=== PATIENT | female | born 1985 | race Caucasian/White ===

== ENCOUNTER 2022-10-29 09:11 | Emergency (ER) | payer BC, SELFPAY ==
[2022-10-29] VITALS (10 sets, daily range): BP systolic 91–107; BP diastolic 52–70; PULSE 70–81; RESP 20; TEMP 36; O2SAT 97–100; BMI 25.3
--- NOTE | 2022-10-29 09:39 | CRLHL7_ITS ---
For Patients: As a result of the Century Cures Act, medical imaging exams and procedure reports are released immediately into your electronic medical record. You may view this report before your referring provider. If you have questions, please contact your health care provider. INDICATION: Chest pain. TECHNIQUE: Chest 2 views. COMPARISON: None. FINDINGS: Cardiovascular and mediastinum: Heart size and vasculature are normal in caliber and appearance. Lungs and pleural spaces: Lungs are clear. No sign of infiltrate or mass. No sign of pleural effusion. No pneumothorax. Bones and soft tissues: No significant findings. IMPRESSION: No acute or significant findings. Dictated by Tom Youssef MD @ 10/29/2022 10:28:34 AM (Electronically Signed)
[2022-10-29] MEDS: 0.9 % SODIUM CHLORIDE 1000 ml 1,000 ML IV (09:57)
[2022-10-29 10:07] LABS: Basophils Absolute Auto 0.03 K/uL (0.00-0.30); Basophils Percent Auto 0.4 % (0.0-3.0); Eosinophils Absolute Auto 0.13 K/uL (0.00-0.50); Eosinophils Percent Auto 1.7 % (0.0-7.0); Hematocrit 39.9 % (33.0-51.0); Hemoglobin* 13.4 gm/dL (12.0-16.0); Immature Granulocytes Abs Auto 0.01 K/uL (0.00-0.30); Immature Granulocytes Pct Auto 0.1 %; Lymphocytes Percent Auto 15.1 % (20-44); Mean Corpuscular HGB Conc 34 gm/dL (32-36); Mean Corpuscular Hemoglobin 30 pg (26-34); Mean Corpuscular Volume 90 fL (80-100); Monocytes Percent Auto 5.6 % (0.0-11.0); Neutrophils Percent Auto 77.1 % (42.0-72.0); Platelet Count* 223 K/uL (140-440); RDW Coefficient of Variation % 12.3 % (11.5-15.5); Red Blood Count 4.45 m/uL (4.00-5.20); White Blood Count* 7.46 K/uL (4.50-11.00)
[2022-10-29 10:12] LABS: Slide Review Reflex No
--- NOTE | 2022-10-29 10:18 | ED.ARRPALP ---
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 She has had this for about a week on off, seems to occur randomly but worse in the last 48 hours. No chest pain, no shortness of breath, no history of recent URI type symptoms sore throat coughing wheezing fevers chills in the last 4-6 weeks. Denies any rashes associated with this the pain is not worse when she sits upper lays back. She has never had this before, would becoming rather unbearable while she works. She has no past history of any cardiac disease personally there is no family history of cardiac disease she is not on control pills she is a nonsmoker, no use of drugs, or alcohol. She is undergoing a divorce and this is somewhat stressful she says. She is wondering if this is anxiety. complaint: skipped beats, palpitations and irregular heart beat Onset (ago): week(s) Duration: intermittent Severity: moderate Context: occurred during rest and occurred during exertion Associated symptoms: denies other symptoms Related Data Previous Rx's Medication Instructions Recorded propranolol 10 mg tablet 10 mg PO BID PRN #60 tabs 10/29/22 Allergies Allergy/AdvReac Type Severity Reaction Status Date / Time Penicillins Allergy Verified 10/29/22 09:19 Sulfa (Sulfonamide Allergy Verified 10/29/22 09:19 Antibiotics) Review of Systems Status of ROS: Reports: 10 or more systems reviewed and unremarkable except as noted in History and below PFSH PFS Social History Smoking Status: Never smoker Do you use any of these nicotine containing products: None Second hand tobacco smoke exposure: No How often do you have a drink containing alcohol: never How often do you have six or more drinks on one occasion: Never AUDIT-C Alcohol total score: 0 Non-prescribed substance use: denies use service: No Exam Narrative: Exam Narrative: Patient is speaking normally, no problem with slurring words, oriented x3. Head eyes ears nose and throat exam show equal pupils, no scleral icterus, extraocular muscles are normal, no facial droop, speech is normal, trachea normal and midline. Thyroid normal midline palpable not enlarged. Chest shows symmetrical rise bilaterally, normal auscultation with no wheezes, no increased work of breathing, no overt bruising or lesions seen, no tenderness is noted on auscultation. Heart sounds normal with no S3-S4 no murmurs clicks or gallops. Abdomen shows no obvious masses or hepatosplenomegaly, no organomegaly, bowel sounds are normal in all quadrants. No tenderness is noted also in all quadrants. Upper and lower extremities show normal power, normal range of motion, pulses are normal, sensations normal, fine motor movements are normal, pelvis is stable to rocking. Cervical spine shows normal range of motion, and palpably not tender. Thoracic spine shows normal range of motion, and palpably not tender, lumbar spine shows no tenderness to palpation percussion and is otherwise normal range of motion. Skin shows no rashes, petechiae or eccymosis. When I was watching her in the room, her monitor shows that she is having PACs. Const: Vital Signs, click to edit/add: Vital Signs - 24 hr 10/29/22 09:19 10/29/22 11:52 10/29/22 10:11 Temperature 96.8 F L Pulse Rate 73 Pulse Rate [Pulse Oximeter] 71 Respiratory Rate 20 Blood Pressure Blood Pressure [Ri ght Upper Arm] 107/70 Pulse Oximetry 100 97 100 Oxygen Delivery [facility] Room Air 10/29/22 10:38 10/29/22 11:00 10/29/22 11:02 Temperature Pulse Rate 70 70 78 Pulse Rate [Pulse Oximeter] Respiratory Rate Blood Pressure 104/65 Blood Pressure [Ri ght Upper Arm] Pulse Oximetry 100 100 100 Oxygen Delivery [facility] 10/29/22 11:30 10/29/22 11:32 10/29/22 11:33 Temperature Pulse Rate 80 81 79 Pulse Rate [Pulse Oximeter] Respiratory Rate Blood Pressure 98/63 Blood Pressure [Ri ght Upper Arm] Pulse Oximetry 100 100 100 Oxygen Delivery [facility] 10/29/22 12:07 Temperature Pulse Rate Pulse Rate [Pulse Oximeter] Respiratory Rate Blood Pressure 91/52 L Blood Pressure [Ri ght Upper Arm] Pulse Oximetry Oxygen Delivery Me thod Documenting provider has reviewed patient's vital signs: yes Course Course Hospital Course: I discussed with the patient, there is no acute finding seen on her blood test, she has remained stable here, I do believe she is having PACs, we could try little bit a low-dose beta-ajime, to see if would help her, she does have a lowish blood pressure, and warned her about the possible effects of syncope with this, although it is more heart rate related. I would recommend follow-up with primary care, there was no abnormalities seen on her point of care ultrasound also. Vital Signs Vital signs: Initial Vital Signs Temperature 96.8 F L 10/29/22 09:19 Temperature Source Temporal Artery Scan 10/29/22 09:19 Pulse Rate 71 10/29/22 09:19 Pulse Rhythm 10/29/22 09:19 Respiratory Rate 20 10/29/22 09:19 Blood Pressure 107/70 10/29/22 09:19 Blood Pressure Mean 82 10/29/22 09:19 Blood Pressure Position Supine 10/29/22 09:19 Pulse Oximetry 100 10/29/22 09:19 Oxygen Delivery Method 10/29/22 09:19 Vital Signs Temperature 96.8 F L 10/29/22 09:19 Pulse Rate 71 10/29/22 09:19 Respiratory Rate 20 10/29/22 09:19 Blood Pressure 107/70 10/29/22 09:19 Pulse Oximetry 100 10/29/22 09:19 Oxygen Delivery Method 10/29/22 09:19 Temperature 96.8 F L 10/29/22 09:19 Pulse Rate 79 10/29/22 11:33 Respiratory Rate 20 10/29/22 09:19 Blood Pressure 91/52 L 10/29/22 12:07 Pulse Oximetry 97 10/29/22 11:52 Oxygen Delivery Method 10/29/22 09:19 MDM - Arrhythmia/Palpitations MDM Narrative Medical decision making narrative: Differential diagnosis includes but is not limited to psychosocial stress, thyroid abnormalities, CHF, SVT, atrial fibrillation, ventricular tachycardia and ventricular fibrillation. This includes the life-threatening complications of heart failure, V-tach, and VFib Medical Records Attestation: I reviewed the patient's medical records. Lab Data Attestation: I reviewed the patient's lab results. Labs: Lab Results 10/29/22 10/29/22 10/29/22 Range/Units 09:50 09:50 09:50 WBC 7.46 (4.50-11.00) K/uL RBC 4.45 (4.00-5.20) m/uL Hgb 13.4 (12.0-16.0) gm/dL Hct 39.9 (33.0-51.0) % MCV 90 (80-100) fL MCH 30 (26-34) pg MCHC 34 (32-36) gm/dL RDW Coeff of Xochitl 12.3 (11.5-15.5) % Plt Count 223 (140-440) K/uL Neut % (Auto) 77.1 H (42.0-72.0) % Lymph % (Auto) 15.1 L (20-44) % [place] % (Auto) 5.6 (0.0-11.0) % Eos % (Auto) 1.7 (0.0-7.0) % Baso % (Auto) 0.4 (0.0-3.0) % Neut # (Auto) 5.80 (1.7-7.0) K/uL Lymph # (Auto) 1.10 (0.90-2.90) K/uL [place] # (Auto) 0.40 (0.00-0.90) K/UL Eos # (Auto) 0.13 (0.00-0.50) K/uL Baso # (Auto) 0.03 (0.00-0.30) K/uL D-Dimer Quant (PE/DVT) < 0.27 (0.00-0.50) ug/ml Sodium 138 (135-149) mmol/L Potassium 3.9 (3.6-5.1) mmol/L Chloride 107 (96-114) mmol/L Carbon Dioxide 25 (20-32) mmol/L BUN 8 (5-24) mg/dL Creatinine 0.7 (0.5-1.5) mg/dL Estimated Creat Clear 99.01 Estimated GFR 114 ml/min Glucose 84 (60-115) mg/dL Calcium 9.1 (8.4-10.6) mg/dL C-Reactive Protein 0.6 (0.5-1.0) mg/dL NT-Pro-B Natriuret Pep pg/mL TSH (0.270-4.20) uIU/mL HCG, Qual (Negative) Urine Opiates Screen (Negative) Ur Oxycodone Screen (Negative) Urine Methadone Screen (Negative) Ur Propoxyphene Screen (Negative) Ur Barbiturates Screen (Negative) U Tricyclic Antidepress (Negative) Ur Phencyclidine Scrn (Negative) Ur Amphetamines Screen (Negative) U Methamphetamines Scrn (Negative) U Benzodiazepines Scrn (Negative) Urine Cocaine Screen (Negative) U Marijuana (THC) Screen (Negative) Ur Drug Screen Comment SARS-CoV-2 (PCR) (Negative) Influenza Type A (PCR) (Negative) Influenza Type B (PCR) (Negative) RSV (PCR) (Negative) POC Troponin I (0.01-0.04) ng/ml 10/29/22 10/29/22 10/29/22 Range/Units 09:50 09:50 09:50 WBC (4.50-11.00) K/uL RBC (4.00-5.20) m/uL Hgb (12.0-16.0) gm/dL Hct (33.0-51.0) % MCV (80-100) fL MCH (26-34) pg MCHC (32-36) gm/dL RDW Coeff of Xochitl (11.5-15.5) % Plt Count (140-440) K/uL Neut % (Auto) (42.0-72.0) % Lymph % (Auto) (20-44) % [place] % (Auto) (0.0-11.0) % Eos % (Auto) (0.0-7.0) % Baso % (Auto) (0.0-3.0) % Neut # (Auto) (1.7-7.0) K/uL Lymph # (Auto) (0.90-2.90) K/uL [place] # (Auto) (0.00-0.90) K/UL Eos # (Auto) (0.00-0.50) K/uL Baso # (Auto) (0.00-0.30) K/uL D-Dimer Quant (PE/DVT) (0.00-0.50) ug/ml Sodium (135-149) mmol/L Potassium (3.6-5.1) mmol/L Chloride (96-114) mmol/L Carbon Dioxide (20-32) mmol/L BUN (5-24) mg/dL Creatinine (0.5-1.5) mg/dL Estimated Creat Clear Estimated GFR ml/min Glucose (60-115) mg/dL Calcium (8.4-10.6) mg/dL C-Reactive Protein (0.5-1.0) mg/dL NT-Pro-B Natriuret Pep 21 pg/mL TSH (0.270-4.20) uIU/mL HCG, Qual Negative (Negative) Urine Opiates Screen (Negative) Ur Oxycodone Screen (Negative) Urine Methadone Screen (Negative) Ur Propoxyphene Screen (Negative) Ur Barbiturates Screen (Negative) U Tricyclic Antidepress (Negative) Ur Phencyclidine Scrn (Negative) Ur Amphetamines Screen (Negative) U Methamphetamines Scrn (Negative) U Benzodiazepines Scrn (Negative) Urine Cocaine Screen (Negative) U Marijuana (THC) Screen (Negative) Ur Drug Screen Comment SARS-CoV-2 (PCR) Negative SARS-CoV-2 (Negative) Influenza Type A (PCR) Negative PCR FLU A (Negative) Influenza Type B (PCR) Negative PCR FLU B (Negative) RSV (PCR) Negative PCR RSV (Negative) POC Troponin I (0.01-0.04) ng/ml 10/29/22 10/29/22 10/29/22 Range/Units 09:50 09:50 10:41 WBC (4.50-11.00) K/uL RBC (4.00-5.20) m/uL Hgb (12.0-16.0) gm/dL Hct (33.0-51.0) % MCV (80-100) fL MCH (26-34) pg MCHC (32-36) gm/dL RDW Coeff of Xochitl (11.5-15.5) % Plt Count (140-440) K/uL Neut % (Auto) (42.0-72.0) % Lymph % (Auto) (20-44) % [place] % (Auto) (0.0-11.0) % Eos % (Auto) (0.0-7.0) % Baso % (Auto) (0.0-3.0) % Neut # (Auto) (1.7-7.0) K/uL Lymph # (Auto) (0.90-2.90) K/uL [place] # (Auto) (0.00-0.90) K/UL Eos # (Auto) (0.00-0.50) K/uL Baso # (Auto) (0.00-0.30) K/uL D-Dimer Quant (PE/DVT) (0.00-0.50) ug/ml Sodium (135-149) mmol/L Potassium (3.6-5.1) mmol/L Chloride (96-114) mmol/L Carbon Dioxide (20-32) mmol/L BUN (5-24) mg/dL Creatinine (0.5-1.5) mg/dL Estimated Creat Clear Estimated GFR ml/min Glucose (60-115) mg/dL Calcium (8.4-10.6) mg/dL C-Reactive Protein (0.5-1.0) mg/dL NT-Pro-B Natriuret Pep pg/mL TSH 0.814 (0.270-4.20) uIU/mL HCG, Qual (Negative) Urine Opiates Screen Negative (Negative) Ur Oxycodone Screen Negative (Negative) Urine Methadone Screen Negative (Negative) Ur Propoxyphene Screen Negative (Negative) Ur Barbiturates Screen Negative (Negative) U Tricyclic Antidepress Negative (Negative) Ur Phencyclidine Scrn Negative (Negative) Ur Amphetamines Screen Negative (Negative) U Methamphetamines Scrn Negative (Negative) U Benzodiazepines Scrn Negative (Negative) Urine Cocaine Screen Negative (Negative) U Marijuana (THC) Screen Negative (Negative) Ur Drug Screen Comment See Note SARS-CoV-2 (PCR) (Negative) Influenza Type A (PCR) (Negative) Influenza Type B (PCR) (Negative) RSV (PCR) (Negative) POC Troponin I 0.00 L (0.01-0.04) ng/ml Imaging Data Chest x-ray: Attestation: I have reviewed the pertinent imaging results. My impression: Chest x-ray shows no acute findings Radiologist's impression: atient: HORACIO DUNBAR Facility:?[facility] Patient ID:?[id number] Site Patient ID:?[id number]. Site :?1985 Study:?XRay Chest 2V-10/29/2022 10:20:26 AM Ordering Physician:Yoel Jara Final Report: INDICATION: Chest pain. TECHNIQUE: Chest 2 views. COMPARISON: None. FINDINGS: Cardiovascular and mediastinum: Heart size and vasculature are normal in caliber and appearance. Lungs and pleural spaces: Lungs are clear. No sign of infiltrate or mass. No sign of pleural effusion. No pneumothorax. Bones and soft tissues: No significant findings. IMPRESSION: No acute or significant findings. Dictated by Tom Youssef MD @ 10/29/2022 10:28:34 AM (Electronic Signature) ECG Data Attestation: I personally reviewed and interpreted this ECG as follows: ECG interpretation date: 10/29/22 Interpretation: Normal sinus rhythm, normal EKG note, no acute ST wave changes, there is occasional PACs noted. This is only on the rhythm strip. Discharge Plan Discharge Clinical Impression: Palpitations, Atrial premature beats Patient Disposition: Home, Self-Care Condition: Stable Instructions: Heart Palpitations (ED), Premature Atrial Contractions (ED) Additional Instructions: Home rest lots of fluids, we will try the propranolol you can take this twice daily, as needed, it will slow down her heart rate slightly, and also know that if you feeling like you are going to pass out I would stop the medication as this can be also side effect. The other side effect is bronchospasm or causing wheezing, II recommend follow-up with primary care, to discuss this. Prescriptions: New propranolol 10 mg tablet 10 mg PO BID PRNQty: 60 2RF Follow Up/Referrals: Provider,Not a Local [Primary Care Provider] - Stand Alone Forms: [employer] Info Instructions Procedures Ultrasound Cardiac exam #1: Anatomical areas examined: subxiphoid, parasternal long, parasternal short and apical 4 chamber Indications: chest pain Exam type: limited transthoracic echocardiogram Impression: negative exam
[2022-10-29 10:39] LABS: Chloride* 107 mmol/L (96-114); Potassium* 3.9 mmol/L (3.6-5.1); Sodium* 138 mmol/L (135-149)
[2022-10-29 10:41] LABS: Creatinine* 0.7 mg/dL (0.5-1.5); Est. Creatinine Clearance* 99.01; Estimated Glomerular Filt Rate 114 ml/min
[2022-10-29 10:42] LABS: Blood Urea Nitrogen* 8 mg/dL (5-24); Carbon Dioxide* 25 mmol/L (20-32)
[2022-10-29 10:43] LABS: Calcium* 9.1 mg/dL (8.4-10.6); Glucose* 84 mg/dL (60-115)
[2022-10-29 10:45] LABS: C Reactive Protein* 0.6 mg/dL (0.5-1.0)
[2022-10-29 10:46] LABS: PCR FLU A Negative PCR FLU A (Negative); PCR FLU B Negative PCR FLU B (Negative); PCR RSV Negative PCR RSV (Negative)
[2022-10-29 10:57] LABS: Amphetamine Screen Urine Negative (Negative); Barbiturate Screen Urine Negative (Negative); Benzodiazepines Screen Urine Negative (Negative); Cannabinoid Screen Urine Negative (Negative); Cocaine Screen Urine Negative (Negative); Methadone Screen Urine Negative (Negative); Methamphetamines Screen Urine Negative (Negative); Opiate Screen Urine Negative (Negative); Oxycodone Screen Urine Negative (Negative); Phencyclidine Screen Urine Negative (Negative); Tricyclic Antidepressant Urine Negative (Negative)
[2022-10-29 10:58] LABS: HCG Qualitative* Negative (Negative)
[2022-10-29 11:09] LABS: SARS PCR* Negative SARS-CoV-2 (Negative)
[2022-10-29 11:30] LABS: D Dimer Quantitative* < 0.27 ug/ml (0.00-0.50)
[2022-10-29 11:33] LABS: NT Pro B Type NatriureticPept* 21 pg/mL
[2022-10-29 11:40] LABS: Thyroid Stimulating Hormone* 0.814 uIU/mL (0.270-4.20)
[2022-10-30 07:54] LABS: Appearance Urine Clear (Clear); Bilirubin Urine Negative (Negative); Blood Urine Trace-intact (Negative); Color Urine Yellow (Yellow); Glucose Urine Negative (Negative); Ketones Urine Negative (Negative); Leukocyte Esterase Urine Negative (Negative); Nitrite Urine Negative (Negative); Protein Urine Negative (Negative); Specific Gravity Urine 1.025 (1.000-1.030); Urobilinogen Urine 0.2 (0.2-1.0)
[2022-10-30 09:16] LABS: Bacteria Urine Few; RBC Urine 0-2 (0-2); Squamous Epithelial Cell Urine Few (None-Few); WBC Urine 0-2 (0-5)
[2022-10-30 09:17] LABS: Amorphous Sediment Urine Few
== END 2022-10-29 12:15 | disposition home or self-care (01) ==
PROVIDERS: Emergency Provider Family Medicine
DX: I49.1 Atrial premature depolarization (principal)
CPT/HCPCS: 36415; 71046; 80048; 80306; 81001; 83880; 84443; 84484; 84703; 85025; 85379; 86140; 87086; 87502; 87634; 87635; 93005; 93308; 94761; 99284; 99285; J7030

== ENCOUNTER 2024-07-14 01:06 | Outpatient (CLI) | payer BC, SELFPAY ==
--- OUTSIDE RECORDS SUMMARY | 2024-07-17 07:54 | XMS_ITS | Referral Summary ---
Author Organization [place] Address [address] [place] [address] Care Team Providers Care Prescription Clerk Name Role Phone Jess Garcias PA-C Primary Care Provider [phone] Lori Osorio NP Unavailable [phone] Jess Garcias PA-C Unavailable [phone] [facility] Unavailable [phone] 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 Gender Identity Female 01/03/2022 12:13 PM CDT [...] HEPATITIS C ANTIBODY Routine 10/25/2022 8:02 PM SCHOOL CURRICULUM DEVELOPER Screen for STD (sexually transmitted disease) COMPREHENSIVE METABOLIC PANEL Routine 10/29/2020 3:11 PM SCHOOL CURRICULUM DEVELOPER Arthralgia, unspecified joint Positive DELFINA (antinuclear antibody) [...] 05/07/2024 11:53 AM CDT Angel Rushing APRN DAY CARE HOME PROVIDER LAB - BLOOD ORDERABLES Taylor l Result [facility] 500 [facility] [address] Building, [address] [address], [place] * PAP Smear - HIM Patient [...] 01/14/2023 4:10 PM CDT Angel Rushing APRN DAY CARE HOME PROVIDER LAB - BLOOD ORDERABLES Taylor l Result [facility] SPECIALTY CORE/PROT/ENDO UM Specialty Core/Prot/Endo 500 [facility] [address] Building, Room [address] [address] [phone] * Hepatitis C antibody (10/25/2022 8:02 PM SCHOOL CURRICULUM DEVELOPER) Hepatitis C Antibody Nonreactive Nonreactive 10/26/2022 6:27 PM SCHOOL CURRICULUM DEVELOPER UM SPECIALTY CORE/PROT/EN DO Blood BLOOD SPECIMEN / Unknown Venipuncture / Unknown 10/25/2022 8:02 PM SCHOOL CURRICULUM DEVELOPER 10/25/2022 8:02 PM SCHOOL CURRICULUM DEVELOPER Narrative SPECIALTY CORE/PROT/ENDO - 10/26/2022 6:27 PM SCHOOL CURRICULUM DEVELOPER Assay performance characteristics have not been established for newborns, infants, and children. us Lilly Pak MD LAB - BLOOD ORDERABLES Final Re sult UM SPECIALTY CORE/PROT/ENDO Specialty Core/Prot/Endo 500 [facility] J Building, Room [address] [address], [facility] [phone] * (ABNORMAL) Comprehensive metabolic panel (BMP + Alb, Alk Phos, ALT, AST, Total. Bili, TP) (10/29/2020 3:11 PM SCHOOL CURRICULUM DEVELOPER) Sodium 141 133 - 144 mmol/L 10/30/2020 12:39 PM [facility] Potassium 3.4 3.4 - 5.3 mmol/L 10/30/2020 12:39 PM [facility] Chloride 110(H) 94 - 109 mmol/L 10/30/2020 12:39 PM [facility] Carbon Dioxide 26 20 - 32 mmol/L 10/30/2020 1:01 PM [facility] Anion Gap 5 3 - 14 mmol/L 10/30/2020 1:01 PM [facility] Glucose 81 70 - 99 mg/dL 10/30/2020 1:01 PM [facility] Comment:Non Fasting Urea Nitrogen 8 7 - 30 mg/dL 10/30/2020 1:01 PM [facility] Creatinine 0.70 0.52 - 1.04 mg/dL 10/30/2020 1:01 PM [facility] GFR Estimate >90 >60 mL/min/{1 .73_m2} 10/30/2020 1:01 PM [facility] Comment: Non GFR Calc Starting 08/29/2018, serum creatinine based estimated GFR (eGFR) will be calculated using the Chronic Kidney Disease Epidemiology Collaboration (CKD-EPI) equation. GFR Estimate If Black >90 >60 mL/min/{1 .73_m2} 10/30/2020 1:01 PM SCHOOL CURRICULUM DEVELOPER [facility] Comment: GFR Calc Starting 08/29/2018, serum creatinine based estimated GFR (eGFR) will be calculated using the Chronic Kidney Disease Epidemiology Collaboration (CKD-EPI) equation. Calcium 9.0 8.5 - 10.1 mg/dL 10/30/2020 1:01 PM SCHOOL CURRICULUM DEVELOPER [facility] Bilirubin Total 0.4 0.2 - 1.3 mg/dL 10/30/2020 1:05 PM SCHOOL CURRICULUM DEVELOPER [facility] Albumin 3.9 3.4 - 5.0 g/dL 10/30/2020 1:05 PM [facility] Protein Total 7.3 6.8 - 8.8 g/dL 10/30/2020 1:05 PM SCHOOL CURRICULUM DEVELOPER [facility] Alkaline Phosphatase 67 40 - 150 U/L 10/30/2020 1:05 PM SCHOOL CURRICULUM DEVELOPER [facility] ALT 14 0 - 50 U/L 10/30/2020 1:05 PM SCHOOL CURRICULUM DEVELOPER [facility] AST 7 0 - 45 U/L 10/30/2020 1:05 PM SCHOOL CURRICULUM DEVELOPER [facility] Blood specimen (specimen) 10/29/2020 3:11 PM SCHOOL CURRICULUM DEVELOPER 10/29/2020 3:12 PM SCHOOL CURRICULUM DEVELOPER us Ana Cristina Duldey MD LAB - BLOOD ORDERABLES Taylor l Result [facility] [address] [place] [address] * HPV High Risk Types DNA Cervical (12/28/2017 2:23 PM CDT) HPV Source SurePath 12/28/2017 2:25 PM CDT [facility] HPV 16 DNA Negative NEG^Nega tive 01/04/2018 7:44 AM CDT [facility] HPV 18 DNA Negative NEG^Nega tive 01/04/2018 7:44 AM CDT [facility] Other HR HPV Negative NEG^Nega tive 01/04/2018 7:44 AM CDT [facility] Final Diagnosis This patient's sample is negative for HPV DNA. 01/04/2018 7:44 AM CDT [facility] Comment: This test was developed and its performance characteristics determined by the [facility], Molecular Diagnostics Laboratory. It has not been [...] Description Cervical Cells 01/02/2018 9:34 AM CDT [facility] Comment:[id number] Cervical Cells 12/28/2017 2: 23 PM CDT 12/28/2017 2:27 PM CDT us Jess Garcias PA-C LAB - BLOOD ORDERABLES Fin al Result [facility] [address] [place] [address] [facility] [id number] [place] [address] from Last 3 Months or Most Recently Relevant to Health Maintenance Insurance [place] * Guarantor: Rosa Adamson Account Type Relation to Patient Date of Phone Billing Address Medication Therapy Self 1985 [address] [place] [address] Care Teams Prescription Clerk Relationship Specialty Start Date End Date Jess Garcias PA-C [address] [place] [address] PCP - General Physician Quality Consultant 12/19/13 Lori Osorio NP [facility] [address] [place] [address] Nurse Practitioner Nurse Practitioner Psych/Mental Health 04/11/17 Jess Garcias PA-C [address] [place] [address] Assigned PCP 01/18/21 [facility] [address] [place] [address] Pharmacist Pharmacist 08/13/22 [facility] [address] [place] [address] Assigned MTM Pharmacist 09/17/23 Britany Sanders, VEL [address] [place] [address]/ [address] [place] [address] Assigned Behavioral Health Provider 01/03/24 Milton Dawkins APRN DAY CARE HOME PROVIDER [address] [place] [address] Nurse Practitioner Otolaryngology 05/08/24
--- OUTSIDE RECORDS SUMMARY | 2024-07-17 07:54 | XMS_ITS | Encounter Summary ---
Author Organization [place] Address [address] [place] [address] Care Team Providers Care Home And School Visitor Name Role Phone Jess Garcias PA-C Primary Care Provider + [phone] JoLori chavez NP Unavailable [phone] Jess Garcias PA-C Unavailable [phone] Ronel Escoto [facility] Unavailable [phone] Ronel Escoto [facility] Unavailable [phone] [facility] Unavailable [phone] Reason for Referral * Consultation (Urgent: 3-5 Days) - Pending Review Specialty Diagnoses / Procedures Referred By Kylee leung Referred To Contact Otolaryngology Diagnoses Dysphagia, unspecified type Angel Rushing APRN INTEGRATED CIRCUIT IC LAYOUT DESIGNER [address] [place] [address] Phone: tel: fax: Referral ID Status Reason Start Date Expiration Date V isits Requested Visits Authorized [id number] Pending Review 05/07/2024 05/07/2025 1 1 Question Answer Reason for Referral: Voice/Throat Scheduling Instructions: [facility] will call you to coordinate your care as prescribed by the provider. If you don? t hear from a construction sales representative within 2 business days, please call [phone]. Additional Information: dysphagia sensation Comments Please be aware that coverage of these services is subject to the terms and limitations of your health insurance plan. Call member services at your health plan with any benefit or coverage questions. [facility] will call you to coordinate your care as prescribed by the provider. If you don? t hear from a construction sales representative within 2 business days, please call [phone]. [facility] will call you to coordinate your care as prescribed by the provider. If you don? t hear from a construction sales representative within 2 business days, please call [phone]. 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 Plan: Adult ENT Personal Lines Underwriter Referral (Z80.8) Family history of thyroid cancer [...] following services have beencompleted -Cervical Cancer Screening: web communications specialist 2024-01-11, this information has been sent [...] Associated Diagnoses Orde r Schedule Adult ENT Personal Lines Underwriter Referral Referral Urgent: 3-5 Days Dysphagia, unspecified [...] BLOOD ORDERABLES Taylor moya Result [facility] 500 [facility], Room [address] [phone] documented in this encounter Visit Diagnoses Diagnosis Dysphagia, unspecified type- Primary Family history of thyroid cancer Family history of other specified malignant neoplasm documented in this encounter Additional Health Concerns Assessment Noted Time PHQ-9 Depression Total Score: 7 05/07/20 11:14 AM CDT documented as of this encounter Care Teams Home And School Visitor Relationship Specialty Start Date End Date Jess Garcias PA-C [address] [place], [place] [id number] PCP - General Physician Surgical Forceps Fabricator 12/19/13 Lori Osorio NP [address] [address] Nurse Practitioner Nurse Practitioner Psych/Mental Health 04/11/17 Jess Garcias PA-C [address] [place] [address] Assigned PCP 01/18/21 Ronel Escoto [facility] [address] [place], [place] [address] Pharmacist Pharmacist 08/13/22 Ronel Escoto [facility] [place], [place] [address] Assigned MTM Pharmacist 09/17/23 Britany Sanders, BROADCAST NEWS PRODUCER [facility] [address]/ [address] [place] [address] Assigned Behavioral Health Provider 01/03/24 documented as of this encounter
--- OUTSIDE RECORDS SUMMARY | 2024-07-17 07:54 | XMS_ITS | Encounter Summary ---
Author Organization [place] Address [address] [place] [address] Care Team Providers Care Extract Operator Name Role Phone Jess Garcias PA-C Primary Care Provider + [phone] JoLori chavez NP Unavailable [phone] Jess Garcias PA-C Unavailable [phone] Ronel Escoto [facility] Unavailable [phone] Ronel Escoto [facility] Unavailable [phone] 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 Gender Identity Female 01/03/2022 12:13 PM CDT Sexual Orientation Straight 12/03/2022 2: 48 PM CDT documented as of this encounter Plan of Treatment Not on file documented as of this encounter Visit Diagnoses Not on filedocumented in this encounter Additional Health Concerns Assessment Noted Time PHQ-9 Depression Total Score: 7 05/07/20 11:14 AM CDT documented as of this encounter Care Teams Extract Operator Relationship Specialty Start Date End Date Jses Garcias PA-C [address] [place] [address] PCP - General Physician Seafood Specialist 12/19/13 Lori Osorio NP [address] [address] Nurse Practitioner Nurse Practitioner Psych/Mental Health 04/11/17 Jess Garcias PA-C [address] [place] [address] Assigned PCP 01/18/21 Ronel Escoto [facility] [address] [place] [address] Pharmacist Pharmacist 08/13/22 Ronel Escoto [facility] [address] [place] [address] Assigned MTM Pharmacist 09/17/23 Britany Sanders LICSW [address] [place] [address]/ [address] [place] [address] Assigned Behavioral Health Provider 01/03/24 documented as of this encounter
--- OUTSIDE RECORDS SUMMARY | 2024-07-17 07:54 | XMS_ITS | Encounter Summary ---
Author Organization [place] Address [address] [place] [address] Care Team Providers Care Claim Taker Name Role Phone Jess Garcias PA-C Primary Care Provider + [phone] JoLori chavez NP Unavailable [phone] Jess Garcias PA-C Unavailable [phone] Ronel Escoto [facility] Unavailable [phone] Ronel Escoto [facility] Unavailable [phone] Britany Sanders [facility] Unavailable [phone] Encounter Details Date Type Department Care Team (Late st Contact Info) Description 04/12/2024 Telephone [facility] Services - Behavioral Service Line [address] [place] [address] Sandra Elder Social History Tobacco Use [...] PM CDT 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 [facility] for patient regarding follow up, left [facility] [...] documented as of this encounter Care Teams Claim Taker Relationship Specialty Start Date End Date Jess Garcias PA-C [address] [place] [address] PCP - General Physician Fiction Writer 12/19/13 Lori Osorio NP [address] [address] Nurse Practitioner Nurse Practitioner Psych/Mental Health 04/11/17 Jess Garcias PA-C [address] [place] [address] Assigned PCP 01/18/21 Ronel Escoto [facility] [address] [place] [address] Pharmacist Pharmacist 08/13/22 Ronel Escoto [facility] [address] [place] [address] Assigned MTM Pharmacist 09/17/23 Britany Sanders, VEL [address] [place] [address]/ [address] [place] [address] Assigned Behavioral Health Provider 01/03/24 documented as of this encounter
--- OUTSIDE RECORDS SUMMARY | 2024-07-17 07:54 | XMS_ITS | Clinical Summary ---
Author Organization [place] Address [address] [place] [address] Care Team Providers Care Re Dye Hand Name Role Phone Jess Garcias PA-C Primary Care Provider [phone] JoLori chavez NP Unavailable [phone] Jess Garcias PA-C Unavailable [phone] Ronel Escoto [facility] Unavailable Ronel Escoto [facility] Unavailable [phone] TommyBritany poole ADA ACCOMMODATION CONSULTANT Unavailable [phone] Milton Dawkins APRN CLOUD PHYSICIST Unavailable Allergies Active Allergy Reactions Criticality Noted [...] Description 05/07/2024 11:30 AM CDT Office Visit [address] [address] Angel Rushing APRN CLOUD PHYSICIST Dysphagia, unspecified type (Primary Dx); Family history [...] PM CDT Legal Sex Female 10:10 AM PRICING ACTUARY Gender Identity Female 01/03/2022 12:13 PM CDT [...] HEPATITIS C ANTIBODY Routine 10/25/2022 8:02 PM PRICING ACTUARY Screen for STD (sexually transmitted disease) COMPREHENSIVE METABOLIC PANEL Routine 10/29/2020 3:11 PM PRICING ACTUARY Arthralgia, unspecified joint Positive DELFINA (antinuclear antibody) [...] 05/07/2024 11:53 AM CDT Angel Rushing APRN CLOUD PHYSICIST LAB - BLOOD ORDERABLES Taylor l Result [facility] [place] [facility] 500 [facility] J [facility], Room [address] [place] [address] * PAP Smear - HIM Patient [...] 01/14/2023 4:10 PM CDT Angel Rushing APRN CLOUD PHYSICIST LAB - BLOOD ORDERABLES Taylor l Result UM SPECIALTY CORE/PROT/ENDO UM Specialty Core/Prot/Endo 500 [facility] [address] Building, Room 3-[address] [phone] * Hepatitis C antibody (10/25/2022 8:02 PM PRICING ACTUARY) Hepatitis C Antibody Nonreactive Nonreactive 10/26/2022 6:27 PM PRICING ACTUARY SPECIALTY CORE/PROT/EN DO Blood BLOOD SPECIMEN / Unknown Venipuncture / Unknown 10/25/2022 8:02 PM PRICING ACTUARY 10/25/2022 8:02 PM PRICING ACTUARY Narrative SPECIALTY CORE/PROT/ENDO - 10/26/2022 6:27 PM PRICING ACTUARY Assay performance characteristics have not been established for newborns, infants, and children. us Lilly Pak MD LAB - BLOOD ORDERABLES Final Re sult SPECIALTY CORE/PROT/ENDO Specialty Core/Prot/Endo 500 [facility], Room [address] [phone] * (ABNORMAL) Comprehensive metabolic panel (BMP + Alb, Alk Phos, ALT, AST, Total. Bili, TP) (10/29/2020 3:11 PM PRICING ACTUARY) Pathologist [facility] Sodium 141 133 - 144 mmol/L 10/30/2020 12:39 PM [facility] Potassium 3.4 3.4 - 5.3 mmol/L 10/30/2020 12:39 PM [facility] Chloride 110(H) 94 - 109 mmol/L 10/30/2020 12:39 PM [facility] Carbon Dioxide 26 20 - 32 mmol/L 10/30/2020 1:01 PM [facility] Anion Gap 5 3 - 14 mmol/L 10/30/2020 1:01 PM [facility] Glucose 81 70 - 99 mg/dL 10/30/2020 1:01 PM [facility] Comment:Non Fasting Urea Nitrogen 8 7 - 30 mg/dL 10/30/2020 1:01 PM [facility] Creatinine 0.70 0.52 - 1.04 mg/dL 10/30/2020 1:01 PM [facility] GFR Estimate >90 >60 mL/min/{1 .73_m2} 10/30/2020 1:01 PM [facility] Comment: Non GFR Calc Starting 08/29/2018, serum creatinine based estimated GFR (eGFR) will be calculated using the Chronic Kidney Disease Epidemiology Collaboration (CKD-EPI) equation. GFR Estimate If Black >90 >60 mL/min/{1 .73_m2} 10/30/2020 1:[address] [facility] Comment: GFR Calc Starting 08/29/2018, serum creatinine based estimated GFR (eGFR) will be calculated using the Chronic Kidney Disease Epidemiology Collaboration (CKD-EPI) equation. Calcium 9.0 8.5 - 10.1 mg/dL 10/30/2020 1:01 PM [facility] Bilirubin Total 0.4 0.2 - 1.3 mg/dL 10/30/2020 1:05 PM [facility] Albumin 3.9 3.4 - 5.0 g/dL 10/30/2020 1:05 PM [facility] Protein Total 7.3 6.8 - 8.8 g/dL 10/30/2020 1:05 PM [facility] Alkaline Phosphatase 67 40 - 150 U/L 10/30/2020 1:05 PM [facility] ALT 14 0 - 50 U/L 10/30/2020 1:05 PM [facility] AST 7 0 - 45 U/L 10/30/2020 1:05 PM [facility] Blood specimen (specimen) 10/29/2020 3:11 PM PRICING ACTUARY 10/29/2020 3:12 PM PRICING ACTUARY us Ana Cristina Dudley MD LAB - BLOOD ORDERABLES Taylor moya Result [facility] [address] [place] [address] * HPV High Risk Types DNA Cervical (12/28/2017 2:23 PM CDT) HPV Source SurePath 12/28/2017 2:25 PM CDT [facility] HPV 16 DNA Negative NEG^Nega tive 01/04/2018 7:44 AM CDT [facility] HPV 18 DNA Negative NEG^Nega tive 01/04/2018 7:44 AM CDT [facility] Other HR HPV Negative NEG^Nega tive 01/04/2018 7:44 AM CDT [facility] Final Diagnosis This patient's sample is negative for HPV DNA. 01/04/2018 7:44 AM CDT [facility] Comment: This test was developed and its performance characteristics determined by the [facility], Molecular Diagnostics Laboratory. It has not [...] Description Cervical Cells 01/02/2018 9:34 AM CDT [facility] Comment:[id number] Cervical Cells 12/28/2017 2: 23 PM CDT 12/28/2017 2:27 PM CDT us Jess Garcias PA-C LAB - BLOOD ORDERABLES Fin al Result [facility] [address] [place] [address] [facility] [address] [place] [address] from Last 3 Months or Most Recently Relevant to Health Maintenance Insurance [place] * Guarantor: Rosa Adamson Account Type Relation to Patient Date of Phone Billing Address Medication Therapy Self 1985 [address] [place] [address] Care Teams Re Dye Hand Relationship Specialty Start Date End Date Jess Garcias PA-C [address] [place] [address] PCP - General Physician Manager Activities 12/19/13 Lori Osorio SPECIAL DUTY NURSE [facility] [address] [place] [address] Nurse Practitioner Nurse Practitioner Psych/Mental Health 04/11/17 Jess Garcias PA-C [address] [place] [address] Assigned PCP 01/18/21 Ronel Escoto [facility] [address] [place] [address] Pharmacist Pharmacist 08/13/22 Ronel Escoto [facility] [address] [place] [address] Assigned MTM Pharmacist 09/17/23 Britany Sanders, ADA ACCOMMODATION CONSULTANT [address] [place] [address]/ [address] [place] [address] Assigned Behavioral Health Provider 01/03/24 Milton Dawkins APRN CLOUD PHYSICIST [address] [place] [address] Nurse Practitioner Otolaryngology 05/08/24
--- OUTSIDE RECORDS SUMMARY | 2024-07-17 07:54 | XMS_ITS | Encounter Summary ---
Author Organization [facility] Address [address] [place] [address]. [place] [address] Care Team Providers Care Clothes Drier Repairer Name Role Phone Jess Garcias PA-C Primary Care Provider + [phone] JoLori chavez NP Unavailable Jess Garcias PA-C Unavailable [phone] Ronel Escoto [facility] Unavailable [phone] Ronel Escoto [facility] Unavailable [phone] Britany Sanders [facility] Unavailable [phone] Reason for Referral * Mental Health Outpatient (Routine: Next available opening) - Pending Review Specialty Diagnoses / Procedures Referred By Kylee leung Referred To Contact Diagnoses MDD (major depressive disorder), recurrent severe, without psychosis (H) Gregg Yost MD [address] [facility] [address] [place] [address] Phone: tel: fax: Referral ID Status Reason Start Date Expiration Date V isits Requested Visits Authorized [id number] Pending Review 04/11/2024 04/11/2025 1 1 Question Answer Services: Interventional Psychiatry Evaluate and Treat Difficult to Treat Depression Seeking ECT? Per Specialty Provider Scheduling Instructions: [facility] will call you to coordinate your care as prescribed by your provider. If you don't hear from a client relations representative within 2 business days, please call [phone]. Only select yes if the patient has [...] plan with any benefit or coverage questions. [facility] will call you to coordinate your care as prescribed by your provider. If you don't hear from a client relations representative within 2 business days, please call [phone]. * Mental Health Outpatient (Routine: Next available opening) - Pending Review Specialty Diagnoses / Procedures Referred By Kylee leung Referred To Contact Diagnoses MDD (major depressive disorder), recurrent severe, without psychosis (H) Gregg Yost MD [address] [address] Phone: tel: fax: Referral ID Status Reason Start Date Expiration Date V isits Requested Visits Authorized [id number] Pending Review 04/11/2024 04/11/2025 1 1 Question Answer Services: Psychological Testing Reason for Referral - REVIEW REFERENCE LINK BELOW: Psychological Testing My clinical question is: rule out bipolar 2 disorder and personality disorders Scheduling Instructions: [facility] will call you to coordinate your care as prescribed by your provider. If you don't hear from a client relations representative within 2 business days, please call [...] plan with any benefit or coverage questions. [facility] will call you to coordinate your care as prescribed by your provider. If you don't hear from a client relations representative within 2 business days, please call . Reason for Visit * Reason Comments Psychiatric Evaluation Suicidal * Auth/Cert (Routine) Specialty Diagnoses / Procedures Referred By Kylee leung Referred To Contact EMERGENCY MEDICINE Diagnoses Depression with suicidal ideation [facility] Emergency Dept [address] [place] [address] Phone: tel: fax: Referral ID Status Reason Start Date Expiration Date Visits Re quested Visits Authorized [id number] 1 1 Encounter Details Date Type Department Care Team (Late st Contact Info) Description 04/10/2024 6:41 PM CDT - 04/11/2024 12:15 PM CDT Emergency [facility] Emergency Dept [address] [place] [address] Pam Stauffer MD [facility] [address] [facility] [address] [place] [address] Gregg Yost MD [address] [place], [place] [address] Trish Campos, ANDRIA PUBLIC SPEAKING COACH [address] [place] [address] MDD (major depressive disorder), recurrent [...] PM CDT Legal Sex Female 10:10 AM EMERGENCY MEDICAL SERVICE COORDINATOR Gender Identity Female 01/03/2022 12:13 PM [...] pm - 4:00 pm Provider: Christopher HILLS IMPLEMENTATION MANAGER Location: [facility], [address] [address] Patient Instructions: For Telehealth we will need your paperwork before you are seen. Option to fill it out online but we'll need your email address. Email/fax/mail accepted. Type: Telepsychiatry Date/Time: 04/16/2024 @ 10:00 am - 11:00 am Provider: Dinah MARCH PUBLIC SPEAKING COACH,PMHNP Location: [address] , [facility] [address], [place] [address] Patient Instructions: Before your appointment, you must speak with our Intake Department. Our intake team will attempt to contact you. If you do not hear from them within 24 hours, please call them at and tell them you are a [facility] referral. If you do not speak with our Intake Department and complete the necessary paperwork they send you, we cannot see you at your scheduled appointment time. Aftercare Plan Follow up with established providers and supports as scheduled. Continue taking medications as prescribed. Abstain from drugs and alcohol. Utilize your [facility] crisis team as needed. They are available 04/04. Contact information is listed below. If I am feeling unsafe or I am in a crisis, I will: Contact my established care providers Call the [facility] Crisis Team: Call the National Suicide Prevention [...] use community resources including mental health hotlines, [facility] crisis teams, or apps. Things I [...] members of my community or place of mormon, mental health crisis lines, or 911 Your [facility] has a mental health crisis team you can call 04/04: [facility] Crisis Team, PH: Other things that are important when I???m in crisis: to remember that the feelings I am having right now are temporary, and it won't feel like this forever, and that it is okay and important to ask for help Crisis Lines Crisis Text Line Text 446098 You will be connected with a trained live crisis counselor to provide support. Por espanol, texto CELSA a 989381 o texto a 442-AYUDAME en WhatsApp National Hope Line 1.800.SUICIDE [2875786] Community Resources Fast Tracker Linking people to mental health and substance use disorder resources fasttrackermn.org [place] [facility] Warm Line Peer to peer support Tuesday thru Tuesday, 12 pm to 10 pm 168.380.3319 [place] [address] National [place] on Mental Illness (DENG) 328.042.9268 or 1.888.DENG.HELPS Mental Health Apps My3 https://myDrakerpp.org/ VirtualHopeBox https://Smart Education.org/apps/kwyhwrd-dtcb-qus/ Additional Information Today you were seen by a licensed mental health professional through Triage and Transition services, [facility] Providers (P) for a crisis assessment in the Emergency Department at [facility]. It is recommended that you follow up with your established providers (psychiatrist, mental health therapist, and/or primary care doctor - as relevant) as soon as possible. Coordinators from [facility] will be calling you in the next 24-48 hours to ensure that you have the resources you need. You can also contact [facility] coordinators directly at [phone]. You may have been scheduled for or offered an appointment with a mental health provider. [facility] maintains an extensive network of licensed [facility] providers to connect patients with the [...] for safety and completed safety plan with [facility]. All belongings which were brought into [...] to discharge home today. * Irma Curtis [facility] - 04/11/2024 10:42 AM CDT Triage and Transition Services Extended Care Reassessment Patient: Rosa goes by Rosa, uses she/her pronouns Date of Service: April 11, 2024 Site of Service: [facility] EMERGENCY DEPT EMP02 Patient was [...] no romantic partner. Pt shares with this global technical writer that she has been experiencing a [...] of pt's concern for their safety. This global technical writer provided education to pt about PTSD [...] no romantic partner. Pt shares with this global technical writer that she has been experiencing a [...] of pt's concern for their safety. This global technical writer provided education to pt about PTSD [...] PH: (DENEEN signed) Summary of Interaction: This global technical writer provided an update to Didi about [...] Substantiation: It is the recommendation of this global technical writer that pt discharge to follow-up with [...] 0750 Session Stop Time: 0830 CPT codes: 32419 - Psychotherapy (with patient) - 30 (16-37*) min Time Spent: 40 minutes CPT code(s) utilized: 43705 - Psychotherapy (with patient) - 30 (16-37*) [...] F33.2 Posttraumatic stress disorder F43.10 Irma Curtis [facility] Licensed Mental Health Professional (LMHP), [facility] [phone] documented in this encounter Consult Notes * [...] she/her/hers Race: White Ethnicity: Not or Language: Jordanian Patient was assessed: Virtual: iPad Crisis Assessment Start Date: 04/10/24 Crisis Assessment Start Time: 2099 Crisis Assessment Stop Time: 2129 Patient location: [facility] EMERGENCY DEPT EMP02 Referral Data [...] System: Limited to (aunt and uncle in [place], friend Didi) Employment Status: employed full-time Source [...] recent treatment: Meds currently managed by PCP. [place] better and went off meds several months [...] safety/aftercare planning: Additional collateral information: Risk Assessment [place] Suicide Severity Rating Scale Full Clinical Version: [...] No Preparatory Acts or Behavior (Lifetime): No [place] Suicide Severity Rating Scale Recent: Suicidal Ideation [...] (aunt and uncle (primary supports) moved to [place]) Protective Factors: Protective Factors: responsibilities and duties [...] Garcias PA-C as PCP - General (Physician Customer Success Advocate) Lori Osorio NP as Nurse Practitioner (Nurse [...] the patient: 30 min CPT code(s) utilized: 11727 - Psychotherapy for Crisis - 60 (30-74*) min VEL Adam, Psychotherapist DEC - Triage & Transition Services Callback: [phone] documented in this encounter ED Notes * Gregg Yost MD - 04/11/2024 10:18 AM CDT [facility] Observation Note and Discharge Summary [facility] Emergency Department Observation Initiation Date: Apr 10, [...] tried TMS, ketamine, ECT. She has completed Betyah testing and notes that the results have [...] have reviewed the assessment completed by the [facility]. During the observation period, the patient [...] stable housing, employment -- Gregg Yost MD [facility] EMERGENCY DEPT EmPATH Unit Gregg Yost MD 04/11/24 1030 * Johny Marcelo RN - 04/11/2024 7:30 AM CDT Pt slept through the night uneventfully. No signs of distress noted. * Shamika Machado RN - 04/10/2024 8:50 PM CDT This global technical writer spent some time talking with patient [...] Atarax Surgical History Cholecystectomy, laparoscopic x2 Colonoscopy Salyer teeth extraction Physical Exam Patient Vitals for [...] Documentation None Medical Decision Making / Diagnosis [facility] Diagnoses: None MIPS None MDM Rosa [...] empath. [facility] ICD-10-CM 1. Depression with suicidal ideation [...] Diagnoses Orde r Schedule Adult Mental Health Prop Maker Referral Referral Routine: Next available opening MDD (major depressive disorder), recurrent severe, without psychosis (H) Expected: 04/11/2024 (Approximate), Expires: 07/12/2024 Adult Mental Health Prop Maker Referral Referral Routine: Next available opening MDD [...] documented as of this encounter Care Teams Clothes Drier Repairer Relationship Specialty Start Date End Date Jess Garcias PA-C [address] [place] [address] PCP - General Physician Customer Success Advocate 12/19/13 Lori Osorio NP [place] [address] [place], [place] [address] Nurse Practitioner Nurse Practitioner Psych/Mental Health 04/11/17 Jess Garcias PA-C [address] [place] [address] Assigned PCP 01/18/21 Ronel Escoto [facility] [address] [place] [address] Pharmacist Pharmacist 08/13/22 Ronel Escoto [facility] [address] [place] [address] Assigned MTM Pharmacist 09/17/23 Britany Sanders, VLE [address]/ [address] [place] [id number] Assigned Behavioral Health Provider 01/03/24 documented as of this encounter
--- OUTSIDE RECORDS SUMMARY | 2024-07-17 07:55 | XMS_ITS | Encounter Summary ---
Author Organization [facility] Address [address] [place] [address] Care Team Providers Care Supervisor Tan Room Name Role Phone Jess Garcias PA-C Primary Care Provider JoLori chavez NP Unavailable [phone] Jess Garcias PA-C Unavailable [phone] Ronel Escoto RPH Unavailable [phone] Sue Novoa PharmD Unavailable Sue Novoa PharmD Unavailable Ronel Escoto RPH Unavailable [phone] Thiago Wilks PsyD Unavailable Unavaila rk Cadena, Joana DO Unavailable Thiago Wilks PsyD Unavailable Unavaila Sue Roldan PharmD Unavailable Sue Novoa PharmD Unavailable [phone] Christiane King RPH Unavailable Tammi, Joana DO Unavailable Elvi Sandoval PA-C Unavailable [phone] Ronel Escoto RPH Unavailable [phone] Britany Sanders ELEMENTARY ASSISTANT TEACHER Unavailable [phone] Milton Dawkins APRN PULPER OPERATOR Unavailable [phone] Encounter Details Date Type Department Care Team (Late st Contact Info) Description 11/05/2022 MyC Medical Advice [facility] [address] [place] [address] Sue Novoa, PharmD [address] [place] [address] Social History Tobacco Use Types Packs/Day Years [...] PM CDT Legal Sex Female 10:10 AM GRAVEL ROOFER Gender Identity Female 01/03/2022 12:13 PM CDT Sexual Orientation Straight 12/03/2022 2: 48 PM CDT COVID-19 Exposure Response Date Recorded In the last 10 days, have yo u been in contact with someone who was confirmed or suspected to have Coronavirus/COVID-19? No / Unsure 10/25/2022 7:15 PM GRAVEL ROOFER documented as of this encounter Plan of Treatment Not on file documented as of this encounter Visit Diagnoses Not on filedocumented in this encounter Additional Health Concerns Assessment Noted Time PHQ-9 Depression Total Score: 2 07/15/20 22 9:24 AM CDT documented as of this encounter Care Teams Supervisor Tan Room Relationship Specialty Start Date End Date Jess Garcias PA-C [address] [place] [address] PCP - General Physician Computer Repairer 12/19/13 Lori Osorio NP [place] [address] [place] [address] Nurse Practitioner Nurse Practitioner Psych/Mental Health 04/11/17 Jess Garcias PA-C [address] [place] [address] Assigned PCP 01/18/21 Ronel Escoto, [facility] [address] [place] [address] Pharmacist Pharmacist 08/13/22 Sue Novoa, JanD [address] [place] [address] [place] Pharmacist Pharmacist 10/22/22 03/11/23 Sue Novoa, PharmD [address] [place] [address] Assigned [place] Pharmacist 10/30/22 01/07/23 Ronel Escoto [facility] [address] [place] [address] Assigned MTM Pharmacist 01/08/23 01/14/23 Thiago Wilks PsyD Assigned Behavioral Health Provider 12/11/22 01/07/23 Joana Cadena DO [facility] [place] [address] Assigned Behavioral Health Provider 01/08/23 01/14/23 Thiago Wilks PsyD Assigned Behavioral Health Provider 01/15/23 06/17/23 Sue Novoa, PharmD [address] [place] [address] Assigned MTM Pharmacist 01/15/23 02/04/23 Sue Novoa, JanD [address] [place] [address] Assigned MTM Pharmacist 02/05/23 09/16/23 Christiane King [facility] MTM [address] [place] [address] Pharmacist Pharmacist 03/11/23 03/27/23 Joana Cadena DO [address] [place] [address] [place] [address] Assigned Behavioral Health Provider 06/18/23 01/02/24 Elvi Sandoval PA-C [address] [place] [address] Assigned Neuroscience Provider 08/06/23 10/05/23 Ronel Escoto [facility] [address] [place] [address] Assigned MTM Pharmacist 09/17/23 Britany Sanders [facility] [address] [place] [address]/ [address] [place] [address] Assigned Behavioral Health Provider 01/03/24 Milton Dawkins APRN PULPER OPERATOR [address] [place] [address] Nurse Practitioner Otolaryngology 05/08/24 documented as of this encounter
--- OUTSIDE RECORDS SUMMARY | 2024-07-17 07:55 | XMS_ITS | Encounter Summary ---
Author Organization [facility] Address [address] [place] [address] Care Team Providers Care Senior Lead Project Manager Name Role Phone Jess Garcias PA-C Primary Care Provider JoLori chavez NP Unavailable [phone] Edgar Zurita MD Unavailable Jess Garcias PA-C Unavailable [phone] Ronel Escoto RPH Unavailable Ronel Escoto RPH Unavailable [phone] Sue Novoa PharmD Unavailable Sue Novoa PharmD Unavailable Ronel Escoto RPH Unavailable [phone] Thiago Wilks PsyD Unavailable Unavaila Joana Landis DO Unavailable Thiago Wilks PsyD Unavailable Unavaila Sue Roldan PharmD Unavailable Sue Novoa PharmD Unavailable Christiane King RPH Unavailable Joana Cadena DO Unavailable Elvi Sandoval PA-C Unavailable [phone] Ronel Escoto RPH Unavailable Britany SandersSW Unavailable [phone] Milton Dawkins APRN BRICK PICKER Unavailable Encounter Details Date Type Department Care Team (Late st Contact Info) Description 04/27/2021 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 Gender Identity Female 01/03/2022 12:13 PM CDT [...] Assessment Noted Time PHQ-9 Depression Total Score: 13 024 9:07 AM SUPERVISOR TRUST ACCOUNTS documented as of this encounter Care Teams Senior Lead Project Manager Relationship Specialty Start Date End Date Jess Garcias PA-C [address] [place] [address] PCP - General Physician Community Director 12/19/13 Lori Osorio HALL MANAGER [place] [address] [place] [address] Nurse Practitioner Nurse Practitioner Psych/Mental Health 04/11/17 [place] [address] [place] [address] Assigned Musculoskeletal Provider 07/04/20 10/10/21 Jess Garcias PAJane [address] [place] [address] Assigned PCP 01/18/21 Ronel Escoto [facility] [address] [place] [address] Pharmacist Pharmacist 08/13/22 Ronel Escoto [facility] [address] [place] [address] Assigned MTM Pharmacist 08/21/22 Sue Novoa, PharmD [address] [place] [address] MTM Pharmacist Pharmacist 10/22/22 03/11/23 Sue Novoa, PharmD [address] [place] [address] Assigned MTM Pharmacist 10/30/22 Ronel Escoto [facility] [address] [place] [address] Assigned MTM Pharmacist 01/08/23 3 Thiago Wilks PsyD Assigned Behavioral Health Provider 12/11/22 01/07/23 [place] [address] [place] [address] Assigned Behavioral Health Provider 01/08/23 01/14/23 Thiago Wilks PsyD Assigned Behavioral Health Provider 01/15/23 06/17/23 Sue Novoa, PharmD [address] [place] [address] Assigned MTM Pharmacist 01/15/23 Sue Novoa, PharmD [address] [place] [address] Assigned MTM Pharmacist 02/05/23 Christiane Candelaria [facility] MTM [address] [place] [address] Pharmacist Pharmacist 03/11/23 03/27/23 [place] [address] [place] [address] Assigned Behavioral Health Provider 06/18/23 01/02/24 Elvi Sandoval PA-C [address] [place] [address] Assigned Neuroscience Provider 08/06/23 10/05/23 Ronel Escoto [facility] [address] [place] [address] Assigned MTM Pharmacist 09/17/23 Britany Sanders LIC[facility] [address]/ [address] [place] [address] Assigned Behavioral Health Provider 01/03/24 Milton Dawkins APRN [facility] [address] [facility] [place] [address] Nurse Practitioner Otolaryngology 05/08/24 documented as of this encounter
--- OUTSIDE RECORDS SUMMARY | 2024-07-17 07:55 | XMS_ITS | Encounter Summary ---
Author Organization [facility] Address [address] [place] [address] Care Team Providers Care Cardiovascular Tech Name Role Phone Jess Garcias PA-C Primary Care Provider JoLori chavez NP Unavailable [phone] Jess Garcias PA-C Unavailable [phone] Ronel Escoto RPH Unavailable [phone] Sue Novoa PharmD Unavailable [phone] Sue Novoa PharmD Unavailable Ronel Escoto RPH Unavailable [phone] Thiago Wilks PsyD Unavailable Unavaila rk Cadena, Joana DO Unavailable Thiago Wilks PsyD Unavailable Unavaila Sue Roldan PharmD Unavailable [phone] Sue Novoa PharmD Unavailable [phone] Christiane King RPH Unavailable [phone] Tammi, Joana DO Unavailable Elvi Sandoval PA-C Unavailable [phone] Ronel Escoto RPH Unavailable [phone] Britany Sanders STEEL DIE PRINTER Unavailable [phone] Milton Dawkins APRN NET C DEVELOPER Unavailable [phone] Encounter Details Date Type Department Care Team (Late st Contact Info) Description 12/27/2022 MyC Medical Advice [facility] [address] [address] Thiago Wilks PsyD Social History Tobacco Use [...] PM CDT 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 Gender Identity Female 01/03/2022 12:13 PM CDT Sexual Orientation Straight 12/03/2022 2: 48 PM CDT documented as of this encounter Plan of Treatment Not on file documented as of this encounter Visit Diagnoses Not on filedocumented in this encounter Additional Health Concerns Assessment Noted Time PHQ-9 Depression Total Score: 12 023 12:21 PM CDT documented as of this encounter Care Teams Cardiovascular Tech Relationship Specialty Start Date End Date Jess Garcias PA-C [address] [place] [address] PCP - General Physician Platform Attendant 12/19/13 Lori Osorio NP [facility] [address] [place], [place] [address] Nurse Practitioner Nurse Practitioner Psych/Mental Health 04/11/17 Jess Garcias PA-C [address] [place] [address] Assigned PCP 01/18/21 Ronel Escoto [facility] [address] [place] [address] Pharmacist Pharmacist 08/13/22 Sue Novoa PharmD [address] [place] [address] [place] Pharmacist Pharmacist 10/22/22 03/11/23 Sue Novoa, PharmD [address] [place] [address] Assigned MTM Pharmacist 10/30/22 01/07/23 Ronel Escoto, [facility] [address] [place] [address] Assigned MTM Pharmacist 01/08/23 01/14/23 Thiago Wilks PsyD Assigned Behavioral Health Provider 12/11/22 01/07/23 Joana Cadena DO [address] [place] [address] Assigned Behavioral Health Provider 01/08/23 01/14/23 Thiago Wilks PsyD Assigned Behavioral Health Provider 01/15/23 06/17/23 Sue Novoa, PharmD [address] [place] [address] Assigned MTM Pharmacist 01/15/23 02/04/23 Sue Novoa, PharmD [address] [place] [address] Assigned MTM Pharmacist 02/05/23 09/16/23 Christiane King [facility] [address] [place] [address] Pharmacist Pharmacist 03/11/23 03/27/23 [place] [address] [place] [address] Assigned Behavioral Health Provider 06/18/23 01/02/24 Elvi Sandoval PA-C [address] [address] Assigned Neuroscience Provider 08/06/23 10/05/23 [facility] [address] [place] [address] Assigned MTM Pharmacist 09/17/23 Britany Sanders LICSW [address] [place] [address]/ [address] [place] [address] Assigned Behavioral Health Provider 01/03/24 Milton Dawkins APRN NET C DEVELOPER [facility] [place] [address] Nurse Practitioner Otolaryngology 05/08/24 documented as of this encounter
--- OUTSIDE RECORDS SUMMARY | 2024-07-17 07:55 | XMS_ITS | Encounter Summary ---
Author Organization [facility] Address [address] [place] [address] Care Team Providers Care Catering Cook Name Role Phone Jess Garcias PA-C Primary Care Provider [phone] Lori Osorio GARBAGE TRUCK DISPATCHER Unavailable [phone] Jess Garcias PA-C Unavailable [phone] Ronel Escoto [facility] Unavailable [phone] Ronel Escoto [facility] Unavailable [phone] Britany Sanders APPOINTMENT CLERK Unavailable [phone] Milton Dawkins APRN DIRECTOR PART Unavailable [phone] Encounter Details Date Type Department Care Team (Late st Contact Info) Description 01/26/2024 MyC Medical Advice [address] [address] Kaycee Mahmood Social History Tobacco [...] PM CDT 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 Gender Identity Female 01/03/2022 12:13 PM CDT Sexual Orientation Straight 12/03/2022 2: 48 PM CDT documented as of this encounter Plan of Treatment Not on file documented as of this encounter Visit Diagnoses Not on filedocumented in this encounter Additional Health Concerns Assessment Noted Time PHQ-9 Depression Total Score: 12 023 12:28 PM CDT documented as of this encounter Care Teams Catering Cook Relationship Specialty Start Date End Date Jess Garcias PA-C [address] [place] [address] PCP - General Physician Critical Care Paramedic 12/19/13 Lori Osorio NP [facility] [address] [place], [place] 752987 Nurse Practitioner Nurse Practitioner Psych/Mental Health 04/11/17 Jess Garcias PA-C [address] [place] [address] Assigned PCP 01/18/21 Ronel Escoto [facility] [address] [place] [address] [phone] Pharmacist Pharmacist 08/13/22 Ronel Escoto [facility] [address] [place] [address] Assigned MTM Pharmacist 09/17/23 Britany Sanders, VEL [facility] [address]/ [address] [place] [address] 939485 Assigned Behavioral Health Provider 01/03/24 Milton Dawkins APRN CNP [address] [place] [address] [phone] Nurse Practitioner Otolaryngology 05/08/24 documented as of this encounter
--- OUTSIDE RECORDS SUMMARY | 2024-07-17 07:55 | XMS_ITS | Encounter Summary ---
Author Organization [facility] Address [address] [place] [address] Care Team Providers Care Foot Piece Assembler Name Role Phone Jess Garcias PA-C Primary Care Provider [phone] JoLori chavez NP Unavailable [phone] Quynh Dalton MD Unavailable [phone] Jess Garcias PA-C Unavailable [phone] Edgar Zurita MD Unavailable Ana Cristina Dudley MD Unavailable Unavailabl e Jess Garcias PA-C Unavailable [phone] Ronel Escoto RPH Unavailable [phone] Ronel Escoto RPH Unavailable [phone] Sue Novoa PharmD Unavailable [phone] Sue Novoa PharmD Unavailable [phone] Ronel Escoto RPH Unavailable [phone] Thiago Wilks PsyD Unavailable Unavaila Joana Landis DO Unavailable Thiago Wilks PsyD Unavailable Unavaila Sue Roldan PharmD Unavailable [phone] Sue Novoa PharmD Unavailable [phone] Christiane King RPH Unavailable [phone] Joana Cadena DO Unavailable Elvi Sandoval PA-C Unavailable [phone] Ronel Escoto [facility] Unavailable Britany Sanders [facility] Unavailable [phone] Milton Dawkins APRN [facility] Unavailable [phone] Reason for Visit * Reason Comments Medication Refill Gabapentin Encounter Details Date Type Department Care Team (Late st Contact Info) Description 11/19/2019 Refill [facility] [address] [facility], [address] [place] [address] Jess Garcias PA-C [address] [place] [address] Medication Refill (Gabapentin) Social History [...] PM CDT 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 Gabapentin Last OV 06/22/19 Last RF 08/28/19 #[id number] Not PSO med. Sent to provider. Please advise. Earlene Fairchild RN 06/22/2019 [facility] ?? Assessment & Plan ?? (L50.9) Hives (primary encounter diagnosis) Comment: Unclear trigger for hives, labs today. Start prednisone and Zyrtec. Take Zyrtec twice daily for a week, then take once daily. Recommended following up with digital computer operator if hives return, call with update Plan: [...] information in this document, created by the medical laboratory scientist for me, accurately reflects the services I personally performed and the decisions made by me. I have reviewed and approved this document for accuracy prior to leaving the patient care area. June 22, 2019 9:11 AM ?? Quynh Dalton MD [facility] ? Instructions Return in about 1 month [...] documented as of this encounter Care Teams Foot Piece Assembler Relationship Specialty Start Date End Date Jess Garcias PA-C [address] [place] [address] PCP - General Physician Armature Winder 12/19/13 Lori Osorio NP [address] [address] Nurse Practitioner Nurse Practitioner Psych/Mental Health 04/11/17 [place] [address] [place] [address] Assigned PCP 08/05/19 01/12/20 Jess Garcias PA-C [address] [place] [address] Assigned PCP 01/13/20 11/30/20 [place] [address] [place] [address] [address] Assigned Musculoskeletal Provider 07/04/20 10/10/21 Ana Cristina Dudley MD [facility] [place] SINCE 09/11/2021 Assigned PCP 12/01/20 01/17/21 Jess Garcias PA-C [address] [place] [address] Assigned PCP 01/18/21 Ronel Escoto, [facility] [address] [place] [address] Pharmacist Pharmacist 08/13/22 Ronel Escoto [facility] [place] [address] Assigned MTM Pharmacist 08/21/22 Sue Novoa, JanD [address] [place] [address] [facility] Pharmacist Pharmacist 10/22/22 03/11/23 Sue Novoa, JanD [address] [place] [address] Assigned [facility] Pharmacist 10/30/22 Ronel Escoto [facility] [address] [place] [address] Assigned [facility] Pharmacist 01/08/23 3 Thiago Wilks PsyD Assigned Behavioral Health Provider 12/11/22 01/07/23 [place] [address] [place] [address] Assigned Behavioral Health Provider 01/08/23 01/14/23 Thiago Wilks PsyD Assigned Behavioral Health Provider 01/15/23 06/17/23 Sue Novoa, PharmD [address] [place] [address] Assigned [facility] Pharmacist 01/15/23 Sue Novoa, PharmHarry [address] [place] [address] Assigned [facility] Pharmacist 02/05/23 Christiane Candelaria [facility] [address] [place] [address] Pharmacist Pharmacist 03/11/23 03/27/23 [place] [address] [place] [address] Assigned Behavioral Health Provider 06/18/23 01/02/24 Elvi Sandoval PA-C [address] [place] [address] Assigned Neuroscience Provider 08/06/23 10/05/23 Ronel Escoto, [facility] [address] [place] [address] Assigned MTM Pharmacist 09/17/23 Britany Sanders LICSW [address] [place] [address]/ [address] [place] [address] Assigned Behavioral Health Provider 01/03/24 Milton Dawkins APRN RN PAIN MANAGEMENT [address] [place] [address] Nurse Practitioner Otolaryngology 05/08/24 documented as of this encounter
--- OUTSIDE RECORDS SUMMARY | 2024-07-17 07:55 | XMS_ITS | Encounter Summary ---
Author Organization [facility] Address [address] [place] [address] Care Team Providers Care Allocation Analyst Name Role Phone Jess Garcias PA-C Primary Care Provider [phone] JoLori chavez NP Unavailable [phone] Jess Garcias PA-C Unavailable [phone] Ronel Escoto [facility] Unavailable Joana Cadena DO Unavailable Elvi Sandoval PA-C Unavailable [phone] Ronel Escoto [facility] Unavailable Britany Sanders CHILD CARE ASSOCIATE Unavailable [phone] Milton Dawkins APRN QUALITY ASSURANCE CLERK Unavailable [phone] Encounter Details Date Type Department Care Team (Late st Contact Info) Description 09/29/2023 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 Gender Identity Female 01/03/2022 12:13 PM CDT Sexual Orientation Straight 12/03/2022 2: 48 PM CDT documented as of this encounter Plan of Treatment Not on file documented as of this encounter Visit Diagnoses Not on filedocumented in this encounter Additional Health Concerns Assessment Noted Time PHQ-9 Depression Total Score: 12 023 12:28 PM CDT documented as of this encounter Care Teams Allocation Analyst Relationship Specialty Start Date End Date Jess Garcias PA-C [address] [place] [address] PCP - General Physician Box Person 12/19/13 Lori Osorio NP [place] [address] [place] [address] Nurse Practitioner Nurse Practitioner Psych/Mental Health 04/11/17 Jess Garcias PA-C [address] [place] [address] Assigned PCP 01/18/21 Ronel Escoto [facility] [address] [place] [address] Pharmacist Pharmacist 08/13/22 [place] [address] [address] [place], [place] 204[address] Assigned Behavioral Health Provider 06/18/23 01/02/24 Elvi Sandoval PA-C [address] 985380 Assigned Neuroscience Provider 08/06/23 10/05/23 Ronel Escoto, [facility] [address] [place] [address] Assigned MTM Pharmacist 09/17/23 Britany Sanders LICSW [address] [place] [address]/ [address] [place] [address] Assigned Behavioral Health Provider 01/03/24 Milton Dawkins APRN QUALITY ASSURANCE CLERK [address] [place] [address] Nurse Practitioner Otolaryngology 05/08/24 documented as of this encounter
--- OUTSIDE RECORDS SUMMARY | 2024-07-17 07:55 | XMS_ITS | Encounter Summary ---
Author Organization [facility] Address [address] [place] [address] Care Team Providers Care Thermoscrew Operator Name Role Phone Jess Garcias PA-C Primary Care Provider [phone] JoLori chavez NP Unavailable [phone] Jess Garcias PA-C Unavailable [phone] Ronel Escoto RPH Unavailable [phone] Ronel Escoto RPH Unavailable [phone] Sue Novoa PharmD Unavailable Sue Novoa PharmD Unavailable [phone] Ronel Escoto RPH Unavailable [phone] Thiago Wilks PsyD Unavailable Unavaila Tyrone Landisa DO Unavailable Thiago Wilks PsyD Unavailable Unavaila Sue Roldan PharmD Unavailable [phone] Sue Novoa PharmD Unavailable [phone] Christiane King RPH Unavailable [phone] Tammi Joana DO Unavailable Elvi Sandoval PA-C Unavailable [phone] Ronel Escoto RPH Unavailable [phone] Britany Sanders SUBSTATION OPERATOR AUTOMATIC Unavailable [phone] Milton Dawkins APRN FIBERGLASS BOAT FINISHER Unavailable [phone] Reason for Visit * Reason Onset Date Comments Medication Problem 04/06/2022 Encounter Details Date Type Department Care Team (Late st Contact Info) Description 04/06/2022 MyC Medical Advice [facility] [address] [place] [phone] Jess Garcias PA-C [address] [place], [place] [id number] Medication Problem Social History Tobacco Use Types [...] PM CDT 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 Please advise. . Earlene Fairchild RN documented in this encounter Plan of Treatment Not on file documented as of this encounter Visit Diagnoses Diagnosis ROSA (generalized anxiety disorder) Generalized anxiety disorder documented in this encounter Additional Health Concerns Assessment Noted Time PHQ-9 Depression Total Score: 2 03/12/20 22 2:18 PM CDT documented as of this encounter Care Teams Thermoscrew Operator Relationship Specialty Start Date End Date Jess Garcias PA-C [address] [place] [address] PCP - General Physician Oil Well Services Dispatcher 12/19/13 Lori Osorio NP [place] [address] [place] [address] Nurse Practitioner Nurse Practitioner Psych/Mental Health 04/11/17 Jess Garcias PA-C [address] [place] [address] Assigned PCP 01/18/21 Ronel Escoto [facility] [address] [place] [address] Pharmacist Pharmacist 08/13/22 Ronel Escoto [facility] [address] [place] [address] Assigned MTM Pharmacist 08/21/22 10/29/22 Sue Novoa, Miguelito [address] [place] [address] MTM Pharmacist Pharmacist 10/22/22 03/11/23 Sue Novoa, Miguelito [address] [place] [address] Assigned MTM Pharmacist 10/30/22 01/07/23 Ronel Escoto [facility] [address] [place] [address] Assigned MTM Pharmacist 01/08/23 01/14/23 Thiago Wilks PsyD Assigned Behavioral Health Provider 12/11/22 01/07/23 [place] [address] [place] [address] Assigned Behavioral Health Provider 01/08/23 01/14/23 Thiago Wilks PsyD Assigned Behavioral Health Provider 01/15/23 06/17/23 Sue Novoa, JanD [address] [place] [address] Assigned MTM Pharmacist 01/15/23 02/04/23 Sue Novoa PharmD [address] [place] [address] Assigned MTM Pharmacist 02/05/23 09/16/23 Christiane King [facility] MTM [facility] [place] [address] Pharmacist Pharmacist 03/11/23 03/27/23 [place] [address] [place] [address] Assigned Behavioral Health Provider 06/18/23 01/02/24 Elvi Sandoval PA-C [address] [place] [address] Assigned Neuroscience Provider 08/06/23 10/05/23 Ronel Escoto [facility] [address] [place] [address] Assigned MTM Pharmacist 09/17/23 Britany Sanders, VEL [address] [place] [address]/ [address] [place] [address] Assigned Behavioral Health Provider 01/03/24 Milton Dawkins APRN FIBERGLASS BOAT FINISHER [address] [facility] [place]AN [place]ST[place] [address] Nurse Practitioner Otolaryngology 05/08/24 documented as of this encounter
--- OUTSIDE RECORDS SUMMARY | 2024-07-17 07:55 | XMS_ITS | Encounter Summary ---
Author Organization [facility] Address [address] [place] [address] Care Team Providers Care Administrative Secretary Name Role Phone Jess Garcias PA-C Primary Care Provider [phone] Lori Osorio NANOTECHNICIAN Unavailable [phone] Jess Garcias PA-C Unavailable [phone] Ronel Escoto [facility] Unavailable [phone] Ronel Escoto [facility] Unavailable [phone] Britany Sanders BUFF WHEEL FABRICATOR Unavailable [phone] Milton Dawkins APRN TECHNICAL ACCOUNT EXECUTIVE Unavailable [phone] Encounter Details Date Type Department Care Team (Late st Contact Info) Description 03/09/2024 [facility] Medical Advice [address] [address] Earlene Fairchild, RN Social History [...] PM CDT 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 Gender Identity Female 01/03/2022 12:13 PM CDT Sexual Orientation Straight 12/03/2022 2: 48 PM CDT documented as of this encounter Plan of Treatment Not on file documented as of this encounter Visit Diagnoses Not on filedocumented in this encounter Additional Health Concerns Assessment Noted Time PHQ-9 Depression Total Score: 12 023 12:28 PM CDT documented as of this encounter Care Teams Administrative Secretary Relationship Specialty Start Date End Date Jess Garcias PA-C [address] [place] [address] PCP - General Physician Home Service Advisor 12/19/13 Lori Osorio NP [facility] [address] [place], [place] 048[address] Nurse Practitioner Nurse Practitioner Psych/Mental Health 04/11/17 Jess Garcias PA-C [address] [place] [address] Assigned PCP 01/18/21 Ronel Escoto [facility] [address] [place] [address] 034986 Pharmacist Pharmacist 08/13/22 Ronel Escoto [facility] [address] [place] [address] Assigned MTM Pharmacist 09/17/23 Britany Sanders, VEL [facility] [address]/ [address] [place] [address] 131775 Assigned Behavioral Health Provider 01/03/24 Milton Dawkins APRN CNP [address] [place] [address] 685822 Nurse Practitioner Otolaryngology 05/08/24 documented as of this encounter
--- OUTSIDE RECORDS SUMMARY | 2024-07-17 07:55 | XMS_ITS | Encounter Summary ---
Author Organization [facility] Address [address] [place] [address] Care Team Providers Care Stock Checker Name Role Phone Jess Garcias PA-C Primary Care Provider JoLori chavez NP Unavailable [phone] Jess Garcias PA-C Unavailable Edgar Zurita MD Unavailable Ana Cristina Dudley MD Unavailable Unavailabl e Jess Garcias PA-C Unavailable Ronel Escoto RP Unavailable [phone] Ronel Escoto RPH Unavailable [phone] Sue Novoa PharmD Unavailable [phone] Sue Novoa PharmD Unavailable [phone] Ronel Escoto RPH Unavailable [phone] Thiago Wilks PsyD Unavailable Unavaila Tyrone Landisa DO Unavailable Thiago Wilks PsyD Unavailable Unavaila Sue Roldan PharmD Unavailable [phone] Sue Novoa PharmD Unavailable Christiane King RPH Unavailable [phone] Tammi Joana DO Unavailable Elvi Sandoval PA-C Unavailable [phone] Ronel Escoto [facility] Unavailable Britany Sanders [facility] Unavailable [phone] Milton Dawkins APRN [facility] Unavailable [phone] Reason for Visit * Reason Onset Date Comments MyChart Communication 10/31/2020 Encounter Details Date Type Department Care Team (Latest Contact Info) Description 10/31/2020 [facility] [place] [address] [facility] [address] [place] [address] Ana Cristina Dudley MD INACTIVE IN [place] SINCE 09/11/2021 MyChart Communication Social History Tobacco [...] PM CDT Legal Sex Female 10:10 AM WIRE COATING OPERATOR METAL Gender Identity Female 01/03/2022 12:13 PM CDT Sexual Orientation Straight 12/03/2022 2: 48 PM CDT COVID-19 Exposure Response Date Recorded In the last month, have you been in contact with someone who was confirmed or suspected to have Coronavirus / COVID-19? No / Unsure 10/29/2020 1:59 PM WIRE COATING OPERATOR METAL documented as of this encounter Miscellaneous Notes * Telephone Encounter - Ivone Acuña RN - 10/31/2020 4:08 PM WIRE COATING OPERATOR METAL Sent message back. COATING OPERATOR METAL * Telephone Encounter - Ana Cristina Dudley [...] and not concerning. Ana Cristina Dudley MD COATING OPERATOR METAL * Telephone Encounter - Ivone Acuña, RN - 10/31/2020 11:58 AM WIRE COATING OPERATOR METAL See her RightsFlowt message. Please advise. COATING OPERATOR METAL documented in this encounter Plan of Treatment Not on file documented as of this encounter Visit Diagnoses Not on filedocumented in this encounter Additional Health Concerns Assessment Noted Time PHQ-9 Depression Total Score: 1 06/25/20 8:31 AM CDT documented as of this encounter Care Teams Stock Checker Relationship Specialty Start Date End Date Jess Garcias PA-C [address] [place] [address] PCP - General Physician Qa Test Analyst 12/19/13 Lori Osorio NP [address] 577017 Nurse Practitioner Nurse Practitioner Psych/Mental Health 04/11/17 Jess Garcias PA-C [address] [place] [address] Assigned PCP 01/13/20 11/30/20 [place] [address] [place] [address] [address] Assigned Musculoskeletal Provider 07/04/20 10/10/21 Ana Cristina Dudley MD INACTIVE IN [place] 09/11/2021 Assigned PCP 12/01/20 01/17/21 Jess Garcias PA-C [address] [place] [address] Assigned PCP 01/18/21 Ronel Escoto [facility] [address] [place] [address] Pharmacist Pharmacist 08/13/22 Ronel Escoto [facility] [address] [place] [address] Assigned MTM Pharmacist 08/21/22 Sue Novoa, PharmD [address] [place] [address] MTM Pharmacist Pharmacist 10/22/22 03/11/23 Sue Novoa, PharmD [address] [place] [address] Assigned MTM Pharmacist 10/30/22 Ronel Escoto [facility] [address] [place] [address] Assigned MTM Pharmacist 01/08/23 3 Thiago Wilks PsyD Assigned Behavioral Health Provider 12/11/22 01/07/23 Joana Cadena DO [address] [place] [address] [place] [address] Assigned Behavioral Health Provider 01/08/23 01/14/23 Thiago Wilks PsyD Assigned Behavioral Health Provider 01/15/23 06/17/23 Sue Novoa, PharmD [address] [place] [address] Assigned MTM Pharmacist 01/15/23 Sue Novoa, JanD [address] [place] [address] Assigned MTM Pharmacist 02/05/23 Christiane Candelaria, [facility] MTM [address] [place] [address] Pharmacist Pharmacist 03/11/23 03/27/23 Joana Cadena DO [address] [place] [address] Assigned Behavioral Health Provider 06/18/23 01/02/24 Elvi Sandoval PA-C [address] [address] Assigned Neuroscience Provider 08/06/23 10/05/23 Ronel Escoto, [facility] [address] [place] [address] Assigned MTM Pharmacist 09/17/23 Britany Sanders, VEL [facility] [address]/ [address] [place] [address] Assigned Behavioral Health Provider 01/03/24 Milton Dawkins APRN HOSPICE CLINICAL MARKETER [address] [place] [address] Nurse Practitioner Otolaryngology 05/08/24 documented as of this encounter
--- OUTSIDE RECORDS SUMMARY | 2024-07-17 07:55 | XMS_ITS | Encounter Summary ---
Author Organization [facility] Address [address] [place] [address] Care Team Providers Care Blocker Metal Base Name Role Phone Jess Garcias PA-C Primary Care Provider JoLori chavez NP Unavailable [phone] Jess Garcias PA-C Unavailable Edgar Zurita MD Unavailable Ana Cristina Dudley MD Unavailable Unavailabl e Jess Garcias PA-C Unavailable Ronel Escoot RP Unavailable [phone] Ronel Escoto RPH Unavailable [phone] Sue Novoa PharmD Unavailable [phone] Sue Novoa PharmD Unavailable Ronel Escoto RPH Unavailable [phone] Thiago Wilks PsyD Unavailable Unavaila Tyrone Landisa DO Unavailable Thiago Wilks PsyD Unavailable Unavaila Sue Roldan PharmD Unavailable [phone] Sue Novoa PharmD Unavailable [phone] Christiane King RPH Unavailable [phone] Tammi Joana DO Unavailable Elvi Sandoval PA-C Unavailable [phone] Ronel Escoto [facility] Unavailable [phone] Britany Sanders [facility] Unavailable [phone] Milton Dawkins APRN [facility] Unavailable [phone] Encounter Details Date Type Department Care Team (Late st Contact Info) Description 10/29/2020 MyC Medical Advice [address] [place] [address] Ana Cristina Dudley MD [facility]NA[facility] [place] SIN[place] 09/11/2021 Social History Tobacco Use Types [...] PM CDT Legal Sex Female 10:10 AM MANAGER AUDIT Gender Identity Female 01/03/2022 12:13 PM CDT Sexual Orientation Straight 12/03/2022 2: 48 PM CDT COVID-19 Exposure Response Date Recorded In the last month, have you been in contact with someone who was confirmed or suspected to have Coronavirus / COVID-19? No / Unsure 10/29/2020 1:59 PM MANAGER AUDIT documented as of this encounter Plan of Treatment Not on file documented as of this encounter Visit Diagnoses Not on filedocumented in this encounter Additional Health Concerns Assessment Noted Time PHQ-9 Depression Total Score: 1 06/25/20 19 8:31 AM CDT documented as of this encounter Care Teams Blocker Metal Base Relationship Specialty Start Date End Date Jess Garcias PA-C [address] [place] [address] PCP - General Physician Clinical Research Tech 12/19/13 Lori Osorio NP [facility] [address] [place] [address] Nurse Practitioner Nurse Practitioner Psych/Mental Health 04/11/17 Jess Garcias PA-C [address] [place], [place] [address] Assigned PCP 01/13/20 11/30/20 [place] [address] [address] Assigned Musculoskeletal Provider 07/04/20 10/10/21 Ana Cristina Dudley MD INACTIVE IN [place] SIN[place] 09/11/2021 Assigned PCP 12/01/20 01/17/21 Jess Garcias PA-C [address] [place] [address] Assigned PCP 01/18/21 Ronel Escoto [facility] [address] [place] [address] Pharmacist Pharmacist 08/13/22 Ronel Escoto [facility] [address] [place] [address] Assigned MTM Pharmacist 08/21/22 Sue Novoa, PharmD [address] [place] [address] MTM Pharmacist Pharmacist 10/22/22 03/11/23 Sue Novoa, PharmD [address] [place] [address] Assigned MTM Pharmacist 10/30/22 Ronel Escoto [facility] [address] [place] [address] Assigned MTM Pharmacist 01/08/23 3 Thiago Wilks PsyD Assigned Behavioral Health Provider 12/11/22 01/07/23 [place] [address] [place] [address] Assigned Behavioral Health Provider 01/08/23 01/14/23 Thiago Wilks PsyD Assigned Behavioral Health Provider 01/15/23 06/17/23 Sue Novoa, PharmD [address] [place] [address] Assigned MTM Pharmacist 01/15/23 Sue Novoa, PharmD [address] [place] [address] Assigned MTM Pharmacist 02/05/23 4 Christiane King [facility] MTM [address] [place] [address] Pharmacist Pharmacist 03/11/23 03/27/23 [place] [address] [place] [address] Assigned Behavioral Health Provider 06/18/23 01/02/24 Elvi Sandoval PA-C [address] [place] [address] Assigned Neuroscience Provider 08/06/23 10/05/23 Ronel Escoto, [facility] [address] [place] [address] Assigned MTM Pharmacist 09/17/23 Britany Sanders [facility] [address]/ [address] [place] [address] Assigned Behavioral Health Provider 01/03/24 Milton Dawkins APRN TREATING ENGINEER HELPER 6401 [place] [address] Nurse Practitioner Otolaryngology 05/08/24 documented as of this encounter
--- OUTSIDE RECORDS SUMMARY | 2024-07-17 07:55 | XMS_ITS | Encounter Summary ---
Author Organization [facility] Address [address] [place] [address] Care Team Providers Care Jewelry Facer Name Role Phone Jess Garcias PA-C Primary Care Provider [phone] JoLori chavez MANAGEMENT SCIENTIST Unavailable [phone] Jess Garcias PA-C Unavailable [phone] Ronel Escoto [facility] Unavailable [phone] Sue Novoa PharmD Unavailable [phone] Joana Cadena DO Unavailable Elvi Sandoval PA-C Unavailable [phone] Ronel Escoto [facility] Unavailable Britany Sanders DIRECTOR GLOBAL DEVELOPMENT Unavailable [phone] Milton Dawkins APRN REDEVELOPMENT SPECIALIST Unavailable [phone] Encounter Details Date Type Department Care Team (Late st Contact Info) Description 08/30/2023 [facility] [address] [address] Ronel Escoto, [facility] [address] [place] [address] Social History Tobacco Use Types [...] PM CDT Legal Sex Female 10:10 AM HYDROGEOLOGIST Gender Identity Female 01/03/2022 12:13 PM CDT Sexual Orientation Straight 12/03/2022 2: 48 PM CDT documented as of this encounter Plan of Treatment Not on file documented as of this encounter Visit Diagnoses Not on filedocumented in this encounter Additional Health Concerns Assessment Noted Time PHQ-9 Depression Total Score: 12 023 12:28 PM CDT documented as of this encounter Care Teams Jewelry Facer Relationship Specialty Start Date End Date Jess Garcias PA-C [address] [place] [address] PCP - General Physician Stock Worker 12/19/13 Lori Osorio NP [place] [facility] [address] [place] [address] Nurse Practitioner Nurse Practitioner Psych/Mental Health 04/11/17 Jess Garcias PA-C [address] [place] [address] Assigned PCP 01/18/21 Ronel Escoto [facility] [address] [place] [address] Pharmacist Pharmacist 08/13/22 Sue Novoa PharmD [address]70 [place] [address] Assigned MTM Pharmacist 02/05/23 09/16/23 Joana Cadena DO [facility] [place] [address] Assigned Behavioral Health Provider 06/18/23 01/02/24 Elvi Sandoval PA-C [address] [address] Assigned Neuroscience Provider 08/06/23 10/05/23 Ronel Escoto [facility] [address] [place] [address] Assigned [place] Pharmacist 09/17/23 Britany Sanders LICSW [address] [place] [address]/ [address] [place] [address] Assigned Behavioral Health Provider 01/03/24 Milton Dawkins APRN REDEVELOPMENT SPECIALIST 6401 [place] [address] Nurse Practitioner Otolaryngology 05/08/24 documented as of this encounter
--- OUTSIDE RECORDS SUMMARY | 2024-07-17 07:55 | XMS_ITS | Encounter Summary ---
Author Organization [facility] Address [address] [place] [address] Care Team Providers Care Senior Security Analyst Name Role Phone Jess Garcias PA-C Primary Care Provider [phone] JoLori chavez NP Unavailable [phone] Jess Garcias PA-C Unavailable [phone] Ronel Escoto RPH Unavailable [phone] Ronel Escoto RPH Unavailable [phone] Sue Novoa PharmD Unavailable Sue Novoa PharmD Unavailable [phone] Ronel Escoto RPH Unavailable [phone] Thiago Wilks PsyD Unavailable Unavaila Tyrone Landisa DO Unavailable Thiago Wilks PsyD Unavailable Unavaila Sue Roldan PharmD Unavailable [phone] Sue Novoa PharmD Unavailable [phone] Christiane King RPH Unavailable [phone] Tammi Joana DO Unavailable Elvi Sandoval PA-C Unavailable [phone] Ronel Escoto RPH Unavailable [phone] Britany Sanders DIRECTOR OF ENTERPRISE ARCHITECTURE Unavailable [phone] Milton Dawkins APRN SUPERVISOR MIRROR FABRICATION Unavailable [phone] Encounter Details Date Type Department Care Team (Late st Contact Info) Description 03/12/2022 [facility] Medical Advice [facility] [address] [place] [phone] Jess Garcias PA-C [address] [place], [place] [address] Social History Tobacco Use Types Packs/Day Years [...] PM CDT Legal Sex Female 10:10 AM CONDUCTOR/ENGINEER Gender Identity Female 01/03/2022 12:13 PM CDT [...] as of this encounter Care Teams Senior Security Analyst Relationship Specialty Start Date End Date Jess Garcias PA-C [address] [place] [address] PCP - General Physician Pearl Peller 12/19/13 Lori Osorio NP [place] [facility] [address] [place] [address] Nurse Practitioner Nurse Practitioner Psych/Mental Health 04/11/17 Jess Garcias PA-C [address] [place] [address] Assigned PCP 01/18/21 Ronel Escoto [facility] [address] [place] [address] Pharmacist Pharmacist 08/13/22 Ronel Escoto [facility] [address] [place] [address] Assigned MTM Pharmacist 08/21/22 10/29/22 Sue Novoa, JanD [address] [place] [address] MTM Pharmacist Pharmacist 10/22/22 03/11/23 Sue Novoa, JanD [address] [place] [address] Assigned MTM Pharmacist 10/30/22 01/07/23 Ronel Escoto [facility] [address] [place] [address] Assigned MTM Pharmacist 01/08/23 01/14/23 Thiago Wilks PsyD Assigned Behavioral Health Provider 12/11/22 01/07/23 Joana Cadena DO [address] [place] [address] Assigned Behavioral Health Provider 01/08/23 01/14/23 Thiago Wilks PsyD Assigned Behavioral Health Provider 01/15/23 06/17/23 Sue Novoa, Miguelito [address] [place] [address] Assigned MTM Pharmacist 01/15/23 02/04/23 Sue Novoa PharmD [address] [place] [address] Assigned MTM Pharmacist 02/05/23 09/16/23 Christiane King [facility] MTM [address] [place] [address] Pharmacist Pharmacist 03/11/23 03/27/23 Joana Cadena DO [address] [place] [address] Assigned Behavioral Health Provider 06/18/23 01/02/24 Elvi Sandoval PA-C [address] [place] [address] Assigned Neuroscience Provider 08/06/23 10/05/23 Ronel Escoto, [facility] [address] [place] [address] Assigned MTM Pharmacist 09/17/23 Britany Sanders, VEL [address] [place] [address]/ [address] [place] [address] Assigned Behavioral Health Provider 01/03/24 Milton Dawkins APRN SUPERVISOR MIRROR FABRICATION [address] [place] [address] Nurse Practitioner Otolaryngology 05/08/24 documented as of this encounter
--- OUTSIDE RECORDS SUMMARY | 2024-07-17 07:55 | XMS_ITS | Encounter Summary ---
Author Organization [facility] Address [address] [place] [address] Care Team Providers Care Regulatory Consultant Name Role Phone Jess Garcias PA-C Primary Care Provider [phone] JoLori chavez NP Unavailable [phone] Jess Garcias PA-C Unavailable [phone] Ronel Escoto RPH Unavailable [phone] Ronel Escoto RPH Unavailable +[phone] Sue Novoa PharmD Unavailable Sue Novoa PharmD Unavailable [phone] Ronel Escoto RPH Unavailable [phone] Thiago Wilks PsyD Unavailable Unavaila Tyrone Landisa DO Unavailable Thiago Wilks PsyD Unavailable Unavaila Sue Roldan PharmD Unavailable [phone] Sue Novoa PharmD Unavailable [phone] Christiane King RPH Unavailable [phone] Tammi Joana DO Unavailable Elvi Sandoval PA-C Unavailable [phone] Ronel Escoto RPH Unavailable [phone] Britany Sanders OPTICAL MECHANIC Unavailable [phone] Milton Dawkins APRN TIPPLE OPERATOR Unavailable [phone] Encounter Details Date Type Department Care Team (Late st Contact Info) Description 07/15/2022 [facility] Medical Advice [facility] [address] [place] [phone] Jess Garcias PA-C [address] [place], [place] [id number] Social History Tobacco Use Types Packs/Day Years [...] PM CDT Legal Sex Female 10:10 AM DIVISION OPERATIONS MANAGER Gender Identity Female 01/03/2022 12:13 PM [...] documented as of this encounter Care Teams Regulatory Consultant Relationship Specialty Start Date End Date Jess Garcias PA-C [address] [place] [address] PCP - General Physician [place] Supervisor 12/19/13 Lori Osorio NP [place] [facility] [address] [place] [address] Nurse Practitioner Nurse Practitioner Psych/Mental Health 04/11/17 Jess Garcias PA-C [address] [place] [address] Assigned PCP 01/18/21 Ronel Escoto [facility] [address] [place] [address] Pharmacist Pharmacist 08/13/22 Ronel Escoto [facility] [address] [place] [address] Assigned MTM Pharmacist 08/21/22 10/29/22 Sue Novoa, JanD [address] [place] [address] MTM Pharmacist Pharmacist 10/22/22 03/11/23 Sue Novoa, JanD [address] [place] [address] Assigned MTM Pharmacist 10/30/22 01/07/23 Ronel Escoto [facility] [address] [place] [address] Assigned MTM Pharmacist 01/08/23 01/14/23 Thiago Wilks PsyD Assigned Behavioral Health Provider 12/11/22 01/07/23 Joana Cadena DO [address] [place] [address] Assigned Behavioral Health Provider 01/08/23 01/14/23 Thiago Wilks PsyD Assigned Behavioral Health Provider 01/15/23 06/17/23 Sue oNvoa, Miguelito [address] [place] [address] Assigned MTM Pharmacist 01/15/23 02/04/23 Sue Novoa PharmD [address] [place] [address] Assigned MTM Pharmacist 02/05/23 09/16/23 Christiane King [facility] [address] [place] [address] Pharmacist Pharmacist 03/11/23 03/27/23 Joana Cadena DO [address] [place] [address] Assigned Behavioral Health Provider 06/18/23 01/02/24 Elvi Sandoval PA-C [address] [place] [address] Assigned Neuroscience Provider 08/06/23 10/05/23 Ronel Escoto, [facility] [address] [place] [address] Assigned MTM Pharmacist 09/17/23 Britany Sanders, VEL [address] [place] [address]/ [address] [place] [address] Assigned Behavioral Health Provider 01/03/24 Milton Dawkins APRN TIPPLE OPERATOR [address] [place] [address] Nurse Practitioner Otolaryngology 05/08/24 documented as of this encounter
--- OUTSIDE RECORDS SUMMARY | 2024-07-17 07:55 | XMS_ITS | Encounter Summary ---
Author Organization [facility] Address [address] [place] [address] Care Team Providers Care Rod Mill Operator Name Role Phone Jess Garcias PA-C Primary Care Provider [phone] JoLori chavez NP Unavailable [phone] Jess Garcias PA-C Unavailable [phone] Ronel Escoto RPH Unavailable Sue Novoa PharmD Unavailable Thiago Wilks PsyD Unavailable Unavaila ble Sue Novoa PharmD Unavailable [phone] Sue Novoa PharmD Unavailable [phone] Christiane King RPH Unavailable Joana Cadena DO Unavailable Elvi Sandoval PA-C Unavailable [phone] Ronel Escoto RPH Unavailable [phone] Britany Sanders AUTO DRIVER Unavailable [phone] Milton Dawkins APRN AUTOMATIC ENGRAVER Unavailable [phone] Encounter Details Date Type Department Care Team (Late st Contact Info) Description 01/17/2023 [facility] [address] [place] [address] TommyBritany poole, AUTO DRIVER [address]/ [address] [place] [address] Social History Tobacco Use Types Packs/Day Years [...] PM CDT Legal Sex Female 10:10 AM TIPPLE BOSS Gender Identity Female 01/03/2022 12:13 PM CDT [...] documented as of this encounter Care Teams Rod Mill Operator Relationship Specialty Start Date End Date Jess Garcias PA-C [address] [place] [address] PCP - General Physician Metallic Yarn Slitting Machine Operator 12/19/13 Lori Osorio NP [place] [facility] [address] [place] [address] Nurse Practitioner Nurse Practitioner Psych/Mental Health 04/11/17 Jess Garcias PA-C [address] [place], [place] [address] Assigned PCP 01/18/21 Ronel Escoto [facility] [address] [place] [address] Pharmacist Pharmacist 08/13/22 Sue Novoa, PharmD [address] [place] [address] [place] Pharmacist Pharmacist 10/22/22 03/11/23 Thiago Wilks PsyD Assigned Behavioral Health Provider 01/15/23 06/17/23 Sue Novoa, PharmD [address] [place] [address] Assigned [place] Pharmacist 01/15/23 02/04/23 Sue Novoa, JanD [address] [place] [address] Assigned [place] Pharmacist 02/05/23 09/16/23 Christiane King, [facility] [address] [place] [address] Pharmacist Pharmacist 03/11/23 03/27/23 Joana Cadena DO [facility] [place] [address] Assigned Behavioral Health Provider 06/18/23 01/02/24 Elvi Sandoval PA-C [address] [place] [address] Assigned Neuroscience Provider 08/06/23 10/05/23 Ronel Escoto [facility] [address] [place] [address] Assigned [place] Pharmacist 09/17/23 Britany Sanders LICSW [address]/ [address] [place] [address] Assigned Behavioral Health Provider 01/03/24 Milton Dawkins APRN AUTOMATIC ENGRAVER 6401 [facility] [place] [address] Nurse Practitioner Otolaryngology 05/08/24 documented as of this encounter
--- OUTSIDE RECORDS SUMMARY | 2024-07-17 07:55 | XMS_ITS | Encounter Summary ---
Author Organization [facility] Address [address] [place] [address] Care Team Providers Care Patient Care Secretary Name Role Phone Jess Garcias PA-C Primary Care Provider JoLori chavez NP Unavailable [phone] Jess Garcias PA-C Unavailable [phone] Ronel Escoto RPH Unavailable Sue Novoa PharmD Unavailable [phone] Sue Novoa PharmD Unavailable Ronel Escoto RPH Unavailable [phone] Thiago Wilks PsyD Unavailable Unavaila rk Cadena, Joana DO Unavailable Thiago Wilks PsyD Unavailable Unavaila Sue Roldan PharmD Unavailable Sue Novoa PharmD Unavailable Christiane King RPH Unavailable Tammi, Joana DO Unavailable Elvi Sandoval PA-C Unavailable [phone] Ronel Escoto RPH Unavailable [phone] Britany Sanders RN DIABETES EDUCATOR Unavailable [phone] Milton Dawkins APRN PUBLIC SPEAKER Unavailable [phone] Encounter Details Date Type Department Care Team (Late st Contact Info) Description 11/30/2022 MyC Medical Advice [facility] [address] [address] Thiago Wilks PsyD Social History Tobacco Use [...] PM CDT Legal Sex Female 10:10 AM 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 Gender Identity Female 01/03/2022 12:13 PM CDT Sexual Orientation Straight 12/03/2022 2: 48 PM CDT documented as of this encounter Plan of Treatment Not on file documented as of this encounter Visit Diagnoses Not on filedocumented in this encounter Additional Health Concerns Assessment Noted Time PHQ-9 Depression Total Score: 2 07/15/20 22 9:24 AM CDT documented as of this encounter Care Teams Patient Care Secretary Relationship Specialty Start Date End Date Jess Garcias PA-C [address] [place] [address] PCP - General Physician Machine Featheredger And Reducer 12/19/13 Lori Osorio NP [facility] [address] [place], [place] [address] Nurse Practitioner Nurse Practitioner Psych/Mental Health 04/11/17 Jess Garcias PA-C [address] [place] [address] Assigned PCP 01/18/21 Ronel Escoto [facility] [address] [place] [address] Pharmacist Pharmacist 08/13/22 Sue Novoa PharmD [address] [place] [address] [place] Pharmacist Pharmacist 10/22/22 03/11/23 Sue Novoa, PharmD [address] [place] [address] Assigned MTM Pharmacist 10/30/22 01/07/23 Ronel Escoto, [facility] [address] [place] [address] Assigned MTM Pharmacist 01/08/23 01/14/23 Thiago Wilks PsyD Assigned Behavioral Health Provider 12/11/22 01/07/23 Joana Cadena DO [address] [place] [address] Assigned Behavioral Health Provider 01/08/23 01/14/23 Thiago Wilks PsyD Assigned Behavioral Health Provider 01/15/23 06/17/23 Sue Novoa, PharmD [address] [place] [address] Assigned MTM Pharmacist 01/15/23 02/04/23 Sue Novoa, PharmD [address] [place] [address] Assigned MTM Pharmacist 02/05/23 09/16/23 Christiane King [facility] [address] [place] [address] Pharmacist Pharmacist 03/11/23 03/27/23 [place] [address] [place] [address] Assigned Behavioral Health Provider 06/18/23 01/02/24 Elvi Sandoval PA-C [address] [address] Assigned Neuroscience Provider 08/06/23 10/05/23 [facility] [address] [place] [address] Assigned MTM Pharmacist 09/17/23 Britany Sanders LICSW [address] [place] [address]/ [address] [place] [address] Assigned Behavioral Health Provider 01/03/24 Milton Dawkins APRN PUBLIC SPEAKER [facility] [place] [address] Nurse Practitioner Otolaryngology 05/08/24 documented as of this encounter
--- OUTSIDE RECORDS SUMMARY | 2024-07-17 07:55 | XMS_ITS | Encounter Summary ---
Author Organization [place] Address [address] [place] [address]. [place] [address] Care Team Providers Care Head Of Precision Targeting Name Role Phone Jess Garcias PA-C Primary Care Provider [phone] Lori Osorio PAINTER SPRING Unavailable [phone] Jess Garcias PA-C Unavailable Ronel Escoto [facility] Unavailable Sue Novoa PharmD Unavailable [phone] Joana Cadena DO Unavailable Elvi Sandoval PA-C Unavailable [phone] Ronel Escoto [facility] Unavailable Britany Sanders CAD OPERATOR Unavailable [phone] Milton Dawkins APRN PERFORMANCE SOLUTIONS SPECIALIST Unavailable [phone] Encounter Details Date Type Department Care Team (Late st Contact Info) Description 08/03/2023 [facility] Medical Advice [facility] [id number] [place] [address] [phone] Jess Garcias PA-C [id number] [place] [address] Candidiasis of vagina (Primary Dx) Social [...] PM CDT 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 Jessie Ackerman RN GN SUPERVISOR documented in this encounter Plan of Treatment Not on file documented as of this encounter Visit Diagnoses Diagnosis Candidiasis of vagina- Primary Candidiasis of vulva and vagina documented in this encounter Additional Health Concerns Assessment Noted Time PHQ-9 Depression Total Score: 12 023 12:28 PM CDT documented as of this encounter Care Teams Head Of Precision Targeting Relationship Specialty Start Date End Date Jess Garcias PA-C [address] [place], [place] [phone] PCP - General Physician Clinical Nurse 12/19/13 Lori Osorio NP [facility] [address] [place], [place] [address] Nurse Practitioner Nurse Practitioner Psych/Mental Health 04/11/17 Jess Garcias PA-C [address] [place] [address] Assigned PCP 01/18/21 Ronel Escoto [facility] [address] [place] [address] Pharmacist Pharmacist 12/2/22 Sue Novoa, JanD [address]70 [place] [address] Assigned MTM Pharmacist 02/05/23 09/16/23 Joana Cadena DO [address] [place] [address] [place] [address] Assigned Behavioral Health Provider 06/18/23 01/02/24 Elvi Sandoval PA-C [address] 484[address] Assigned Neuroscience Provider 08/06/23 10/05/23 Ronel Escoto, [facility] [address] [place] [address] Assigned MTM Pharmacist 09/17/23 Britany Sanders, CAD OPERATOR [address]/ [address] 717[address] Assigned Behavioral Health Provider 01/03/24 Milton Dawkins APRN PERFORMANCE SOLUTIONS SPECIALIST [address] [place] [address] [place], [place] [address] Nurse Practitioner Otolaryngology 05/08/24 documented as of this encounter
--- OUTSIDE RECORDS SUMMARY | 2024-07-17 07:55 | XMS_ITS | Encounter Summary ---
Author Organization [place] Address [address] [place] [address] Care Team Providers Care Therapy Technician Name Role Phone Jess Garcias PA-C Primary Care Provider [phone] JoLori chavez NP Unavailable [phone] Jess Garcias PA-C Unavailable [phone] Ronel Escoto RPH Unavailable [phone] Ronel Escoto RPH Unavailable [phone] Sue Novoa PharmD Unavailable Sue Novoa PharmD Unavailable [phone] Ronel Escoto RPH Unavailable [phone] Thiago Wilks PsyD Unavailable Unavaila Tyrone Landisa DO Unavailable Thiago Wilks PsyD Unavailable Unavaila Sue Roldan PharmD Unavailable [phone] Sue Novoa PharmD Unavailable [phone] Christiane King RPH Unavailable +[phone] Tammi Joana DO Unavailable Elvi Sandoval PA-C Unavailable [phone] Ronel Escoto RPH Unavailable +[phone] Britany Sanders BARK GRINDER Unavailable [phone] Milton Dawkins APRN FABRICATION DEPARTMENT SUPERVISOR Unavailable [phone] Encounter Details Date Type Department Care Team (Late st Contact Info) Description 10/13/2022 [facility] [place] [place] Medical Advice [facility] [address] [place] [phone] Ronel Escoto, [place] [id number] [place] [address] Social History Tobacco Use Types Packs/Day Years [...] PM CDT 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 Gender Identity Female 01/03/2022 12:13 PM CDT Sexual Orientation Straight 12/03/2022 2: 48 PM CDT documented as of this encounter Plan of Treatment Not on file documented as of this encounter Visit Diagnoses Not on filedocumented in this encounter Additional Health Concerns Assessment Noted Time PHQ-9 Depression Total Score: 2 07/15/20 22 9:24 AM CDT documented as of this encounter Care Teams Therapy Technician Relationship Specialty Start Date End Date Jess Garcias PA-C [address] [place] [address] PCP - General Physician Dude Wrangler 12/19/13 Lori Osorio NP [facility] [address] [place] [address] Nurse Practitioner Nurse Practitioner Psych/Mental Health 04/11/17 Jess Garcias PA-C [address] [place] [address] Assigned PCP 01/18/21 Ronel Escoto [facility] [place] [address] Pharmacist Pharmacist 08/13/22 Ronel Escoto [facility] [address] [place] [address] Assigned MTM Pharmacist 08/21/22 10/29/22 Sue Novoa, PharmD [address] [place] [address] MTM Pharmacist Pharmacist 10/22/22 03/11/23 Sue Novoa, PharmD [address] [place] [address] Assigned MTM Pharmacist 10/30/22 01/07/23 [facility] [address] [place] [address] Assigned MTM Pharmacist 01/08/23 01/14/23 Thiago Wilks PsyD Assigned Behavioral Health Provider 12/11/22 01/07/23 Joana Cadena DO [address] [place], [place] [address] [address] Assigned Behavioral Health Provider 01/08/23 01/14/23 Thiago Wilks PsyD Assigned Behavioral Health Provider 01/15/23 06/17/23 Sue Novoa, PharmD [address] [place] [address] Assigned MTM Pharmacist 01/15/23 02/04/23 Sue Novoa, PharmD [address] [place] [address] Assigned MTM Pharmacist 02/05/23 09/16/23 Christiane King [facility] MTM [address] [place] [address] Pharmacist Pharmacist 03/11/23 03/27/23 Joana Cadena DO [address] [place] [address] Assigned Behavioral Health Provider 06/18/23 01/02/24 Elvi Sandoval PA-C [address] [address] Assigned Neuroscience Provider 08/06/23 10/05/23 Ronel Escoto [facility] [address] [place] [address] Assigned MTM Pharmacist 09/17/23 Britany Sanders LICSW [facility] [address]/ [address] [place] [address] Assigned Behavioral Health Provider 01/03/24 Milton Dawkins APRN FABRICATION DEPARTMENT SUPERVISOR [address] [place] [address] Nurse Practitioner Otolaryngology 05/08/24 documented as of this encounter
--- OUTSIDE RECORDS SUMMARY | 2024-07-17 07:55 | XMS_ITS | Encounter Summary ---
Author Organization [place] Address [address] [place] [address] Care Team Providers Care Toy Assembly Supervisor Name Role Phone Jess Garcias PA-C Primary Care Provider JoLori chavez NP Unavailable [phone] Jess Garcias PA-C Unavailable [phone] Ronel Escoto RPH Unavailable Sue Novoa PharmD Unavailable Sue Novoa PharmD Unavailable Ronel Escoto RPH Unavailable [phone] Thiago Wilks PsyD Unavailable Unavaila rk Cadena, Joana DO Unavailable Thiago Wilks PsyD Unavailable Unavaila Sue Roldan PharmD Unavailable Sue Novoa PharmD Unavailable [phone] Christiane King RPH Unavailable [phone] Tammi, Joana DO Unavailable Elvi Sandoval PA-C Unavailable [phone] Ronel Escoto RPH Unavailable [phone] Britany Sanders MARKETING INSTRUCTOR Unavailable [phone] Milton Dawkins APRN CLINICAL NURSE MANAGER Unavailable [phone] Encounter Details Date Type Department Care Team (Late st Contact Info) Description 12/06/2022 [facility] Medical Advice [facility] [address] [place] [phone] Ronel Escoto [address] [address] Social History Tobacco Use Types Packs/Day Years [...] PM CDT 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 Gender Identity Female 01/03/2022 12:13 PM CDT Sexual Orientation Straight 12/03/2022 2: 48 PM CDT documented as of this encounter Plan of Treatment Not on file documented as of this encounter Visit Diagnoses Not on filedocumented in this encounter Additional Health Concerns Assessment Noted Time PHQ-9 Depression Total Score: 12 023 12:21 PM CDT documented as of this encounter Care Teams Toy Assembly Supervisor Relationship Specialty Start Date End Date Jess Garcias PA-C [address] [place] [address] PCP - General Physician Balloon Seller 12/19/13 Lori Osorio NP [place] [address] [place] [address] Nurse Practitioner Nurse Practitioner Psych/Mental Health 04/11/17 Jess Garcias PA-C [address] [place], [place] [id number] Assigned PCP 01/18/21 Ronel Escoto [facility] [address] [place] [address] Pharmacist Pharmacist 08/13/22 Sue Novoa, JanD [address] [place] [address] [place] Pharmacist Pharmacist 10/22/22 03/11/23 Sue Novoa, JanD [address] [place] [address] Assigned [facility] Pharmacist 10/30/22 01/07/23 Ronel Escoto [facility] [address] [place] [address] Assigned [place] Pharmacist 01/08/23 01/14/23 Thiago Wilks PsyD Assigned Behavioral Health Provider 12/11/22 01/07/23 Joana Cadena DO [address] [place] [address] Assigned Behavioral Health Provider 01/08/23 01/14/23 Thiago Wilks PsyD Assigned Behavioral Health Provider 01/15/23 06/17/23 Sue Novoa, JanD [address] [place] [address] Assigned MTM Pharmacist 01/15/23 02/04/23 Sue Novoa, JanD [address] [place] [address] Assigned MTM Pharmacist 02/05/23 09/16/23 Christiane King [facility] [address] [address] Pharmacist Pharmacist 03/11/23 03/27/23 Joana Cadena DO [facility] [place] [address] Assigned Behavioral Health Provider 06/18/23 01/02/24 Elvi Sandoval PA-C [address] [place] [address] Assigned Neuroscience Provider 08/06/23 10/05/23 Ronel Escoto [facility] [address] [place] [address] Assigned MTM Pharmacist 09/17/23 Britany Sanders LICSW [address] [place] [address]/ [address] [place] [address] Assigned Behavioral Health Provider 01/03/24 Milton Dawkins APRN CLINICAL NURSE MANAGER [address] [place] [address] [place] [address] Nurse Practitioner Otolaryngology 05/08/24 documented as of this encounter
--- OUTSIDE RECORDS SUMMARY | 2024-07-17 07:55 | XMS_ITS | Encounter Summary ---
Author Organization [place] Address [address] [place] [address] Care Team Providers Care Professor Of Marketing Name Role Phone Jess Garcias PA-C Primary Care Provider [phone] JoLori chavez NP Unavailable [phone] Jess Garcias PA-C Unavailable [phone] Ronel Escoto RPH Unavailable [phone] Ronel Escoto RPH Unavailable [phone] Sue Novoa PharmD Unavailable Sue Novoa PharmD Unavailable [phone] Ronel Escoto RPH Unavailable [phone] Thiago Wilks PsyD Unavailable Unavaila Tyrone Landisa DO Unavailable Thiago Wilks PsyD Unavailable Unavaila Sue Roldan PharmD Unavailable [phone] Sue Novoa PharmD Unavailable [phone] Christiane King RPH Unavailable [phone] Tammi Joana DO Unavailable Elvi Sandoval PA-C Unavailable [phone] Ronel Escoto RPH Unavailable [phone] Britany Sanders AIRCRAFT DESIGNER Unavailable [phone] Milton Dawkins APRN BILING[employer] SPANISH INB[employer] SALES Unavailable [phone] Encounter Details Date Type Department Care Team (Late st Contact Info) Description 10/21/2022 [facility] [place] [facility] [address] [place] [phone] Ronel Escoto, [place] [address] [place] [address] Social History Tobacco Use Types Packs/Day Years [...] PM CDT 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 Gender Identity Female 01/03/2022 12:13 PM [...] of this encounter Care Teams Professor Of Marketing Relationship Specialty Start Date End Date Jess Garcias PA-C [address] [place] [address] PCP - General Physician Deputy Commissioner 12/19/13 Lori Osorio NP [facility] [address] [place] [address] Nurse Practitioner Nurse Practitioner Psych/Mental Health 04/11/17 Jess Garcias PA-C [address] [place] [address] Assigned PCP 01/18/21 Ronel Escoto [facility] [place] [address] Pharmacist Pharmacist 08/13/22 Ronel Escoto [facility] [address] [place] [address] Assigned MTM Pharmacist 08/21/22 10/29/22 Sue Novoa, PharmD [address] [place] [address] MTM Pharmacist Pharmacist 10/22/22 03/11/23 Sue Novoa, PharmD [address] [place] [address] Assigned MTM Pharmacist 10/30/22 01/07/23 [facility] [address] [place] [address] Assigned MTM Pharmacist 01/08/23 01/14/23 Thiago Wilks PsyD Assigned Behavioral Health Provider 12/11/22 01/07/23 Joana Cadena DO [address] [place], [place] [address] [address] Assigned Behavioral Health Provider 01/08/23 01/14/23 Thiago Wilks PsyD Assigned Behavioral Health Provider 01/15/23 06/17/23 Sue Novoa, PharmD [address] [place] [address] Assigned MTM Pharmacist 01/15/23 02/04/23 Sue Novoa, PharmD [address] [place] [address] Assigned MTM Pharmacist 02/05/23 09/16/23 Christiane King [facility] MTM [address] [place] [address] Pharmacist Pharmacist 03/11/23 03/27/23 Joana Cadena DO [address] [place] [address] Assigned Behavioral Health Provider 06/18/23 01/02/24 Elvi Sandoval PA-C [address] [address] Assigned Neuroscience Provider 08/06/23 10/05/23 Ronel Escoto [facility] [address] [place] [address] Assigned MTM Pharmacist 09/17/23 Britany Sanders LICSW [facility] [address]/ [address] [place] [address] Assigned Behavioral Health Provider 01/03/24 Milton Dawkins APRN [employer] SPANISH [employer] SALES [address] [place] [address] Nurse Practitioner Otolaryngology 05/08/24 documented as of this encounter
--- OUTSIDE RECORDS SUMMARY | 2024-07-17 07:55 | XMS_ITS | Encounter Summary ---
Author Organization [facility] Address [address] [place] [address] Care Team Providers Care Data Solutions Architect Name Role Phone Jess Garcias PA-C Primary Care Provider [phone] JoLori chavez NP Unavailable [phone] Quynh Dalton MD Unavailable [phone] Jess Garcias PA-C Unavailable [phone] Edgar Zurita MD Unavailable Ana Cristina Dudley MD Unavailable Unavailabl e Jess Garcias PA-C Unavailable [phone] Ronel Escoto RPH Unavailable +[phone] Ronel Escoto RPH Unavailable [phone] Sue Novoa PharmD Unavailable [phone] Sue Novoa PharmD Unavailable [phone] Ronel Escoto RPH Unavailable [phone] Thiago Wilks PsyD Unavailable Unavaila Joana Landis DO Unavailable Thiago Wilks PsyD Unavailable Unavaila Sue Roldan PharmD Unavailable [phone] Sue Novoa PharmD Unavailable [phone] Christiane King RPH Unavailable [phone] Joana Cadena DO Unavailable Elvi Sandoval PA-C Unavailable [phone] Ronel Escoto [facility] Unavailable [phone] [facility] Unavailable [phone] Milton Dawkins APRN [facility] Unavailable [phone] Reason for Referral * Diagnostic Procedure Outpatient (Routine) - Closed Specialty Diagnoses / Procedures Referred By Kylee leung Referred To Contact Diagnoses Special screening for malignant neoplasms, colon Family history of colon cancer Jess Garcias PA-C [address] [place] [address] Phone: tel: fax: [facility] [address] [place] [address] Phone: tel: fax: Referral ID Status Reason Start Date Expiration Date Visits Re quested Visits Authorized [id number] Closed 11/13/2019 11/12/2020 1 1 Question Answer Procedure: Colonoscopy Purpose of Procedure: Screening Purpose of Procedure: Screening Does the patient have the following? None Is the patient on the following medications? None Preferred Location [facility] Provider? [facility] Comments Last Lab Result: Creatinine [...] Any procedures must be performed at a [facility] OR coordinated by your clinic's [...] documents/labs given to you for this referral N RESOURCES RECEPTIONIST Reason for Visit * Reason Onset Date Comments Patient Request 11/13/2019 Encounter Details Date Type Department Care Team (Late st Contact Info) Description 11/13/2019 MyC Medical Advice [facility] [address] [place] [phone] Jess Garcias PA-C [address] [place], [place] [phone] Patient Request Social History Tobacco Use Types [...] PM CDT Legal Sex Female 10:10 AM HUMAN RESOURCES RECEPTIONIST Gender Identity Female 01/03/2022 12:13 PM CDT Sexual Orientation Straight 12/03/2022 2: 48 PM CDT documented as of this encounter Miscellaneous Notes * Telephone Encounter - Earlene Fairchild RN - 11/13/2019 2:23 PM CST Jess- see [email or web address] message below. Please advise. Earlene Fairchild RN N RESOURCES RECEPTIONIST documented in this encounter Plan of Treatment [...] documented as of this encounter Care Teams Data Solutions Architect Relationship Specialty Start Date End Date Jess Garcias PA-C [address] [place] [address] PCP - General Physician Lining Printer 12/19/13 Lori Osorio NP [facility] [address] [place] [address] Nurse Practitioner Nurse Practitioner Psych/Mental Health 04/11/17 [place] [address] [place] [address] Assigned PCP 08/05/19 01/12/20 Jess Garcias PA-C [address] [place], [place] [address] Assigned PCP 01/13/20 11/30/20 [place] [address] [address] Assigned Musculoskeletal Provider 07/04/20 10/10/21 Ana Cristina Dudley MD INACTIVE IN [place] SINCE 09/11/2021 Assigned PCP 12/01/20 01/17/21 Jess Garcias PA-C [address] [place] [address] Assigned PCP 01/18/21 Ronel Escoto [facility] [address] [place] [id number] Pharmacist Pharmacist 08/13/22 Ronel Escoto [facility] [address] [place] [id number] Assigned MTM Pharmacist 08/21/22 Sue Novoa, JanD [address] [place] [address] MTM Pharmacist Pharmacist 10/22/22 03/11/23 Sue Novoa, JanD [address] [place] [address] Assigned MTM Pharmacist 10/30/22 Ronel Escoto [facility] [place] [address] Assigned MTM Pharmacist 01/08/23 3 Thiago Wilks PsyD Assigned Behavioral Health Provider 12/11/22 01/07/23 Joana Cadena DO [address] [place] [address] Assigned Behavioral Health Provider 01/08/23 01/14/23 Thiago Wilks PsyD Assigned Behavioral Health Provider 01/15/23 06/17/23 Sue Novoa, PharmD [address] [place] [address] Assigned MTM Pharmacist 01/15/23 Sue Novoa, Miguelito [address] [place] [address] Assigned MTM Pharmacist 02/05/23 4 Christiane King [facility] [place] [address] [place] [address] Pharmacist Pharmacist 03/11/23 03/27/23 Joana Cadena DO [facility] [place] [address] Assigned Behavioral Health Provider 06/18/23 01/02/24 Elvi Sandoval PA-C [address] [place] [address] Assigned Neuroscience Provider 08/06/23 10/05/23 Ronel Escoto, [facility] [address] [place] [address] Assigned MTM Pharmacist 09/17/23 Britany Sanders, VEL [address] [place] [address]/ [address] [place] [address] Assigned Behavioral Health Provider 01/03/24 Milton Dawkins APRN OUTSOLE CUTTER MACHINE [address] [place] [address] [place] [address] Nurse Practitioner Otolaryngology 05/08/24 documented as of this encounter
--- OUTSIDE RECORDS SUMMARY | 2024-07-17 07:55 | XMS_ITS | Encounter Summary ---
Author Organization [facility] Address [address] [place] [address] Care Team Providers Care Apartment Leasing Specialist Name Role Phone Jess Garcias PA-C Primary Care Provider [phone] JoLori cahvez NP Unavailable [phone] Quynh Dalton MD Unavailable [phone] Jess Garcias PA-C Unavailable [phone] Edgar Zurita MD Unavailable Ana Cristina Dudley MD Unavailable Unavailabl e Jess Garcias PA-C Unavailable [phone] Ronel Escoto RPH Unavailable [phone] Ronel Escoto RPH Unavailable +[phone] Sue Novoa PharmD Unavailable +[phone] Sue Novoa PharmD Unavailable [phone] Ronel Escoto RPH Unavailable [phone] Thiago Wilks PsyD Unavailable Unavaila Joana Landis DO Unavailable Thiago Wilks PsyD Unavailable Unavaila Sue Roldan PharmD Unavailable [phone] Sue Novoa PharmD Unavailable [phone] Christiane King RPH Unavailable +[phone] Joana Cadena DO Unavailable Elvi Sandoval PA-C Unavailable [phone] Ronel Escoto [facility] Unavailable +[phone] Britany Sanders [facility] Unavailable [phone] Milton Dawkins APRN [facility] Unavailable [phone] Reason for Visit * Reason Comments Medication Refill Encounter Details Date Type Department Care Team (Late st Contact Info) Description 12/31/[address], [address] [place] [address] [place] [address] [place] [address] Medication Refill Social History Tobacco [...] PM CDT 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 documented in this encounter Plan of Treatment Not on file documented as of this encounter Visit Diagnoses Diagnosis ROSA (generalized anxiety disorder) Generalized anxiety disorder documented in this encounter Additional Health Concerns Assessment Noted Time PHQ-9 Depression Total Score: 1 06/25/20 19 8:31 AM CDT documented as of this encounter Care Teams Apartment Leasing Specialist Relationship Specialty Start Date End Date Jess Garcias PA-C [address] [place] [address] PCP - General Physician School Nurse 12/19/13 Lori Osorio NP [place] [address] [place] [address] Nurse Practitioner Nurse Practitioner Psych/Mental Health 04/11/17 [place] [address] [place] [address] Assigned PCP 08/05/19 01/12/20 Jess Garcias PA-C [address] [place], [place] [address] Assigned PCP 01/13/20 11/30/20 [place] [address] [address] Assigned Musculoskeletal Provider 07/04/20 10/10/21 Ana Cristina Dudley MD INACTIVE IN [place] SINCE 09/11/2021 Assigned PCP 12/01/20 01/17/21 Jess Garcias PA-C [address] [place] [address] Assigned PCP 01/18/21 Ronel Escoto [facility] [address] [place] [address] Pharmacist Pharmacist 08/13/22 Ronel Escoto [facility] [address] [place] [address] Assigned MTM Pharmacist 08/21/22 Sue Novoa, PharmD [address] [place] [address] [place] Pharmacist Pharmacist 10/22/22 03/11/23 Sue Novoa, PharmD [address] [place] [address] Assigned MTM Pharmacist 10/30/22 Ronel Escoto, [facility] [address] [place] [address] Assigned MTM Pharmacist 01/08/23 3 Thiago Wilks PsyD Assigned Behavioral Health Provider 12/11/22 01/07/23 Joana Cadena DO [address] [place], [place] [address] [address] Assigned Behavioral Health Provider 01/08/23 01/14/23 Thiago Wilks PsyD Assigned Behavioral Health Provider 01/15/23 06/17/23 Sue Novoa, PharmD [address] [place] [address] Assigned MTM Pharmacist 01/15/23 Sue Novoa, PharmD [address] [place] [address] Assigned MTM Pharmacist 02/05/23 Christiane Candelaria, [facility] [address] [place] [address] Pharmacist Pharmacist 03/11/23 03/27/23 Joana Cadena DO [facility] [place] [address] Assigned Behavioral Health Provider 06/18/23 01/02/24 Elvi Sandoval PA-C [address] [place] [address] Assigned Neuroscience Provider 08/06/23 10/05/23 Ronel Escoto, [facility] [address] [place] [address] Assigned MTM Pharmacist 09/17/23 Britany Sanders LICSW [address] [place] [address]/ [address] [place] [address] Assigned Behavioral Health Provider 01/03/24 Milton Dawkins APRN MANAGER TECHNOLOGY [address] [place] [address] JOAN Henry [address] Nurse Practitioner Otolaryngology 05/08/24 documented as of this encounter
--- OUTSIDE RECORDS SUMMARY | 2024-07-17 07:55 | XMS_ITS | Encounter Summary ---
Author Organization [facility] Address [address] [place] [address] Care Team Providers Care Abstractor Name Role Phone Jess Garcias PA-C Primary Care Provider [phone] JoLori chavez NP Unavailable [phone] Jess Garcias PA-C Unavailable [phone] Ronel Escoto RPH Unavailable [phone] Ronel Escoto RPH Unavailable +[phone] Sue Novoa PharmD Unavailable Sue Novoa PharmD Unavailable [phone] Ronel Escoto RPH Unavailable [phone] Thiago Wilks PsyD Unavailable Unavaila Tyrone Landisa DO Unavailable Thiago Wilks PsyD Unavailable Unavaila Sue Roldan PharmD Unavailable [phone] uSe Novoa PharmD Unavailable [phone] Christiane King RPH Unavailable +[phone] Tammi Joana DO Unavailable Elvi Sandoval PA-C Unavailable [phone] Ronel Escoto RPH Unavailable +[phone] Britany Sanders DRY CAN TENDER Unavailable [phone] Milton Dawkins APRN PASSENGER SERVICE SUPERVISOR Unavailable [phone] Encounter Details Date Type Department Care Team (Late st Contact Info) Description 10/25/2022 MyC Medical Advice [facility] [address] [place] [address] Sue Novoa, PharmD [address] [place] [address] Social History Tobacco Use Types Packs/Day Years [...] PM CDT Legal Sex Female 10:10 AM OPTOMETRIC AIDE Gender Identity Female 01/03/2022 12:13 PM CDT Sexual Orientation Straight 12/03/2022 2: 48 PM CDT COVID-19 Exposure Response Date Recorded In the last 10 days, have yo u been in contact with someone who was confirmed or suspected to have Coronavirus/COVID-19? No / Unsure 10/25/2022 7:15 PM OPTOMETRIC AIDE documented as of this encounter Plan of Treatment Not on file documented as of this encounter Visit Diagnoses Not on filedocumented in this encounter Additional Health Concerns Assessment Noted Time PHQ-9 Depression Total Score: 2 07/15/20 22 9:24 AM CDT documented as of this encounter Care Teams Abstractor Relationship Specialty Start Date End Date Jess Garcias PA-C [address] [place] [address] PCP - General Physician Manager Video Games 12/19/13 Lori Osorio NP [place] [address] [place] [address] Nurse Practitioner Nurse Practitioner Psych/Mental Health 04/11/17 Jess Garcias PA-C [address] [place] [address] Assigned PCP 01/18/21 Ronel Escoto [facility] [address] [place] [address] Pharmacist Pharmacist 08/13/22 Ronel Escoto [facility] [address] [place] [address] Assigned MTM Pharmacist 08/21/22 10/29/22 Sue Novoa, JanD [address] [place] [address] MTM Pharmacist Pharmacist 10/22/22 03/11/23 Sue Novoa, JanD [address] [place] [address] Assigned MTM Pharmacist 10/30/22 01/07/23 Ronel Escoto [facility] [address] [place] [address] Assigned MTM Pharmacist 01/08/23 01/14/23 Thiago Wilks PsyD Assigned Behavioral Health Provider 12/11/22 01/07/23 Joana Cadena DO [address] [place] [address] Assigned Behavioral Health Provider 01/08/23 01/14/23 Thiago Wilks PsyD Assigned Behavioral Health Provider 01/15/23 06/17/23 Sue Novoa, Miguelito [address] [place] [address] Assigned MTM Pharmacist 01/15/23 02/04/23 Sue Novoa, JanD [address] [place] [address] Assigned MTM Pharmacist 02/05/23 09/16/23 Christiane King [facility] MTM [address] [place] [address] Pharmacist Pharmacist 03/11/23 03/27/23 Joana Cadena DO [address] [place] [address] Assigned Behavioral Health Provider 06/18/23 01/02/24 Elvi Sandoval PA-C [address] [place] [address] Assigned Neuroscience Provider 08/06/23 10/05/23 Ronel Escoto, [facility] [address] [place] [address] Assigned MTM Pharmacist 09/17/23 Britany Sanders, VEL [address] [place] [address]/ [address] [place] [address] Assigned Behavioral Health Provider 01/03/24 Milton Dawkins APRN PASSENGER SERVICE SUPERVISOR [address] [place] [address] Nurse Practitioner Otolaryngology 05/08/24 documented as of this encounter
--- OUTSIDE RECORDS SUMMARY | 2024-07-17 07:55 | XMS_ITS | Encounter Summary ---
Author Organization [place] Address [address] [place] [address] Care Team Providers Care Ordnance Equipment Worker Name Role Phone Jess Garcias PA-C Primary Care Provider JoLori chavez NP Unavailable [phone] Edgar Zurita MD Unavailable Jess Garcias PA-C Unavailable [phone] Ronel Escoto RPH Unavailable Ronel Escoto RPH Unavailable Sue Novoa PharmD Unavailable Sue Novoa PharmD Unavailable [phone] Ronel Escoto RPH Unavailable [phone] Thiago Wilks PsyD Unavailable Unavaila Joana Landis DO Unavailable Thiago Wilks PsyD Unavailable Unavaila Sue Roldan PharmD Unavailable Sue Novoa PharmD Unavailable Christiane King RPH Unavailable Joana Cadena DO Unavailable Elvi Sandoval PA-C Unavailable [phone] Ronel Escoto RPH Unavailable [phone] Britany SandersSW Unavailable [phone] Milton Dawkins APRN FIELD CLINICAL ENGINEER Unavailable Encounter Details Date Type Department Care Team (Late st Contact Info) Description 04/27/2021 Refill [facility] [address] [place] [address] Jess Garcias PA-C [address] [place] [address] Social History Tobacco Use Types Packs/Day Years [...] PM CDT Legal Sex Female 10:10 AM 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 Gender Identity Female 01/03/2022 12:13 PM CDT Sexual Orientation Straight 12/03/2022 2: 48 PM CDT documented as of this encounter Miscellaneous Notes * Telephone Encounter - Ame Canchola RN - 04/29/2021 11:34 AM CDT Adderall filled 04/27 and trintellix filled 04/28/ No refill needed at this time Ame Canchola Registered Nurse [facility] documented in this encounter Plan of Treatment Not on file documented as of this encounter Visit Diagnoses Diagnosis Poor concentration Attention or concentration deficit ROSA (generalized anxiety disorder) Generalized anxiety disorder documented in this encounter Additional Health Concerns Assessment Noted Time PHQ-9 Depression Total Score: 13 024 9:07 AM 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 documented as of this encounter Care Teams Ordnance Equipment Worker Relationship Specialty Start Date End Date Jess Garcias PA-C [address] [place] [address] PCP - General Physician Technology Professional 12/19/13 Lori Osorio, CASSANDRA ARCHITECT [facility] [address] [place] [address] Nurse Practitioner Nurse Practitioner Psych/Mental Health 04/11/17 [place] [address] [place] [address] Assigned Musculoskeletal Provider 07/04/20 10/10/21 Jess Garcias PA-C [address] [place], [place] [address] Assigned PCP 01/18/21 Ronel Escoto, [facility] [address] [place] [address] Pharmacist Pharmacist 08/13/22 Ronel Escoto, [facility] [address] [place] [address] Assigned MTM Pharmacist 08/21/22 Sue Novoa, JanD [address] [place] [address] MTM Pharmacist Pharmacist 10/22/22 03/11/23 Sue Novoa, PharmD [address] [place] [address] Assigned MTM Pharmacist 10/30/22 Ronel Escoto, [facility] [address] [place] [address] Assigned MTM Pharmacist 01/08/23 3 Thiago Wilks PsyD Assigned Behavioral Health Provider 12/11/22 01/07/23 [place] [address] [place] [address] Assigned Behavioral Health Provider 01/08/23 01/14/23 Thiago Wilks PsyD Assigned Behavioral Health Provider 01/15/23 06/17/23 Sue Novoa, PharmD [address] [place] [address] Assigned MTM Pharmacist 01/15/23 Sue Novoa, PharmD [address] [place] [address] Assigned MTM Pharmacist 02/05/23 4 Chritsiane King [facility] MTM [address] [place] [address] Pharmacist Pharmacist 03/11/23 03/27/23 [place] [address] [place] [address] Assigned Behavioral Health Provider 06/18/23 01/02/24 Elvi Sandoval PA-C [address] [place] [address] Assigned Neuroscience Provider 08/06/23 10/05/23 Ronel Escoto [facility] [address] [place] [address] Assigned MTM Pharmacist 09/17/23 Britany Sanders LICSW [facility] [address]/ [address] JOAN Brown [address] Assigned Behavioral Health Provider 01/03/24 Milton Dawkins APRN FIELD CLINICAL ENGINEER [address] [facility] JOAN CASTILLO [address] Nurse Practitioner Otolaryngology 05/08/24 documented as of this encounter
--- OUTSIDE RECORDS SUMMARY | 2024-07-17 07:56 | XMS_ITS | Encounter Summary ---
Author Organization [facility] Address [address] [place] [address] Care Team Providers Care Upholstery Covers Inspector Name Role Phone Jess Garcias PA-C Primary Care Provider Lori Osorio NP Unavailable [phone] Jess Garcias PA-C Unavailable Quynh Dalton MD Unavailable [phone] Jess Garcias PA-C Unavailable Edgar Zurita MD Unavailable Ana Cristina Dudley MD Unavailable Unavailabl e Jess Garcias PA-C Unavailable Ronel Escoto RPH Unavailable Ronel Escoto RPH Unavailable Sue Novoa PharmD Unavailable [phone] Sue Novoa PharmD Unavailable [phone] Ronel Escoto RPH Unavailable [phone] Thiago Wilks PsyD Unavailable Unavaila Joana Landis DO Unavailable Thiago Wilks PsyD Unavailable Unavaila Sue Roldan PharmD Unavailable Sue Novoa PharmD Unavailable [phone] Christiane King RPH Unavailable [phone] Joana Cadena DO Unavailable Elvi Sandoval PA-C Unavailable [phone] Justice Escotoelle Ronny [facility] Unavailable [phone] Britany Sanders [facility] Unavailable [phone] Milton Dawkins APRN TOWNSHIP SUPERVISOR Unavailable [phone] Reason for Visit * Reason Onset Date Comments Referral 07/16/2019 Encounter Details Date Type Department Care Team (Late st Contact Info) Description 07/16/2019 MyC Medical Advice [address], [address] [place] [address] [place] [address] [place] [address] Referral Social History Tobacco Use [...] PM CDT Legal Sex Female 10:10 AM CONTINUOUS PICKLING LINE PICKLER HELPER Gender Identity Female 01/03/2022 12:13 PM CDT Sexual Orientation Straight 12/03/2022 2: 48 PM CDT documented as of this encounter Miscellaneous Notes * Telephone Encounter - Nereyda Guerra RN - 07/16/2019 9:33 AM CST [facility] INUOUS PICKLING LINE PICKLER HELPER documented in this encounter Plan of Treatment Not on file documented as of this encounter Visit Diagnoses Not on filedocumented in this encounter Additional Health Concerns Assessment Noted Time PHQ-9 Depression Total Score: 1 06/25/20 19 8:31 AM CDT documented as of this encounter Care Teams Upholstery Covers Inspector Relationship Specialty Start Date End Date Jess Garcias PA-C [address] [place], [place] [id number] PCP - General Physician Sales Support Coordinator 12/19/13 Lori Osorio [employer] [facility] [place] [address] [place] [address] Nurse Practitioner Nurse Practitioner Psych/Mental Health 04/11/17 Jess Garcias PA-C [address] [place], [place] [address] Assigned PCP 06/03/19 08/04/19 [place] [address] [place] [address] Assigned PCP 08/05/19 01/12/20 Jess Garcias PA-C [address] [place], [place] [address] Assigned PCP 01/13/20 11/30/20 [place] [address] [place] [address] Assigned Musculoskeletal Provider 07/04/20 10/10/21 Ana Cristina Dudley MD INACTIVE IN [place] SINCE 09/11/2021 Assigned PCP 12/01/20 01/17/21 Jess Garcias PA-C [address] [place] [address] Assigned PCP 01/18/21 Roenl Escoto, [facility] [address] [place] [address] Pharmacist Pharmacist 08/13/22 Ronel Escoto, [facility] [place] [address] Assigned MTM Pharmacist 08/21/22 Sue Novoa, PharmD 0 [place] [address] MTM Pharmacist Pharmacist 10/22/22 03/11/23 uSe Novoa, PharmD [address] [place] [address] Assigned MTM Pharmacist 10/30/22 [facility] [address] [place] [address] Assigned MTM Pharmacist 01/08/23 3 Thiago Wilks PsyD Assigned Behavioral Health Provider 12/11/22 01/07/23 Joana Cadena DO [address] [place], [place] [address] [address] Assigned Behavioral Health Provider 01/08/23 01/14/23 Thiago Wilks PsyD Assigned Behavioral Health Provider 01/15/23 06/17/23 Sue Novoa, PharmD [address] [place] [address] Assigned MTM Pharmacist 01/15/23 Sue Novoa, PharmD [address] [place] [address] Assigned MTM Pharmacist 02/05/23 4 Christiane King, [facility] MTM [address] [place] [address] Pharmacist Pharmacist 03/11/23 03/27/23 Joana Cadena DO [address] [place] [address] Assigned Behavioral Health Provider 06/18/23 01/02/24 Elvi Sandoval PA-C [address] [place] [address] Assigned Neuroscience Provider 08/06/23 10/05/23 Ronel Escoto, [facility] [address] [place] [address] Assigned MTM Pharmacist 09/17/23 Britany Sanders, CROWN IRONER [address] [place] [address]/ [address] [place] [address] Assigned Behavioral Health Provider 01/03/24 Milton Dawkins APRN TOWNSHIP SUPERVISOR [address] [place] [address] [place] [address] Nurse Practitioner Otolaryngology 05/08/24 documented as of this encounter
--- OUTSIDE RECORDS SUMMARY | 2024-07-17 07:56 | XMS_ITS | Encounter Summary ---
Author Organization [place] Address [address] [place] [address] Care Team Providers Care Seafood Team Member Name Role Phone Jess Garcias PA-C Primary Care Provider [phone] JoLori chavez NP Unavailable [phone] Quynh Dalton MD Unavailable [phone] Jess Garcias PA-C Unavailable [phone] Edgar Zurita MD Unavailable Ana Cristina Dudley MD Unavailable Unavailabl e Jess Garcias PA-C Unavailable [phone] Ronel Escoto RPH Unavailable [phone] Ronel Escoto RPH Unavailable [phone] Sue Novoa PharmD Unavailable [phone] Sue Novoa PharmD Unavailable [phone] Ronel Escoto RPH Unavailable [phone] Thiago Wilks PsyD Unavailable Unavaila Joana Landis DO Unavailable Thiago Wilks PsyD Unavailable Unavaila Sue Roldan PharmD Unavailable [phone] Sue Novoa PharmD Unavailable [phone] Christiane King RPH Unavailable [phone] Joana Cadena DO Unavailable Elvi Sandoval PA-C Unavailable [phone] Ronel Escoto [facility] Unavailable [phone] Britany Sanders [facility] Unavailable [phone] Milton Dawkins APRN [employer] Unavailable [phone] Reason for Visit * Reason Comments Medication Refill Encounter Details Date Type Department Care Team (Late st Contact Info) Description 08/06/2019 Refill [facility] [address] [place] [address] Jess Garcias PA-C [address] [place] [address] Medication Refill Social History Tobacco Use Types [...] PM CDT 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 Gender Identity Female 01/03/2022 12:13 PM CDT [...] documented as of this encounter Care Teams Seafood Team Member Relationship Specialty Start Date End Date Jess Garcias PA-C [address] [place] [address] PCP - General Physician Paramedic 12/19/13 Lori Osorio NP [place] [address] [place] [address] Nurse Practitioner Nurse Practitioner Psych/Mental Health 04/11/17 [place] [address] [facility] [place] [address] Assigned PCP 08/05/19 01/12/20 Jess Garcias PA-C [address] [place] [address] Assigned PCP 01/13/20 11/30/20 [place] [address] [place], [place] [address] Assigned Musculoskeletal Provider 07/04/20 10/10/21 Ana Cristina Dudley MD INACTIVE IN [place] SINCE 09/11/2021 Assigned PCP 12/01/20 01/17/21 Jess Garcias, PENNIE [address] [place] [address] Assigned PCP 01/18/21 Ronel Escoto, [facility] [place] [address] Pharmacist Pharmacist 08/13/22 Ronel Escoto, [facility] [place] [address] Assigned MTM Pharmacist 08/21/22 Sue Novoa, PharmD [address] [place] [address] MTM Pharmacist Pharmacist 10/22/22 03/11/23 Sue Novoa, PharmD [address] [place] [address] Assigned MTM Pharmacist 10/30/22 Ronel Escoto [facility] 3033 [place] [address] Assigned MTM Pharmacist 01/08/23 3 Thiago Wilks PsyD Assigned Behavioral Health Provider 12/11/22 01/07/23 [place] [address] [place] [address] Assigned Behavioral Health Provider 01/08/23 01/14/23 Thiago Wilks PsyD Assigned Behavioral Health Provider 01/15/23 06/17/23 Sue Novoa, PharmD [address] [place] [address] Assigned MTM Pharmacist 01/15/23 Sue Novoa, PharmD [address] [place] [address] Assigned MTM Pharmacist 02/05/23 Christiane Candelaria [facility] MTM 30[address] [place] [address] Pharmacist Pharmacist 03/11/23 03/27/23 [place] [address] [address] [place] [address] Assigned Behavioral Health Provider 06/18/23 01/02/24 Elvi Sandoval PA-C [address] [address] Assigned Neuroscience Provider 08/06/23 10/05/23 Ronel Escoto, [facility] 30[address] [place] [address] Assigned MTM Pharmacist 09/17/23 Britany Sanders LICSW [facility] [address]/ [address] [place] [address] Assigned Behavioral Health Provider 01/03/24 Milton Dawkins APRN MEASUREMENT TECHNICIAN 64[address] [facility] [place] [address] Nurse Practitioner Otolaryngology 05/08/24 documented as of this encounter
--- OUTSIDE RECORDS SUMMARY | 2024-07-17 07:56 | XMS_ITS | Encounter Summary ---
Author Organization [facility] Address [address] [place] [address] Care Team Providers Care Ammunition Assembly Ii Laborer Name Role Phone Jess Garcias PA-C Primary Care Provider [phone] JoLori chavez NP Unavailable [phone] Jess Garcias-C Unavailable [phone] Jess Garcias-C Unavailable [phone] Kenisha Yun APRN SHIELD RUNNER Unavailable + Jess Garcias-C Unavailable [phone] Quynh Dalton MD Unavailable Jess Garcias PA-C Unavailable [phone] Edgar Zurita MD Unavailable Ana Cristina Dudley MD Unavailable Unavailabl e Jess Garcias PA-C Unavailable Ronel Escoto [facility] Unavailable +[phone] Ronel Escoto RPH Unavailable +[phone] Sue Novoa PharmD Unavailable +[phone] Sue Novoa PharmD Unavailable [phone] Ronel Escoto RPH Unavailable [phone] Thiago Wilks PsyD Unavailable Unavaila Joana Landis DO Unavailable Thiago Wilks PsyD Unavailable Unavaila ble Sue Novoa PharmD Unavailable +[phone] Sue Novoa PharmD Unavailable [phone] Christiane King [facility] Unavailable +[phone] TammiJoaan Unavailable Elvi Sandoval PAChristianoC Unavailable [phone] JevonJusticeRonel Ronny [facility] Unavailable [phone] Britany Sanders LAND LEASE INFORMATION CLERK Unavailable [phone] Milton Dawkins COAT EXAMINER SHIELD RUNNER Unavailable +[phone] Reason for Visit * Reason Onset Date Comments MyChart Communication 01/18/2017 [employer] Encounter Details Date Type Department Care Team (Late st Contact Info) Description 01/18/2017 [facility] [address] [place] [phone] Jess Garcias PA-C [id number] [place] [address] [phone] MyChart Communication ([employer]) Social History Tobacco Use Types Packs/Day Years Used Date Smoking Tobacco: Never Smokeless Tobacco: Never Alcohol Use Standard Drinks/Week Comments No 0 (1 standard drink = 0.6 oz pur e alcohol) occas Comments No Sex and Gender Information Value Date Recorded Sex Assigned at Female 12/03/2022 2:48 PM CDT Legal Sex Female 10:10 AM 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 Gender Identity Female 01/03/2022 12:13 PM CDT Sexual Orientation Straight 12/03/2022 2: 48 PM CDT documented as of this encounter Plan of Treatment Not on file documented as of this encounter Visit Diagnoses Not on filedocumented in this encounter Additional Health Concerns Assessment Noted Time PHQ-9 Depression Total Score: 5 01/02/20 17 7:05 AM CDT documented as of this encounter Care Teams Ammunition Assembly Ii Laborer Relationship Specialty Start Date End Date Jess Garcias PA-C [address] [place], [place] [phone] PCP - General Physician Tight Cooper 12/19/13 Jess Garcias PA-C [address] [place], [place] [phone] PCP - Assigned PCP 11/28/16 11/14/18 Lori Osorio LAND SURVEYING PARTY CHIEF [address] [address] Nurse Practitioner Nurse Practitioner Psych/Mental Health 04/11/17 Jess Garcias PA-C [address] [place] [address] Assigned PCP 11/28/16 12/30/18 Kenisha Yun APRN [facility] [address] [place] [address] Assigned PCP 12/31/18 06/02/19 Jess Garcias PA-C [address] [place] [address] Assigned PCP 06/03/19 08/04/19 [place] [address] [place] [address] Assigned PCP 08/05/19 01/12/20 Jess Garcias PA-C [address] [place] [address] Assigned PCP 01/13/20 11/30/20 [place] [address] [place] [address] Assigned Musculoskeletal Provider 07/04/20 10/10/21 Ana Cristina Dudley MD INACTIVE IN [place] SINCE 09/11/2021 Assigned PCP 12/01/20 01/17/21 Jess Garcias, PAChristianoC [address] [place] [address] Assigned PCP 01/18/21 Ronel Escoto, [facility] [address] [place] [address] Pharmacist Pharmacist 08/13/22 Ronel Escoto, [facility] [address] [place] [address] Assigned MTM Pharmacist 08/21/22 Sue Novoa, PharmD [address] [place] [address] [place] Pharmacist Pharmacist 10/22/22 03/11/23 Sue Novoa, PharmD 0 [place] [address] Assigned MTM Pharmacist 10/30/22 Ronel Escoto, [facility] [place] [address] Assigned MTM Pharmacist 01/08/23 3 Thiago Wilks PsyD Assigned Behavioral Health Provider 12/11/22 01/07/23 [place] [address] [place] [address] Assigned Behavioral Health Provider 01/08/23 01/14/23 Thiago Wilks PsyD Assigned Behavioral Health Provider 01/15/23 06/17/23 Sue Novoa, PharmD [address]70 [place] [address] Assigned MTM Pharmacist 01/15/23 Sue Novoa, PharmD [address] [place] [address] Assigned MTM Pharmacist 02/05/23 Christiane King [facility] [address] [place], [place] 836436 Pharmacist Pharmacist 03/11/23 03/27/23 [place] [address] [place] [address] Assigned Behavioral Health Provider 06/18/23 01/02/24 Elvi Sandoval PA-C [address] [place] [address] 830950 Assigned Neuroscience Provider 08/06/23 10/05/23 Ronel Escoto [facility] [address] [place], [place] 0537[address] Assigned MTM Pharmacist 09/17/23 Britany Sanders, VEL [address] [place] [address]/ [address] [place] [address] Assigned Behavioral Health Provider 01/03/24 Milton Dawkins APRN [facility] JOAN CASTILLO [address] Nurse Practitioner Otolaryngology 05/08/24 documented as of this encounter
--- OUTSIDE RECORDS SUMMARY | 2024-07-17 07:56 | XMS_ITS | Encounter Summary ---
Author Organization [facility] Address [address] [place] [address] Care Team Providers Care Packing Checker Name Role Phone Jess Garcias PA-C Primary Care Provider [phone] JoLori chavez NP Unavailable [phone] Jess Garcias-C Unavailable [phone] Jess Garcias-C Unavailable [phone] Kenisha Yun APRN OPEN END SPINNING OPERATOR Unavailable + Jess Garcias-C Unavailable [phone] Quynh Dalton MD Unavailable Jess Garcias PA-C Unavailable [phone] Edgar Zurita MD Unavailable Ana Cristina Dudley MD Unavailable Unavailabl e Jess Garcias PA-C Unavailable Ronel Escoto [facility] Unavailable [phone] Ronel Escoto RPH Unavailable [phone] Sue Novoa PharmD Unavailable [phone] Sue Novoa PharmD Unavailable [phone] Ronel Escoto RPH Unavailable Thiago Wilks PsyD Unavailable Unavaila Joana Landis DO Unavailable Thiago Wilks PsyD Unavailable Unavaila ble Sue Novoa PharmD Unavailable [phone] Sue Novoa PharmD Unavailable [phone] Christiane King [facility] Unavailable [phone] TammiJoana Unavailable Elvi Sandoval PA-C Unavailable [phone] JevonRonel [facility] Unavailable [phone] Britany Sanders MIDDLE SCHOOL COUNSELOR Unavailable [phone] Milton Dawkins COAL AND ASH SUPERVISOR OPEN END SPINNING OPERATOR Unavailable [phone] Encounter Details Date Type Department Care Team [...] PM CDT 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 Gender Identity Female 01/03/2022 12:13 PM CDT Sexual Orientation Straight 12/03/2022 2: 48 PM CDT documented as of this encounter Plan of Treatment Not on file documented as of this encounter Visit Diagnoses Not on filedocumented in this encounter Additional Health Concerns Assessment Noted Time PHQ-9 Depression Total Score: 4 08/02/20 17 7:19 AM WHOLESALE AND RETAIL MERCHANT documented as of this encounter Care Teams Packing Checker Relationship Specialty Start Date End Date Jess Garcias PA-C [address] [place] [address] PCP - General Physician Auto Porter 12/19/13 Jess Garcias PA-C [address] [place] [address] PCP - Assigned PCP 11/28/16 11/14/18 Lori Osorio NP [facility] [address] [place] [address] Nurse Practitioner Nurse Practitioner Psych/Mental Health 04/11/17 Jess Garcias PA-C [address] [place] [address] Assigned PCP 11/28/16 12/30/18 Kenisha Yun APRN [facility] [address] [place] [address] Assigned PCP 12/31/18 06/02/19 Jess Garcias PA-C [address] [place] [address] Assigned PCP 06/03/19 08/04/19 [place] [address] [place] [address] Assigned PCP 08/05/19 01/12/20 Jess Garcias PA-C [address] [place] [address] Assigned PCP 01/13/20 11/30/20 [place] [address] [place] [address] Assigned Musculoskeletal Provider 07/04/20 10/10/21 Ana Cristina Dudley MD INACTIVE IN [place] SINCE 09/11/2021 Assigned PCP 12/01/20 01/17/21 Jess Garcias PA-C [address] [place] [address] Assigned PCP 01/18/21 Ronel Escoto [facility] [address] [place] [address] Pharmacist Pharmacist 08/13/22 Ronel Escoto [facility] [address] [place] [address] Assigned MTM Pharmacist 08/21/22 Sue Novoa, Miguelito [address] [place] [address] MTM Pharmacist Pharmacist 10/22/22 03/11/23 Seu Novoa, PharmD [address] [place] [address] Assigned MTM Pharmacist 10/30/22 Ronel Escoto [facility] [address] [place] [address] Assigned MTM Pharmacist 01/08/23 3 Thiago Wilks PsyD Assigned Behavioral Health Provider 12/11/22 01/07/23 Joana Cadena DO [facility] [place] [address] Assigned Behavioral Health Provider 01/08/23 01/14/23 Thiago Wilks PsyD Assigned Behavioral Health Provider 01/15/23 06/17/23 Sue Novoa, Miguelito [address] [place] [address] Assigned MTM Pharmacist 01/15/23 Sue Novoa PharmD [address] [place] [address] Assigned MTM Pharmacist 02/05/23 Christiane Candelaria, [facility] MTM [address] [place] [address] Pharmacist Pharmacist 03/11/23 03/27/23 Joana Cadena DO [address] [place] [address] Assigned Behavioral Health Provider 06/18/23 01/02/24 Elvi Sandoval PA-C [address] [place] [address] Assigned Neuroscience Provider 08/06/23 10/05/23 Ronel Escoto, [facility] [address] [place] [address] Assigned MTM Pharmacist 09/17/23 Britany Sanders, VEL [address] [place] [address]/ [address] [place] [address] Assigned Behavioral Health Provider 01/03/24 Milton Dawkins APRN OPEN END SPINNING OPERATOR [address] [place] [address] Nurse Practitioner Otolaryngology 05/08/24 documented as of this encounter
--- OUTSIDE RECORDS SUMMARY | 2024-07-17 07:56 | XMS_ITS | Encounter Summary ---
Author Organization [facility] Address [address] [place] [address] Care Team Providers Care Program Arranger Name Role Phone Jess Garcias PA-C Primary Care Provider [phone] JoLori chavez NP Unavailable Jess Garcias-C Unavailable [phone] Jess Garcias-C Unavailable [phone] Kenisha Yun APRN FUR DRESSER Unavailable + Jess Garcias-C Unavailable [phone] Quynh Dalton MD Unavailable Jess Garcias PA-C Unavailable [phone] Edgar Zurita MD Unavailable Ana Cristina Dudley MD Unavailable Unavailabl e Jess Garcias PA-C Unavailable Ronel Escoto [facility] Unavailable [phone] Ronel Escoto RPH Unavailable [phone] Sue Novoa PharmD Unavailable [phone] Sue Novoa PharmD Unavailable [phone] Ronel Escoto RPH Unavailable Thiago Wilks PsyD Unavailable Unavaila Joana Landis DO Unavailable Thiago Wilks PsyD Unavailable Unavaila ble Bright Sue PharmD Unavailable [phone] Sue Novoa PharmD Unavailable [phone] Kign Christiane [facility] Unavailable [phone] Joana Cadena DO Unavailable Jaime Elvi PA-C Unavailable [phone] Ronel Escoto [facility] Unavailable [phone] Britany Sanders [facility] Unavailable [phone] Milton Dawkins LINE CONTROLLER FUR DRESSER Unavailable [phone] Reason for Visit * Reason Onset Date Comments MyChart Communication 06/05/2018 Encounter Details Date Type Department Care Team (Late st Contact Info) Description 06/05/2018 [facility] [address], [address] [place] [address] Kenisha Yun, [place] FUR DRESSER [address] [place], [place] [id number] MyChart Communication Social History Tobacco Use Types Packs/Day Years Used Date Smoking Tobacco: Never Smokeless Tobacco: Never Alcohol Use Standard Drinks/Week Comments Yes 0 (1 standard drink = 0.6 oz pur e alcohol) occas Comments No Sex and Gender Information Value Date Recorded Sex Assigned at Female 12/03/2022 2:48 PM CDT 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 Will route to Kenisha the Pt's response. Lexie Alva RN -- [facility] * Telephone Encounter - Suzanne Morrissey RN [...] (06/06/2018 4:53 PM CDT) Specimen Description Vagina [facility] Wet Prep No Trichomonas seen 06/06/2018 5:06 PM CDT [facility] Wet Prep No clue cells seen 06/06/2018 5:06 PM CDT [facility] Wet Prep No yeast seen 06/06/2018 5:06 PM CDT [facility] Specimen from vagina (specimen) 06/06/2018 4:53 PM CDT 06/06/2018 4:54 PM CDT eKnisha Yun APRN, CNP LAB - MICRO GENERA L ORDERABLES Final Result [facility] [address] [place] [address] documented in this encounter Visit Diagnoses Diagnosis Vaginal symptom- Primary documented in this encounter Additional Health Concerns Assessment Noted Time PHQ-9 Depression Total Score: 4 08/02/20 17 7:19 AM LOCKSTITCH WAISTBAND SETTER documented as of this encounter Care Teams Program Arranger Relationship Specialty Start Date End Date Jess Garcias PA-C [address] [place] [address] PCP - General Physician Bonderite Operator 12/19/13 Jess Garcias PA-C [address] [place] [address] PCP - Assigned PCP 11/28/16 11/14/18 Lori Osorio NP [address] [address] Nurse Practitioner Nurse Practitioner Psych/Mental Health 04/11/17 Jess Garcias PA-C [address] [place] [address] Assigned PCP 11/28/16 12/30/18 Kenisha Yun APRN CNP [address] [place] [address] Assigned PCP 12/31/18 06/02/19 Jess Garcias PA-C [address] [place] [address] Assigned PCP 06/03/19 08/04/19 [place] [address] [place] [address] Assigned PCP 08/05/19 01/12/20 Jess Garcias PA-C [address] [place] [address] Assigned PCP 01/13/20 11/30/20 [place] [address] [place] [address] Assigned Musculoskeletal Provider 07/04/20 10/10/21 Ana Cristina Dudley MD INACTIVE IN [place] SINCE 09/11/2021 Assigned PCP 12/01/20 01/17/21 Jess Garcias PA-C [address] [place], [place] 827[address]24 Assigned PCP 01/18/21 Ronel Escoto, [facility] [place] [address] Pharmacist Pharmacist 08/13/22 Ronel Escoto, [facility] [place] [address] Assigned MTM Pharmacist 08/21/22 Sue Novoa, PharmD [address] [place] [address] MTM Pharmacist Pharmacist 10/22/22 03/11/23 Sue Novoa, PharmD [address] [place] [address] Assigned MTM Pharmacist 10/30/22 Ronel Escoto, [facility] [place] [address] Assigned MTM Pharmacist 01/08/23 3 Thiago Wilks PsyD Assigned Behavioral Health Provider 12/11/22 01/07/23 [place] [address] [place] [address] Assigned Behavioral Health Provider 01/08/23 01/14/23 Thiago Wilks PsyD Assigned Behavioral Health Provider 01/15/23 06/17/23 Sue Novoa, PharmD [address] [place] [address] Assigned MTM Pharmacist 01/15/23 Sue Novoa, PharmD [address] [place] [address] Assigned MTM Pharmacist 02/05/23 4 Christiane King [facility] [address] [address] Pharmacist Pharmacist 03/11/23 03/27/23 [place] [address] [place] [address] Assigned Behavioral Health Provider 06/18/23 01/02/24 Elvi Sandoval PA-C [address] [place] [address]85[address] Assigned Neuroscience Provider 08/06/23 10/05/23 Ronel Escoto [facility] [address] [place] [address] 250466 Assigned MTM Pharmacist 09/17/23 Britany Sanders LICSW [address] [place] [address]/ [address] [place] [address] Assigned Behavioral Health Provider 01/03/24 Milton Dawkins APRN [facility] [address] [place] [address] JOAN CASTILLO [address] Nurse Practitioner Otolaryngology 05/08/24 documented as of this encounter
--- OUTSIDE RECORDS SUMMARY | 2024-07-17 07:56 | XMS_ITS | Encounter Summary ---
Author Organization [facility] Address [address] [place] [address] Care Team Providers Care Compliance Assistant Name Role Phone Jess Garcias PA-C Primary Care Provider Lori Osorio NP Unavailable [phone] Jess Garcias PA-C Unavailable Quynh Dalton MD Unavailable Jess Garcias PA-C Unavailable Edgar Zurita MD Unavailable Ana Cristina Dudley MD Unavailable Unavailabl e Jess Garcias PA-C Unavailable Ronel Escoto RPH Unavailable Ronel Escoto RPH Unavailable [phone] Sue Novoa PharmD Unavailable Sue Novoa PharmD Unavailable Ronel Escoto RPH Unavailable [phone] Thiago Wilks PsyD Unavailable Unavaila Joana Landis DO Unavailable Thiago Wilks PsyD Unavailable Unavaila Sue Roldan PharmD Unavailable [phone] Sue Novoa PharmD Unavailable [phone] Christiane King RPH Unavailable [phone] Joana Cadena DO Unavailable Jaime Elvira CASPER Unavailable Ronel Escoto [facility] Unavailable [phone] Britany Sanders [facility] Unavailable [phone] Milton Dawkins APRN CORE MAN Unavailable [phone] Reason for Visit * Reason Onset Date Comments MyChart Communication 06/25/2019 Encounter Details Date Type Department Care Team (Late st Contact Info) Description 06/25/2019 [facility] Medical Advice [address], [address] [place] [address] [place] [address] [place] [address] MyChart Communication Social History Tobacco [...] PM CDT 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 Gender Identity Female 01/03/2022 12:13 PM CDT Sexual Orientation Straight 12/03/2022 2: 48 PM CDT documented as of this encounter Miscellaneous Notes * Telephone Encounter - Kirstin Marley RN - 06/25/2019 9:55 AM CDT See [employer] message Do you want punch biopsy of [...] documented as of this encounter Care Teams Compliance Assistant Relationship Specialty Start Date End Date Jess Garcias PA-C [address] [place] [address] PCP - General Physician Cement Or Concrete Finishing Supervisor 12/19/13 Lori Osorio NP [address] [address] Nurse Practitioner Nurse Practitioner Psych/Mental Health 04/11/17 Jess Garcias PA-C [address] [place] [address] Assigned PCP 06/03/19 08/04/19 [place] [address] [place] [address] Assigned PCP 08/05/19 01/12/20 Jess Garcais PA-C [address] [place] [address] Assigned PCP 01/13/20 11/30/20 [place] [address] [facility] [place] [address] Assigned Musculoskeletal Provider 07/04/20 10/10/21 Ana Cristina Dudley MD INACTIVE IN [place] SINCE 09/11/2021 Assigned PCP 12/01/20 01/17/21 Jess Garcias PA-C [address] [place] [address] Assigned PCP 01/18/21 Ronel Escoto, [facility] [address] [place] [address] Pharmacist Pharmacist 08/13/22 Ronel Escoto [facility] [address] [place] [address] Assigned MTM Pharmacist 08/21/22 Sue Novoa, PharmD [address] [place] [address] MTM Pharmacist Pharmacist 10/22/22 03/11/23 Sue Novoa, PharmD [address] [place] [address] Assigned MTM Pharmacist 10/30/22 Ronel Escoto [facility] [address] [place] [address] Assigned MTM Pharmacist 01/08/23 3 Thiago Wilks PsyD Assigned Behavioral Health Provider 12/11/22 01/07/23 Joana Cadena DO [facility] [place] [address] Assigned Behavioral Health Provider 01/08/23 01/14/23 Thiago Wilks PsyD Assigned Behavioral Health Provider 01/15/23 06/17/23 Sue Novoa, PharmD [address] [place] [address] Assigned MTM Pharmacist 01/15/23 Sue Novoa, Miguelito [address] [place] [address] Assigned MTM Pharmacist 02/05/23 Christiane Candelaria [facility] MTM [address] [place] [address] Pharmacist Pharmacist 03/11/23 03/27/23 Joana Cadena DO [address] [place] [address] Assigned Behavioral Health Provider 06/18/23 01/02/24 Elvi Sandoval PA-C [address] [place] [address] Assigned Neuroscience Provider 08/06/23 10/05/23 Ronel Escoto, [facility] [address] [place] [address] Assigned MTM Pharmacist 09/17/23 Britany Sanders, SNAKE CHARMER [address] [place] [address]/ [address] [place] [address] Assigned Behavioral Health Provider 01/03/24 Milton Dawkins APRN CORE MAN [address] [place] [address] Nurse Practitioner Otolaryngology 05/08/24 documented as of this encounter
--- OUTSIDE RECORDS SUMMARY | 2024-07-17 07:56 | XMS_ITS | Encounter Summary ---
Author Organization [place] Address [address] [place] [address] Care Team Providers Care Scale Expert Name Role Phone Jess Garcias PA-C Primary Care Provider [phone] JoLori chavez NP Unavailable [phone] Jess Garcias-C Unavailable [phone] Jess Garcias-C Unavailable [phone] Kenisha Yun APRN BAG MACHINE SET UP OPERATOR Unavailable + Jess Garcias-C Unavailable [phone] Quynh Dalton MD Unavailable Jess Garcias PA-C Unavailable [phone] Edgar Zurita MD Unavailable Ana Cristina Dudley MD Unavailable Unavailabl e Jess Garcias PA-C Unavailable Ronel Escoto [facility] Unavailable [phone] Ronel Escoto RPH Unavailable [phone] Sue Novoa PharmD Unavailable +[phone] Sue Novoa PharmD Unavailable [phone] Ronel Escoto RPH Unavailable [phone] Thiago Wilks PsyD Unavailable Unavaila Joana Landis DO Unavailable Thiago Wilks PsyD Unavailable Unavaila ble Sue Novoa PharmD Unavailable [phone] Sue Novoa PharmD Unavailable +[phone] FernandoMontezChristiane [facility] Unavailable [phone] TammiJoana Unavailable Elvi Sandoval PA-C Unavailable JevonRonel [facility] Unavailable +[phone] Britany Sanders TEST DESK OPERATOR Unavailable [phone] Milton Dawkins ROVING HAND BAG MACHINE SET UP OPERATOR Unavailable [phone] Reason for Visit * Reason Onset Date Comments Medication Question 03/03/2017 Encounter Details Date Type Department Care Team (Late st Contact Info) Description 03/03/2017 MyC Medical Advice [facility] [id number] [place] [address] [phone] Jess Garcias PA-C [address] [place] [address] [phone] Medication Question Social History Tobacco Use Types Packs/Day Years Used Date Smoking Tobacco: Never Smokeless Tobacco: Never Alcohol Use Standard Drinks/Week Comments No 0 (1 standard drink = 0.6 oz pur e alcohol) occas Comments No Sex and Gender Information Value Date Recorded Sex Assigned at Female 12/03/2022 2:48 PM CDT 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 Gender Identity Female 01/03/2022 12:13 PM CDT [...] documented as of this encounter Care Teams Scale Expert Relationship Specialty Start Date End Date Jess Garcias PA-C [address] [place] [address] PCP - General Physician Fishing Accessories Maker 12/19/13 Jess Garcias PA-C [address] [place] [address] PCP - Assigned PCP 11/28/16 11/14/18 Lori Osorio NP [address] [address] Nurse Practitioner Nurse Practitioner Psych/Mental Health 04/11/17 Jess Garcias PA-C [address] [place] [address] Assigned PCP 11/28/16 12/30/18 Kenisha Yun APRN CNP [address] [place] [address] Assigned PCP 12/31/18 06/02/19 Jess Garcias PA-C [address] [place] [address] Assigned PCP 06/03/19 08/04/19 [place] [address] [facility] [place] [address] Assigned PCP 08/05/19 01/12/20 Jess Garcias PA-C [address] [place] [address] Assigned PCP 01/13/20 11/30/20 [place] [address] [place], [place] [address] Assigned Musculoskeletal Provider 07/04/20 10/10/21 Ana Cristina Dudley MD INACTIVE IN [place] SINCE 09/11/2021 Assigned PCP 12/01/20 01/17/21 Jess Garcias PA-C [address] [place] [address] Assigned PCP 01/18/21 Ronel Escoto [facility] [address] [place] [address] Pharmacist Pharmacist 08/13/22 Ronel Escoto [facility] [address] [place] [address] Assigned MTM Pharmacist 08/21/22 Sue Novoa, JanD [address] [place] [address] MTM Pharmacist Pharmacist 10/22/22 03/11/23 Sue Novoa, PharmD [address] [place] [address] Assigned MTM Pharmacist 10/30/22 Ronel Escoto [facility] [address] [place] [address] Assigned MTM Pharmacist 01/08/23 3 Thiago Wilks PsyD Assigned Behavioral Health Provider 12/11/22 01/07/23 [place] [address] [address] [address] Assigned Behavioral Health Provider 01/08/23 01/14/23 Thiago Wilks PsyD Assigned Behavioral Health Provider 01/15/23 06/17/23 Sue Novoa, JanD [address] [place] [address] Assigned MTM Pharmacist 01/15/23 Sue Novoa, JanD [address] [place] [address] Assigned MTM Pharmacist 02/05/23 4 Christiane King [facility] MTM [address] [place] [address] Pharmacist Pharmacist 03/11/23 03/27/23 [place] [address] [place] [address] Assigned Behavioral Health Provider 06/18/23 01/02/24 Elvi Sandoval PA-C [address] [address] Assigned Neuroscience Provider 08/06/23 10/05/23 Ronel Escoto, [facility] [address] [place] [address] Assigned MTM Pharmacist 09/17/23 Britany Sanders LICSW [address] [place] [address]/ [address] [place] [address] Assigned Behavioral Health Provider 01/03/24 Milton Dawkins APRN BAG MACHINE SET UP OPERATOR [address] [place] [address] Nurse Practitioner Otolaryngology 05/08/24 documented as of this encounter
--- OUTSIDE RECORDS SUMMARY | 2024-07-17 07:56 | XMS_ITS | Encounter Summary ---
Author Organization [place] Address [address] [place] [address] Care Team Providers Care Senior Javascript Engineer Name Role Phone Jess Garcias PA-C Primary Care Provider [phone] JoLori chavez NP Unavailable [phone] Jess Gracias-C Unavailable [phone] Jess Garcias-C Unavailable [phone] Kenisha Yun APRN LATEX RIBBON MACHINE OPERATOR Unavailable + Jess Garcias-C Unavailable [phone] Quynh Dalton MD Unavailable Jess Garcias PA-C Unavailable [phone] Edgar Zurita MD Unavailable Ana Cristina Dudley MD Unavailable Unavailabl e Jess Garcias PA-C Unavailable Ronel Escoto [facility] Unavailable [phone] Ronel Escoto RPH Unavailable [phone] Sue Novoa PharmD Unavailable [phone] Sue Novoa PharmD Unavailable [phone] Ronel Escoto RPH Unavailable Thiago Wilks PsyD Unavailable Unavaila Joana Landis DO Unavailable Thiago Wilks PsyD Unavailable Unavaila ble Sue Novoa PharmD Unavailable [phone] Sue Novoa PharmD Unavailable [phone] Christiane King [facility] Unavailable [phone] TammiJoana Unavailable Elvi Sandoval PA-C Unavailable [phone] JevonRonel [facility] Unavailable [phone] Britany Sanders RISK ASSESSMENT ANALYST Unavailable [phone] Milton Dawkins ELECTRICAL MANUFACTURING TECHNICIAN LATEX RIBBON MACHINE OPERATOR Unavailable [phone] Reason for Visit * Reason Onset Date Comments MyChart Communication 03/22/2017 Encounter Details Date Type Department Care Team (Late st Contact Info) Description 03/22/2017 MyC Medical [facility] [address] [place] [address] [phone] Jess Garcias PA-C [id number] [place] [address] [phone] MyChart Communication Social History Tobacco Use Types Packs/Day Years Used Date Smoking Tobacco: Never Smokeless Tobacco: Never Alcohol Use Standard Drinks/Week Comments Yes 0 (1 standard drink = 0.6 oz pur e alcohol) occas Comments No Sex and Gender Information Value Date Recorded Sex Assigned at Female 12/03/2022 2:48 PM CDT 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 Gender Identity Female 01/03/2022 12:13 PM CDT Sexual Orientation Straight 12/03/2022 2: 48 PM CDT documented as of this encounter Miscellaneous Notes * Telephone Encounter - Kirstin Marley RN - 03/22/2017 3:11 PM CDT Please review [employer] message below Kirstin Marley RN BS documented in this encounter Plan of Treatment Not on file documented as of this encounter Visit Diagnoses Diagnosis Anxiety Anxiety state, unspecified documented in this encounter Additional Health Concerns Assessment Noted Time PHQ-9 Depression Total Score: 2 03/11/20 17 7:16 AM CDT documented as of this encounter Care Teams Senior Javascript Engineer Relationship Specialty Start Date End Date Jess Garcias PA-C [address] [place] [address] PCP - General Physician Chemical Educator 12/19/13 Jess Garcias PA-C [address] [place] [address] PCP - Assigned PCP 11/28/16 11/14/18 Lori Osorio NP [address] [address] Nurse Practitioner Nurse Practitioner Psych/Mental Health 04/11/17 Jess Garcias PA-C [address] [place] [address] Assigned PCP 11/28/16 12/30/18 Kenisha Yun APRN CNP [address] [place] [address] Assigned PCP 12/31/18 06/02/19 Jess Garcias PA-C [address] [place] [address] Assigned PCP 06/03/19 08/04/19 [place] [address] [place] [address] Assigned PCP 08/05/19 01/12/20 Jess Garcias PA-C [address] [place] [address] Assigned PCP 01/13/20 11/30/20 [place] [address] [place] [address] Assigned Musculoskeletal Provider 07/04/20 10/10/21 Ana Cristina Dudley MD INACTIVE IN [place] SINCE 09/11/2021 Assigned PCP 12/01/20 01/17/21 Jess Garcias, PAChristianoC [address] [place] [address] Assigned PCP 01/18/21 Ronel Escoto, [facility] [place] [address] Pharmacist Pharmacist 08/13/22 Ronel Escoto, [facility] [place] [address] Assigned MTM Pharmacist 08/21/22 Sue Novoa, PharmD [address] [place] [address] MTM Pharmacist Pharmacist 10/22/22 03/11/23 Sue Novoa, PharmD [address] [place] [address] Assigned MTM Pharmacist 10/30/22 Ronel Escoto, [facility] [place] [address] Assigned MTM Pharmacist 01/08/23 3 Thiago Wilks PsyD Assigned Behavioral Health Provider 12/11/22 01/07/23 [place] [address] [place] [address] Assigned Behavioral Health Provider 01/08/23 01/14/23 Thiago Wilks PsyD Assigned Behavioral Health Provider 01/15/23 06/17/23 Sue Novoa, PharmD [address] [place] [address] Assigned MTM Pharmacist 01/15/23 Sue Novoa, PharmD [address] [place] [address] Assigned MTM Pharmacist 02/05/23 4 Christiane King [facility] [address] [address] Pharmacist Pharmacist 03/11/23 03/27/23 [place] [address] [place] [address] Assigned Behavioral Health Provider 06/18/23 01/02/24 Elvi Sandoval PA-C [address] [place] [address] Assigned Neuroscience Provider 08/06/23 10/05/23 Ronel Escoto [facility] [address] [place] [address] Assigned MTM Pharmacist 09/17/23 Britany Sanders LICSW [address] [place] [address]/ [address] [place] [address] Assigned Behavioral Health Provider 01/03/24 Milton Dawkins APRN LATEX RIBBON MACHINE OPERATOR [facility] [place] [address] Nurse Practitioner Otolaryngology 05/08/24 documented as of this encounter
--- OUTSIDE RECORDS SUMMARY | 2024-07-17 07:56 | XMS_ITS | Encounter Summary ---
Author Organization [place] Address [address] [place] [address] Care Team Providers Care Web Applications Programmer Name Role Phone Jess Garcias PA-C Primary Care Provider [phone] JoLori chavez NP Unavailable [phone] Jess Garcias-C Unavailable [phone] Jess Garcias-C Unavailable [phone] Kenisha Yun APRN ENTRY DRIVER OPERATOR Unavailable + Jess Garcias-C Unavailable [phone] Quynh Dalton MD Unavailable Jess Garcias PA-C Unavailable [phone] Edgar Zurita MD Unavailable Ana Cristina Dudley MD Unavailable Unavailabl e Jess Garcias PA-C Unavailable Ronel Escoto [facility] Unavailable [phone] Ronel Escoto RPH Unavailable [phone] Sue Novoa PharmD Unavailable [phone] Sue Novoa PharmD Unavailable [phone] Ronel Escoto RPH Unavailable [phone] Thiago Wilks PsyD Unavailable Unavaila Joana Landis DO Unavailable Thiago Wilks PsyD Unavailable Unavaila ble Sue Novoa PharmD Unavailable [phone] Sue Novoa PharmD Unavailable [phone] Christiane King [facility] Unavailable [phone] TammiJoana Unavailable Elvi Sandoval PA-C Unavailable [phone] JevonJusticeRonel T [facility] Unavailable [phone] Britany Sanders VISCOSITY TESTER Unavailable [phone] Milton Dawkins APRN ENTRY DRIVER OPERATOR Unavailable [phone] Reason for Visit * Reason Onset Date Comments Refill Request 10/05/2018 Encounter Details Date Type Department Care Team (Late st Contact Info) Description 10/05/2018 MyC Refill [facility] [address] [place] [address] Geronimo Guerrero, ENTRY DRIVER OPERATOR [address] [place], [place] [id number] Refill Request Social History Tobacco Use Types [...] PM CDT Legal Sex Female 10:10 AM ANTISQUEAK CHALKER Gender Identity Female 01/03/2022 12:13 PM CDT Sexual Orientation Straight 12/03/2022 2: 48 PM CDT documented as of this encounter Plan of Treatment Not on file documented as of this encounter Visit Diagnoses Diagnosis ROSA (generalized anxiety disorder) Generalized anxiety disorder documented in this encounter Additional Health Concerns Assessment Noted Time PHQ-9 Depression Total Score: 11 08/24/2 018 1:11 PM ANTISQUEAK CHALKER documented as of this encounter Care Teams Web Applications Programmer Relationship Specialty Start Date End Date Jess Garcias, PENNIE [address] [place] [address] PCP - General Physician Invasive Cardiovascular Technologist 12/19/13 Jess Garcias PA-C [address] [place] [address] PCP - Assigned PCP 11/28/16 11/14/18 Lori Osorio, SPLITTER MACHINE [address] [address] Nurse Practitioner Nurse Practitioner Psych/Mental Health 04/11/17 Jess Garcias PA-C [address] [place] [address] Assigned PCP 11/28/16 12/30/18 Kenisha Yun APRN [facility] [address] [place] [address] Assigned PCP 12/31/18 06/02/19 Jess Garcias PA-C [address] [place], [place] 85[address] Assigned PCP 06/03/19 08/04/19 [place] [address] [place] [address] Assigned PCP 08/05/19 01/12/20 Jess Garcias PA-C [address] [place] [address] Assigned PCP 01/13/20 11/30/20 [place] [address] [place] [address] Assigned Musculoskeletal Provider 07/04/20 10/10/21 Ana Cristina Dudley MD INACTIVE IN [place] SINCE 09/11/2021 Assigned PCP 12/01/20 01/17/21 Jess Garcias, PENNIE [address] [place] [address] Assigned PCP 01/18/21 Ronel Escoto [facility] [address] [place] [address] Pharmacist Pharmacist 08/13/22 Ronel Escoto [facility] [address] [place] [address] Assigned MTM Pharmacist 08/21/22 Sue Novoa, PharmD [address] [place] [address] MTM Pharmacist Pharmacist 10/22/22 03/11/23 Sue Novoa, PharmD [address] [place] [address] Assigned MTM Pharmacist 10/30/22 Ronel Escoto [facility] [address] [place] [address] Assigned MTM Pharmacist 01/08/23 3 Thiago Wilks PsyD Assigned Behavioral Health Provider 12/11/22 01/07/23 [place] [address] [place] [address] Assigned Behavioral Health Provider 01/08/23 01/14/23 Thiago Wilks PsyD Assigned Behavioral Health Provider 01/15/23 06/17/23 Sue Novoa, Miguelito [address] [place] [address] Assigned MTM Pharmacist 01/15/23 Sue Novoa PharmD [address] [place] [address] Assigned MTM Pharmacist 02/05/23 Christiane Cand[place]aria [facility] 30[address] [place] [address] Pharmacist Pharmacist 03/11/23 03/27/23 [place] [address] [place] [address] Assigned Behavioral Health Provider 06/18/23 01/02/24 Elvi Sandoval PA-C [address] [place] [address] Assigned Neuroscience Provider 08/06/23 10/05/23 Ronel Escoto [facility] [address] [place] [address] Assigned MTM Pharmacist 09/17/23 Britany Sanders, VEL [address] [place] [address]/ [address] [place] [address] Assigned Behavioral Health Provider 01/03/24 Milton Dawkins APRN ENTRY DRIVER OPERATOR [address] [facility] JOAN CASTILLO [address] Nurse Practitioner Otolaryngology 05/08/24 documented as of this encounter
--- OUTSIDE RECORDS SUMMARY | 2024-07-17 07:56 | XMS_ITS | Encounter Summary ---
Author Organization [place] Address [address] [place] [address] Care Team Providers Care Regional Merchandising Manager Name Role Phone Jess Garcias PA-C Primary Care Provider [phone] JoLori chavez NP Unavailable [phone] Jess Garcias-C Unavailable [phone] Jess Garcias-C Unavailable [phone] Kenisha Yun APRN ANESTHESIA TECH Unavailable + Jess Garcias-C Unavailable [phone] Quynh Dalton MD Unavailable Jess Garcias PA-C Unavailable [phone] Edgar Zurita MD Unavailable Ana Cristina Dudley MD Unavailable Unavailabl e Jess Garcias PA-C Unavailable Ronel Escoto [facility] Unavailable [phone] Ronel Escoto RPH Unavailable [phone] Sue Novoa PharmD Unavailable [phone] Sue Novoa PharmD Unavailable [phone] Ronel Escoto RPH Unavailable Thiago Wilks PsyD Unavailable Unavaila Joana Landis DO Unavailable Thiago Wilks PsyD Unavailable Unavaila ble Sue Novoa PharmD Unavailable [phone] Sue Novoa PharmD Unavailable [phone] Fernando Christiane [facility] Unavailable +[phone] TammiJoana DO Unavailable Elvi Sandoval PAChristianoC Unavailable [phone] JevonRonel [facility] Unavailable [phone] Britany Sanders REFRIGERATOR CABINETMAKER Unavailable [phone] Milton Dawkins CONCRETE PAVER ANESTHESIA TECH Unavailable [phone] Encounter Details Date Type Department Care Team (Late st Contact Info) Description 11/05/2014 MyC Medical Advice [address], [address] [place] [address] Solomon Christensen PA-C [address] [place], [place] [id number] Social History Tobacco Use Types Packs/Day Years Used Date Smoking Tobacco: Never Smokeless Tobacco: Never Alcohol Use Standard Drinks/Week Comments Yes 0 (1 standard drink = 0.6 oz pur e alcohol) occas Comments No Sex and Gender Information Value Date Recorded Sex Assigned at Female 12/03/2022 2:48 PM CDT Legal Sex Female 10:10 AM LAST CHALKER Gender Identity Female 01/03/2022 12:13 PM CDT Sexual Orientation Straight 12/03/2022 2: 48 PM CDT documented as of this encounter Plan of Treatment Not on file documented as of this encounter Visit Diagnoses Not on filedocumented in this encounter Care Teams Regional Merchandising Manager Relationship Specialty Start Date End Date Jess Garcias PA-C [address] [place] [address] PCP - General Physician Benefits Administrator 12/19/13 Jess Garcias PA-C [address] [place] [address] PCP - Assigned PCP 11/28/16 11/14/18 Lori Osorio NP [place] [address] [place] [address] Nurse Practitioner Nurse Practitioner Psych/Mental Health 04/11/17 Jess Garcias PA-C [address] [place] [address] Assigned PCP 11/28/16 12/30/18 Kenisha Yun APRN CNP [address] [place] [address] Assigned PCP 12/31/18 06/02/19 Jess Garcias PA-C [address] [place] [address] Assigned PCP 06/03/19 08/04/19 [place] [address] [place] [address] Assigned PCP 08/05/19 01/12/20 Jess Garcias PA-C [address] [place] [address] Assigned PCP 01/13/20 11/30/20 [place] [address] [place] [address] Assigned Musculoskeletal Provider 07/04/20 10/10/21 Ana Cristina Dudley MD INACTIVE IN [place] SINCE 09/11/2021 Assigned PCP 12/01/20 01/17/21 Jess Garcias PA-C [address] [place] [address] Assigned PCP 01/18/21 Ronel Escoto, [facility] [address] [place] [address] Pharmacist Pharmacist 08/13/22 Ronel Escoto, [facility] [address] [place] [address] Assigned MTM Pharmacist 08/21/22 Sue Novoa, PharmD [address] [place] [address] MTM Pharmacist Pharmacist 10/22/22 03/11/23 Sue Novoa, PharmD [address] [place] [address] Assigned MTM Pharmacist 10/30/22 Ronel Escoto, [facility] [address] [place] [address] Assigned MTM Pharmacist 01/08/23 3 Thiago Wilks PsyD Assigned Behavioral Health Provider 12/11/22 01/07/23 Joana Cadena DO [facility] [place] [address] Assigned Behavioral Health Provider 01/08/23 01/14/23 Thiago Wilks PsyD Assigned Behavioral Health Provider 01/15/23 06/17/23 Sue Novoa, JanD [address] [place] [address] Assigned MTM Pharmacist 01/15/23 uSe Novoa PharmD [address] [place] [address] Assigned MTM Pharmacist 02/05/23 Christiane King [facility] NCM [address] [place] [address] Pharmacist Pharmacist 03/11/23 03/27/23 Joana Cadena DO [address] [place] [address] Assigned Behavioral Health Provider 06/18/23 01/02/24 Elvi Sandoval PA-C [address] [place] [address] Assigned Neuroscience Provider 08/06/23 10/05/23 Ronel Escoto [facility] [address] [place] [address] Assigned MTM Pharmacist 09/17/23 Britany Sanders LICSW [address] [place] [address]/ [address] [address] Assigned Behavioral Health Provider 01/03/24 Milton Dawkins APRN ANESTHESIA TECH [address] [place] [address] Nurse Practitioner Otolaryngology 05/08/24 documented as of this encounter
--- OUTSIDE RECORDS SUMMARY | 2024-07-17 07:56 | XMS_ITS | Encounter Summary ---
Author Organization [facility] Address [address] [place] [address] Care Team Providers Care Oil Paint Shader Name Role Phone Jess Garcias PA-C Primary Care Provider Lori sOorio NP Unavailable [phone] Jess Garcias PA-C Unavailable Quynh Dalton MD Unavailable Jess Garcias PA-C Unavailable Edgar Zurita MD Unavailable Ana Cristina Dudley MD Unavailable Unavailabl e Jess Garcias PA-C Unavailable Ronel Escoto RPH Unavailable Ronel Escoto RPH Unavailable Sue Novoa PharmD Unavailable Sue Novoa PharmD Unavailable [phone] Ronel Escoto RPH Unavailable Thiago Wilks PsyD Unavailable Unavaila Joana Landis DO Unavailable Thiago Wilks PsyD Unavailable Unavaila Sue Roldan PharmD Unavailable [phone] Sue Novoa PharmD Unavailable [phone] Christiane King RPH Unavailable Joana Cadena DO Unavailable Elvi Sandoval PA-C Unavailable [phone] Ronel Escoto [facility] Unavailable Britany Sanders [facility] Unavailable Milton Dawkins APRN NURSE TECH Unavailable [phone] Reason for Visit * Reason Onset Date Comments Hives 06/27/2019 See previous [facility] sages Encounter Details Date Type Department Care Team (Late st Contact Info) Description 06/27/2019 MyC Medical Advice [address], [address] [place] [address] [place] [address] [place] [address] Hives (See previous messages) Social [...] PM CDT Legal Sex Female 10:10 AM J2EE SOFTWARE ENGINEER Gender Identity Female 01/03/2022 12:13 PM [...] documented as of this encounter Care Teams Oil Paint Shader Relationship Specialty Start Date End Date Jess Garcias PA-C [address] [place] [address] PCP - General Physician Body Rolling Machine Tender 12/19/13 Lori Osorio NP [address] [address] Nurse Practitioner Nurse Practitioner Psych/Mental Health 04/11/17 Jess Garcias PA-C [address] [place] [address] Assigned PCP 06/03/19 08/04/19 [place] [address] [place] [address] Assigned PCP 08/05/19 01/12/20 Jess Garcias PA-C [address] [place] [address] Assigned PCP 01/13/20 11/30/20 [place] [address] [place] [address] Assigned Musculoskeletal Provider 07/04/20 10/10/21 Ana Cristina Dudley MD INACTIVE IN [place] SINCE 09/11/2021 Assigned PCP 12/01/20 01/17/21 Jess Garcias PA-C [address] [place] [address] Assigned PCP 01/18/21 Ronel Escoto [facility] [address] [place] [address] Pharmacist Pharmacist 08/13/22 Ronel Escoto [facility] [address] [place] [address] Assigned MTM Pharmacist 08/21/22 Sue Novoa, PharmD [address] [place] [address] MTM Pharmacist Pharmacist 10/22/22 03/11/23 Sue Novoa, JanD 0 [place] [address] Assigned MTM Pharmacist 10/30/22 Ronel Escoto [facility] [address] [place] [address] Assigned MTM Pharmacist 01/08/23 3 Thiago Wilks PsyD Assigned Behavioral Health Provider 12/11/22 01/07/23 [place] [address] [place] [address] Assigned Behavioral Health Provider 01/08/23 01/14/23 Thiago Wilks PsyD Assigned Behavioral Health Provider 01/15/23 06/17/23 Sue Novoa, JanD [address] [place] [address] Assigned MTM Pharmacist 01/15/23 Sue Novoa PharmD [address] [place] [address] Assigned MTM Pharmacist 02/05/23 Christiane Candelaria [facility] [place] [address] [place] [address] Pharmacist Pharmacist 03/11/23 03/27/23 [place] [address] [place] [address] Assigned Behavioral Health Provider 06/18/23 01/02/24 Elvi Sandoval PA-C [address] [place] [address] Assigned Neuroscience Provider 08/06/23 10/05/23 Ronel Escoto [facility] [address] [place] [address] Assigned MTM Pharmacist 09/17/23 Britany Sanders, VEL [address] [place] [address]/ [address] [place] [address] Assigned Behavioral Health Provider 01/03/24 Milton Dawkins APRN NURSE TECH 64[address] [facility] JOAN CASTILLO [address] Nurse Practitioner Otolaryngology 05/08/24 documented as of this encounter
--- OUTSIDE RECORDS SUMMARY | 2024-07-17 07:56 | XMS_ITS | Encounter Summary ---
Author Organization [facility] Address [address] [place] [address] Care Team Providers Care Air Support Operations Operator Name Role Phone Jess Garcias PA-C Primary Care Provider [phone] JoFreedom chavez NP Unavailable Jess Garcias-C Unavailable [phone] Jess Garcias-C Unavailable [phone] Kenisha Yun APRN HEAD START DIRECTOR Unavailable + Jess Garcias-C Unavailable [phone] Quynh Dalton MD Unavailable Jess Garcias PA-C Unavailable [phone] Edgar Zurita MD Unavailable Ana Cristina Dudley MD Unavailable Unavailabl e Jess Garcias PA-C Unavailable Ronel Escoto [facility] Unavailable [phone] Ronel Escoto RPH Unavailable [phone] Sue Novoa PharmD Unavailable [phone] Sue Novoa PharmD Unavailable [phone] Ronel Escoto RPH Unavailable [phone] Thiago Wilks PsyD Unavailable Unavaila Joana Landis DO Unavailable Thiago Wilks PsyD Unavailable Unavaila ble Sue Novoa PharmD Unavailable [phone] Sue Novoa PharmD Unavailable [phone] Christiane King [facility] Unavailable [phone] Joana Cadena DO Unavailable JaimeElvi PA-C Unavailable [phone] Ronel Escoto [facility] Unavailable [phone] Britany Sanders MATERIAL WORKER Unavailable [phone] Milton Dawkins APRN HEAD START DIRECTOR Unavailable [phone] Reason for Visit * Reason Comments Medication Refill Encounter Details Date Type Department Care Team (Late st Contact Info) Description 08/08/2017 [facility] [address] [place] [address] Freedom Rodrí[place] [address] [place] [address] Medication Refill Social History Tobacco Use Types Packs/Day Years Used Date Smoking Tobacco: Never Smokeless Tobacco: Never Alcohol Use Standard Drinks/Week Comments Yes 0 (1 standard drink = 0.6 oz pur e alcohol) occas Comments No Sex and Gender Information Value Date Recorded Sex Assigned at Female 12/03/2022 2:48 PM CDT Legal Sex 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 This is incorrect. Deny. TRUCK DRIVER * Telephone Encounter - Luly Sheets RN - 08/09/2017 8:33 AM CST RX not on RN refill protocol [facility] [place] Date: 08/09/17 Query Report Page#: 1 Patient [...] 08/01/2017 GABAPENTIN 300 MG CAPSULE 90.00 30 [id number] 08/01/2017 [id number] N [id number] 00.0 07/10/2017 GABAPENTIN 300 MG CAPSULE 60.00 30 [id number] 05/30/2017 [id number] R [id number] 00.0 05/30/2017 GABAPENTIN 300 MG CAPSULE 60.00 30 [id number] 05/30/2017 [id number] N [id number] 00.0 04/29/2017 GABAPENTIN 300 MG CAPSULE 60.00 30 [id number] 04/11/2017 [id number] N [id number] 00.0 09/29/2016 GABAPENTIN 300 MG CAPSULE 90.00 90 [id number] 09/21/2016 [id number] N [id number] 00.0 *N/R N=New R=Refill +MED Daily Prescribers for prescriptions listed [id number] KAILA PAVON; [address],, [place] [address] [id number] FREEDOM RODRÍGUEZ (SUPPORT WORKER); [address] [facility], [address], [facility] [address] Pharmacies that dispensed prescriptions listed [id number] Curtume Er[employer]; ORNAMENTAL IRON ERECTOR: RYLEY # [id number], [address],, [place] [address], [id number] [facility] # [id number], [address],, [facility] [address], Patients that match search criteria [id number] KERRI BADILLO 84; [address] [place] [address] MED Summary This section displays cumulative MED values by unique recipient. The MED Max value is the maximum occurrence of cumulative MED sustained for any 3 consecutive days. This value is calculated based on prescriptions dispensed during the date range requested. 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 encounter Plan of Treatment Not on file documented as of this encounter Visit Diagnoses Diagnosis Fibromyalgia Mylagia and myositis, unspecified ROSA (generalized anxiety disorder) Generalized anxiety disorder documented in this encounter Additional Health Concerns Assessment Noted Time PHQ-9 Depression Total Score: 4 08/02/20 17 7:19 AM FIRE TRUCK DRIVER documented as of this encounter Care Teams Air Support Operations Operator Relationship Specialty Start Date End Date Jess Garcias PA-C [address] [place] [address] PCP - General Physician Chemical Reclamation Equipment Operator 12/19/13 Jess Garcias PA-C [address] [place] [address] PCP - Assigned PCP 11/28/16 11/14/18 Freedom Rodríguez NP [address] [address] Nurse Practitioner Nurse Practitioner Psych/Mental Health 04/11/17 Jess Garcias PA-C [address] [place] [address] Assigned PCP 11/28/16 12/30/18 Kenisha Yun APRN HEAD START DIRECTOR [address] [facility] [address] Assigned PCP 12/31/18 06/02/19 Jess Garcias PA-C [address] [place] [address] Assigned PCP 06/03/19 08/04/[address] [place] [address] [facility] [place] [address] Assigned PCP 08/05/19 01/12/20 Jess Garcias PA-C [address] [facility], [place] 10194124 Assigned PCP 01/13/20 11/30/20 [place] [address] [place] [address] Assigned Musculoskeletal Provider 07/04/20 10/10/21 Ana Cristina Dudley MD INACTIVE IN [place] SINCE 09/11/2021 Assigned PCP 12/01/20 01/17/21 Jess Garcias PA-C [address] [place] [address] Assigned PCP 01/18/21 Ronel Escoto, [facility] [address] [place] [address] Pharmacist Pharmacist 08/13/22 Ronel Escoto, [facility] [address] [place] [address] Assigned MTM Pharmacist 08/21/22 Sue Novoa, PharmD [address] [place] [address] MTM Pharmacist Pharmacist 10/22/22 03/11/23 Sue Novoa, PharmD [address] [place] [address] Assigned MTM Pharmacist 10/30/22 Ronel Escoto, [facility] [address] [place] [address] Assigned MTM Pharmacist 01/08/23 3 Thiago Wilks PsyD Assigned Behavioral Health Provider 12/11/22 01/07/23 Joana Cadena DO [address] [place], [place] [address] [address] Assigned Behavioral Health Provider 01/08/23 01/14/23 Thiago Wilks PsyD Assigned Behavioral Health Provider 01/15/23 06/17/23 Sue Novoa, PharmD [address] [place] [address] Assigned MTM Pharmacist 01/15/23 Sue Novoa, PharmD [address] [place] [address] Assigned MTM Pharmacist 02/05/23 4 Christiane King [facility] MTM [address] [place] [address] Pharmacist Pharmacist 03/11/23 03/27/23 Joana Cadena DO [address] [place], [place] [address] [address] Assigned Behavioral Health Provider 06/18/23 01/02/24 Elvi Sandoval PA-C [address] [address] Assigned Neuroscience Provider 08/06/23 10/05/23 Ronel Escoto, [facility] [address] [place] [address] Assigned MTM Pharmacist 09/17/23 Britany Sanders LICSW [facility] [address]/ [address] [place] [address] Assigned Behavioral Health Provider 01/03/24 Milton Dawkins APRN HEAD START DIRECTOR [address] [place] [address] Nurse Practitioner Otolaryngology 05/08/24 documented as of this encounter
--- OUTSIDE RECORDS SUMMARY | 2024-07-17 07:56 | XMS_ITS | Encounter Summary ---
Author Organization [facility] Address [address] [place] [address] Care Team Providers Care Loom Cleaner Name Role Phone Jess Garcias PA-C Primary Care Provider [phone] JoLori chavez NP Unavailable [phone] Jess Garcias-C Unavailable [phone] Jess Garcias-C Unavailable [phone] Kenisha Yun APRN TEST OPERATOR Unavailable + Jess Garcias-C Unavailable [phone] Quynh Dalton MD Unavailable Jess Garcias PA-C Unavailable [phone] Edgar Zurita MD Unavailable Ana Cristina Dudley MD Unavailable Unavailabl e Jess Garcias PA-C Unavailable Ronel Escoto [facility] Unavailable [phone] Ronel Escoto RPH Unavailable [phone] Sue Novoa PharmD Unavailable [phone] Sue Novoa PharmD Unavailable [phone] Ronel Escoto RPH Unavailable Thiago Wilks PsyD Unavailable Unavaila Joana Landis DO Unavailable Thiago Wilks PsyD Unavailable Unavaila ble Sue Novoa PharmD Unavailable [phone] Sue Novoa PharmD Unavailable [phone] Christiane King [facility] Unavailable [phone] TammiJoana Unavailable Elvi Sandoval PAJane Unavailable [phone] JevonRonel [facility] Unavailable [phone] Britany Sanders [employer] Unavailable [phone] Milton Dawkins REMOTELY PILOTED VEHICLE CONTROLLER TEST OPERATOR Unavailable [phone] Reason for Visit * Reason Onset Date Comments MyChart Communication 04/17/2018 follow up 04/12/18 OnCare visit Encounter Details Date Type Department Care Team (Late st Contact Info) Description 04/17/2018 [facility] [address] [place] [address] [phone] Jess Garcias PA-C [id number] [place] [id number] MyChart Communication (follow up 04/12/18 On... Social History Tobacco Use Types Packs/Day Years Used Date Smoking Tobacco: Never Smokeless Tobacco: Never Alcohol Use Standard Drinks/Week Comments Yes 0 (1 standard drink = 0.6 oz pur e alcohol) occas Comments No Sex and Gender Information Value Date Recorded Sex Assigned at Female 12/03/2022 2:48 PM CDT Legal Sex Female 10:10 AM FITTINGS FINISHER Gender Identity Female 01/03/2022 12:13 PM CDT Sexual Orientation Straight 12/03/2022 2: 48 PM CDT documented as of this encounter Plan of Treatment Not on file documented as of this encounter Visit Diagnoses Not on filedocumented in this encounter Additional Health Concerns Assessment Noted Time PHQ-9 Depression Total Score: 4 08/02/20 17 7:19 AM FITTINGS FINISHER documented as of this encounter Care Teams Loom Cleaner Relationship Specialty Start Date End Date Jess Garcias PA-C [address] [place] [address] PCP - General Physician Senior Teradata Developer 12/19/13 Jess Garcias PA-C [address] [place] [address] PCP - Assigned PCP 11/28/16 11/14/18 Lori Osorio, REPLACER [address] [address] Nurse Practitioner Nurse Practitioner Psych/Mental Health 04/11/17 Jess Garcias PA-C [address] [place] [address] Assigned PCP 11/28/16 12/30/18 Kenisha Yun APRN [facility] [address] [place] [address] Assigned PCP 12/31/18 06/02/19 Jess Garcias PA-C [address] [place] [address] Assigned PCP 06/03/19 08/04/19 [place] [address] [place] [address] Assigned PCP 08/05/19 01/12/20 Jess Garcias PA-C [address] [place] [address] Assigned PCP 01/13/20 11/30/20 [place] [address] [place] [address] Assigned Musculoskeletal Provider 07/04/20 10/10/21 Ana Cristina Dudley MD INACTIVE IN [place] SINCE 09/11/2021 Assigned PCP 12/01/20 01/17/21 Jess Garcias, PAChristianoC [address] [place] [address] Assigned PCP 01/18/21 Ronel Escoto, [facility] [address] [place] [address] Pharmacist Pharmacist 08/13/22 Ronel Escoto, [facility] [address] [place] [address] Assigned MTM Pharmacist 08/21/22 Sue Novoa, PharmD 0 [place] [address] MTM Pharmacist Pharmacist 10/22/22 03/11/23 Sue Novoa, PharmD 0 [place] [address] Assigned MTM Pharmacist 10/30/22 Ronel Escoto, [facility] [address] [place] [address] Assigned MTM Pharmacist 01/08/23 5 3 Thiago Wilks PsyD Assigned Behavioral Health Provider 12/11/22 01/07/23 [place] [address] [place] [address] Assigned Behavioral Health Provider 01/08/23 01/14/23 Thiago Wilks PsyD Assigned Behavioral Health Provider 01/15/23 06/17/23 Sue Novoa, JanD [address] [place] [address] Assigned MTM Pharmacist 01/15/23 Sue Novoa PharmD [address] [place] [address] Assigned MTM Pharmacist 02/05/23 Christiane King [facility] [place] [address] [place] [address] Pharmacist Pharmacist 03/11/23 03/27/23 [place] [address] [place] [address] Assigned Behavioral Health Provider 06/18/23 01/02/24 Elvi Sandoval PA-C [address] [place] [address] Assigned Neuroscience Provider 08/06/23 10/05/23 Ronel Escoto [facility] [place] [address] Assigned MTM Pharmacist 09/17/23 Britany Sanders, VEL [address] [place] [address]/ [address] [address] Assigned Behavioral Health Provider 01/03/24 Milton Dawkins APRN TEST OPERATOR [address] [facility] JOAN CASTILLO [address] Nurse Practitioner Otolaryngology 05/08/24 documented as of this encounter
--- OUTSIDE RECORDS SUMMARY | 2024-07-17 07:56 | XMS_ITS | Clinical Summary ---
Author Organization [facility] Address [place], [place] [address] Care Team Providers Care Clean Up Worker Name Role Phone Pcp, No Primary Care [...] 5:13 PM CDT) ANTI HCV Non-reacti ve [facility] Blood specimen (specimen) BLOOD SPECIMEN / Unknown 04/12/2013 5:13 PM CDT 04/12/2013 5:04 PM CDT Priti Kam MD SEND OUTS [facility] INTERNAL ZIP [address] [place] [address] * ANTI HIV 1/2 (04/12/2013 5:13 PM CDT) ANTI HIV 1/2 Non-reacti [facility] Blood specimen (specimen) BLOOD SPECIMEN / Unknown 04/12/2013 5:13 PM CDT 04/12/2013 5:04 PM CDT Priti Kam MD [facility]END OUTS [facility] INTERNAL ZIP [address] [place] [address] from Last 3 Months or Most Recently Relevant to Health Maintenance Care Teams Clean Up Worker Relationship Specialty Start Date End Date Pcp, No . PCP - General 04/12/13
--- OUTSIDE RECORDS SUMMARY | 2024-07-17 07:56 | XMS_ITS | Encounter Summary ---
Author Organization [facility] Address [address] [place] [address] Care Team Providers Care Store Coordinator Name Role Phone Jess Garcias PA-C Primary Care Provider Lori Osorio NP Unavailable [phone] Jess Garcias PA-C Unavailable Quynh Dalton MD Unavailable Jess Garcias PA-C Unavailable Edgar Zurita MD Unavailable Ana Cristina Dudley MD Unavailable Unavailabl e Jess Garcias PA-C Unavailable Ronel Escoto RPH Unavailable Ronel Escoto RPH Unavailable Sue Novoa PharmD Unavailable Sue Novoa PharmD Unavailable [phone] Ronel Escoto RPH Unavailable Thiago Wilks PsyD Unavailable Unavaila Joana Landis DO Unavailable Thiago Wilks PsyD Unavailable Unavaila Sue Roldan PharmD Unavailable [phone] Sue Novoa PharmD Unavailable Christiane King RPH Unavailable Joana Cadena DO Unavailable Elvi Sandoval PA-C Unavailable [phone] Ronel Escoto [facility] Unavailable [phone] Britany Sanders [facility] Unavailable [phone] Milton Dawkins APRN [facility] Unavailable [phone] Reason for Referral * Consultation (Routine) - Closed Specialty Diagnoses / Procedures Referred By Kylee leung Referred To Contact Diagnoses Hives Jess Garcias PA-C [address] [place] [address] Phone: tel: fax: MULTIPLE LOCATIONS Referral ID Status Reason Start Date Expiration Date Visits Re quested Visits Authorized [id number] Closed 06/28/2019 06/27/2020 1 1 Comments Your provider has referred you to: [facility]: [facility] [email or web address] [facility] [email or web address] Please be aware that coverage of these services is subject to the terms and limitations of your health insurance plan. Call member services at your health plan with any benefit or coverage questions. Please bring the following with you to your appointment: (1) Any X-Rays, CTs or MRIs which have been performed. Contact the facility where they were done to arrange for sheepskin pickler prior to your scheduled appointment. (2) List of current medications (3) This referral request (4) Any documents/labs given to you for this referral * Consultation (Routine) - Closed Specialty Diagnoses / Procedures Referred By Kylee leung Referred To Contact Diagnoses Fibromyalgia Jess Garcias PA-C [address] [place] [address] Phone: tel: fax: [facility] [id number] [place] [address] Phone: tel: Referral ID Status Reason Start Date Expiration Date Visits Re quested Visits Authorized [id number] Closed 06/28/2019 06/27/2020 1 1 Comments Your [...] where they were done to arrange for sheepskin pickler prior to your scheduled appointment. (2) List of current medications (3) This referral request (4) Any documents/labs given to you for this referral Reason for Visit * Reason Onset Date Comments Patient/info Update 06/27/2019 lab results Encounter Details Date Type Department Care Team (Late st Contact Info) Description 06/27/2019 [facility] [address] [address] Jess Garcias PA-C [address] [place] [address] Patient/info Update (lab results) Social History [...] CDT Legal Sex Female 10:10 AM REGULATORY AFFAIRS ASSISTANT Gender Identity Female 01/03/2022 12:13 PM [...] needed for hive work up in general. Blood Splatter Analyst can suggest further options * Telephone Encounter [...] place future orders. Please see patients first [employer] message that was sent: Rosa Adamson to [...] CDT [facility] [place] [email or web address] for patient to call clinic [...] rest of this week Kacey Pappas Nurse [facility] documented in this encounter Plan of Treatment Scheduled Referrals Name Type Priority Associated Diagnoses Orde r Schedule RHEUMATOLOGY REFERRAL Referral Routine Fibromyalgia Ordered: 06/28/2019 ALLERGY/ASTHMA ADULT REFERRAL Referral Routine Hives Ordered: 06/28/2019 documented as of this encounter Results * TSH with free T4 reflex FUTURE anytime (07/04/2019 1:05 PM CDT) TSH 1.61 0.40 - 4.00 mU/L 07/05/2019 7:51 AM CDT [facility] Blood specimen (specimen) 07/04/2019 1:05 PM CDT 07/04/2019 1:06 PM CDT Quynh Dalton MD LAB - BLOOD ORDERABLES Final Result [facility] [address] [place] [address] documented in this encounter Visit Diagnoses Diagnosis Fibromyalgia- Primary Mylagia and myositis, unspecified Hives Urticaria, unspecified documented in this encounter Additional Health Concerns Assessment Noted Time PHQ-9 Depression Total Score: 1 06/25/20 19 8:31 AM CDT documented as of this encounter Care Teams Store Coordinator Relationship Specialty Start Date End Date Jess Garcias PA-C [address] [place] [address] PCP - General Physician Nutrition Services Aide 12/19/13 Lori Osorio NP [facility] [place] [address] [place] [address] Nurse Practitioner Nurse Practitioner Psych/Mental Health 04/11/17 Jess Garcias PA-C [address] [place] [address] Assigned PCP 06/03/19 08/04/19 [place] [address] [place] [address] Assigned PCP 08/05/19 01/12/20 Jess Garcias PA-C [address] [place] [address] Assigned PCP 01/13/20 11/30/20 [place] [address] [address] Assigned Musculoskeletal Provider 07/04/20 10/10/21 Ana Cristina Dudley MD INACTIVE IN [place] SINCE 09/11/2021 Assigned PCP 12/01/20 01/17/21 Jess Garcias PA-C [address] [place] [address] Assigned PCP 01/18/21 Ronel Escoto [facility] [address] [place] [address] Pharmacist Pharmacist 08/13/22 Ronel Escoto [facility] [address] [place] [address] Assigned MTM Pharmacist 08/21/22 Sue Novoa, PharmD [address] [place] [address] MTM Pharmacist Pharmacist 10/22/22 03/11/23 Sue Novoa, PharmD 0 [place] [address] Assigned MTM Pharmacist 10/30/22 Ronel Escoto [facility] [address] [place] [address] Assigned MTM Pharmacist 01/08/23 Thiago Ahn PsyD Assigned Behavioral Health Provider 12/11/22 01/07/23 Joana Cadena DO [facility] [place] [address] Assigned Behavioral Health Provider 01/08/23 01/14/23 Thiago Wilks PsyD Assigned Behavioral Health Provider 01/15/23 06/17/23 Sue Novoa, PharmD [address] [place] [address] Assigned MTM Pharmacist 01/15/23 Sue Novoa, PharmD [address] [place] [address] Assigned MTM Pharmacist 02/05/23 Christiane Candelaria, [facility] MTM [address] [place] [address] Pharmacist Pharmacist 03/11/23 03/27/23 Joana Cadena DO [facility] [place] [address] Assigned Behavioral Health Provider 06/18/23 01/02/24 Elvi Sandoval PA-C [address] [address] Assigned Neuroscience Provider 08/06/23 10/05/23 Ronel Escoto, [facility] [address] [place] [address] Assigned MTM Pharmacist 09/17/23 Britany Sanders LICSW [address]/ [address] [address] Assigned Behavioral Health Provider 01/03/24 Milton Dawkins APRN LOGISTIC SPECIALIST 6401 [facility] [place] [address] Nurse Practitioner Otolaryngology 05/08/24 documented as of this encounter
--- OUTSIDE RECORDS SUMMARY | 2024-07-17 07:56 | XMS_ITS | Encounter Summary ---
Author Organization [facility] Address [address] [place] [address] Care Team Providers Care Set Up Operator Name Role Phone Jess Garcias PA-C Primary Care Provider [phone] JoLori chavez NP Unavailable [phone] Jess Garcias-C Unavailable [phone] Jess Garcias-C Unavailable [phone] Kenisha Yun APRN SENIOR NURSE MANAGER Unavailable + Jess Garcias-C Unavailable [phone] Quynh Dalton MD Unavailable Jess Garcias PA-C Unavailable [phone] Edgar Zurita MD Unavailable Ana Cristina Dudley MD Unavailable Unavailabl e Jess Garcias PA-C Unavailable Ronel Escoto [facility] Unavailable [phone] Ronel Escoto RPH Unavailable [phone] Sue Novoa PharmD Unavailable [phone] Sue Novoa PharmD Unavailable [phone] Ronel Escoto RPH Unavailable Thiago Wilks PsyD Unavailable Unavaila Joana Landis DO Unavailable Thiago Wilks PsyD Unavailable Unavaila ble Sue Novoa PharmD Unavailable [phone] Sue Novoa PharmD Unavailable [phone] Christiane King [facility] Unavailable [phone] TammiJoana Unavailable Elvi Sandoval PAChristianoC Unavailable [phone] JevonJusticeRonel T [facility] Unavailable [phone] ASSISTANT Unavailable [phone] Milton Dawkins LOGGING SUPERVISOR SENIOR NURSE MANAGER Unavailable [phone] Reason for Visit * Reason Onset Date Comments MyChart Communication 01/02/2017 [facility]ristiq Encounter Details Date Type Department Care Team (Late st Contact Info) Description 01/02/2017 [facility] [id number] [place] [phone] Jess Garcias PA-C [id number] [place] [address] [id number] MyChart Communication (Pristiq) Social History Tobacco Use Types Packs/Day Years Used Date Smoking Tobacco: Never Smokeless Tobacco: Never Alcohol Use Standard Drinks/Week Comments No 0 (1 standard drink = 0.6 oz pur e alcohol) occas Comments No Sex and Gender Information Value Date Recorded Sex Assigned at Female 12/03/2022 2:48 PM CDT Legal Sex Female 10:10 AM TOOL ENGINE LATHE SET UP OPERATOR Gender Identity Female 01/03/2022 12:13 PM CDT Sexual Orientation Straight 12/03/2022 2: 48 PM CDT documented as of this encounter Plan of Treatment Not on file documented as of this encounter Visit Diagnoses Not on filedocumented in this encounter Additional Health Concerns Assessment Noted Time PHQ-9 Depression Total Score: 5 01/02/20 17 7:05 AM CDT documented as of this encounter Care Teams Set Up Operator Relationship Specialty Start Date End Date Jess Garcias PA-C [address] [place], [place] [id number] PCP - General Physician Upkeep Mechanic 12/19/13 Jess Garcias PA-C [address] [place], [place] [id number] PCP - Assigned PCP 11/28/16 11/14/18 Lori Osorio, CHEESEMAKER HELPER [address] [address] Nurse Practitioner Nurse Practitioner Psych/Mental Health 04/11/17 Jess Garcias PA-C [address] [place] [address] Assigned PCP 11/28/16 12/30/18 Kenisha Yun APRN SENIOR NURSE MANAGER [address] [place] [address] Assigned PCP 12/31/18 06/02/19 Jess Garcias PA-C [address] [place] [address] Assigned PCP 06/03/19 08/04/19 [place] [address] [place] [address] Assigned PCP 08/05/19 01/12/20 Jess Garcias PA-C [address] [place] [address] Assigned PCP 01/13/20 11/30/20 [place] [address] [place] [address] Assigned Musculoskeletal Provider 07/04/20 10/10/21 Ana Cristina Dudley MD INACTIVE IN [place] SINCE 09/11/2021 Assigned PCP 12/01/20 01/17/21 Jess Garcias, PENNIE [address] [place], [place] 133[address] Assigned PCP 01/18/21 Ronel Escoto, [facility] [address] [place] [address] Pharmacist Pharmacist 08/13/22 Ronel Escoto, [facility] [address] [place] [address] Assigned MTM Pharmacist 08/21/22 Sue Novoa, PharmD 0 [place] [address] MTM Pharmacist Pharmacist 10/22/22 03/11/23 Sue Novoa, PharmD 0 [place] [address] Assigned MTM Pharmacist 10/30/22 Ronel Escoto, [facility] [address] [place] [address] Assigned MTM Pharmacist 01/08/23 3 Thiago Wilks PsyD Assigned Behavioral Health Provider 12/11/22 01/07/23 [place] [address] [place] [address] Assigned Behavioral Health Provider 01/08/23 01/14/23 Thiago Wilks PsyD Assigned Behavioral Health Provider 01/15/23 06/17/23 Sue Novoa, PharmD [address] [place] [address] Assigned MTM Pharmacist 01/15/23 Sue Novoa PharmD [address] [place] [address] Assigned MTM Pharmacist 02/05/23 Christiane Candelaria [facility] [address] [place] [address] Pharmacist Pharmacist 03/11/23 03/27/23 [place] [address] [place] [address] Assigned Behavioral Health Provider 06/18/23 01/02/24 Elvi Sandoval PA-C [address] [place] [address] Assigned Neuroscience Provider 08/06/23 10/05/23 Ronel Escoto [facility] [address] [place] [address] 333456 Assigned MTM Pharmacist 09/17/23 Britany Sanders, VEL [address] [place] [address]/ [address] [place] [address] Assigned Behavioral Health Provider 01/03/24 Milton Dawkins APRN [facility] [place] [address] Nurse Practitioner Otolaryngology 05/08/24 documented as of this encounter
--- OUTSIDE RECORDS SUMMARY | 2024-07-17 07:56 | XMS_ITS | Encounter Summary ---
Author Organization [facility] Address [address] [place] [address] Care Team Providers Care Jitney Driver Name Role Phone Jess Garcias PA-C Primary Care Provider [phone] JoLori chavez NP Unavailable [phone] Jess Garcias-C Unavailable [phone] Jess Garcias-C Unavailable [phone] Kenisha Yun APRN HYDROGEN POWER PLANT MANAGER Unavailable + Jess Garcias-C Unavailable [phone] Quynh Dalton MD Unavailable Jess Garcias PA-C Unavailable [phone] Edgar Zurita MD Unavailable Ana Cristina Dudley MD Unavailable Unavailabl e Jess Garcias PA-C Unavailable Ronel Escoto [facility] Unavailable [phone] Ronel Escoto RPH Unavailable [phone] Sue Novoa PharmD Unavailable [phone] Sue Novoa PharmD Unavailable [phone] Ronel Escoto RPH Unavailable Thiago Wilks PsyD Unavailable Unavaila Joana Landis DO Unavailable Thiago Wilks PsyD Unavailable Unavaila ble Sue Novoa PharmD Unavailable [phone] Sue Novoa PharmD Unavailable [phone] Montez KingKenzie [facility] Unavailable [phone] Joana Cadena DO Unavailable Jaime Elvi PA-C Unavailable [phone] Ronel Escoto [facility] Unavailable [phone] Britany Sanders CRISIS INTERVENTION SPECIALIST Unavailable [phone] Milton Dawkins INDIGO MIXER HYDROGEN POWER PLANT MANAGER Unavailable [phone] Reason for Visit * Reason Onset Date Comments Referral 10/17/2017 [facility] Encounter Details Date Type Department Care Team (Late st Contact Info) Description 10/17/2017 [facility] Medical Advice [address] [address] Bong Solano MD Referral ([facility]) Social History Tobacco Use Types Packs/Day Years Used Date Smoking Tobacco: Never Smokeless Tobacco: Never Alcohol Use Standard Drinks/Week Comments Yes 0 (1 standard drink = 0.6 oz pur e alcohol) occas Comments No Sex and Gender Information Value Date Recorded Sex Assigned at Female 12/03/2022 2:48 PM CDT Legal Sex Female 10:10 AM SALES DEVELOPMENT MANAGER Gender Identity Female 01/03/2022 12:13 PM CDT Sexual Orientation Straight 12/03/2022 2: 48 PM CDT documented as of this encounter Miscellaneous Notes * Telephone Encounter - Kanika Horvath RN - 10/18/2017 9:03 AM SALES DEVELOPMENT MANAGER Routing ordering MD. Looks like patient requested [facility] for RA specialist. It is unknown if patient can be seen sooner. Please see referrals note below. Ok for [facility]erral? Kanika Paige RN, BSN, PHN [facility] RN S DEVELOPMENT MANAGER * Telephone Encounter - Lia Ojeda - 10/18/2017 8:56 AM CST Jess would need to do a provider to provider call to see if pt would be able to be seen before November. [phone] Marian-Referrals It is ok for [facility] referral. Rheumatology, Diagnosis arthritis with positive DELFINA and morning stiffness S DEVELOPMENT MANAGER S DEVELOPMENT MANAGER * Telephone Encounter - Kanika Horvath RN - 10/17/2017 4:23 PM SALES DEVELOPMENT MANAGER Routing to Referrals. Are you able to see if patient could get into [facility] sooner than November? Kanika Paige RN, BSN, PHN [facility] RN S DEVELOPMENT MANAGER documented in this encounter Plan of Treatment Not on file documented as of this encounter Visit Diagnoses Not on filedocumented in this encounter Additional Health Concerns Assessment Noted Time PHQ-9 Depression Total Score: 4 08/02/20 17 7:19 AM SALES DEVELOPMENT MANAGER documented as of this encounter Care Teams Jitney Driver Relationship Specialty Start Date End Date Jess Garcias PA-C [address] [place] [address] PCP - General Physician Food Scientist 12/19/13 Jess Garcias PA-C [address] [place] [address] PCP - Assigned PCP 11/28/16 11/14/18 Lori Osorio NP [address] 92[address] Nurse Practitioner Nurse Practitioner Psych/Mental Health 04/11/17 Jess Garcias PA-C [address] [place] [address] Assigned PCP 11/28/16 12/30/18 Kenisha Yun APRN CNP [address] [place] [address] Assigned PCP 12/31/18 06/02/19 Jess Garcias PA-C [address] [place], [place] 365[address] Assigned PCP 06/03/19 08/04/19 [place] [address] [place] [address] Assigned PCP 08/05/19 01/12/20 Jess Garcias PA-C [address] [place] [address] Assigned PCP 01/13/20 11/30/20 [place] [address] [place] [address] Assigned Musculoskeletal Provider 07/04/20 10/10/21 Ana Cristina Dudley MD INACTIVE IN [place] SINCE 09/11/2021 Assigned PCP 12/01/20 01/17/21 Jess Garcias PA-C [address] [place], [place] [address] Assigned PCP 01/18/21 Ronel Escoto, [facility] [address] [place] [address] Pharmacist Pharmacist 08/13/22 Ronel Escoto, [facility] [address] [place] [address] Assigned MTM Pharmacist 08/21/22 Sue Novoa, PharmD [address] [place] [address] MTM Pharmacist Pharmacist 10/22/22 03/11/23 Sue Novoa, PharmD [address] [place] [address] Assigned MTM Pharmacist 10/30/22 Ronel Escoto [facility] [address] [place] [address] Assigned MTM Pharmacist 01/08/23 3 Thiago Wilks PsyD Assigned Behavioral Health Provider 12/11/22 01/07/23 Joana Cadena DO [address] [place], [place] [address] [address] Assigned Behavioral Health Provider 01/08/23 01/14/23 Thiago Wilks PsyD Assigned Behavioral Health Provider 01/15/23 06/17/23 Sue Novoa, PharmD [address] [place] [address] Assigned MTM Pharmacist 01/15/23 Sue Novoa, PharmD 0 [place] [address] Assigned MTM Pharmacist 02/05/23 4 Christiane King [facility] MTM [address] [place] [address] Pharmacist Pharmacist 03/11/23 03/27/23 Joana Cadena DO [address] [place], [place] [address] [address] Assigned Behavioral Health Provider 06/18/23 01/02/24 Elvi Sandoval PA-C [address] [place] [address] 823890 Assigned Neuroscience Provider 08/06/23 10/05/23 Ronel Escoto [facility] [address] [place] [address] Assigned MTM Pharmacist 09/17/23 Britany Sanders LICSW [address] [place] [address]/ [address] [address] Assigned Behavioral Health Provider 01/03/24 Milton Dawkins APRN HYDROGEN POWER PLANT MANAGER [address] [place], [place] [address] [address] Nurse Practitioner Otolaryngology 05/08/24 documented as of this encounter
== END 2024-07-14 01:07 | disposition home or self-care (01) ==
LOC: AMB 07-17 07:52
PROVIDERS: PCP Physician Assistant; Visit Provider Emergency Medicine
DX: S09.90XA Unspecified injury of head, initial encounter (principal); W03.XXXA Other fall on same level due to collision with another person, initial encounter; Y92.511 Restaurant or cafe as the place of occurrence of the external cause
CPT/HCPCS: A0425; A0429

== ENCOUNTER 2024-07-14 01:39 | Emergency (ER) | payer BC, SELFPAY ==
[2024-07-14 01:40] VITALS: BP 98/61; PULSE 77; RESP 20; TEMP 36.7; O2SAT 96; O2SAT 98; BMI 23.4
--- OUTSIDE RECORDS SUMMARY | 2024-07-14 01:43 | XMS_ITS | Encounter Summary ---
Author Organization [place] Address [address] [place] [address] Care Team Providers Care Labor/Excavator Name Role Phone Jess Garcias PA-C Primary Care Provider + [phone] JoLori chavez NP Unavailable Jess Garcias PA-C Unavailable [phone] Ronel Escoto [facility] Unavailable [phone] Ronel Escoto [facility] Unavailable [phone] Britany Sanders [facility] Unavailable [phone] Encounter Details Date Type Department Care Team (Latest Contact Info) Description 05/07/2024 Travel Social History Tobacco Use Types Packs/Day Years Used Date Smoking Tobacco: Never Smokeless Tobacco: Never Alcohol Use Standard Drinks/Week Comments Yes 0 (1 standard drink = 0.6 oz pur e alcohol) once a month PHQ-2 Answer Date Recorded PHQ-2 Score 2 05/07/2024 Adolescent Education Answer Date Record ed Getting School Help Needed Not on file 06/03 Interpersonal Safety Answer Date Record ed Do you feel physically and e motionally safe where you currently live? Yes 05/07/2024 Within the past 12 months, h ave you been hit, slapped, kicked or otherwise physically hurt by someone? No 05/07/2024 Within the past 12 months, h ave you been humiliated or emotionally abused in other ways by your partner or ex-partner? 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 Gender Identity Female 01/03/2022 12:13 PM CDT Sexual Orientation Straight 12/03/2022 2: 48 PM CDT documented as of this encounter Plan of Treatment Not on file documented as of this encounter Visit Diagnoses Not on filedocumented in this encounter Additional Health Concerns Assessment Noted Time PHQ-9 Depression Total Score: 7 05/07/20 11:14 AM CDT documented as of this encounter Care Teams Labor/Excavator Relationship Specialty Start Date End Date Jess Garcias PA-C [address] [place] [address] PCP - General Physician Senior Front End Engineer 12/19/13 Lori Osorio NP [address] [address] Nurse Practitioner Nurse Practitioner Psych/Mental Health 04/11/17 Jess Garcias PA-C [address] [place] [address] Assigned PCP 01/18/21 Ronel Escoto [facility] [address] [place] [address] Pharmacist Pharmacist 08/13/22 Ronel Escoto [facility] [address] [place] [address] Assigned MTM Pharmacist 09/17/23 Britany Sanders LICSW [address] [place] [address]/ [address] [place] [address] Assigned Behavioral Health Provider 01/03/24 documented as of this encounter
--- OUTSIDE RECORDS SUMMARY | 2024-07-14 01:43 | XMS_ITS | Encounter Summary ---
Author Organization [facility] Address [address] [place] [address]. [place] [address] Care Team Providers Care Machine Hoop Maker Helper Name Role Phone Jess Garcias PA-C Primary Care Provider [phone] Lori Osorio GOLDSMITH APPRENTICE Unavailable [phone] Jess Garcias PA-C Unavailable [phone] Ronel Escoto [facility] Unavailable Sue Novoa PharmD Unavailable Joana Cadena DO Unavailable Elvi Sandoval PA-C Unavailable [phone] Ronel Escoto [facility] Unavailable Britany Sanders SAW FEEDER Unavailable [phone] Milton Dawkins APRN MANAGER LATIN Unavailable [phone] Encounter Details Date Type Department Care Team (Late st Contact Info) Description 08/03/2023 [facility] Medical Advice [facility] [address] [place] [address] [phone] Jess Garcias PA-C [id number] [place] [id number] Candidiasis of vagina (Primary Dx) Social History Tobacco Use Types Packs/Day Years Used Date Smoking Tobacco: Never Smokeless Tobacco: Never Alcohol Use Standard Drinks/Week Comments Yes 0 (1 standard drink = 0.6 oz pur e alcohol) once a month PHQ-2 Answer Date Recorded PHQ-2 Score 4 01/10/2023 Adolescent Education Answer Date Record ed Getting School Help Needed Not on file 06/03 Comments No Sex and Gender Information Value Date Recorded Sex Assigned at Female 12/03/2022 2:48 PM CDT 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 Jessie Ackerman RN RIMENTAL PHYSICIST documented in this encounter Plan of Treatment Not on file documented as of this encounter Visit Diagnoses Diagnosis Candidiasis of vagina- Primary Candidiasis of vulva and vagina documented in this encounter Additional Health Concerns Assessment Noted Time PHQ-9 Depression Total Score: 12 023 12:28 PM CDT documented as of this encounter Care Teams Machine Hoop Maker Helper Relationship Specialty Start Date End Date Jess Garcias PA-C [address] [place], [place] [id number] PCP - General Physician Switch Foreman 12/19/13 Lori Osorio NP [facility] [address] [place], [place] [address] Nurse Practitioner Nurse Practitioner Psych/Mental Health 04/11/17 Jess Garcias PA-C [address] [place] [address] Assigned PCP 01/18/21 Ronel Escoto [facility] [address] [place] [address] Pharmacist Pharmacist 12/2/22 Sue Novoa, JanD [address] [place] [address] Assigned MTM Pharmacist 02/05/23 09/16/23 Joana Cadena DO [address] [place] [address] [place] [address] Assigned Behavioral Health Provider 06/18/23 01/02/24 Elvi Sandoval PA-C [address] [id number] Assigned Neuroscience Provider 08/06/23 10/05/23 Ronel Escoto, [facility] [address] [place] [address] Assigned MTM Pharmacist 09/17/23 Britany Sanders, SAW FEEDER [address]/ [address] [address] Assigned Behavioral Health Provider 01/03/24 Milton Dawkins APRN MANAGER LATIN [address] [place] [address] [place], [place] [address] Nurse Practitioner Otolaryngology 05/08/24 documented as of this encounter
--- OUTSIDE RECORDS SUMMARY | 2024-07-14 01:43 | XMS_ITS | Encounter Summary ---
Author Organization [facility] Address [address] [place] [address] Care Team Providers Care Photographic Lithographer Name Role Phone Jess Garcias PA-C Primary Care Provider + [phone] JoLori chavez NP Unavailable [phone] Jess Garcias PA-C Unavailable [phone] Ronel Escoto [facility] Unavailable [phone] Ronel Escoto [facility] Unavailable [phone] Britany Sanders [facility] Unavailable [phone] Encounter Details Date Type Department Care Team (Late st Contact Info) Description 04/12/2024 Telephone [facility] - [facility] Service Line [address] [place] [phone] Sandra Elder Social History Tobacco Use Types Packs/Day Years [...] PM CDT 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 [facility] for patient regarding follow up, left [facility] number if they would like additional assistance. No further follow-up is needed. documented in this encounter Plan of Treatment Not on file documented as of this encounter Visit Diagnoses Not on filedocumented in this encounter Additional Health Concerns Assessment Noted Time PHQ-9 Depression Total Score: 12 023 12:28 PM CDT documented as of this encounter Care Teams Photographic Lithographer Relationship Specialty Start Date End Date Jess Garcias PA-C [address] [place] [address] PCP - General Physician Supervisor Screen Making 12/19/13 Lori Osorio NP [address] [address] Nurse Practitioner Nurse Practitioner Psych/Mental Health 04/11/17 Jess Garcias PA-C [address] [place] [address] Assigned PCP 01/18/21 Ronel Escoto [facility] [address] [place] [phone] Pharmacist Pharmacist 08/13/22 Ronel Escoto [facility] [address] [place] [address] Assigned MTM Pharmacist 09/17/23 Britany Sanders, VEL [address] [place] [address]/ [address] [place] [address] Assigned Behavioral Health Provider 01/03/24 documented as of this encounter
--- OUTSIDE RECORDS SUMMARY | 2024-07-14 01:43 | XMS_ITS | Referral Summary ---
Author Organization [facility] Address [address] [place] [address] Care Team Providers Care Tableau Analyst Name Role Phone Jess Garcias PA-C Primary Care Provider [phone] Lori Osorio NP Unavailable [phone] Jess Garcias PA-C Unavailable [phone] [facility] Unavailable [phone] [facility] Unavailable [phone] Britany Sanders SPLITTER TENDER Unavailable [phone] Milton Dawkins APRN WEB MARKETING MANAGER Unavailable [phone] Encounters Date Type Department Care Team Description 05/07/2024 Travel 05/07/2024 11:30 AM CDT Office Visit [address] [address] Angel Rushing APRN CNP Dysphagia, unspecified type (Primary Dx); Family history of thyroid cancer from Last 3 Months Allergies Active Allergy Reactions Criticality Noted Date Comments Clindamycin Base Hives 05/07/2013 Penicillin G Hives 05/07/2013 Sulfa Antibiotics Hives 05/07/2013 Hydrocodone-Acetaminophen Nausea,Nausea and Vomiting 05/07/2013 Medications multivitamin, therapeutic (THERA-VIT) TABS tablet Take 1 tablet by mouth daily Active hydrOXYzine HCl (ATARAX) 25 MG tabletIndication s:Insomnia, unspecified type Take 2 tablets (50 mg) by mouth nightly as needed for other (insomnia or anxiety) 180 tablet 1 03/30/2024 Active Active Problems Problem Noted Date Diagnosed Date Severe recurrent major depre ssion without psychotic features 04/11/2024 Posttraumatic stress disorder 04/11/2024 Depression with suicidal ideation 04/10/2024 (normal spontaneous vaginal delivery) 02/12 CARDIOVASCULAR SCREENING; LDL GOAL LESS THAN 160 12/19/2013 Irritable bowel syndrome 10/01/2013 Condyloma acuminatum 04/12/2012 Generalized anxiety disorder 04/12/2012 Acne 07/25/2008 Resolved Problems Problem Noted Date Diagnosed Date Resolved Date Anxiety 04/17/2014 04/11/2017 Contraceptive surveillance 06/22/2013 0 11/22/2016 care following vaginal delivery 05/10/2013 11/22/2016 Indication for care in labor or delivery 05/07/2013 11/22/2016 Normal labor 05/07/2013 11/22/2016 Immunizations Name Administration Dates Next Due HepB 04/12/2013 Influenza (IIV3) PF 08/08/2013,09/19/2009 TDAP (Adacel,Boostrix) 02/11/2008 TDAP Vaccine (Adacel) 05/09/2013 Social History Tobacco Use Types Packs/Day Years Used Date Smoking Tobacco: Never Smokeless Tobacco: Never Tobacco Cessation:Counseling Given: Not Answered Alcohol Use Standard Drinks/Week Comments Yes 0 [...] PM CDT Legal Sex Female 10:10 AM ENVIRONMENTAL ENGINEER Gender Identity Female 01/03/2022 12:13 PM CDT Sexual Orientation Straight 12/03/2022 2: 48 PM CDT Last Filed Vital Signs Vital Sign Reading Time Taken Comments Blood Pressure 124/81 05/07/2024 11:19 AM CDT Pulse 76 05/07/2024 11:19 AM CDT Temperature 37 ??C (98.6 ??F) 05/07/2024 11:19 AM CDT Respiratory Rate 16 05/07/2024 11:19 AM CDT Oxygen Saturation 100% 05/07/2024 11:19 AM CDT Inhaled Oxygen Concentration - - Weight 65.4 kg (144 lb 3.2 oz) 05/07/2024 11:19 AM CDT Height 165.1 cm (5' 5) 05/07/2024 11:19 AM CDT Body Mass Index 24 05/07/2024 11:19 AM CDT Plan of Treatment Not on file Procedures Procedure Name Priority Date/Time Associated Diagnosis Comments TSH WITH FREE T4 REFLEX Routine 05/07/2024 11:51 AM CDT Family history of thyroid cancer PAP SMEAR - HIM PATIENT REPORTED Routine 01/11/2024 12:00 PM CDT HIV ANTIGEN ANTIBODY COMBO Routine 01/14/2023 4:10 PM CDT Routine screening for STI (sexually transmitted infection) HEPATITIS C ANTIBODY Routine 10/25/2022 8:02 PM ENVIRONMENTAL ENGINEER Screen for STD (sexually transmitted disease) COMPREHENSIVE METABOLIC PANEL Routine 10/29/2020 3:11 PM ENVIRONMENTAL ENGINEER Arthralgia, unspecified joint Positive DELFINA (antinuclear antibody) HPV HIGH RISK TYPES DNA CERVICAL Routine 12/28/2017 2:23 PM CDT Screening for malignant neoplasm of cervix from Last 3 Months or Most Recently Relevant to Health Maintenance Results * TSH with free T4 reflex (05/07/2024 11:51 AM CDT) TSH 1.48 0.30 - 4.20 uIU/mL 05/07/2024 6:12 PM CDT [facility] Blood BLOOD SPECIMEN / Unknown Venipuncture / Unknown 05/07/2024 11:51 AM CDT 05/07/2024 11:53 AM CDT Angel Rushing APRN WEB MARKETING MANAGER LAB - BLOOD ORDERABLES Taylor l Result [facility] [place] Core Lab [address] [facility] [address], [address] [address], [place] * PAP Smear - HIM Patient Reported (01/11/2024 12:00 PM CDT) PAP Smear - HIM Patient Reported Unknown EXTERNAL LAB 01/11/2024 12:0 0 PM CDT Narrative EXTERNAL LAB - 01/11/2024 12:00 PM CDT See encounter dated 05/07/24 Patient Reported LABORATORY Final Result EXTERNAL LAB External Lab * HIV Antigen Antibody Combo (01/14/2023 4:10 PM CDT) HIV Antigen Antibody Combo Nonreactive Nonreactive 01/16/2023 5:37 PM CDT [facility] C[facility]/PROT/EN DO Comment:HIV-1 p24 Ag & HIV-1 /HIV-2 Ab Not Detected Blood BLOOD SPECIMEN / Unknown Venipuncture / Unknown 01/14/2023 4:10 PM CDT 01/14/2023 4:10 PM CDT Angel Rushing APRN WEB MARKETING MANAGER LAB - BLOOD ORDERABLES Taylor l Result [facility] CORE/PROT/ENDO [facility]/Prot/Endo [address] [facility] [address] Building, Room [address] [address] [phone] * Hepatitis C antibody (10/25/2022 8:02 PM ENVIRONMENTAL ENGINEER) Hepatitis C Antibody Nonreactive Nonreactive 10/26/2022 6:27 PM ENVIRONMENTAL ENGINEER [facility]PROT/EN DO Blood BLOOD SPECIMEN / Unknown Venipuncture / Unknown 10/25/2022 8:02 PM ENVIRONMENTAL ENGINEER 10/25/2022 8:02 PM ENVIRONMENTAL ENGINEER Narrative SPECIALTY CORE/PROT/ENDO - 10/26/2022 6:27 PM ENVIRONMENTAL ENGINEER Assay performance characteristics have not been established for newborns, infants, and children. us Lilly Pak MD LAB - BLOOD ORDERABLES Final Re sult [facility]/PROT/ENDO Specialty Core/Prot/Endo [address] [facility] [address] Building, [address] [place] [address], [facility] [phone] * (ABNORMAL) Comprehensive metabolic panel (BMP + Alb, Alk Phos, ALT, AST, Total. Bili, TP) (10/29/2020 3:11 PM ENVIRONMENTAL ENGINEER) Sodium 141 133 - 144 mmol/L 10/30/2020 12:39 PM [facility] Potassium 3.4 3.4 - 5.3 mmol/L 10/30/2020 12:39 PM [facility] Chloride 110(H) 94 - 109 mmol/L 10/30/2020 12:39 PM [facility] Carbon Dioxide 26 20 - 32 mmol/L 10/30/2020 1:01 PM [facility] Anion Gap 5 3 - 14 mmol/L 10/30/2020 1:01 PM [facility] Glucose 81 70 - 99 mg/dL 10/30/2020 1:01 PM [facility] Comment:Non Fasting Urea Nitrogen 8 7 - 30 mg/dL 10/30/2020 1:01 PM [facility] Creatinine 0.70 0.52 - 1.04 mg/dL 10/30/2020 1:01 PM [facility] GFR Estimate >90 >60 mL/min/{1 .73_m2} 10/30/2020 1:01 PM [facility] Comment: Non GFR Calc Starting 08/29/2018, serum creatinine based estimated GFR (eGFR) will be calculated using the Chronic Kidney Disease Epidemiology Collaboration (CKD-EPI) equation. GFR Estimate If Black >90 >60 mL/min/{1 .73_m2} 10/30/2020 1:01 PM ENVIRONMENTAL ENGINEER [facility] Comment: GFR Calc Starting 08/29/2018, serum creatinine based estimated GFR (eGFR) will be calculated using the Chronic Kidney Disease Epidemiology Collaboration (CKD-EPI) equation. Calcium 9.0 8.5 - 10.1 mg/dL 10/30/2020 1:01 PM ENVIRONMENTAL ENGINEER [facility] Bilirubin Total 0.4 0.2 - 1.3 mg/dL 10/30/2020 1:05 PM ENVIRONMENTAL ENGINEER [facility] Albumin 3.9 3.4 - 5.0 g/dL 10/30/2020 1:05 PM [facility] Protein Total 7.3 6.8 - 8.8 g/dL 10/30/2020 1:05 PM ENVIRONMENTAL ENGINEER [facility] Alkaline Phosphatase 67 40 - 150 U/L 10/30/2020 1:05 PM ENVIRONMENTAL ENGINEER [facility] ALT 14 0 - 50 U/L 10/30/2020 1:05 PM ENVIRONMENTAL ENGINEER [facility] AST 7 0 - 45 U/L 10/30/2020 1:05 PM ENVIRONMENTAL ENGINEER [facility] Blood specimen (specimen) 10/29/2020 3:11 PM ENVIRONMENTAL ENGINEER 10/29/2020 3:12 PM ENVIRONMENTAL ENGINEER us Ana Cristina Dudley MD LAB - BLOOD ORDERABLES Taylor l Result [facility] [address] [place] [address] * HPV High Risk Types DNA Cervical (12/28/2017 2:23 PM CDT) HPV Source [facility] 12/28/2017 2:25 PM CDT [facility] HPV 16 DNA Negative NEG^Nega tive 01/04/2018 7:44 AM CDT [facility] HPV 18 DNA Negative NEG^Nega tive 01/04/2018 7:44 AM CDT [facility] Other HR HPV Negative NEG^Nega tive 01/04/2018 7:44 AM CDT [facility] Final Diagnosis This patient's sample is negative for HPV DNA. 01/04/2018 7:44 AM CDT [facility] Comment: This test was developed and its performance characteristics determined by the [facility]. It has not been cleared or approved by the FDA. The laboratory is regulated under CLIA as qualified to perform high-complexity testing. This test is used for clinical purposes. It should not be regarded as investigational or for research. (Note) METHODOLOGY: ??The Charmaine dada 4800 system uses automated extraction, simultaneous amplification of HPV (L1 region) and beta-globin, ?? followed by ??real time detection of fluorescent labeled HPV and beta globin using specific oligonucleotide probes . The test specifically identifies types HPV 16 DNA and HPV 18 DNA while concurrently detecting the rest of the high risk types (31, 33, 35, 39, 45, 51, 52, 56, 58, 59, 66 or 68). COMMENTS: ??This test is not intended for use as a screening device for women under age 30 with normal cervical cytology. ??Results should be correlated with cytologic and histologic findings. Close clinical followup is recommended. Specimen Description Cervical Cells 01/02/2018 9:34 AM CDT [facility] Comment:[id number] Cervical Cells 12/28/2017 2: 23 PM CDT 12/28/2017 2:27 PM CDT us Jess Garcias PA-C LAB - BLOOD ORDERABLES Fin al Result [facility] [address] [place] [address] [facility] [id number] [place] [address] from Last 3 Months or Most Recently Relevant to Health Maintenance [place] * Guarantor: Rosa Adamson Account Type Relation to Patient Date of Phone Billing Address Medication Therapy Self 1985 [address] [place] [address] Care Teams Tableau Analyst Relationship Specialty Start Date End Date Jess Garcias PA-C [address] [place] [address] PCP - General Physician Lang Path Therapist 12/19/13 Lori Osorio NP [facility] [address] [place] [address] Nurse Practitioner Nurse Practitioner Psych/Mental Health 04/11/17 Jess Garcias PA-C [address] [place] [address] Assigned PCP 01/18/[address] [facility] [address] [place] [address] Pharmacist Pharmacist 08/13/[address] [facility] [address] [place] [address] Assigned MTM Pharmacist 09/17/23 Britany Sanders, VEL [address] [place] [address]/ [address] [place] [address] Assigned Behavioral Health Provider 01/03/24 Milton Dawkins APRN WEB MARKETING MANAGER [address] [place] [address] Nurse Practitioner Otolaryngology 05/08/24
--- OUTSIDE RECORDS SUMMARY | 2024-07-14 01:43 | XMS_ITS | Encounter Summary ---
Author Organization [facility] Address [address] [place] [address] Care Team Providers Care Supervisor Concrete Pipe Plant Name Role Phone Jess Garcias PA-C Primary Care Provider JoLori chavez NP Unavailable [phone] Jess Garcias PA-C Unavailable [phone] Ronel Escoto RPH Unavailable Sue Novoa PharmD Unavailable [phone] Sue Novoa PharmD Unavailable [phone] Ronel Escoto RPH Unavailable [phone] Thiago Wilks PsyD Unavailable Unavaila rk Cadena, Joana DO Unavailable Thiago Wilks PsyD Unavailable Unavaila Sue Roldan PharmD Unavailable [phone] Sue Novoa PharmD Unavailable [phone] Christiane King RPH Unavailable Tammi, Joana DO Unavailable Elvi Sandoval PA-C Unavailable [phone] Ronel Escoto RPH Unavailable [phone] Britany Sanders JUVENILE OFFICER Unavailable [phone] Milton Dawkins APRN AUTOMATION TECHNOLOGIST Unavailable [phone] Encounter Details Date Type Department Care Team (Late st Contact Info) Description 12/27/2022 MyC Medical Advice [facility] Mental Health & Addiction [address] [address] Thiago Wilks PsyD Social History Tobacco Use Types Packs/Day Years Used Date Smoking Tobacco: Never Smokeless Tobacco: Never Alcohol Use Standard Drinks/Week Comments Yes 0 (1 standard drink = 0.6 oz pur e alcohol) once a month PHQ-2 Answer Date Recorded PHQ-2 Score 3 12/03/2022 Comments No Sex and Gender Information Value Date Recorded Sex Assigned at Female 12/03/2022 2:48 PM CDT Legal Sex Female 10:10 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 SHEAR OPERATOR Gender Identity Female 01/03/2022 12:13 PM CDT Sexual Orientation Straight 12/03/2022 2: 48 PM CDT documented as of this encounter Plan of Treatment Not on file documented as of this encounter Visit Diagnoses Not on filedocumented in this encounter Additional Health Concerns Assessment Noted Time PHQ-9 Depression Total Score: 12 023 12:21 PM CDT documented as of this encounter Care Teams Supervisor Concrete Pipe Plant Relationship Specialty Start Date End Date Jess Garcias PA-C [address] [place] [address] PCP - General Physician Technical Operations Manager 12/19/13 Lori Osorio NP [facility] [address] [place], [place] [address] Nurse Practitioner Nurse Practitioner Psych/Mental Health 04/11/17 Jess Garcias PA-C [address] [place] [address] Assigned PCP 01/18/21 Ronel Escoto [facility] [address] [place] [address] Pharmacist Pharmacist 08/13/22 Sue Novoa PharmD [address] [place] [address] [place] Pharmacist Pharmacist 10/22/22 03/11/23 Sue Novoa, PharmD [address] [place] [address] Assigned MTM Pharmacist 10/30/22 01/07/23 Ronel Escoto, [facility] [address] [place] [address] Assigned MTM Pharmacist 01/08/23 01/14/23 Thiago Wilks PsyD Assigned Behavioral Health Provider 12/11/22 01/07/23 Joana Cadena DO [address] [place] [address] Assigned Behavioral Health Provider 01/08/23 01/14/23 Thiago Wilks PsyD Assigned Behavioral Health Provider 01/15/23 06/17/23 Sue Novoa, PharmD [address] [place] [address] Assigned MTM Pharmacist 01/15/23 02/04/23 Sue Novoa, PharmD [address] [place] [address] Assigned MTM Pharmacist 02/05/23 09/16/23 Christiane King [facility] [address] [place] [address] Pharmacist Pharmacist 03/11/23 03/27/23 [place] [address] [place] [address] Assigned Behavioral Health Provider 06/18/23 01/02/24 Elvi Sandoval PA-C [address] [address] Assigned Neuroscience Provider 08/06/23 10/05/23 [facility] [address] [place] [address] Assigned MTM Pharmacist 09/17/23 Britany Sanders LICSW [address] [place] [address]/ [address] [place] [address] Assigned Behavioral Health Provider 01/03/24 Milton Dawkins APRN AUTOMATION TECHNOLOGIST [facility] [place] [address] Nurse Practitioner Otolaryngology 05/08/24 documented as of this encounter
--- OUTSIDE RECORDS SUMMARY | 2024-07-14 01:43 | XMS_ITS | Encounter Summary ---
Author Organization [facility] Address [address] [place] [address] Care Team Providers Care Sports Cartoonist Name Role Phone Jess Garcias PA-C Primary Care Provider [phone] JoLori chavez NP Unavailable [phone] Jess Garcias PA-C Unavailable [phone] Ronel Escoto [facility] Unavailable Joana Cadena DO Unavailable Elvi Sandoval PA-C Unavailable [phone] Ronel Escoto [facility] Unavailable Britany Sanders GROCERY STORE COURTESY CLERK Unavailable [phone] Milton Dawkins APRN BOAT OAR MAKER Unavailable [phone] Encounter Details Date Type Department Care Team (Late st Contact Info) Description 09/29/2023 [facility] [address] [address] Ronel Escoto, [facility] [address] [place] [address] Social History Tobacco Use Types Packs/Day Years [...] PM CDT Legal Sex Female 10:10 AM 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 MECHANIC Gender Identity Female 01/03/2022 12:13 PM CDT Sexual Orientation Straight 12/03/2022 2: 48 PM CDT documented as of this encounter Plan of Treatment Not on file documented as of this encounter Visit Diagnoses Not on filedocumented in this encounter Additional Health Concerns Assessment Noted Time PHQ-9 Depression Total Score: 12 023 12:28 PM CDT documented as of this encounter Care Teams Sports Cartoonist Relationship Specialty Start Date End Date Jess Garcias PA-C [address] [place] [address] PCP - General Physician Band Teacher 12/19/13 Lori Osorio NP [facility] [address] [place] [address] Nurse Practitioner Nurse Practitioner Psych/Mental Health 04/11/17 Jess Garcias PA-C [address] [place] [address] Assigned PCP 01/18/21 Ronel Escoto [facility] [address] [place] [address] Pharmacist Pharmacist 08/13/22 [place] [address] [address] [place], [place] [address] Assigned Behavioral Health Provider 06/18/23 01/02/24 Elvi Sandoval PA-C [address] [address] Assigned Neuroscience Provider 08/06/23 10/05/23 Ronel Escoto, [facility] [address] [place] [address] Assigned MTM Pharmacist 09/17/23 Britany Sanders LICSW [address] [place] [address]/ [address] [place] [address] Assigned Behavioral Health Provider 01/03/24 Milton Dawkins APRN BOAT OAR MAKER [address] [place] [address] Nurse Practitioner Otolaryngology 05/08/24 documented as of this encounter
--- OUTSIDE RECORDS SUMMARY | 2024-07-14 01:43 | XMS_ITS | Encounter Summary ---
Author Organization [place] Address [address] [place] [address] Care Team Providers Care Channel Turner Name Role Phone Jess Garcias PA-C Primary Care Provider [phone] JoLori chavez NP Unavailable [phone] Jess Garcias PA-C Unavailable [phone] Ronel Escoto RPH Unavailable Sue Novoa PharmD Unavailable Thiago Wilks PsyD Unavailable Unavaila ble Sue Novoa PharmD Unavailable Sue Novoa PharmD Unavailable [phone] Christiane King RPH Unavailable Joana Cadena DO Unavailable Elvi Sandoval PA-C Unavailable [phone] Ronel Escoto RPH Unavailable [phone] Britany Sanders NEGATIVE SPOTTER Unavailable [phone] Milton aDwkins APRN TRACK VEHICLE REPAIRER Unavailable [phone] Encounter Details Date Type Department Care Team (Late st Contact Info) Description 01/17/2023 [facility] Mental Health & Addiction [facility] [address] [place] [address] TommyBritany poole, NEGATIVE SPOTTER [address]/ [address] [place] [address] Social History Tobacco Use Types Packs/Day Years Used Date Smoking Tobacco: Never Smokeless Tobacco: Never Alcohol Use Standard Drinks/Week Comments Yes 0 (1 standard drink = 0.6 oz pur e alcohol) once a month PHQ-2 Answer Date Recorded PHQ-2 Score 4 01/10/2023 Comments No Sex and Gender Information Value Date Recorded Sex Assigned at Female 12/03/2022 2:48 PM CDT Legal Sex Female 10:10 AM CODE OFFICIAL Gender Identity Female 01/03/2022 12:13 PM CDT Sexual Orientation Straight 12/03/2022 2: 48 PM CDT COVID-19 Exposure Response Date Recorded In the last 10 days, have yo u been in contact with someone who was confirmed or suspected to have Coronavirus/COVID-19? No / Unsure 01/14/2023 2:53 PM CDT documented as of this encounter Plan of Treatment Not on file documented as of this encounter Visit Diagnoses Not on filedocumented in this encounter Additional Health Concerns Assessment Noted Time PHQ-9 Depression Total Score: 12 023 12:28 PM CDT documented as of this encounter Care Teams Channel Turner Relationship Specialty Start Date End Date Jess Garcias PA-C [address] [place] [address] PCP - General Physician Vascular Radiologist 12/19/13 Lori Osorio NP [place] [facility] [address] [place] [address] Nurse Practitioner Nurse Practitioner Psych/Mental Health 04/11/17 Jess Garcias PA-C [address] [place], [place] [address] Assigned PCP 01/18/21 Ronel Escoto [facility] [address] [place] [address] Pharmacist Pharmacist 08/13/22 Sue Novoa, PharmD [address] [place] [address] [place] Pharmacist Pharmacist 10/22/22 03/11/23 Thiago Wilks PsyD Assigned Behavioral Health Provider 01/15/23 06/17/23 Sue Novoa, PharmD [address] [place] [address] Assigned [place] Pharmacist 01/15/23 02/04/23 Sue Novoa, JanD [address] [place] [address] Assigned [place] Pharmacist 02/05/23 09/16/23 Christiane King, [facility] [address] [place] [address] Pharmacist Pharmacist 03/11/23 03/27/23 Joana Cadena DO [facility] [place] [address] Assigned Behavioral Health Provider 06/18/23 01/02/24 Elvi Sandoval PA-C [address] [place] [address] Assigned Neuroscience Provider 08/06/23 10/05/23 Ronel Escoto [facility] [address] [place] [address] Assigned [place] Pharmacist 09/17/23 Britany Sanders LICSW [address]/ [address] [place] [address] Assigned Behavioral Health Provider 01/03/24 Milton Dawkins APRN TRACK VEHICLE REPAIRER [address] [facility] [place] [address] Nurse Practitioner Otolaryngology 05/08/24 documented as of this encounter
--- OUTSIDE RECORDS SUMMARY | 2024-07-14 01:43 | XMS_ITS | Encounter Summary ---
Author Organization [facility] Address [address] [place] [address] Care Team Providers Care Software Design Manager Name Role Phone Jess Garcias PA-C Primary Care Provider [phone] Lori Osorio SPECIAL EDUCATION PROFESSIONAL Unavailable [phone] Jess Garcias PA-C Unavailable [phone] Ronel Escoto [facility] Unavailable [phone] Ronel Escoto [facility] Unavailable [phone] Britany Sanders SHRIMP TRAWLER Unavailable [phone] Milton Dawkins APRN LIME PULLER Unavailable [phone] Encounter Details Date Type Department Care Team (Late st Contact Info) Description 01/26/2024 MyC Medical Advice [address] [address] Kaycee Mahmood Social History Tobacco Use Types Packs/Day Years [...] PM CDT Legal Sex Female 10:10 AM RECTIFIER OPERATOR Gender Identity Female 01/03/2022 12:13 PM CDT Sexual Orientation Straight 12/03/2022 2: 48 PM CDT documented as of this encounter Plan of Treatment Not on file documented as of this encounter Visit Diagnoses Not on filedocumented in this encounter Additional Health Concerns Assessment Noted Time PHQ-9 Depression Total Score: 12 023 12:28 PM CDT documented as of this encounter Care Teams Software Design Manager Relationship Specialty Start Date End Date Jess Garcias PA-C [address] [place] [address] PCP - General Physician Pocket And Pulley Machine Operator 12/19/13 Lori Osorio NP [facility] [address] [place], [place] [address] Nurse Practitioner Nurse Practitioner Psych/Mental Health 04/11/17 Jess Garcias PA-C [address] [place] [address] Assigned PCP 01/18/21 Ronel Escoto [facility] [address] [place] [address] Pharmacist Pharmacist 08/13/22 Ronel Escoto [facility] [address] [place] [address] Assigned MTM Pharmacist 09/17/23 Britany Sanders, VEL [facility] [address]/ [address] [place] [address] Assigned Behavioral Health Provider 01/03/24 Milton Dawkins APRN CNP [address] [place] [address] 748[address] Nurse Practitioner Otolaryngology 05/08/24 documented as of this encounter
--- OUTSIDE RECORDS SUMMARY | 2024-07-14 01:43 | XMS_ITS | Encounter Summary ---
Author Organization [place] Address [address] [place] [address] Care Team Providers Care Corporate Fitness Program Coordinator Name Role Phone Jess Garcias PA-C Primary Care Provider [phone] Lori Osorio PROFESSOR OF EXERCISE SCIENCE Unavailable [phone] Jess Garcias PA-C Unavailable [phone] Ronel Escoto [facility] Unavailable [phone] Ronel Escoto [facility] Unavailable [phone] Britany Sanders SUPERVISOR FOOD CHECKERS AND CASHIERS Unavailable [phone] Milton Dawkins APRN RETIREMENT ACTUARY Unavailable [phone] Encounter Details Date Type Department Care Team (Late st Contact Info) Description 03/09/2024 [facility] [place] [facility] Medical Advice [address] [address] Earlene Fairchild, RN Social History Tobacco Use Types Packs/Day Years [...] PM CDT 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 Sex Female 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 Gender Identity Female 01/03/2022 12:13 PM CDT Sexual Orientation Straight 12/03/2022 2: 48 PM CDT documented as of this encounter Plan of Treatment Not on file documented as of this encounter Visit Diagnoses Not on filedocumented in this encounter Additional Health Concerns Assessment Noted Time PHQ-9 Depression Total Score: 12 023 12:28 PM CDT documented as of this encounter Care Teams Corporate Fitness Program Coordinator Relationship Specialty Start Date End Date Jess Garcias PA-C [address] [place] [address] PCP - General Physician Engine Cowling Installer 12/19/13 Lori Osorio NP [facility] [address] [place], [place] [address] Nurse Practitioner Nurse Practitioner Psych/Mental Health 04/11/17 Jess Garcias PA-C [address] [place] [address] Assigned PCP 01/18/21 Ronel Escoto [facility] [address] [place] [phone] Pharmacist Pharmacist 08/13/22 Ronel Escoto [facility] [address] [place] [address] Assigned MTM Pharmacist 09/17/23 Britany Sanders, VEL [facility] [address]/ [address] [place] [address] Assigned Behavioral Health Provider 01/03/24 Milton Dawkins APRN CNP [address] [place] [address] Nurse Practitioner Otolaryngology 05/08/24 documented as of this encounter
--- OUTSIDE RECORDS SUMMARY | 2024-07-14 01:43 | XMS_ITS | Encounter Summary ---
Author Organization [place] Address [address] [place] [address] Care Team Providers Care Bobcat Driver/Labor Name Role Phone Jess Garcias PA-C Primary Care Provider JoLori chavez NP Unavailable [phone] Jess Garcias PA-C Unavailable [phone] Ronel Escoto RPH Unavailable Sue Novoa PharmD Unavailable [phone] Sue Novoa PharmD Unavailable Ronel Escoto RPH Unavailable [phone] Thiago Wilks PsyD Unavailable Unavaila rk Cadena, Joana DO Unavailable Thiago Wilks PsyD Unavailable Unavaila Sue Roldan PharmD Unavailable Sue Novoa PharmD Unavailable Christiane King RPH Unavailable Tammi, Joana DO Unavailable Elvi Sandoval PA-C Unavailable [phone] Ronel Escoto RPH Unavailable [phone] Britany Sanders MAKEUP SALES ADVISOR Unavailable [phone] Milton Dawkins APRN ANALYTICAL DATA SCIENTIST Unavailable [phone] Encounter Details Date Type Department Care Team (Late st Contact Info) Description 12/06/2022 [facility] Medical Advice [facility] [address] [place] [address] Ronel Escoto [address] [address] Social History Tobacco Use Types Packs/Day Years [...] PM CDT Legal Sex Female 10:10 AM REGULATORY COMPLIANCE SPECIALIST Gender Identity Female 01/03/2022 12:13 PM CDT Sexual Orientation Straight 12/03/2022 2: 48 PM CDT documented as of this encounter Plan of Treatment Not on file documented as of this encounter Visit Diagnoses Not on filedocumented in this encounter Additional Health Concerns Assessment Noted Time PHQ-9 Depression Total Score: 12 023 12:21 PM CDT documented as of this encounter Care Teams Bobcat Driver/Labor Relationship Specialty Start Date End Date Jess Garcias PA-C [address] [place] [address] PCP - General Physician Network Director 12/19/13 Lori Osorio NP [facility] [address] [place] [address] Nurse Practitioner Nurse Practitioner Psych/Mental Health 04/11/17 Jess Garcias PA-C [address] [place], [place] [id number] Assigned PCP 01/18/21 Ronel Escoto [facility] [address] [place] [address] Pharmacist Pharmacist 08/13/22 Sue Novoa, JanD [address] [place] [address] [place] Pharmacist Pharmacist 10/22/22 03/11/23 Sue Novoa, JanD [address] [place] [address] Assigned [facility] Pharmacist 10/30/22 01/07/23 Ronel Escoto [facility] [address] [place] [address] Assigned [place] Pharmacist 01/08/23 01/14/23 Thiago Wilks PsyD Assigned Behavioral Health Provider 12/11/22 01/07/23 Joana Cadena DO [address] [place] [address] Assigned Behavioral Health Provider 01/08/23 01/14/23 Thiago Wilks PsyD Assigned Behavioral Health Provider 01/15/23 06/17/23 Sue Novoa, JanD [address] [place] [address] Assigned MTM Pharmacist 01/15/23 02/04/23 Sue Novoa, JanD [address] [place] [address] Assigned MTM Pharmacist 02/05/23 09/16/23 Christiane King [facility] [address] [address] Pharmacist Pharmacist 03/11/23 03/27/23 Joana Cadena DO [facility] [place] [address] Assigned Behavioral Health Provider 06/18/23 01/02/24 Elvi Sandoval PA-C [address] [place] [address] Assigned Neuroscience Provider 08/06/23 10/05/23 Ronel Escoto [facility] [address] [place] [address] Assigned MTM Pharmacist 09/17/23 Britany Sanders LICSW [address] [place] [address]/ [address] [place] [address] Assigned Behavioral Health Provider 01/03/24 Milton Dawkins APRN ANALYTICAL DATA SCIENTIST [address] [place] [address] [place] [address] Nurse Practitioner Otolaryngology 05/08/24 documented as of this encounter
--- OUTSIDE RECORDS SUMMARY | 2024-07-14 01:43 | XMS_ITS | Encounter Summary ---
Author Organization [place] Address [address] [place] [address] Care Team Providers Care Professor Of Chemical Engineering Name Role Phone Jess Garcias PA-C Primary Care Provider [phone] JoLori chavez SKIP LOCATOR Unavailable [phone] Jess Garcias PA-C Unavailable [phone] Ronel Escoto [facility] Unavailable [phone] Sue Novoa PharmD Unavailable [phone] Joana Cadena DO Unavailable Elvi Sandoval PA-C Unavailable [phone] Ronel Escoto [facility] Unavailable [phone] Britany Sanders AIR POLLUTION ENGINEER Unavailable [phone] Milton Dawkins APRN DIRECTOR HEDIS Unavailable [phone] Encounter Details Date Type Department Care Team (Late st Contact Info) Description 08/30/2023 [facility] [address] [address] Ronel Escoto, [facility] [address] [place] [address] Social History Tobacco Use Types [...] PM CDT 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 Sex Female 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 Gender Identity Female 01/03/2022 12:13 PM CDT Sexual Orientation Straight 12/03/2022 2: 48 PM CDT documented as of this encounter Plan of Treatment Not on file documented as of this encounter Visit Diagnoses Not on filedocumented in this encounter Additional Health Concerns Assessment Noted Time PHQ-9 Depression Total Score: 12 023 12:28 PM CDT documented as of this encounter Care Teams Professor Of Chemical Engineering Relationship Specialty Start Date End Date Jess Garcias PA-C [address] [place] [address] PCP - General Physician Plant Controller 12/19/13 Lori Osorio NP [facility] [address] [place] [address] Nurse Practitioner Nurse Practitioner Psych/Mental Health 04/11/17 Jess Garcias PA-C [address] [place] [address] Assigned PCP 01/18/21 Ronel Escoto [facility] [address] [place] [address] Pharmacist Pharmacist 08/13/22 Sue Novoa PharmD [address] [place] [address] Assigned MTM Pharmacist 02/05/23 09/16/23 Joana Cadena DO [facility] [address] Assigned Behavioral Health Provider 06/18/23 01/02/24 Elvi Sandoval PA-C [address] [address] Assigned Neuroscience Provider 08/06/23 10/05/23 Ronel Escoto [facility] [address] [place] [address] Assigned [place] Pharmacist 09/17/23 Britany Sanders LICSW [address] [place] [address]/ [address] [place] [address] Assigned Behavioral Health Provider 01/03/24 Milton Dawkins APRN DIRECTOR HEDIS [address] [place] [address] Nurse Practitioner Otolaryngology 05/08/24 documented as of this encounter
--- OUTSIDE RECORDS SUMMARY | 2024-07-14 01:43 | XMS_ITS | Clinical Summary ---
Author Organization [facility] Address [address] [place] [address] Care Team Providers Care Bottle Line Worker Name Role Phone Jess Garcias PA-C Primary Care Provider [phone] JoLori chavez NP Unavailable [phone] Jess Garcias PA-C Unavailable [phone] Ronel Escoto [facility] Unavailable Ronel Escoto [facility] Unavailable [phone] TommyBritany poole POLYSOMNOGRAPH TECH Unavailable [phone] Milton Dawkins APRN DIE REPAIRER STAMPING Unavailable Allergies Active Allergy Reactions Criticality Noted Date [...] delivery 05/07/2013 11/22/2016 Normal labor 05/07/2013 11/22/2016 Encounters Date Type Department Care Team Description 05/07/2024 11:30 AM CDT Office Visit [address] [address] Angel Rushing APRN DIE REPAIRER STAMPING Dysphagia, unspecified type (Primary Dx); Family history of thyroid cancer 05/07/2024 Travel from Last 3 Months Immunizations Name Administration Dates Next Due HepB 04/12/2013 Influenza (IIV3) PF 08/08/2013,09/19/2009 TDAP (Adacel,Boostrix) 02/11/2008 TDAP Vaccine (Adacel) 05/09/2013 Family History Medical History Relation Comments Gallbladder Disease Mother Cancer - colorectal Paternal Grandmother Gallbladder Disease Paternal Grandmother Gallbladder Disease Sister Breast Cancer No family hx of Ovarian Cancer No family hx of Relation Status Comments Daughter Alive Father Alive Mother Alive Paternal Grandmother Sister Social History Tobacco Use Types Packs/Day Years [...] PM CDT Legal Sex Female 10:10 AM STAVE GRADER Gender Identity Female 01/03/2022 12:13 PM CDT [...] 05/07/2024 11:19 AM CDT Plan of Treatment Health Maintenance Due Date Last Done Comments HEPATITIS B IMMUNIZATION (2 of 3 - 19+ 3-dose series) 05/10/2013 04/12/2013 YEARLY PREVENTIVE VISIT 01/15/2022 01/16/20, 12/28/2017, 04/04/2015 ANNUAL REVIEW OF HM ORDERS 02/02/2023 02/02/2022, DTAP/TDAP/TD IMMUNIZATION (3 - Td or Tdap) 05/09/2023 05/09/2013, 02/11/2008 GLUCOSE 10/29/2023 10/29/2020, 06/12, 11/22/2016, Additional history exists COVID-19 Vaccine ( season) 2024 05/11/2021, 04/20/2021 INFLUENZA VACCINE (#1) 2024 9 (Declined), 08/08/2013, 09/19/2009 PHQ-9 11/07/2024 05/07/2024, 05/0 09/2022, 12/03/2022, Additional history exists ROSA ASSESSMENT 05/07/2025 05/07/2024, 05/0 09/2022, 07/15/2022, Additional history exists ADVANCE CARE PLANNING 01/15/2026 01/15/2021 HPV TEST 01/10/2029 12/28/2017 PAP 01/10/2029 01/11/2024, 12/11, 04/04/2015, Additional history exists RSV VACCINE (1 - 1-dose 75+ series) 11/29/2059 DEPRESSION ACTION PLAN Completed 06/22/2019, 2018 HEPATITIS C SCREENING Completed 10/25/2022 , 01/15/2021 (Declined) HIV SCREENING Completed 01/14/2023, 10/13, 05/07/2013, Additional history exists HPV IMMUNIZATION Aged Out No longer e ligible based on patient's age to complete this topic MENINGITIS IMMUNIZATION Aged Out No l onger eligible based on patient's age to complete this topic Pneumococcal Vaccine: Pediatrics (0 to 5 Years) and At-Risk Patients (6 to 64 Years) Aged Out No longer eligible based on patient's age to complete this topic RSV MONOCLONAL ANTIBODY Aged Out No l onger eligible based on patient's age to complete this topic Procedures Procedure Name Priority Date/Time Associated Diagnosis Comments TSH WITH FREE T4 REFLEX Routine 05/07/2024 11:51 AM CDT Family history of thyroid cancer PAP SMEAR - HIM PATIENT REPORTED Routine 01/11/2024 12:00 PM CDT HIV ANTIGEN ANTIBODY COMBO Routine 01/14/2023 4:10 PM CDT Routine screening for STI (sexually transmitted infection) HEPATITIS C ANTIBODY Routine 10/25/2022 8:02 PM STAVE GRADER Screen for STD (sexually transmitted disease) COMPREHENSIVE METABOLIC PANEL Routine 10/29/2020 3:11 PM STAVE GRADER Arthralgia, unspecified joint Positive DELFINA (antinuclear antibody) [...] 05/07/2024 11:53 AM CDT Angel Rushing APRN DIE REPAIRER STAMPING LAB - BLOOD ORDERABLES Taylor l Result [facility] Mallie Core Lab [address] [facility] J [facility], [address] [place] [address] * PAP Smear - HIM Patient Reported [...] 01/14/2023 4:10 PM CDT Angel Rushing APRN DIE REPAIRER STAMPING LAB - BLOOD ORDERABLES Taylor l Result [facility] SPECIALTY CORE/PROT/ENDO [facility] Specialty Core/Prot/Endo [address] [facility] [address] Building, Room [address] [phone] * Hepatitis C antibody (10/25/2022 8:02 PM STAVE GRADER) Hepatitis C Antibody Nonreactive Nonreactive 10/26/2022 6:27 PM STAVE GRADER SPECIALTY CORE/PROT/EN DO Blood BLOOD SPECIMEN / Unknown Venipuncture / Unknown 10/25/2022 8:02 PM STAVE GRADER 10/25/2022 8:02 PM STAVE GRADER Narrative SPECIALTY CORE/PROT/ENDO - 10/26/2022 6:27 PM STAVE GRADER Assay performance characteristics have not been established for newborns, infants, and children. us Lilly Pak MD LAB - BLOOD ORDERABLES Final Re sult SPECIALTY CORE/PROT/ENDO Specialty Core/Prot/Endo 500 [facility], Room [address] [phone] * (ABNORMAL) Comprehensive metabolic panel (BMP + Alb, Alk Phos, ALT, AST, Total. Bili, TP) (10/29/2020 3:11 PM STAVE GRADER) Pathologist [facility] Sodium 141 133 - 144 mmol/L 10/30/2020 12:39 PM [facility] Potassium 3.4 3.4 - 5.3 mmol/L 10/30/2020 12:39 PM [facility] Chloride 110(H) 94 - 109 mmol/L 10/30/2020 12:39 PM [facility] Carbon Dioxide 26 20 - 32 mmol/L 10/30/2020 1:01 PM [facility] Anion Gap 5 3 - 14 mmol/L 10/30/2020 1:01 PM [facility] Glucose 81 70 - 99 mg/dL 10/30/2020 1:01 PM [facility] Comment:Non Fasting Urea Nitrogen 8 7 - 30 mg/dL 10/30/2020 1:01 PM [facility] Creatinine 0.70 0.52 - 1.04 mg/dL 10/30/2020 1:01 PM [facility] GFR Estimate >90 >60 mL/min/{1 .73_m2} 10/30/2020 1:01 PM [facility] Comment: Non GFR Calc Starting 08/29/2018, serum creatinine based estimated GFR (eGFR) will be calculated using the Chronic Kidney Disease Epidemiology Collaboration (CKD-EPI) equation. GFR Estimate If Black >90 >60 mL/min/{1 .73_m2} 10/30/2020 1:01 PM STAVE GRADER [facility] Comment: GFR Calc Starting 08/29/2018, serum creatinine based estimated GFR (eGFR) will be calculated using the Chronic Kidney Disease Epidemiology Collaboration (CKD-EPI) equation. Calcium 9.0 8.5 - 10.1 mg/dL 10/30/2020 1:01 PM [facility] Bilirubin Total 0.4 0.2 - 1.3 mg/dL 10/30/2020 1:05 PM [facility] Albumin 3.9 3.4 - 5.0 g/dL 10/30/2020 1:05 PM [facility] Protein Total 7.3 6.8 - 8.8 g/dL 10/30/2020 1:05 PM [facility] Alkaline Phosphatase 67 40 - 150 U/L 10/30/2020 1:05 PM [facility] ALT 14 0 - 50 U/L 10/30/2020 1:05 PM [facility] AST 7 0 - 45 U/L 10/30/2020 1:05 PM [facility] Blood specimen (specimen) 10/29/2020 3:11 PM STAVE GRADER 10/29/2020 3:12 PM STAVE GRADER us Ana Cristina Dudley MD LAB - BLOOD ORDERABLES Taylor moya Result [facility] [address] [place] [address] * HPV High Risk Types DNA Cervical (12/28/2017 2:23 PM CDT) HPV Source [facility] 12/28/2017 2:25 PM CDT [facility] HPV 16 DNA Negative NEG^Nega tive 01/04/2018 7:44 AM CDT [facility] HPV 18 DNA Negative NEG^Nega tive 01/04/2018 7:44 AM CDT [facility] Other HR HPV Negative NEG^Nega tive 01/04/2018 7:44 AM CDT [facility] Final Diagnosis This patient's sample is negative for HPV DNA. 01/04/2018 7:44 AM CDT [facility] Comment: This test was developed and its performance characteristics determined by the [facility] Diagnostics [facility]. It has not [...] Description Cervical Cells 01/02/2018 9:34 AM CDT [facility] Comment:[id number] Cervical Cells 12/28/2017 2: 23 PM CDT 12/28/2017 2:27 PM CDT us Jess Garcias PA-C LAB - BLOOD ORDERABLES Fin al Result [facility] [address] [place] [address] [facility] [address] [place] [address] from Last 3 Months or Most Recently Relevant to Health Maintenance [place] * Guarantor: Rosa Adamson Account Type Relation to Patient Date of Phone Billing Address Medication Therapy Self 1985 [address] [place] [address] Care Teams Bottle Line Worker Relationship Specialty Start Date End Date Jess Garcias PA-C [address] [place] [address] PCP - General Physician Grinder Operator Surface Tool 12/19/13 Lori Osorio MAINTENANCE MECHANIC 2ND SHIFT [facility] [address] [place] [address] Nurse Practitioner Nurse Practitioner Psych/Mental Health 04/11/17 Jess Garcias PA-C [address] [place] [address] Assigned PCP 01/18/21 Ronel Escoto [facility] [address] [place] [address] Pharmacist Pharmacist 08/13/22 Ronel Escoto [facility] [address] [place] [address] Assigned MTM Pharmacist 09/17/23 Britany Sanders, POLYSOMNOGRAPH TECH [address] [place] [address]/ [address] [place] [address] Assigned Behavioral Health Provider 01/03/24 Milton Dawkins APRN DIE REPAIRER STAMPING [address] [place] [phone] Nurse Practitioner Otolaryngology 05/08/24
--- OUTSIDE RECORDS SUMMARY | 2024-07-14 01:43 | XMS_ITS | Encounter Summary ---
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 full-time Source of Income: salary/wages Financial Environmental Concerns: none Current Hobbies: Barriers in Personal Life: Significant Clinical History Current Anxiety Symptoms: anxious, racing thoughts (rumination) Current Depression/Trauma: difficulty concentrating, crying or feels like crying, helplessness, hopelessness, sadness, thoughts of /suicide Current Somatic Symptoms: Current Psychosis/Thought Disturbance: Current Eating Symptoms: Chemical Use History: Alcohol: Social Benzodiazepines: None Opiates: None Cocaine: None Marijuana: None Other Use: None Past diagnosis: Depression Family history: No known history of mental health or chemical health concerns Past treatment: Individual therapy, Psychiatric Medication Management Details of most recent treatment: Meds currently managed by PCP. [place] better and went off meds several months ago. Re-started meds about 2 months ago but don't seem to be helping. Other relevant history: Collateral Information Is there collateral information: No Collateral information name, relationship, phone number: What happened today: What is different about patient's functioning: Concern about alcohol/drug use: What do you think the patient needs: Has patient made comments about wanting to kill themselves/others: If d/c is recommended, can they take part in safety/aftercare planning: Additional collateral information: Risk Assessment [place] Suicide Severity Rating Scale Full Clinical Version: Suicidal Ideation Q1 Wish to be (Lifetime): Yes Q2 Non-Specific Active Suicidal Thoughts (Lifetime): Yes Q4 Active Suicidal Ideation with Some Intent to Act, Without Specific Plan (Lifetime): Yes Q5 Active Suicidal Ideation with Specific Plan and Intent (Lifetime): No Q6 Suicide Behavior (Lifetime): yes Suicidal Behavior (Lifetime) Actual Attempt (Lifetime): Yes Has subject engaged in non-suicidal self-injurious behavior? (Lifetime): No Interrupted Attempts (Lifetime): No Aborted or Self-Interrupted Attempt (Lifetime): No Preparatory Acts or Behavior (Lifetime): No [place] Suicide Severity Rating Scale Recent: Suicidal Ideation (Recent) Q1 Wished to be (Past Month): yes Q2 Suicidal Thoughts (Past Month): yes Q3 Suicidal Thought Method: yes Q4 Suicidal Intent without Specific Plan: yes Q5 Suicide Intent with Specific Plan: yes If yes to Q6, within past 3 months?: no Level of Risk per Screen: high risk Environmental or Psychosocial Events: geographic isolation from supports (aunt and uncle (primary supports) moved to [place]) Protective Factors: Protective Factors: responsibilities and duties to others, including pets and children, lives in a responsibly safe and stable environment, help seeking Does the patient have thoughts of harming others? Feels Like Hurting Others: no Previous Attempt to Hurt Others: no Is the patient engaging in sexually inappropriate behavior? Mental Status Exam Affect: Flat Appearance: Appropriate Attention Span/Concentration: Attentive Eye Contact: Engaged Fund of Knowledge: Appropriate Language /Speech Content: Fluent Language /Speech Volume: Normal Language /Speech Rate/Productions: Normal Recent Memory: Intact Remote Memory: Intact Mood: Depressed Orientation to Person: Yes Orientation to Place: Yes Orientation to Time of Day: Yes Orientation to Date: Yes Situation (Do they understand why they are here?): Yes Psychomotor Behavior: Normal Thought Content: Clear Thought Form: Intact Mini-Cog Assessment Number of Words Recalled: Clock-Drawing Test: Three Item Recall: Mini-Cog Total Score: Medication Psychotropic medications: Medication Orders - Psychiatric (From admission, onward) Start Dose/Rate Route Frequency Ordered Stop 04/10/242036 OLANZapine zydis (zyPREXA) ODT tab 5 mg 5 mg Oral 2 TIMES DAILY PRN 04/10/24203604/10/242036 traZODone (DESYREL) tablet 50 mg 50 mg Oral AT BEDTIME PRN 04/10/24203604/10/242035 hydrOXYzine HCl (ATARAX) tablet 50 mg 50 mg Oral EVERY 6 HOURS PRN 04/10/242036 Current Care Team Patient Care Team: Jess Garcias PA-C as PCP - General (Physician Aerospace Engineer) Lori Osorio NP as Nurse Practitioner (Nurse Practitioner Psych/Mental Health) Jess Garcias PA-C as Assigned PCP Ronel Escoto RPH as Pharmacist (Pharmacist) Ronel Escoto RPH as Assigned MTM Pharmacist Britany Sanders LICSW as Assigned Behavioral Health Provider Diagnosis Patient Active Problem List Diagnosis Code Irritable bowel syndrome K58.9 CARDIOVASCULAR SCREENING; LDL GOAL LESS THAN 160 Z13.6 Condyloma acuminatum A63.0 Generalized anxiety disorder F41.1 Acne L70.9 (normal spontaneous vaginal delivery) O80 Depression with suicidal ideation F32.A, R45.851 Primary Problem This Admission Active Hospital Problems Depression with suicidal ideation Clinical Summary and Substantiation of Recommendations Pt presents in ED with increased depression and passive SI. She is concerned meds are not working. Pt was unable to see [facility] provider this evening. She will stay on [facility] for obs and meet with psychiatrist tomorrow. Pt may want referral for psychiatrist and therapist Patient coping skills attempted to reduce the crisis: none identified Disposition Recommended disposition: Observation Reviewed case and recommendations with attending provider. Attending Name: Attending concurs with disposition: Patient and/or validated legal guardian concurs with disposition: yes Final disposition: observation Legal status on admission: Voluntary/Patient has signed consent for treatment Assessment Details Total duration spent with the patient: 30 min CPT code(s) utilized: 96830 - Psychotherapy for Crisis - 60 (30-74*) min VEL Adam, Psychotherapist DEC - Triage & Transition Services Callback: [phone] documented in this encounter ED Notes * Gregg Yost MD - 04/11/2024 10:18 AM [facility] Observation Note and Discharge Summary [facility] Emergency Department Observation Initiation Date: Apr 10, 2024 Rosa Adamson Age: [age] year old Date of : 1985 History Chief Complaint Patient presents with Psychiatric Evaluation Suicidal HPI Rosa Adamson is a 38 year old female with a past history notable for major depressive disorder whopresents to the emergency department reporting frustration with ongoing depressive symptoms and recent worsening of suicidal thoughts. She was determined to be medically stable and transferred to the[facility]PATH unit for psychiatric assessment. She is now approaching 16 hours in the emergency department. Overnight, there were no acute issues. On examination today, the patient reviews with me having tried numerous medication trials and perceiving no therapeutic value. Of these medications, she gainedthe most benefit from lamotrigine however was complicated by urinary incontinence leading to medication discontinuation. She gained mild and brief improvement following a trial of Pristiq although notes that there were also relational changes in her life which may have altered her perception of herresponse. Pristiq was recently restarted and the dose was titrated up to 100 mg however the patientbegan to experience unusual sensations in her hands leading her to reduce the medication back to 50mg. Any initial therapeutic gain has since diminished and she notes ongoing depressive symptoms andrecent suicidal thoughts. The intensity of suicidal thoughts have subsided during her stay, now reporting passive suicidal thoughts although maintains significant protective factors against suicide. She presents today as help seeking, desiring consultation to review additional treatment options to address her depressive episode. I was able to review a pharmacy consultation note dated 03/30/2024 which outlined her past medication trials. These included multiple SSRIs, SNRIs, and newer generation antidepressant medications suchas Trintellix, Viibryd, and Pristiq. She admits that she is hesitant to try any medications that have a risk of weight gain. She has not tried Abilify augmentation or augmentation with any other second-generation antipsychotic mood stabilizing medications. She has not tried Cymbalta. She has not tried TMS, ketamine, ECT. She has completed [employer] testing and notes that the results have been incorporated into her medication plan without positive gain. Past Medical History Past Medical History: Diagnosis Date Anxiety takes citalopram Irritable bowel syndrome 10/01/2013 Past Surgical History: Procedure Laterality Date CHOLECYSTECTOMY, LAPOROSCOPIC COLONOSCOPY N/A 10/30/2014 Procedure: COLONOSCOPY; Surgeon: Dieter Garcia MD; Location: GI LAPAROSCOPIC CHOLECYSTECTOMY 01/17/2014 Procedure: LAPAROSCOPIC CHOLECYSTECTOMY; Surgeon: Rafa Bowles MD; Location: [facility] OR wisdom teeth extractions 2002 desvenlafaxine (PRISTIQ) 50 MG 24 hr tablet hydrOXYzine HCl (ATARAX) 25 MG tablet lurasidone (LATUDA) 20 MG TABS tablet multivitamin, therapeutic (THERA-VIT) TABS tablet Allergies Allergen Reactions Clindamycin Base Hives Penicillin G Hives Sulfa Antibiotics Hives Vicodin [Hydrocodone-Acetaminophen] Nausea and Nausea and Vomiting Family History Family History Problem Relation Age of Onset Gallbladder Disease Mother Gallbladder Disease Sister Gallbladder Disease Paternal Grandmother Cancer - colorectal Paternal Grandmother Breast Cancer No family hx of Ovarian Cancer No family hx of Social History Social History Tobacco Use Smoking status: Never Smokeless tobacco: Never Vaping Use Vaping status: Never Used Substance Use Topics Alcohol use: Yes Comment: once a month Drug use: No Review of Systems A medically appropriate review of systems was performed with pertinent positives and negatives noted in the HPI, and all other systems negative. Physical Examination BP: 121/75 Pulse: 71 Temp: 98.8 ??F (37.1 ??C) Resp: 18 Height: 165.1 cm (5' 5) Weight: 63.5 kg (140 lb) SpO2: 100 % Physical Exam General: Appears stated age. Neuro: Alert and fully oriented. Extremities appear to demonstrate normal strength on visual inspection. Integumentary/Skin: no rash visualized, normal color Psychiatric Examination Appearance: awake, alert Attitude: cooperative Eye Contact: fair Mood: depressed Affect: intensity is blunted Speech: clear, coherent Psychomotor Behavior: no evidence of tardive dyskinesia, dystonia, or tics Thought Process: logical and linear Associations: no loose associations Thought Content: no evidence of psychotic thought and passive suicidal ideation present Insight: fair Judgement: fair Oriented to: time, person, and place Attention Span and Concentration: fair Recent and Remote Memory: fair Language: able to name/identify objects without impairment Fund of Knowledge: intact with awareness of current and past events ED Course ED Course as of 04/11/24 1017 e Apr 10, [id number] I obtained history and examined the patient as noted above Labs Ordered and Resulted from Time of ED Arrival to Time of ED Departure - No data to display Assessments & Plan (with Medical Decision Making) Patient presenting with concern for treatment refractory depression and acute worsening of suicidalthoughts which has since subsided in intensity and now back to baseline passive ideation. Her treatment plan focused on discussing various treatment modes aimed at treating treatment refractory depressive disorder. Nursing notes reviewed noting no acute issues. I have reviewed the assessment completed by the [facility]. During the observation period, the patient did not require medications for agitation, and did not require restraints/seclusion for patient and/or provider safety. The patient was found to have a psychiatric condition that would benefit from an observation stay in the emergency department for further psychiatric stabilization and/or coordination of a safe disposition. The observation plan includes serial assessments of psychiatric condition, potential administration of medications if indicated, further disposition pending the patient's psychiatric course during the monitoring period. Preliminary diagnosis: ICD-10-CM 1. MDD (major depressive disorder), recurrent severe, without psychosis (H) F33.2 2. Suicidal ideation R45.851 Treatment Plan: -Continue Pristiq 50 mg daily for antidepressant treatment. -Begin augmentation with Latuda at 20 mg daily. Risks and benefits were reviewed including the importance of taking with food for adequate absorption. -Referral to the neuromodulation clinic for evaluation of treatment refractory major depressive disorder and to explore additional treatment modes -Referral for psychological testing for diagnostic clarity, aiming to rule out a bipolar 2 disorderand any underlying personality features which could be complicating her treatment course. -Discharge home today. After the period in observation care, the patient's circumstances and mental state were safe for outpatient management. After counseling on the diagnosis, work-up, and treatment plan, the patient wasdischarged. Close follow-up with a psychiatrist and/or therapist was recommended and community psychiatric resources were provided. Patient is to return to the ED if any urgent or potentially life-threatening concerns. At the time of discharge, the patient's acute suicide risk was determined to be low due to the following factors: Reduction in the intensity of mood/anxiety symptoms that preceded the admission, denial of suicidal thoughts, denies feeling helpless or helpless, not currently under the influence of alcohol or illicit substances, denies experiencing command hallucinations, no immediate access to firearms. The patient's acute risk could be higher if noncompliant with their treatment plan, medications, follow-up appointments or using illicit substances or alcohol. Protective factors include: social supports, children, stable housing, employment -- Gregg Yost MD [facility] EMERGENCY DEPT [facility] Unit Gregg Yost MD 04/11/24 1030 * Johny Marcelo RN - 04/11/2024 7:30 AM CDT Pt slept through the night uneventfully. No signs of distress noted. * Shamika Machado RN - 04/10/2024 8:50 PM CDT This database report writer spent some time talking with patient today about her mental health history and treatment modalities. Pt reports that she feels like she can't talk to others about what is going on and shedoesn't understand why she can't get her brain to act normal. Pt reports that the only time she felt significant relief when taking medications was when she was started on Lamictal but she developed a side effect of urinary incontinence. Pt does report that sheexperiences racing thoughts, feels she can be OCD about some things (pt reports she has not missed a day of work in over a year) and stated she tends to leave social situations quickly because she can't tolerate others thinking badly of her. Pt was seen by LM and will stay on observation tonight with plan to meet with psychiatrist in theam. * Shamika Machado RN - 04/10/2024 8:05 PM CDT 38 year old female with history of depression received from ED due to increased suicidal ideation. Reports that she has been having constant thoughts of suicide. Pt stated that she had chosen March 15 as the day she was going to overdose on her medications but a friend called and she went to spend the night at their house. Endorse SI, denies HI. Pt reports that she wrote her children letters and stated I don't want to ruin their lives but I also don't want to do this anymore, I'm done. Pt waseducated on different treatment options available and was open to learning more. Nursing and risk assessments completed. Assessments reviewed with LMHP and physician. Admission information reviewed with patient. Patient given a tour of [facility] and instructions on using the facility. Questions regarding [facility] addressed. Pt safety search completed. Patient informed video monitoring in progress. * Bipin Shannon RN - 04/10/2024 7:04 PM CDT Pt resting on bed in room, friend at bedside. Awaiting EMPATH. * Bipin Lujan RN - 04/10/2024 6:48 PM CDT Bed: ED19 Expected date: Expected time: Means of arrival: Comments: charge * Joe Stout RN - 04/10/2024 6:43 PM CDT Hx of depression, on medications, today couldn't work. Had plan to hurt herself. No SI. Here with friend. * Pam Stauffer MD - 04/10/2024 6:19 PM CDT Emergency Department Note History of Present Illness Chief Complaint Psychiatric Evaluation and Suicidal HPI Rosa Adamson is a 38 year old female who presents with suicidal ideation. The patient reports thatshe has been battling depression and her medication has not been helping. She reports that it got alot worse today when she was at work, she had to stop working and ultimetly left. She reports current suicidal ideation and she did have a plan. She denies thoughts of hurting others. She has never be en admitted for mental health concerns before. She denies drug and alcohol use. Independent Historian None Review of External Notes Reviewed patient's nurse triage phone note, the patient reports that her antidepressants are not working and that she needs help or to go somewhere. Advised to go to the emergency department. Past Medical History Medical History and Problem List Anxiety IBS Medications Roxicodone Pristiq Atarax Surgical History Cholecystectomy, laparoscopic x2 Colonoscopy [place] teeth extraction Physical Exam Patient Vitals for the past 24 hrs: BP Temp Temp src Pulse Resp SpO2 Weight 04/10/24 1842 121/75 98.8 ??F (37.1 ??C) Temporal 71 18 100 % 63.5 kg (140 lb) Physical Exam General: Well-nourished, resting comfortably when I enter the room Eyes: Pupils equal, conjunctivae pink no scleral icterus or conjunctival injection ENT: Moist mucus membranes Respiratory: Lungs clear to auscultation bilaterally, no crackles/rubs/wheezes. Good air movement CV: Normal rate and rhythm, no murmurs GI: Abdomen soft and non-distended. No tenderness, guarding or rebound Skin: Warm, dry. No rashes or petechiae Musculoskeletal: No peripheral edema or calf tenderness Neuro: Alert and oriented to person/place/time Psychiatric: Normal affect Diagnostics Lab Results Labs Ordered and Resulted from Time of ED Arrival to Time of ED Departure - No data to display Imaging No orders to display Independent Interpretation None ED Course Medications Administered Medications - No data to display Procedures Procedures Discussion of Management None ED Course ED Course as of 04/10/241930Apr 10, [id number] I obtained history and examined the patient as noted above Optional/Additional Documentation None Medical Decision Making / Diagnosis [facility] Diagnoses: None MIPS None MDM Rosa Adamson is a 38 year old female with history of depression, anxiety, insomnia who presents tot emergency department with a complaint of suicidal ideation and increasing depression. Patient reports that she has a plan of self- harm, but does not elaborate. Denies any homicidal ideation. On exam patient is calm and cooperative. He is answering questions appropriately. Denies any drug or alcohol use disorder. Has never been admitted for mental health issues in the past. I do think that patient would be appropriate for empath. I am going to place her on an DONG secondary to the fact that she has suicidal ideation with a plan. Patient understands this. She is transferred back to room awaiting empath. [facility] ICD-10-CM 1. Depression with suicidal ideation F32.A R45.851 Discharge Medications New Prescriptions No medications on file Scribe Disclosure: I, Johny Quintana, am serving as a scribe at 7:32 PM on 04/10/2024 to document services personallyperformed by Pam Stauffer MD based on my observations and the provider's statements to me. Pam Stauffer MD 04/11/24 0224 documented in this encounter Miscellaneous Notes * Plan of Care - Valerie Andre LICSW - 04/10/2024 11:50 PM CDT Rosa Adamson April 10, 2024 Plan of Care Hand-off Note Patient Care Path: observation Plan for Care: Pt presents in ED with increased depression and passive SI. She is concerned meds are not working. Pt was unable to see [facility] provider this evening. She will stay on [facility] for obs and meet with psychiatrist tomorrow. Pt may want referral for psychiatrist and therapist Identified Goals and Safety Issues: Manage depression symptoms Psychiatry appointment Safety plan/decrease SI VEL Adam documented in this encounter Plan of Treatment Scheduled Referrals Name Type Priority Associated Diagnoses Orde r Schedule Adult Mental Health [facility] Referral Referral Routine: Next available opening MDD (major depressive disorder), recurrent severe, without psychosis (H) Expected: 04/11/2024 (Approximate), Expires: 07/12/2024 Adult Mental Health [facility] Referral Referral Routine: Next available opening MDD (major depressive disorder), recurrent severe, without psychosis (H) Expected: 04/11/2024 (Approximate), Expires: 07/12/2024 documented as of this encounter Visit Diagnoses Diagnosis MDD (major depressive disorder), recurrent severe, without psychosis (H) Major depressive disorder, recurrent episode, severe, without mention of psychotic behavior Suicidal ideation Depression, unspecified depression type Severe recurrent major depression without psychotic features (H) Major depressive disorder, recurrent episode, severe, without mention of psychotic behavior Posttraumatic stress disorder documented in this encounter Administered Medications Inactive Administered Medications - up to 3 most recent administrations Medication Order MAR Action Action Date Dose Rate Site desvenlafaxine succinate (PRISTIQ) 24 hr tablet 50 mg 50 mg, Oral, DAILY, First dose on Tue04/11/24 at 1020, DO NOT CRUSH. $Given 04/11/2024 10:30 AM CDT 50 mg hydrOXYzine HCl (ATARAX) tablet 50 mg 50 mg, Oral, EVERY 6 HOURS PRN, anxiety, Starting on Tue04/10/24 at 2036 $Given 04/10/2024 10:09 PM CDT 50 mg ibuprofen (ADVIL/MOTRIN) tablet 600 mg 600 mg, Oral, ONCE, On Tue04/11/24 at 0725, For 1 dose, Give with food. $Given 04/11/2024 9:08 AM CDT 600 mg traZODone (DESYREL) tablet 50 mg 50 mg, Oral, AT BEDTIME PRN, sleep, melatonin augmentation or failure, Starting on Tue04/10/24 at 2036, Offer if unable to sleep 30 minutes after melatonin administration. $Given 04/10/2024 10:09 PM CDT 50 mg documented in this encounter Active and Recently Administered Medications Times are shown in CDT. Scheduled Medication Order 04/09/2024 04/10/2024 04/11/2024 desvenlafaxine succinate (PRISTIQ) 24 hr tablet 50 mg 50 mg, Oral, DAILY, First dose on Tue04/11/24 at 1020, DO NOT CRUSH. 1030 ($Given - Provi nanette: Leta Hutchinson RN) ibuprofen (ADVIL/MOTRIN) tablet 600 mg (COMPLETED) 600 mg, Oral, ONCE, On Tue04/11/24 at 0725, For 1 dose, Give with food. 0908 ($Given - Provi nanette: Bassam Payne RN) PRN Medication Order 04/09/2024 04/10/2024 04/11/2024 hydrOXYzine HCl (ATARAX) tablet 50 mg 50 mg, Oral, EVERY 6 HOURS PRN, anxiety, Starting on Tue04/10/24 at 2035 2209 ($Given - Provider: Shamika Machado RN) OLANZapine zydis (zyPREXA) ODT tab 5 mg 5 mg, Oral, 2 TIMES DAILY PRN, agitation, associated with psychosis or brenda, Starting on Tue04/10/24 at 2036, Combined IM and PO doses may significantly increase the risk of orthostatic hypotension at 30 mg per day or higher. With dry hands, peel back foil backing and gently remove tablet. Do not push oral disintegrating tablet through foil backing. Administer immediately on tongue and oral disintegrating tablet dissolves in seconds, then swallow with saliva. Liquid not required. traZODone (DESYREL) tablet 50 mg 50 mg, Oral, AT BEDTIME PRN, sleep, melatonin augmentation or failure, Starting on Tue04/10/24 at 2037, Offer if unable to sleep 30 minutes after melatonin administration. 2209 ($Given - Provider: Shamika Machado RN) documented in this encounter Additional Health Concerns Assessment Noted Time PHQ-9 Depression Total Score: 12 023 12:28 PM CDT documented as of this encounter Care Teams Nail Technician Relationship Specialty Start Date End Date Jess Garcias PA-C [address] [place] [address] PCP - General Physician Aerospace Engineer 12/19/13 Lori Osorio NP [place] [address] [place], [place] 88[address] Nurse Practitioner Nurse Practitioner Psych/Mental Health 04/11/17 Jess Garcias PA-C [address] [place] [address] Assigned PCP 01/18/21 Ronel Escoto [facility] [address] [place] [address] Pharmacist Pharmacist 08/13/22 Ronel Escoto [facility] [address] [place] [address] Assigned MTM Pharmacist 09/17/23 Britany Sanders, VEL [address]/ [address] [place] [address] 811045 Assigned Behavioral Health Provider 01/03/24 documented as of this encounter
--- OUTSIDE RECORDS SUMMARY | 2024-07-14 01:43 | XMS_ITS | Encounter Summary ---
Author Organization [facility] Address [address] [place] [address] Care Team Providers Care Superintendent Seed Mill Name Role Phone Jess Garcias PA-C Primary Care Provider + [phone] JoLori chavez NP Unavailable [phone] Jess Garcias PA-C Unavailable [phone] Ronel Escoto [facility] Unavailable [phone] Ronel Escoto [facility] Unavailable [phone] Britany Sanders [facility] Unavailable [phone] Reason for Referral * Consultation (Urgent: 3-5 Days) - Pending Review Specialty Diagnoses / Procedures Referred By Kylee leung Referred To Contact Otolaryngology Diagnoses Dysphagia, unspecified type Angel Rushing APRN TYPE COPY EXAMINER [address] [place] [address] Phone: tel: fax: Referral ID Status Reason Start Date Expiration Date V isits Requested Visits Authorized [id number] Pending Review 05/07/2024 05/07/2025 1 1 Question Answer Reason for Referral: Voice/Throat Scheduling Instructions: [facility] to [facility] your care as prescribed by the provider. If you don? t hear from a sales training representative within 2 business days, please call [phone]. Additional Information: dysphagia sensation Comments Please be aware that coverage of these services is subject to the terms and limitations of your health insurance plan. Call member services at your health plan with any benefit or coverage questions. [facility] will call you to coordinate your care as prescribed by the provider. If you don? t hear from a sales training representative within 2 business days, please call [phone]. [facility] will call you to coordinate your care as prescribed by the provider. If you don? t hear from a sales training representative within 2 business days, please call [phone]. Reason for Visit * Reason Comments Lump in Throat Encounter Details Date Type Department Care Team (Late st Contact Info) Description 05/07/2024 11:30 AM CDT Office Visit [address] [address] Angel Rushing APRN TYPE COPY EXAMINER [id number] [place] [address] Dysphagia, unspecified type (Primary Dx); Family history of thyroid cancer Social History Tobacco Use Types Packs/Day Years [...] PM CDT Legal Sex Female 10:10 AM PROPERTY COORDINATOR Gender Identity Female 01/03/2022 12:13 PM CDT [...] Mass Index 24 05/07/2024 11:19 AM CDT documented in this encounter Progress Notes * Angel Rushing APRN TYPE COPY EXAMINER - 05/07/2024 11:30 AM CDT Images from the original note were not included. Assessment & Plan (R13.10) Dysphagia, unspecified type (primary encounter diagnosis) Comment: dysphagia vs globus sensation. Patient states has a bit of trouble swallowing. Will have patient be evaluated by ENT. We did discuss PPI therapy, patient would like to defer this for right now. Currently utilizing OTC antacids. Does not feel these are helping w/ sensation. Follow up if notnoting any improvement w/ ENT referral. Patient fully understands and is agreeable with plan of care, at this point patient will follow up as needed unless acute concerns arise in the meantime. Plan: Adult ENT Elevator Adjuster Referral (Z80.8) Family history of thyroid cancer Comment: extended family hx. Last TSH in 2020, normal. Will recheck today. Exam negative for any notable nodule. Will follow up on results and whether further direction is necessary.Patient fully understands and is agreeable with plan of care, at this point patient will follow up as needed unless acute concerns arise in the meantime. Plan: TSH with free T4 reflex The longitudinal plan of care for the diagnosis(es)/condition(s) as documented were addressed during this visit. Due to the added complexity in care, I will continue to support Rosa in the subsequent management and with ongoing continuity of care. Subjective Rosa is a 38 year old, presenting for the following health issues: Lump in Throat 05/07/2024 11:19 AM Additional Questions Roomed by Kaycee Mahmood, EMT-B Simultaneous filing. User may not have seen previous data. Via the Health Maintenance questionnaire, the patient has reported the following services have beencompleted -Cervical Cancer Screening: operations and maintenance specialist 2024-01-11, this information has been sent to the abstraction team. History of Present Illness Reason for visit: Lump in throat Symptom onset: More than a month She is taking medications regularly. Concern - Lump in Throat Onset: 1+ month Description: Pt feels lump in throat especially after eating, she reports that she sometimes has tomove her neck to the side to swallow. She states it is annoying. Intensity: moderate Progression of Symptoms: worsening and constant Accompanying Signs & Symptoms: pressure, more noticeable after eating Previous history of similar problem: none Precipitating factors: Worsened by: eating Alleviating factors: Improved by: none Therapies tried and outcome: None -Has sensation of something is stuck -It does negatively affect patient's swallowing -Denies any weight loss -Has family hx of thyroid cancer Review of Systems Constitutional, HEENT, endocrine and systems are negative, except as otherwise noted. Objective BP 124/81 (BP Location: Right arm, Patient Position: Sitting, Cuff Size: Adult Regular) Pulse 76 Temp 98.6 ??F (37 ??C) (Oral) Resp 16 Ht 1.651 m (5' 5) Wt 65.4 kg (144 lb 3.2 oz) LMP 04/06/2024 (Approximate) SpO2 100% BMI 24.00 kg/m?? Body mass index is 24 kg/m??. Physical Exam Vitals and nursing note reviewed. Constitutional: General: She is not in acute distress. Appearance: Normal appearance. She is not ill-appearing. Neck: Thyroid: No thyroid mass, thyromegaly or thyroid tenderness. Cardiovascular: Rate and Rhythm: Normal rate and regular rhythm. Heart sounds: No murmur heard. No friction rub. No gallop. Pulmonary: Effort: Pulmonary effort is normal. No respiratory distress. Breath sounds: No wheezing, rhonchi or rales. Skin: General: Skin is warm and dry. Neurological: Mental Status: She is alert. Psychiatric: Mood and Affect: Mood normal. Behavior: Behavior normal. Behavior is cooperative. Thought Content: Thought content normal. Judgment: Judgment normal. Signed Electronically by: Angel Rushing APRN CNP documented in this encounter Plan of Treatment Scheduled Referrals Name Type Priority Associated Diagnoses Orde r Schedule Adult ENT Elevator Adjuster Referral Referral Urgent: 3-5 Days Dysphagia, unspecified type Expected: 05/07/2024 (Approximate), Expires: 05/07/2025 documented as of this encounter Procedures Procedure Name Priority Date/Time Associated Diagnosis Comments TSH WITH FREE T4 REFLEX Routine 05/07/2024 11:51 AM CDT Family history of thyroid cancer documented in this encounter Results * TSH with free T4 reflex (05/07/2024 11:51 AM CDT) TSH 1.48 0.30 - 4.20 uIU/mL 05/07/2024 6:12 PM CDT [facility] Blood BLOOD SPECIMEN / Unknown Venipuncture / Unknown 05/07/2024 11:51 AM CDT 05/07/2024 11:53 AM CDT us Angel Rushing APRN, CNP LAB - BLOOD ORDERABLES Taylor moya Result [facility] [address] [facility], Room [address] [phone] documented in this encounter Visit Diagnoses Diagnosis Dysphagia, unspecified type- Primary Family history of thyroid cancer Family history of other specified malignant neoplasm documented in this encounter Additional Health Concerns Assessment Noted Time PHQ-9 Depression Total Score: 7 05/07/20 11:14 AM CDT documented as of this encounter Care Teams Superintendent Seed Mill Relationship Specialty Start Date End Date Jess Garcias PA-C [address] [place], [place] [id number] PCP - General Physician City Route Driver 12/19/13 Lori Osorio NP [address] 685[address] Nurse Practitioner Nurse Practitioner Psych/Mental Health 04/11/17 Jess Garcias PA-C [address] [place] [address] Assigned PCP 01/18/21 Ronel Escoto [facility] [address] [place], [place] [address] Pharmacist Pharmacist 08/13/22 Ronel Escoto [facility] [place], [place] 213926 Assigned MTM Pharmacist 09/17/23 Britany Sanders, INDUSTRIAL SOCIOLOGIST [facility] [address]/ [address] [place] [address] 037295 Assigned Behavioral Health Provider 01/03/24 documented as of this encounter
--- OUTSIDE RECORDS SUMMARY | 2024-07-14 01:44 | XMS_ITS | Encounter Summary ---
Author Organization [facility] Address [address] [place] [address] Care Team Providers Care Furnace Operator Name Role Phone Jess Garcias PA-C Primary Care Provider JoLori chavez NP Unavailable [phone] Edgar Zurita MD Unavailable Jess Garcias PA-C Unavailable [phone] Ronel Escoto RPH Unavailable Ronel Escoto RPH Unavailable [phone] Sue Novoa PharmD Unavailable [phone] Sue Novoa PharmD Unavailable Ronel Escoto RPH Unavailable [phone] Thiago Wilks PsyD Unavailable Unavaila Joana Landis DO Unavailable Thiago Wilks PsyD Unavailable Unavaila Sue Roldan PharmD Unavailable Sue Novoa PharmD Unavailable Christiane King RPH Unavailable Joana Cadena DO Unavailable Elvi Sandoval PA-C Unavailable [phone] Ronel Escoto RPH Unavailable Britany SandersSW Unavailable [phone] Milton Dawkins APRN CONDITIONER TENDER Unavailable Encounter Details Date Type Department Care Team (Late st Contact Info) Description 04/27/[address] [facility] [address] [place] [address] Jess Garcias PA-C [address] [place] [address] Social History Tobacco Use Types Packs/Day Years Used Date Smoking Tobacco: Never Smokeless Tobacco: Never Alcohol Use Standard Drinks/Week Comments Yes 0 (1 standard drink = 0.6 oz pur e alcohol) once a month PHQ-2 Answer Date Recorded PHQ-2 Score 1 01/15/2021 Comments No Sex and Gender Information Value Date Recorded Sex Assigned at Female 12/03/2022 2:48 PM CDT Legal Sex Female 10:10 AM HEATER HELPER Gender Identity Female 01/03/2022 12:13 PM CDT Sexual Orientation Straight 12/03/2022 2: 48 PM CDT documented as of this encounter Miscellaneous Notes * Telephone Encounter - Ame Canchola RN - 04/29/2021 11:34 AM CDT Adderall filled 04/27 and trintellix filled 04/28/ No refill needed at this time Ame Canchola Registered Nurse [facility] documented in this encounter Plan of Treatment Not on file documented as of this encounter Visit Diagnoses Diagnosis Poor concentration Attention or concentration deficit ROSA (generalized anxiety disorder) Generalized anxiety disorder documented in this encounter Additional Health Concerns Assessment Noted Time PHQ-9 Depression Total Score: 6 07/13/20 24 9:55 AM CDT documented as of this encounter Care Teams Furnace Operator Relationship Specialty Start Date End Date Jess Garcias PA-C [address] [place] [address] PCP - General Physician International Broadcast Music Librarian 12/19/13 Lori Osorio, STAMPING BENCH DIE MAKER [facility] [address] [place] [address] Nurse Practitioner Nurse Practitioner Psych/Mental Health 04/11/17 [place] [address] [place] [address] Assigned Musculoskeletal Provider 07/04/20 10/10/21 Jess Garcias PA-C [address] [place], [place] [id number] Assigned PCP 01/18/21 Ronel Escoto, [facility] [address] [place] [address] Pharmacist Pharmacist 08/13/22 Ronel Escoto, [facility] [address] [place] [address] Assigned MTM Pharmacist 08/21/22 Sue Novoa, JanD [address] [place] [address] MTM Pharmacist Pharmacist 10/22/22 03/11/23 Sue Novoa, PharmD 0 [place] [address] Assigned MTM Pharmacist 10/30/22 Ronel Escoto, [facility] [address] [place] [address] Assigned MTM Pharmacist 01/08/23 3 Thiago Wilks PsyD Assigned Behavioral Health Provider 12/11/22 01/07/23 [place] [address] [place] [address] Assigned Behavioral Health Provider 01/08/23 01/14/23 Thaigo Wilks PsyD Assigned Behavioral Health Provider 01/15/23 06/17/23 Sue Novoa, JanD [address] [place] [address] Assigned MTM Pharmacist 01/15/23 Sue Novoa PharmD [address]70 [place] [address] Assigned MTM Pharmacist 02/05/23 4 Christiane King [facility] MTM [address] [place] [address] Pharmacist Pharmacist 03/11/23 03/27/23 [place] [address] [place] [address] Assigned Behavioral Health Provider 06/18/23 01/02/24 Elvi Sandoval PA-C [address] [place] [address] Assigned Neuroscience Provider 08/06/23 10/05/23 Ronel Escoto [facility] [address] [place] [address] Assigned MTM Pharmacist 09/17/23 Britany Sanders LICSW [facility] [address]/ [address] [place] [address] Assigned Behavioral Health Provider 01/03/24 Milton Dawkins APRN CONDITIONER TENDER [address] [facility] JOAN CASTILLO [address] Nurse Practitioner Otolaryngology 05/08/24 documented as of this encounter
--- OUTSIDE RECORDS SUMMARY | 2024-07-14 01:44 | XMS_ITS | Encounter Summary ---
Author Organization [facility] Address [address] [place] [address] Care Team Providers Care Digital Editor Name Role Phone Jess Garcias PA-C Primary Care Provider [phone] JoLori chavez NP Unavailable [phone] Jess Garcias PA-C Unavailable [phone] Ronel Escoto RPH Unavailable [phone] Ronel Escoto RPH Unavailable [phone] Sue Novoa PharmD Unavailable Sue Novoa PharmD Unavailable [phone] Ronel Escoto RPH Unavailable [phone] Thiago Wilks PsyD Unavailable Unavaila Tyrone Landisa DO Unavailable Thiago Wilks PsyD Unavailable Unavaila Sue Roldan PharmD Unavailable [phone] Sue Novoa PharmD Unavailable [phone] Christiane King RPH Unavailable [phone] Tammi Joana DO Unavailable Elvi Sandovla PA-C Unavailable [phone] Ronel Escoto RPH Unavailable [phone] Britany Sanders CREMATOR Unavailable [phone] Milton Dawkins APRN BRIDGE ENGINEER Unavailable [phone] Encounter Details Date Type Department Care Team (Late st Contact Info) Description 10/13/2022 [facility] Medical Advice [facility] [address] [place] [phone] Ronel Escoto, [place] [id number] [place] [address] Social History Tobacco Use Types Packs/Day Years Used Date Smoking Tobacco: Never Smokeless Tobacco: Never Alcohol Use Standard Drinks/Week Comments Yes 0 (1 standard drink = 0.6 oz pur e alcohol) once a month PHQ-2 Answer Date Recorded PHQ-2 Score 1 07/15/2022 Comments No Sex and Gender Information Value Date Recorded Sex Assigned at Female 12/03/2022 2:48 PM CDT Legal Sex Female 10:10 AM 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 POOL SERVICE 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 Gender Identity Female 01/03/2022 12:13 PM CDT Sexual Orientation Straight 12/03/2022 2: 48 PM CDT documented as of this encounter Plan of Treatment Not on file documented as of this encounter Visit Diagnoses Not on filedocumented in this encounter Additional Health Concerns Assessment Noted Time PHQ-9 Depression Total Score: 2 07/15/20 22 9:24 AM CDT documented as of this encounter Care Teams Digital Editor Relationship Specialty Start Date End Date Jess Garcias PA-C [address] [place] [address] PCP - General Physician Entry Level Marketing Representative 12/19/13 Lori Osorio NP [facility] [address] [place] [address] Nurse Practitioner Nurse Practitioner Psych/Mental Health 04/11/17 Jess Garcias PA-C [address] [place] [address] Assigned PCP 01/18/21 Ronel Escoto [facility] [place] [address] Pharmacist Pharmacist 08/13/22 Ronel Escoto [facility] [address] [place] [address] Assigned MTM Pharmacist 08/21/22 10/29/22 Sue Novoa, PharmD [address] [place] [address] MTM Pharmacist Pharmacist 10/22/22 03/11/23 Sue Novoa, PharmD [address] [place] [address] Assigned MTM Pharmacist 10/30/22 01/07/23 [facility] [address] [place] [address] Assigned MTM Pharmacist 01/08/23 01/14/23 Thiago Wilks PsyD Assigned Behavioral Health Provider 12/11/22 01/07/23 Joana Cadena DO [address] [place], [place] [address] [address] Assigned Behavioral Health Provider 01/08/23 01/14/23 Thiago Wilks PsyD Assigned Behavioral Health Provider 01/15/23 06/17/23 Sue Novoa, PharmD [address] [place] [address] Assigned MTM Pharmacist 01/15/23 02/04/23 Sue Novoa, PharmD [address] [place] [address] Assigned MTM Pharmacist 02/05/23 09/16/23 Christiane King [facility] MTM [address] [place] [address] Pharmacist Pharmacist 03/11/23 03/27/23 Joana Cadena DO [address] [place] [address] Assigned Behavioral Health Provider 06/18/23 01/02/24 Elvi Sandoval PA-C [address] [address] Assigned Neuroscience Provider 08/06/23 10/05/23 Ronel Escoto [facility] [address] [place] [address] Assigned MTM Pharmacist 09/17/23 Britany Sanders LICSW [facility] [address]/ [address] [place] [address] Assigned Behavioral Health Provider 01/03/24 Milton Dawkins APRN BRIDGE ENGINEER [address] [place] [address] Nurse Practitioner Otolaryngology 05/08/24 documented as of this encounter
--- OUTSIDE RECORDS SUMMARY | 2024-07-14 01:44 | XMS_ITS | Encounter Summary ---
Author Organization [facility] Address [address] [place] [address] Care Team Providers Care Job Molder Name Role Phone Jess Garcias PA-C Primary Care Provider [phone] JoLori chavez NP Unavailable [phone] Quynh Dalton MD Unavailable [phone] Jess Garcias PA-C Unavailable [phone] Egdar Zurita MD Unavailable Ana Cristina Dudley MD Unavailable Unavailabl e Jess Garcias PA-C Unavailable [phone] Ronel Escoto RPH Unavailable [phone] Ronel Escoto RPH Unavailable [phone] Sue Novoa PharmD Unavailable [phone] Sue Novoa PharmD Unavailable [phone] Ronel Escoto RPH Unavailable [phone] Thiago Wilks PsyD Unavailable Unavaila Joana Landis DO Unavailable Thiago Wilks PsyD Unavailable Unavaila Sue Roldan PharmD Unavailable [phone] Sue Novoa PharmD Unavailable [phone] Christiane King RPH Unavailable [phone] Joana Cadena DO Unavailable Elvi Sandoval PA-C Unavailable [phone] Ronel Escoto [facility] Unavailable [phone] Britany Sanders [facility] Unavailable [phone] Milton Dawkins APRN [facility] Unavailable [phone] Reason for Visit * Reason Comments Medication Refill Encounter Details Date Type Department Care Team (Late st Contact Info) Description 12/31/[address], [address] [place] [address] [place] [address] [place] [address] Medication Refill Social History Tobacco Use Types Packs/Day Years Used Date Smoking Tobacco: Never Smokeless Tobacco: Never Alcohol Use Standard Drinks/Week Comments Yes 0 (1 standard drink = 0.6 oz pur e alcohol) once a month PHQ-2 Answer Date Recorded PHQ-2 Score 0 06/25/2019 Comments No Sex and Gender Information Value Date Recorded Sex Assigned at Female 12/03/2022 2:48 PM CDT Legal Sex Female 10:10 AM CLIENT LIAISON Gender Identity Female 01/03/2022 12:13 PM CDT Sexual Orientation Straight 12/03/2022 2: 48 PM CDT documented as of this encounter Miscellaneous Notes * Telephone Encounter - Ivone Rdz RN - 01/03/2020 9:10 AM CDT Prescription approved per [facility] Refill Protocol. documented in this encounter Plan of Treatment Not on file documented as of this encounter Visit Diagnoses Diagnosis ROSA (generalized anxiety disorder) Generalized anxiety disorder documented in this encounter Additional Health Concerns Assessment Noted Time PHQ-9 Depression Total Score: 1 06/25/20 19 8:31 AM CDT documented as of this encounter Care Teams Job Molder Relationship Specialty Start Date End Date Jess Garcias PA-C [address] [place] [address] PCP - General Physician Dehydrating Press Operator 12/19/13 Lori Osorio NP [place] [address] [place] [address] Nurse Practitioner Nurse Practitioner Psych/Mental Health 04/11/17 [place] [address] [place] [address] Assigned PCP 08/05/19 01/12/20 Jess Garcias PA-C [address] [place], [place] [address] Assigned PCP 01/13/20 11/30/20 [place] [address] [address] Assigned Musculoskeletal Provider 07/04/20 10/10/21 Ana Cristina Dudley MD [facility]NA[place] IN [place] S[place]CE 09/11/2021 Assigned PCP 12/01/20 01/17/21 Jess Garcias PA-C [address] [place] [address] Assigned PCP 01/18/21 Ronel Escoto [facility] [address] [place] [address] Pharmacist Pharmacist 08/13/22 Ronel Escoto [facility] [address] [place] [address] Assigned MTM Pharmacist 08/21/22 Sue Novoa, PharmD [address] [place] [address] [place] Pharmacist Pharmacist 10/22/22 03/11/23 Seu Novoa, PharmD [address] [place] [address] Assigned MTM Pharmacist 10/30/22 Ronel Escoto, [facility] [address] [place] [address] Assigned MTM Pharmacist 01/08/23 3 Thiago Wilks PsyD Assigned Behavioral Health Provider 12/11/22 01/07/23 Joana Cadena DO [address] [place], [place] [address] [address] Assigned Behavioral Health Provider 01/08/23 01/14/23 Thiago Wilks PsyD Assigned Behavioral Health Provider 01/15/23 06/17/23 Sue Novoa, PharmD [address] [place] [address] Assigned MTM Pharmacist 01/15/23 Sue Novoa, PharmD [address] [place] [address] Assigned MTM Pharmacist 02/05/23 Christiane Candelaria, [facility] [address] [place] [address] Pharmacist Pharmacist 03/11/23 03/27/23 Joana Cadena DO [facility] [place] [address] Assigned Behavioral Health Provider 06/18/23 01/02/24 Elvi Sandoval PA-C [address] [place] [address] Assigned Neuroscience Provider 08/06/23 10/05/23 Ronel Escoto, [facility] [address] [place] [address] Assigned MTM Pharmacist 09/17/23 Britany Sanders LICSW [address] [place] [address]/ [address] [place] [address] Assigned Behavioral Health Provider 01/03/24 Milton Dawkins APRN [facility] [address] [place] [address] JO[place] Henry [address] Nurse Practitioner Otolaryngology 05/08/24 documented as of this encounter
--- OUTSIDE RECORDS SUMMARY | 2024-07-14 01:44 | XMS_ITS | Encounter Summary ---
Author Organization [facility] Address [address] [place] [address] Care Team Providers Care Product Inspection Supervisor Name Role Phone Jess Garcias PA-C Primary Care Provider Lori Osorio NP Unavailable [phone] Jess Garcias PA-C Unavailable Quynh Dalton MD Unavailable [phone] Jess Garcias PA-C Unavailable Edgar Zurita MD Unavailable Ana Cristina Dudley MD Unavailable Unavailabl e Jess Garcias PA-C Unavailable Ronel Escoto RPH Unavailable Ronel Escoto RPH Unavailable Sue Novoa PharmD Unavailable [phone] Sue Novoa PharmD Unavailable [phone] Ronel Escoto RPH Unavailable [phone] Thiago Wilks PsyD Unavailable Unavaila Joana Landis DO Unavailable Thiago Wilks PsyD Unavailable Unavaila Sue Roldan PharmD Unavailable [phone] Sue Novoa PharmD Unavailable Christiane King RPH Unavailable [phone] Joana Cadena DO Unavailable Elvi Sandoval PA-C Unavailable Ronel Escoto [facility] Unavailable Britany Sanders [facility] Unavailable [phone] Milton Dawkins APRN SHIPS EQUIPMENT ENGINEER Unavailable [phone] Reason for Visit * Reason Onset Date Comments Hives 06/27/2019 See previous [employer] [facility] Encounter Details Date Type Department Care Team (Late st Contact Info) Description 06/27/2019 MyC Medical Advice [address], [address] [place] [address] [place] [address] [place] [address] Hives (See previous messages) Social History Tobacco Use Types Packs/Day Years [...] PM CDT 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 Nereyda Guerra RN * Telephone Encounter - Quynh Dalton MD - 06/27/2019 3:20 PM CDT Who has she tried to contact and how? I do not understand the message. Please call and triage. If she is not improving, we can send her to allergy documented in this encounter Plan of Treatment Not on file documented as of this encounter Visit Diagnoses Not on filedocumented in this encounter Additional Health Concerns Assessment Noted Time PHQ-9 Depression Total Score: 1 06/25/20 19 8:31 AM CDT documented as of this encounter Care Teams Product Inspection Supervisor Relationship Specialty Start Date End Date Jess Garcias PA-C [address] [place] [address] PCP - General Physician Bill Board Poster 12/19/13 Lori Osorio NP [address] [address] Nurse Practitioner Nurse Practitioner Psych/Mental Health 04/11/17 Jess Garcias PA-C [address] [place] [address] Assigned PCP 06/03/19 08/04/19 [place] [address] [place] [address] Assigned PCP 08/05/19 01/12/20 Jess Garcias PA-C [address] [place] [address] Assigned PCP 01/13/20 11/30/20 [place] [address] [place] [address] Assigned Musculoskeletal Provider 07/04/20 10/10/21 Ana Cristina Dudley MD INACTIVE IN [place] SINCE 09/11/2021 Assigned PCP 12/01/20 01/17/21 Jess Garcias PA-C [address] [place] [address] Assigned PCP 01/18/21 Ronel Escoto [facility] [address] [place] [address] Pharmacist Pharmacist 08/13/22 Ronel Escoto [facility] [address] [place] [address] Assigned MTM Pharmacist 08/21/22 Sue Novoa, PharmD [address] [place] [address] MTM Pharmacist Pharmacist 10/22/22 03/11/23 Sue Novoa, JanD 0 [place] [address] Assigned MTM Pharmacist 10/30/22 Ronel Escoto [facility] [address] [place] [address] Assigned MTM Pharmacist 01/08/23 3 Thiago Wilks PsyD Assigned Behavioral Health Provider 12/11/22 01/07/23 [place] [address] [place] [address] Assigned Behavioral Health Provider 01/08/23 01/14/23 Thiago Wilks PsyD Assigned Behavioral Health Provider 01/15/23 06/17/23 Sue Novoa, JanD [address] [place] [address] Assigned MTM Pharmacist 01/15/23 Sue Nvooa PharmD [address] [place] [address] Assigned MTM Pharmacist 02/05/23 Christiane Candelaria [facility] [place] [address] [place] [address] Pharmacist Pharmacist 03/11/23 03/27/23 [place] [address] [place] [address] Assigned Behavioral Health Provider 06/18/23 01/02/24 Elvi Sandoval PA-C [address] [place] [address] Assigned Neuroscience Provider 08/06/23 10/05/23 Ronel Escoto [facility] [address] [place] [address] Assigned MTM Pharmacist 09/17/23 Britany Sanders, VEL [address] [place] [address]/ [address] [place] [address] Assigned Behavioral Health Provider 01/03/24 Milton Dawkins APRN SHIPS EQUIPMENT ENGINEER [address] [facility] JOAN CASTILLO [address] Nurse Practitioner Otolaryngology 05/08/24 documented as of this encounter
--- OUTSIDE RECORDS SUMMARY | 2024-07-14 01:44 | XMS_ITS | Encounter Summary ---
Author Organization [facility] Address [address] [place] [address] Care Team Providers Care Program Management Professional Name Role Phone Jess Garcias PA-C Primary Care Provider JoLori chavez NP Unavailable [phone] Jess Garcias PA-C Unavailable [phone] Ronel Escoto RPH Unavailable [phone] Sue Novoa PharmD Unavailable Sue Novoa PharmD Unavailable [phone] Ronel Escoto RPH Unavailable [phone] Thiago Wilks PsyD Unavailable Unavaila rk Cadena, Joana DO Unavailable Thiago Wilks PsyD Unavailable Unavaila Sue Roldan PharmD Unavailable Sue Novoa PharmD Unavailable [phone] Christiane King RPH Unavailable Tammi, Joana DO Unavailable Elvi Sandoval PA-C Unavailable Ronel Escoto RPH Unavailable [phone] Britany Sanders TRANSPORT COMPANY MANAGER Unavailable [phone] Milton Dawkins APRN SALES AND SERVICE ENGINEER Unavailable [phone] Encounter Details Date Type Department Care Team (Late st Contact Info) Description 11/05/2022 MyC Medical Advice [facility] [address] [place] [address] Sue Novoa, PharmD [address] [place] [address] Social History Tobacco Use Types Packs/Day Years [...] PM CDT 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 No / Unsure 10/25/2022 7:15 PM TUMBLING BARREL PAINTER documented as of this encounter Plan of Treatment Not on file documented as of this encounter Visit Diagnoses Not on filedocumented in this encounter Additional Health Concerns Assessment Noted Time PHQ-9 Depression Total Score: 2 07/15/20 22 9:24 AM CDT documented as of this encounter Care Teams Program Management Professional Relationship Specialty Start Date End Date Jess Garcias PA-C [address] [place] [address] PCP - General Physician Tractor Trailer Technician 12/19/13 Lori Osorio NP [place] [address] [place] [address] Nurse Practitioner Nurse Practitioner Psych/Mental Health 04/11/17 Jess Garcias PA-C [address] [place] [address] Assigned PCP 01/18/21 Ronel Escoto, [facility] 3033 [place] [address] Pharmacist Pharmacist 08/13/22 Sue Novoa, JanD [address] [place] [address] [place] Pharmacist Pharmacist 10/22/22 03/11/23 Sue Novoa, PharmD [address] [place] [address] Assigned [place] Pharmacist 10/30/22 01/07/23 Ronel Escoto [facility] [address] [place] [address] Assigned MTM Pharmacist 01/08/23 01/14/23 Thiago Wilks PsyD Assigned Behavioral Health Provider 12/11/22 01/07/23 Joana Cadena DO [facility] [place] [address] Assigned Behavioral Health Provider 01/08/23 01/14/23 Thiago Wilks PsyD Assigned Behavioral Health Provider 01/15/23 06/17/23 Sue Novoa, PharmD [address] [place] [address] Assigned MTM Pharmacist 01/15/23 02/04/23 Sue Novoa, JanD [address] [place] [address] Assigned MTM Pharmacist 02/05/23 09/16/23 Christiane King [facility] MTM [address] [place] [address] Pharmacist Pharmacist 03/11/23 03/27/23 Joana Cadena DO [address] [place] [address] [place] [address] Assigned Behavioral Health Provider 06/18/23 01/02/24 Elvi Sandoval PA-C [address] [place] [address] Assigned Neuroscience Provider 08/06/23 10/05/23 Ronel Escoto [facility] [address] [place] [address] Assigned MTM Pharmacist 09/17/23 Britany Sanders [facility] [address] [place] [address]/ [address] [place] [address] Assigned Behavioral Health Provider 01/03/24 Milton Dawkins APRN SALES AND SERVICE ENGINEER [address] [place] [address] Nurse Practitioner Otolaryngology 05/08/24 documented as of this encounter
--- OUTSIDE RECORDS SUMMARY | 2024-07-14 01:44 | XMS_ITS | Encounter Summary ---
Author Organization [facility] Address [address] [place] [address] Care Team Providers Care Housekeeping Associate Name Role Phone Jess Garcias PA-C Primary Care Provider [phone] JoLori chavez NP Unavailable [phone] Quynh Dalton MD Unavailable [phone] Jess Garcias PA-C Unavailable [phone] Edgar Zurita MD Unavailable Ana Cristina Dudley MD Unavailable Unavailabl e Jess Garcias PA-C Unavailable [phone] Ronel Escoto RPH Unavailable [phone] Ronel Escoto RPH Unavailable [phone] Sue Novoa PharmD Unavailable [phone] Sue Novoa PharmD Unavailable [phone] Ronel Escoto RPH Unavailable [phone] Thiago Wilks PsyD Unavailable Unavaila Joana Landis DO Unavailable Thiago Wilks PsyD Unavailable Unavaila Sue Roldan PharmD Unavailable [phone] Sue Novoa PharmD Unavailable [phone] Christiane King RPH Unavailable [phone] Joana Cadena DO Unavailable Elvi Sandoval PA-C Unavailable [phone] Ronel Escoto [facility] Unavailable [phone] Britany Sanders [facility] Unavailable [phone] Milton Dawkins APRN [facility] Unavailable [phone] Reason for Visit * Reason Comments Medication Refill Encounter Details Date Type Department Care Team (Late st Contact Info) Description 08/06/2019 Refill [facility] [address] [place] [address] Jess Garcias PA-C [address] [place] [address] Medication Refill Social History Tobacco Use Types [...] CDT 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 Gender Identity Female 01/03/2022 12:13 PM CDT [...] documented as of this encounter Care Teams Housekeeping Associate Relationship Specialty Start Date End Date Jess Garcias PA-C [address] [place] [address] PCP - General Physician Financial Sales Assistant 12/19/13 Lori Osorio NP [place] [address] [place] [address] Nurse Practitioner Nurse Practitioner Psych/Mental Health 04/11/17 [place] [address] [facility] [place] [address] Assigned PCP 08/05/19 01/12/20 Jess Garcias PA-C [address] [place] [address] Assigned PCP 01/13/20 11/30/20 [place] [address] [place], [place] [address] Assigned Musculoskeletal Provider 07/04/20 10/10/21 Ana Cristina Dudley MD INACTIVE IN [place] SINCE 09/11/2021 Assigned PCP 12/01/20 01/17/21 Jess Garcias, PENNIE [address] [place] [address] Assigned PCP 01/18/21 Ronel Escoto, [facility] [place] [address] Pharmacist Pharmacist 08/13/22 Ronel Escoto, [facility] [place] [address] Assigned MTM Pharmacist 08/21/22 Sue Novoa, PharmD [address] [place] [address] MTM Pharmacist Pharmacist 10/22/22 03/11/23 Sue Novoa, PharmD [address]70 [place] [address] Assigned MTM Pharmacist 10/30/22 Ronel Escoto [facility] [address] [place] [address] Assigned MTM Pharmacist 01/08/23 3 Thiago Wilks PsyD Assigned Behavioral Health Provider 12/11/22 01/07/23 [place] [address] [place] [address] Assigned Behavioral Health Provider 01/08/23 01/14/23 Thiago Wilks PsyD Assigned Behavioral Health Provider 01/15/23 06/17/23 Sue Novoa, PharmD [address]70 [place] [address] Assigned MTM Pharmacist 01/15/23 Sue Novoa, PharmD [address] [place] [address] Assigned MTM Pharmacist 02/05/23 Christiane Candelaria [facility] MTM [address] [place] [address] Pharmacist Pharmacist 03/11/23 03/27/23 [place] [address] [place] [address] Assigned Behavioral Health Provider 06/18/23 01/02/24 Elvi Sandoval PA-C [address] [address] Assigned Neuroscience Provider 08/06/23 10/05/23 Ronel Escoto, [facility] [address] [place] [address] Assigned MTM Pharmacist 09/17/23 Britany Sanders [facility] [address]/ [address] [place] [address] Assigned Behavioral Health Provider 01/03/24 Milton Dawkins APRN COMPOSITION STONE APPLICATOR [address] [facility] [place] [address] Nurse Practitioner Otolaryngology 05/08/24 documented as of this encounter
--- OUTSIDE RECORDS SUMMARY | 2024-07-14 01:44 | XMS_ITS | Encounter Summary ---
Author Organization [facility] Address [address] [place] [address] Care Team Providers Care Facility Worker Name Role Phone Jess Garcias PA-C Primary Care Provider [phone] JoLori chavez NP Unavailable [phone] Jess Garcias PA-C Unavailable [phone] Ronel Escoto RPH Unavailable [phone] Ronel Escoto RPH Unavailable [phone] Sue Novoa PharmD Unavailable Sue Novoa PharmD Unavailable [phone] Ronel Escoto RPH Unavailable [phone] Thiago Wilks PsyD Unavailable Unavaila Tyrone Landisa DO Unavailable Thiago Wilks PsyD Unavailable Unavaila Sue Roldan PharmD Unavailable [phone] Sue Novoa PharmD Unavailable [phone] Christiane King RPH Unavailable [phone] Tammi Joana DO Unavailable Elvi Sandoval PA-C Unavailable [phone] Ronel Escoto RPH Unavailable [phone] Britany Sanders GASOLINE DRAGLINE OPERATOR Unavailable [phone] Milton Dawkins APRN PEOPLE GREETER Unavailable [phone] Encounter Details Date Type Department Care Team (Late st Contact Info) Description 10/21/2022 [facility] Medical Advice [facility] [address] [place] [phone] Ronel Escoto, [place] [address] [place] [address] Social History Tobacco Use Types Packs/Day Years [...] PM CDT 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 Gender Identity Female 01/03/2022 12:13 PM CDT Sexual Orientation Straight 12/03/2022 2: 48 PM CDT documented as of this encounter Plan of Treatment Not on file documented as of this encounter Visit Diagnoses Not on filedocumented in this encounter Additional Health Concerns Assessment Noted Time PHQ-9 Depression Total Score: 2 07/15/20 22 9:24 AM CDT documented as of this encounter Care Teams Facility Worker Relationship Specialty Start Date End Date Jess Garcias PA-C [address] [place] [address] PCP - General Physician Beef Ribber 12/19/13 Lori Osorio NP [facility] [address] [place] [address] Nurse Practitioner Nurse Practitioner Psych/Mental Health 04/11/17 Jess Garcias PA-C [address] [place] [address] Assigned PCP 01/18/21 Ronel Escoto [facility] [place] [address] Pharmacist Pharmacist 08/13/22 Ronel Escoto [facility] [address] [place] [address] Assigned MTM Pharmacist 08/21/22 10/29/22 Sue Novoa, PharmD [address] [place] [address] MTM Pharmacist Pharmacist 10/22/22 03/11/23 Sue Novoa, PharmD [address] [place] [address] Assigned MTM Pharmacist 10/30/22 01/07/23 [facility] [address] [place] [address] Assigned MTM Pharmacist 01/08/23 01/14/23 Thiago Wilks PsyD Assigned Behavioral Health Provider 12/11/22 01/07/23 Joana Cadena DO [address] [place], [place] [address] [address] Assigned Behavioral Health Provider 01/08/23 01/14/23 Thiago Wilks PsyD Assigned Behavioral Health Provider 01/15/23 06/17/23 Sue Novoa, PharmD [address] [place] [address] Assigned MTM Pharmacist 01/15/23 02/04/23 Sue Novoa, PharmD [address] [place] [address] Assigned MTM Pharmacist 02/05/23 09/16/23 Christiane King [facility] MTM [address] [place] [address] Pharmacist Pharmacist 03/11/23 03/27/23 Joana Cadena DO [address] [place] [address] Assigned Behavioral Health Provider 06/18/23 01/02/24 Elvi Sandoval PA-C [address] [address] Assigned Neuroscience Provider 08/06/23 10/05/23 Ronel Escoto [facility] [address] [place] [address] Assigned MTM Pharmacist 09/17/23 Britany Sanders LICSW [facility] [address]/ [address] [place] [address] Assigned Behavioral Health Provider 01/03/24 Milton Dawkins APRN PEOPLE GREETER [address] [place] [address] Nurse Practitioner Otolaryngology 05/08/24 documented as of this encounter
--- OUTSIDE RECORDS SUMMARY | 2024-07-14 01:44 | XMS_ITS | Encounter Summary ---
Author Organization [facility] Address [address] [place] [address] Care Team Providers Care Machine Cloth Examiner Name Role Phone Jess Garcias PA-C Primary Care Provider [phone] JoLori chavez NP Unavailable [phone] Jess Garcias PA-C Unavailable [phone] Ronel Escoto RPH Unavailable [phone] Ronel Escoto RPH Unavailable [phone] Sue Novoa PharmD Unavailable [phone] Sue Novoa PharmD Unavailable [phone] Ronel Escoto RPH Unavailable [phone] Thiago Wilks PsyD Unavailable Unavaila Tyrone Landisa DO Unavailable Thiago Wilks PsyD Unavailable Unavaila Sue Roldan PharmD Unavailable [phone] Sue Novoa PharmD Unavailable [phone] Christiane King RPH Unavailable [phone] Tammi Joana DO Unavailable Elvi Sandoval PA-C Unavailable Ronel Escoto RPH Unavailable +[phone] Britany Sanders BILLING CHECKER Unavailable [phone] Milton Dawkins APRN ASSEMBLER FOR PULLER OVER MACHINE Unavailable [phone] Encounter Details Date Type Department Care Team (Late st Contact Info) Description 03/12/2022 [facility] Medical Advice [facility] [address] [place] [phone] Jess Garcias PA-C [address] [place], [place] [id number] Social History Tobacco Use Types Packs/Day Years Used Date Smoking Tobacco: Never Smokeless Tobacco: Never Alcohol Use Standard Drinks/Week Comments Yes 0 (1 standard drink = 0.6 oz pur e alcohol) once a month PHQ-2 Answer Date Recorded PHQ-2 Score 0 03/12/2022 Comments No Sex and Gender Information Value Date Recorded Sex Assigned at Female 12/03/2022 2:48 PM CDT 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 No / Unsure 03/12/2022 2:11 PM CDT documented as of this encounter Plan of Treatment Not on file documented as of this encounter Visit Diagnoses Not on filedocumented in this encounter Additional Health Concerns Assessment Noted Time PHQ-9 Depression Total Score: 2 03/12/20 22 2:18 PM CDT documented as of this encounter Care Teams Machine Cloth Examiner Relationship Specialty Start Date End Date Jess Garcias PA-C [address] [place] [address] PCP - General Physician Vb Net Developer 12/19/13 Lori Osorio NP [place] [address] [place] [address] Nurse Practitioner Nurse Practitioner Psych/Mental Health 04/11/17 Jess Garcias PA-C [address] [place] [address] Assigned PCP 01/18/21 Ronel Escoto [facility] [address] [place] [address] Pharmacist Pharmacist 08/13/22 Ronel Escoto [facility] [address] [place] [address] Assigned MTM Pharmacist 08/21/22 10/29/22 Sue Novoa, JanD [address] [place] [address] MTM Pharmacist Pharmacist 10/22/22 03/11/23 Sue Novoa, JanD [address] [place] [address] Assigned MTM Pharmacist 10/30/22 01/07/23 Ronel Escoto [facility] [address] [place] [address] Assigned MTM Pharmacist 01/08/23 01/14/23 Thiago Wilks PsyD Assigned Behavioral Health Provider 12/11/22 01/07/23 Joana Cadena DO [address] [place] [address] Assigned Behavioral Health Provider 01/08/23 01/14/23 Thiago Wilks PsyD Assigned Behavioral Health Provider 01/15/23 06/17/23 Sue Novoa, Miguelito [address] [place] [address] Assigned MTM Pharmacist 01/15/23 02/04/23 Sue Novoa PharmD [address] [place] [address] Assigned MTM Pharmacist 02/05/23 09/16/23 Christiane King [facility] MTM [address] [place] [address] Pharmacist Pharmacist 03/11/23 03/27/23 Joana Cadena DO [address] [place] [place] [address] Assigned Behavioral Health Provider 06/18/23 01/02/24 Elvi Sandoval PA-C [address] [place] [address] Assigned Neuroscience Provider 08/06/23 10/05/23 Ronel Escoto, [facility] [address] [place] [address] Assigned MTM Pharmacist 09/17/23 Britany Sanders, VEL [address] [place] [address]/ [address] [place] [address] Assigned Behavioral Health Provider 01/03/24 Milton Dawkins APRN ASSEMBLER FOR PULLER OVER MACHINE [address] [place] [address] Nurse Practitioner Otolaryngology 05/08/24 documented as of this encounter
--- OUTSIDE RECORDS SUMMARY | 2024-07-14 01:44 | XMS_ITS | Encounter Summary ---
Author Organization [place] Address [address] [place] [address] Care Team Providers Care Bark Tanner Name Role Phone Jess Garcias PA-C Primary Care Provider JoLori chavez NP Unavailable [phone] Jess Garcias PA-C Unavailable [phone] Ronel Escoto RPH Unavailable [phone] Sue Novoa PharmD Unavailable Sue Novoa PharmD Unavailable Ronel Escoto RPH Unavailable [phone] Thiago Wilks PsyD Unavailable Unavaila rk Cadena, Joana DO Unavailable Thiago Wilks PsyD Unavailable Unavaila Sue Roldan PharmD Unavailable Sue Novoa PharmD Unavailable [phone] Christiane King RPH Unavailable Tammi, Joana DO Unavailable Elvi Sandoval PA-C Unavailable [phone] Ronel Escoto RPH Unavailable [phone] Britany Sanders SAP ANALYST Unavailable [phone] Milton Dawkins APRN UNIFORMS SALES REPRESENTATIVE Unavailable [phone] Encounter Details Date Type Department Care Team (Late st Contact Info) Description 11/30/2022 MyC Medical Advice [facility] Mental Health & Addiction [address] [address] Thiago Wilks PsyD Social History Tobacco Use [...] PM CDT 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 Gender Identity Female 01/03/2022 12:13 PM CDT Sexual Orientation Straight 12/03/2022 2: 48 PM CDT documented as of this encounter Plan of Treatment Not on file documented as of this encounter Visit Diagnoses Not on filedocumented in this encounter Additional Health Concerns Assessment Noted Time PHQ-9 Depression Total Score: 2 07/15/20 22 9:24 AM CDT documented as of this encounter Care Teams Bark Tanner Relationship Specialty Start Date End Date Jess Garcias PA-C [address] [place] [address] PCP - General Physician Project Planner 12/19/13 Lori Osorio NP [facility] [address] [place], [place] [address] Nurse Practitioner Nurse Practitioner Psych/Mental Health 04/11/17 Jess Garcias PA-C [address] [place] [address] Assigned PCP 01/18/21 Ronel Escoto [facility] [address] [place] [address] Pharmacist Pharmacist 08/13/22 Sue Novoa PharmD [address] [place] [address] [place] Pharmacist Pharmacist 10/22/22 03/11/23 Sue Novoa, PharmD [address] [place] [address] Assigned MTM Pharmacist 10/30/22 01/07/23 Ronel Escoto, [facility] [address] [place] [address] Assigned MTM Pharmacist 01/08/23 01/14/23 Thiago Wilks PsyD Assigned Behavioral Health Provider 12/11/22 01/07/23 Joana Cadena DO [address] [place] [address] Assigned Behavioral Health Provider 01/08/23 01/14/23 Thiago Wilks PsyD Assigned Behavioral Health Provider 01/15/23 06/17/23 Sue Novoa, PharmD [address] [place] [address] Assigned MTM Pharmacist 01/15/23 02/04/23 Sue Nvooa, PharmD [address] [place] [address] Assigned MTM Pharmacist 02/05/23 09/16/23 Christiane King [facility] [address] [place] [address] Pharmacist Pharmacist 03/11/23 03/27/23 [place] [address] [place] [address] Assigned Behavioral Health Provider 06/18/23 01/02/24 Elvi Sandoval PA-C [address] [address] Assigned Neuroscience Provider 08/06/23 10/05/23 [facility] [address] [place] [address] Assigned MTM Pharmacist 09/17/23 Britany Sanders LICSW [address] [place] [address]/ [address] [place] [address] Assigned Behavioral Health Provider 01/03/24 Milton Dawkins APRN UNIFORMS SALES REPRESENTATIVE [facility] [place] [place] [address] Nurse Practitioner Otolaryngology 05/08/24 documented as of this encounter
--- OUTSIDE RECORDS SUMMARY | 2024-07-14 01:44 | XMS_ITS | Encounter Summary ---
Author Organization [place] Address [address] [place] [address] Care Team Providers Care Digital Content Producer Name Role Phone Jess Garcias PA-C Primary Care Provider [phone] JoLori chavez NP Unavailable [phone] Jess Garcias PA-C Unavailable [phone] Ronel Escoto RPH Unavailable [phone] Ronel Escoto RPH Unavailable [phone] uSe Novoa PharmD Unavailable Sue Novoa PharmD Unavailable [phone] Ronel Escoto RPH Unavailable [phone] Thiago Wilks PsyD Unavailable Unavaila Tyrone Landisa DO Unavailable Thiago Wilks PsyD Unavailable Unavaila Sue Roldan PharmD Unavailable [phone] Sue Novoa PharmD Unavailable [phone] Christiane King RPH Unavailable [phone] Tammi Joana DO Unavailable Elvi Sandoval PA-C Unavailable [phone] Ronel Escoto RPH Unavailable [phone] Britany Sanders DEVOPS CONSULTANT Unavailable [phone] Milton Dawkins APRN VP CLINICAL Unavailable [phone] Encounter Details Date Type Department Care Team (Late st Contact Info) Description 07/15/2022 [facility] Medical Advice [facility] [address] [place] [phone] Jess Garcias PA-C [address] [place], [place] [phone] Social History Tobacco Use Types Packs/Day Years [...] PM CDT 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 No / Unsure 06/25/2022 8:35 AM CDT documented as of this encounter Plan of Treatment Not on file documented as of this encounter Visit Diagnoses Not on filedocumented in this encounter Additional Health Concerns Assessment Noted Time PHQ-9 Depression Total Score: 2 07/15/20 22 9:24 AM CDT documented as of this encounter Care Teams Digital Content Producer Relationship Specialty Start Date End Date Jess Garcias PA-C [address] [place] [address] PCP - General Physician Hot Wort Settler 12/19/13 Lori Osorio NP [place] [address] [place] [address] Nurse Practitioner Nurse Practitioner Psych/Mental Health 04/11/17 Jess Garcias PA-C [address] [place] [address] Assigned PCP 01/18/21 Ronel Escoto [facility] [address] [place] [address] Pharmacist Pharmacist 08/13/22 Ronel Escoto [facility] [address] [place] [address] Assigned MTM Pharmacist 08/21/22 10/29/22 Sue Novoa, JanD [address] [place] [address] MTM Pharmacist Pharmacist 10/22/22 03/11/23 Sue Novoa, JanD [address] [place] [address] Assigned MTM Pharmacist 10/30/22 01/07/23 Ronel Escoto [facility] [address] [place] [address] Assigned MTM Pharmacist 01/08/23 01/14/23 Thiago Wilks PsyD Assigned Behavioral Health Provider 12/11/22 01/07/23 Joana Cadena DO [address] [place] [address] Assigned Behavioral Health Provider 01/08/23 01/14/23 Thiago Wilks PsyD Assigned Behavioral Health Provider 01/15/23 06/17/23 Sue Novoa, Miguelito [address] [place] [address] Assigned MTM Pharmacist 01/15/23 02/04/23 Sue Novoa PharmD [address] [place] [address] Assigned MTM Pharmacist 02/05/23 09/16/23 Christiane King [facility] [place] [address] [place] [address] Pharmacist Pharmacist 03/11/23 03/27/23 Joana Cadena DO [address] [place] [address] Assigned Behavioral Health Provider 06/18/23 01/02/24 Elvi Sandoval PA-C [address] [place] [address] Assigned Neuroscience Provider 08/06/23 10/05/23 Ronel Escoto, [facility] [address] [place] [address] Assigned MTM Pharmacist 09/17/23 Britany Sanders, VEL [address] [place] [address]/ [address] [place] [address] Assigned Behavioral Health Provider 01/03/24 Milton Dawkins APRN VP CLINICAL [address] [place] [address] Nurse Practitioner Otolaryngology 05/08/24 documented as of this encounter
--- OUTSIDE RECORDS SUMMARY | 2024-07-14 01:44 | XMS_ITS | Encounter Summary ---
Author Organization [place] Address [address] [place] [address] Care Team Providers Care Beef Selector Name Role Phone Jess Garcias PA-C Primary Care Provider [phone] JoLori chavez NP Unavailable Jess Garcias PA-C Unavailable [phone] Ronel Escoto RPH Unavailable [phone] Ronel Escoto RPH Unavailable [phone] Sue Novoa PharmD Unavailable Sue Novoa PharmD Unavailable [phone] Ronel Escoto RPH Unavailable [phone] Thiago Wilks PsyD Unavailable Unavaila Tyrone Landisa DO Unavailable Thiago Wilks PsyD Unavailable Unavaila Sue Roldan PharmD Unavailable [phone] Sue Novoa PharmD Unavailable [phone] Christiane King RPH Unavailable [phone] Tammi Joana DO Unavailable Elvi Sandoval PA-C Unavailable [phone] Ronel Escoto RPH Unavailable [phone] Britany Sanders POCKET CUTTER Unavailable [phone] Milton Dawkins APRN EDITOR DEPARTMENT Unavailable [phone] Encounter Details Date Type Department Care Team (Late st Contact Info) Description 10/25/[address] 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 No / Unsure 10/25/2022 7:15 PM CLINICAL NURSING PROFESSOR documented as of this encounter Plan of Treatment Not on file documented as of this encounter Visit Diagnoses Not on filedocumented in this encounter Additional Health Concerns Assessment Noted Time PHQ-9 Depression Total Score: 2 07/15/20 22 9:24 AM CDT documented as of this encounter Care Teams Beef Selector Relationship Specialty Start Date End Date Jess Garcias PA-C [address] [place] [address] PCP - General Physician Territory Sales Professional 12/19/13 Lori Osorio NP [place] [address] [place] [address] Nurse Practitioner Nurse Practitioner Psych/Mental Health 04/11/17 Jess Garcias PA-C [address] [place] [address] Assigned PCP 01/18/21 Ronel Escoto [facility] [address] [place] [address] Pharmacist Pharmacist 08/13/22 Ronel Escoto [facility] [address] [place] [address] Assigned MTM Pharmacist 08/21/22 10/29/22 Sue Novoa, JanD [address] [place] [address] MTM Pharmacist Pharmacist 10/22/22 03/11/23 Sue Novoa, JanD [address] [place] [address] Assigned MTM Pharmacist 10/30/22 01/07/23 Ronel Escoto [facility] [address] [place] [address] Assigned MTM Pharmacist 01/08/23 01/14/23 Thiago Wilks PsyD Assigned Behavioral Health Provider 12/11/22 01/07/23 Joana Cadena DO [address] [place] [address] Assigned Behavioral Health Provider 01/08/23 01/14/23 Thiago Wilks PsyD Assigned Behavioral Health Provider 01/15/23 06/17/23 Sue Novoa, Miguelito [address] [place] [address] Assigned MTM Pharmacist 01/15/23 02/04/23 Sue Novoa, JanD [address] [place] [address] Assigned MTM Pharmacist 02/05/23 09/16/23 Christiane King [facility] MTM [address] [place] [address] Pharmacist Pharmacist 03/11/23 03/27/23 Joana Cadena DO [address] [place] [address] Assigned Behavioral Health Provider 06/18/23 01/02/24 Elvi Sandoval PA-C [address] [place] [address] Assigned Neuroscience Provider 08/06/23 10/05/23 Ronel Escoto, [facility] [address] [place] [address] Assigned MTM Pharmacist 09/17/23 Britany Sanders, VEL [address] [place] [address]/ [address] [place] [address] Assigned Behavioral Health Provider 01/03/24 Milton Dawkins APRN EDITOR DEPARTMENT [address] [place] [address] Nurse Practitioner Otolaryngology 05/08/24 documented as of this encounter
--- OUTSIDE RECORDS SUMMARY | 2024-07-14 01:44 | XMS_ITS | Encounter Summary ---
Author Organization [place] Address [address] [place] [address] Care Team Providers Care Cigar Head Piercer Name Role Phone Jess Garcias PA-C Primary Care Provider OjLori chavez NP Unavailable [phone] Jess Garcias PA-C Unavailable Edgar Zurita MD Unavailable Ana Cristina Dudley MD Unavailable Unavailabl e Jess Garcias PA-C Unavailable Ronel Escoto RP Unavailable [phone] Ronel Escoto RPH Unavailable [phone] Sue Novoa PharmD Unavailable [phone] Sue Novoa PharmD Unavailable [phone] Ronel Escoto RPH Unavailable [phone] Thiago Wilks PsyD Unavailable Unavaila Tyrone Landisa DO Unavailable Thiago Wilks PsyD Unavailable Unavaila Sue Roldan PharmD Unavailable [phone] Sue Novoa PharmD Unavailable [phone] Christiane King RPH Unavailable [phone] Tammi Joana DO Unavailable Elvi Sandoval PA-C Unavailable Ronel Escoto [facility] Unavailable [phone] Britany Sanders [facility] Unavailable [phone] Milton Dawkins APRN [facility] Unavailable [phone] Encounter Details Date Type Department Care Team (Late st Contact Info) Description 10/29/2020 MyC Medical Advice [address] [place] [address] Ana Cristina Dudley MD [place]CTIVE IN [place] SINCE 09/11/2021 Social History Tobacco Use Types Packs/Day Years [...] PM CDT 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 No / Unsure 10/29/2020 1:59 PM TRANSFORMER MAKER documented as of this encounter Plan of Treatment Not on file documented as of this encounter Visit Diagnoses Not on filedocumented in this encounter Additional Health Concerns Assessment Noted Time PHQ-9 Depression Total Score: 1 06/25/20 19 8:31 AM CDT documented as of this encounter Care Teams Cigar Head Piercer Relationship Specialty Start Date End Date Jess Garcias PA-C [address] [place] [address] PCP - General Physician Flame Cutting Machine Operator 12/19/13 Lori Osorio NP [facility] [address] [place] [address] Nurse Practitioner Nurse Practitioner Psych/Mental Health 04/11/17 Jess Garcias PA-C [address] [place], [place] [address] Assigned PCP 01/13/20 11/30/20 [place] [address] [place] [address] Assigned Musculoskeletal Provider 07/04/20 10/10/21 Ana Cristina Dudley MD [place] S[place]CE 09/11/2021 Assigned PCP 12/01/20 01/17/21 Jess Garcias PA-C [address] [place] [address] Assigned PCP 01/18/21 Ronel Escoto [facility] [address] [place] [address] Pharmacist Pharmacist 08/13/22 Ronel Escoto [facility] [address] [place] [address] Assigned MTM Pharmacist 08/21/22 Sue Novoa, PharmD [address] [place] [address] MTM Pharmacist Pharmacist 10/22/22 03/11/23 Sue Novoa, PharmD [address] [place] [address] Assigned MTM Pharmacist 10/30/22 Ronel Escoto [facility] [address] [place] [address] Assigned MTM Pharmacist 01/08/23 3 Thiago Wilks PsyD Assigned Behavioral Health Provider 12/11/22 01/07/23 [place] [address] [place] [address] Assigned Behavioral Health Provider 01/08/23 01/14/23 Thiago Wilks PsyD Assigned Behavioral Health Provider 01/15/23 06/17/23 Sue Novoa, PharmD [address] [place] [address] Assigned MTM Pharmacist 01/15/23 Sue Novoa, PharmD [address] [place] [address] Assigned MTM Pharmacist 02/05/23 4 Christiane King [facility] MTM [address] [place] [address] Pharmacist Pharmacist 03/11/23 03/27/23 [place] [address] [place] [address] Assigned Behavioral Health Provider 06/18/23 01/02/24 Elvi Sand[place] PA-C [address] [place] [address] Assigned Neuroscience Provider 08/06/23 10/05/23 Ronel Escoto, [facility] [address] [place] [address] Assigned MTM Pharmacist 09/17/23 Britany Sanders LICSW [address]/ [address] [place] [address] Assigned Behavioral Health Provider 01/03/24 Milton Dawkins APRN WORKDAY MANAGER [address] [facility] [place] [address] Nurse Practitioner Otolaryngology 05/08/24 documented as of this encounter
--- OUTSIDE RECORDS SUMMARY | 2024-07-14 01:44 | XMS_ITS | Encounter Summary ---
Author Organization [place] Address [address] [place] [address] Care Team Providers Care Senior Executive Compensation Analyst Name Role Phone Jess Garcias PA-C Primary Care Provider [phone] JoLori chavez NP Unavailable [phone] Quynh Dalton MD Unavailable [phone] Jess Garcias PA-C Unavailable [phone] Edgar Zurita MD Unavailable Ana Cristina Dudley MD Unavailable Unavailabl e Jess Garcias PA-C Unavailable [phone] Ronel Escoto RPH Unavailable [phone] Ronel Escoto RPH Unavailable [phone] Sue Novoa PharmD Unavailable [phone] Sue Novoa PharmD Unavailable [phone] Ronel Escoto RPH Unavailable [phone] Thiago Wilks PsyD Unavailable Unavaila Joana Landis DO Unavailable Thiago Wilks PsyD Unavailable Unavaila Sue Roldan PharmD Unavailable [phone] Sue Novoa PharmD Unavailable [phone] Christiane King RPH Unavailable [phone] Joana Cadena DO Unavailable Elvi Sandoval PA-C Unavailable [phone] Ronel Escoto [facility] Unavailable [phone] Britany Sanders [facility] Unavailable [phone] Milton Dawkins APRN [facility] Unavailable [phone] Reason for Referral * Diagnostic Procedure Outpatient (Routine) - Closed Specialty Diagnoses / Procedures Referred By Kylee leung Referred To Contact Diagnoses Special screening for malignant neoplasms, colon Family history of colon cancer Jess Garcias PA-C [address] [place] [address] Phone: tel: fax: [facility] [address] [place] [address] Phone: tel: fax: Referral ID Status Reason Start Date Expiration Date Visits Re quested Visits Authorized [id number] Closed 11/13/2019 11/12/2020 1 1 Question Answer Procedure: Colonoscopy Purpose of Procedure: Screening Purpose of Procedure: Screening Does the patient have the following? None Is the patient on the following medications? None Preferred Location [facility] Radha Which [facility] Provider? [facility] Group Comments Last Lab Result: Creatinine (mg/dL) Date Value 06/22/2019 0.74 There is no height or weight on file to calculate BMI. Patient will be contacted to schedule procedure. Please be aware that coverage of these services is subject to the terms and limitations of your health insurance plan. Call member services at your health plan with any benefit or coverage questions. Any procedures must be performed at a [facility] OR coordinated by your clinic's referral office. Please bring the following with you to your appointment: (1) Any X-Rays, CTs or MRIs which have been performed. Contact the facility where they were done to arrange for lease picker prior to your scheduled appointment. 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 Please advise. Earlene Fairchild RN OR COMMISSIONER documented in this encounter Plan of Treatment Scheduled Referrals Name Type Priority Associated Diagnoses Orde r Schedule GASTROENTEROLOGY ADULT REF PROCEDURE ONLY Livier Garcia ; [place] Group Referral Routine Special screening for malignant neoplasms, colon Family history of colon cancer Ordered: 11/13/2019 documented as of this encounter Visit Diagnoses Diagnosis Special screening for malignant neoplasms, colon- Primary Family history of colon cancer Family history of malignant neoplasm of gastrointestinal tract Vaginal itching Pruritus of genital organs documented in this encounter Additional Health Concerns Assessment Noted Time PHQ-9 Depression Total Score: 1 06/25/20 19 8:31 AM CDT documented as of this encounter Care Teams Senior Executive Compensation Analyst Relationship Specialty Start Date End Date Jess Garcias PA-C [address] [place] [address] PCP - General Physician Salvager Helper 12/19/13 Lori Osorio NP [facility] [address] [place] [address] Nurse Practitioner Nurse Practitioner Psych/Mental Health 04/11/17 [place] [address] [place] [address] Assigned PCP 08/05/19 01/12/20 Jess Garcias PA-C [address] [place], [place] [address] Assigned PCP 01/13/20 11/30/20 [place] [address] [address] Assigned Musculoskeletal Provider 07/04/20 10/10/21 Ana Cristina Dudley MD [place]CTIVE IN [place] SINCE 09/11/2021 Assigned PCP 12/01/20 01/17/21 Jess Garcias PA-C [address] [place] [address] Assigned PCP 01/18/21 Ronel Escoto [facility] [address] [place] [id number] Pharmacist Pharmacist 08/13/22 Ronel Escoto [facility] [address] [place] [id number] Assigned MTM Pharmacist 08/21/22 Sue Novoa, JanD [address] [place] [address] MTM Pharmacist Pharmacist 10/22/22 03/11/23 Sue Novoa, JanD [address] [place] [address] Assigned MTM Pharmacist 10/30/22 Ronel Escoto [facility] [employer] [place] [address] Assigned MTM Pharmacist 01/08/23 3 Thiago Wilks PsyD Assigned Behavioral Health Provider 12/11/22 01/07/23 Joana Cadena DO [address] [place] [address] Assigned Behavioral Health Provider 01/08/23 01/14/23 Thiago Wilks PsyD Assigned Behavioral Health Provider 01/15/23 06/17/23 Sue Novoa, PharmD [address] [place] [address] Assigned MTM Pharmacist 01/15/23 Sue Novoa, Miguelito [address] [place] [address] Assigned MTM Pharmacist 02/05/23 4 Christiane King [facility] [place] [id number] [place] [address] Pharmacist Pharmacist 03/11/23 03/27/23 Joana Cadena DO [facility] [place] [address] Assigned Behavioral Health Provider 06/18/23 01/02/24 Elvi Sandoval PA-C [address] [place] [address] Assigned Neuroscience Provider 08/06/23 10/05/23 Ronel Escoto, [facility] [address] [place] [address] Assigned MTM Pharmacist 09/17/23 Britany Sanders, VEL [address] [place] [address]/ [address] [place] [address] Assigned Behavioral Health Provider 01/03/24 Milton Dawkins APRN BICYCLE REPAIRMAN [address] [place] [address] [place] [address] Nurse Practitioner Otolaryngology 05/08/24 documented as of this encounter
--- OUTSIDE RECORDS SUMMARY | 2024-07-14 01:44 | XMS_ITS | Encounter Summary ---
Author Organization [facility] Address [address] [place] [address] Care Team Providers Care Urban Planning Teacher Name Role Phone Jess Garcias PA-C Primary Care Provider [phone] JoLori chavez NP Unavailable [phone] Jess Garcias PA-C Unavailable [phone] Ronel Escoto RPH Unavailable [phone] Ronel Escoto RPH Unavailable [phone] Sue Novoa PharmD Unavailable Sue Novoa PharmD Unavailable [phone] Ronel Escoto RPH Unavailable [phone] Thiago Wilks PsyD Unavailable Unavaila Tyrone Landisa DO Unavailable Thiago Wilks PsyD Unavailable Unavaila Sue Roldan PharmD Unavailable [phone] Sue Novoa PharmD Unavailable [phone] Christiane King RPH Unavailable [phone] Tammi Joana DO Unavailable Elvi Sandoval PA-C Unavailable [phone] Ronel Escoto RPH Unavailable [phone] Britany Sanders STAFFING PROGRAM MANAGER Unavailable [phone] Milton Dawkins APRN INFRASTRUCTURE CONSULTANT Unavailable [phone] Reason for Visit * Reason Onset Date Comments Medication Problem 04/06/2022 Encounter Details Date Type Department Care Team (Late st Contact Info) Description 04/06/2022 MyC Medical Advice [facility] [address] [place] [phone] Jess Garcias PA-C [address] [place], [place] [id number] Medication Problem Social History Tobacco Use Types Packs/Day Years [...] PM CDT 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 No / Unsure 03/29/2022 7:43 AM CDT documented as of this encounter Miscellaneous Notes * Telephone Encounter - Earlene Fairchild RN - 04/06/2022 11:35 AM CDT Mark Mercado- see [employer] message below. Please advise. . Earlene Fairchild RN documented in this encounter Plan of Treatment Not on file documented as of this encounter Visit Diagnoses Diagnosis ROSA (generalized anxiety disorder) Generalized anxiety disorder documented in this encounter Additional Health Concerns Assessment Noted Time PHQ-9 Depression Total Score: 2 03/12/20 22 2:18 PM CDT documented as of this encounter Care Teams Urban Planning Teacher Relationship Specialty Start Date End Date Jess Garcias PA-C [address] [place] [address] PCP - General Physician Director Child Development Center 12/19/13 Lori Osorio NP [address] [address] [place] [address] Nurse Practitioner Nurse Practitioner Psych/Mental Health 04/11/17 Jess Garcias PA-C [address] [place] [address] Assigned PCP 01/18/21 Ronel Escoto [facility] [address] [place] [address] Pharmacist Pharmacist 08/13/22 Ronel Escoto [facility] [address] [place] [address] Assigned MTM Pharmacist 08/21/22 10/29/22 Sue Novoa, Miguelito [address] [place] [address] MTM Pharmacist Pharmacist 10/22/22 03/11/23 Sue Novoa, Miguelito [address] [place] [address] Assigned MTM Pharmacist 10/30/22 01/07/23 Ronel Escoto [facility] [address] [place] [address] Assigned MTM Pharmacist 01/08/23 01/14/23 Thiago Wilks PsyD Assigned Behavioral Health Provider 12/11/22 01/07/23 [place] [address] [place] [address] Assigned Behavioral Health Provider 01/08/23 01/14/23 Thiago Wilks PsyD Assigned Behavioral Health Provider 01/15/23 06/17/23 Sue Novoa, JanD [address] [place] [address] Assigned MTM Pharmacist 01/15/23 02/04/23 Sue Novoa PharmD [address] [place] [address] Assigned MTM Pharmacist 02/05/23 09/16/23 Christiane King [facility] MTM [facility] [place] [address] Pharmacist Pharmacist 03/11/23 03/27/23 [place] [address] [place] [address] Assigned Behavioral Health Provider 06/18/23 01/02/24 Elvi Sandoval PA-C [address] [place] [address] Assigned Neuroscience Provider 08/06/23 10/05/23 Ronel Escoto [facility] [address] [place] [address] Assigned MTM Pharmacist 09/17/23 Britany Sanders, VEL [address] [place] [address]/ [address] [place] [address] Assigned Behavioral Health Provider 01/03/24 Milton Dawkins APRN INFRASTRUCTURE CONSULTANT [address] [facility] [place] [address] Nurse Practitioner Otolaryngology 05/08/24 documented as of this encounter
--- OUTSIDE RECORDS SUMMARY | 2024-07-14 01:44 | XMS_ITS | Encounter Summary ---
Author Organization [facility] Address [address] [place] [address] Care Team Providers Care Health Evaluator Name Role Phone Jess Garcias PA-C Primary Care Provider Lori Osorio NP Unavailable [phone] Jess Garcias PA-C Unavailable Quynh Dalton MD Unavailable Jess Garcias PA-C Unavailable Edgar Zurita MD Unavailable Ana Cristina Dudley MD Unavailable Unavailabl e Jess Garcias PA-C Unavailable Ronel Escoto RPH Unavailable Ronel Escoto RPH Unavailable Sue Novoa PharmD Unavailable [phone] Sue Novoa PharmD Unavailable [phone] Ronel Escoto RPH Unavailable Thiago Wilks PsyD Unavailable Unavaila Joana Landis DO Unavailable Thiago Wilks PsyD Unavailable Unavaila Sue Roldan PharmD Unavailable Sue Novoa PharmD Unavailable Christiane King RPH Unavailable Joana Cadena DO Unavailable Elvi Sandoval PA-C Unavailable [phone] Ronel Escoto [facility] Unavailable [phone] Britany Sanders [facility] Unavailable [phone] Milton Dawkins APRN [facility] Unavailable [phone] Reason for Referral * Consultation (Routine) - Closed Specialty Diagnoses / Procedures Referred By Kylee leung Referred To Contact Diagnoses Hives Jess Garcias PA-C [address] [place] [address] Phone: tel: fax: MULTIPLE LOCATIONS Referral ID Status Reason Start Date Expiration Date Visits Re quested Visits Authorized [id number] Closed 06/28/2019 06/27/2020 1 1 Comments Your provider has referred you to: [facility]: [facility] [email or web address] [facility] [email or web address] Please be aware that coverage of these services is subject to the terms and limitations of your health insurance plan. Call member services at your health plan with any benefit or coverage questions. Please bring the following with you to your appointment: (1) Any X-Rays, CTs or MRIs which have been performed. Contact the facility where they were done to arrange for picket labor union prior to your scheduled appointment. (2) List of current medications (3) This referral request (4) Any documents/labs given to you for this referral * Consultation (Routine) - Closed Specialty Diagnoses / Procedures Referred By Kylee leung Referred To Contact Diagnoses Fibromyalgia Jess Garcias PA-C [address] [place] [address] Phone: tel: fax: [facility] [id number] [place] [phone] Phone: tel: Referral ID Status Reason Start Date Expiration Date Visits Re quested Visits Authorized [id number] Closed 06/28/2019 06/27/2020 1 1 Comments Your provider has referred you to: [facility] [email or web address] Please be aware that coverage of these services is subject to the terms and limitations of your health insurance plan. Call member services at your health plan with any benefit or coverage questions. Please bring the following with you to your appointment: (1) Any X-Rays, CTs or MRIs which have been performed. Contact the facility where they were done to arrange for picket labor union prior to your scheduled appointment. 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 If she is having any nausea or vomiting, we can check amylase, but this is not needed for hive work up in general. Women'S Activities Adviser can suggest further options * Telephone Encounter - Nereyda Guerra RN - 06/28/2019 3:09 PM CDT Spoke with patient. Information for Rheumatology referral given to patient. She also wanted the Allergy referral as well so that was ordered and information was given to her as well. Patient is requesting to come in for additional lab work. (Thyroid, pancreas, etc) She has a LAB ONLY appointment scheduled for 07/04/2019. [address] future orders. Please see patients first [employer] message that was sent: Rosa Adamson to Quynh Dalton MD 06/25/19 8:16 AM Reginald Beauchamp, I'm still itching a lot. The hives subside after the prednisone and then they come back at night. Ionly have one more day of the prednisone but I think I need more. I wake up miserable. ??The only thing that came back from test results so far was the glucose was low. I don't know why that is because I eat breakfast and coffee like normal. I forgot to tell you about a rash I've had on the back ofmy legs since the spring. [place] looks like a heat rash. My OB saw it during my exam and she asked about it but didn't seem concerned. Do I need to check my thyroid and pancreas and stuff?I feel like something is off and all these things have to be related. The mood swings, joint pain, muscle aches, tiredness. Somethings not right and I'm super worried. ?? I just want to figure it all out. Thank you! Nereyda Guerra RN * Telephone Encounter - Nereyda Guerra RN - 06/28/2019 2:32 PM CDT [facility] [email or web address] for patient to call clinic back. Nereyda Guerra RN * Telephone Encounter - Quynh Dalton MD - 06/28/2019 12:48 PM CDT Referral to rheum ordered. I have recommended allergy referral. I do not know if she has been called with my response or why she is not getting her lab results and messages. PLEASE CALL her. Thank you * Telephone Encounter - Ame Canchola RN - 06/27/2019 12:[address] Dalton Please sign rheumatology order - thank you Phone call to patient to discuss my chart message Reviewed last labs by Dr. Dalton - patient would like to visit with Rheumatology - pended order perpatient request will route to Dr. Dalton for signature as Jess Garcias PA-C Is out of the office the rest of this week Kacey Pappas Nurse [facility] documented in this encounter Plan of Treatment Scheduled Referrals Name Type Priority Associated Diagnoses Orde r Schedule RHEUMATOLOGY REFERRAL Referral Routine Fibromyalgia Ordered: 06/28/2019 ALLERGY/ASTHMA ADULT REFERRAL Referral Routine Hives Ordered: 06/28/2019 documented as of this encounter Results * TSH with free T4 reflex FUTURE anytime (07/04/2019 1:05 PM CDT) TSH 1.61 0.40 - 4.00 mU/L 07/05/2019 7:51 AM CDT [facility] Blood specimen (specimen) 07/04/2019 1:05 PM CDT 07/04/2019 1:06 PM CDT Quynh Dalton MD LAB - BLOOD ORDERABLES Final Result [facility] [address] [place] [address] documented in this encounter Visit Diagnoses Diagnosis Fibromyalgia- Primary Mylagia and myositis, unspecified Hives Urticaria, unspecified documented in this encounter Additional Health Concerns Assessment Noted Time PHQ-9 Depression Total Score: 1 06/25/20 19 8:31 AM CDT documented as of this encounter Care Teams Health Evaluator Relationship Specialty Start Date End Date Jess Garcias PA-C [address] [place] [address] PCP - General Physician Embroidery Assistant 12/19/13 Lori Osorio NP [address] [place] [address] Nurse Practitioner Nurse Practitioner Psych/Mental Health 04/11/17 Jess Garcias PA-C [address] [place] [address] Assigned PCP 06/03/19 08/04/19 [place] [address] [place] [address] Assigned PCP 08/05/19 01/12/20 Jess Garcias PA-C [address] [place] [address] Assigned PCP 01/13/20 11/30/20 [place] [address] [address] Assigned Musculoskeletal Provider 07/04/20 10/10/21 Ana Cristina Dudley MD INACTIVE IN [place] SINCE 09/11/2021 Assigned PCP 12/01/20 01/17/21 Jess Garcias PA-C [address] [place] [address] Assigned PCP 01/18/21 Ronel Escoto [facility] [address] [place] [address] Pharmacist Pharmacist 08/13/22 Ronel Escoto [facility] [address] [place] [address] Assigned MTM Pharmacist 08/21/22 Sue Novoa, PharmD [address] [place] [address] MTM Pharmacist Pharmacist 10/22/22 03/11/23 Sue Novoa, PharmD [address] [place] [address] Assigned MTM Pharmacist 10/30/22 Ronel Escoto [facility] [address] [place] [address] Assigned MTM Pharmacist 01/08/23 Thiago Ahn PsyD Assigned Behavioral Health Provider 12/11/22 01/07/23 Joana Cadena DO [facility] [place] [address] Assigned Behavioral Health Provider 01/08/23 01/14/23 Thiago Wilks PsyD Assigned Behavioral Health Provider 01/15/23 06/17/23 Sue Novoa, PharmD [address] [place] [address] Assigned MTM Pharmacist 01/15/23 Sue Novoa, PharmD [address] [place] [address] Assigned MTM Pharmacist 02/05/23 Christiane Candelaria, [facility] MTM [address] [place] [address] Pharmacist Pharmacist 03/11/23 03/27/23 Joana Cadena DO [facility] [place] [address] Assigned Behavioral Health Provider 06/18/23 01/02/24 Elvi Sandoval PA-C [address] [address] Assigned Neuroscience Provider 08/06/23 10/05/23 Ronel Escoto, [facility] [address] [place] [address] Assigned MTM Pharmacist 09/17/23 Britany Sanders LICSW [address]/ [address] [address] Assigned Behavioral Health Provider 01/03/24 Milton Dawkins APRN MANAGING BROKER 6401 [facility] [place] [address] Nurse Practitioner Otolaryngology 05/08/24 documented as of this encounter
--- OUTSIDE RECORDS SUMMARY | 2024-07-14 01:44 | XMS_ITS | Encounter Summary ---
Author Organization [facility] Address [address] [place] [address] Care Team Providers Care Educational Assistant Teacher Name Role Phone Jess Garcias PA-C Primary Care Provider [phone] JoLori chavez NP Unavailable [phone] Quynh Dalton MD Unavailable [phone] Jess Garcias PA-C Unavailable [phone] Edgar Zurita MD Unavailable Ana Cristina Dudley MD Unavailable Unavailabl e Jess Garcias PA-C Unavailable [phone] Ronel Escoto RPH Unavailable [phone] Ronel Escoto RPH Unavailable [phone] Sue Novoa PharmD Unavailable [phone] Sue Novoa PharmD Unavailable [phone] Ronel Escoto RPH Unavailable [phone] Thiago Wilks PsyD Unavailable Unavaila Joana Landis DO Unavailable Thiago Wilks PsyD Unavailable Unavaila Sue Roldan PharmD Unavailable [phone] Sue Novoa PharmD Unavailable [phone] Christiane King RPH Unavailable [phone] Joana Cadena DO Unavailable Elvi Sandoval PA-C Unavailable [phone] Ronel Escoto [facility] Unavailable Britany Sanders [facility] Unavailable [phone] Milton Dawkins APRN [facility] Unavailable [phone] Reason for Visit * Reason Comments Medication Refill Gabapentin Encounter Details Date Type Department Care Team (Late st Contact Info) Description 11/19/2019 Refill [facility] [address] [facility], [address] [place] [address] Jess Garcias PA-C [address] [place] [address] Medication Refill (Gabapentin) Social History Tobacco Use Types Packs/Day Years [...] PM CDT 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 Gabapentin Last OV 06/22/19 Last RF 08/28/19 #[id number] Not PSO med. Sent to provider. Please advise. Earlene Fairchild RN 06/22/2019 [facility] ?? Assessment & Plan ?? (L50.9) Hives (primary encounter diagnosis) Comment: Unclear trigger for hives, labs today. Start prednisone and Zyrtec. Take Zyrtec twice daily for a week, then take once daily. Recommended following up with editor school photograph if hives return, call with update Plan: CBC with platelets differential, Anti Nuclear Babs IgG by IFA with Reflex, Erythrocyte sedimentation rate auto, Comprehensive metabolic panel, predniSONE (DELTASONE) 20 MG tablet, cetirizine (ZYRTEC) 10 MG tablet (M79.7) Fibromyalgia Comment: body aches have been flaring up. Patient has a hx of positive DELFINA, updating today and checking sed rate Plan: gabapentin (NEURONTIN) 300 MG capsule (L30.1) Dyshidrotic eczema Comment: Recommended applying triamcinolone cream Plan: triamcinolone (KENALOG) 0.1 % external cream (F41.1) ROSA (generalized anxiety disorder) Comment: Not at goal. Increasing Trintellix to 20 mg , Follow up with pcp Plan: gabapentin (NEURONTIN) 300 MG capsule, vortioxetine (TRINTELLIX) 20 MG tablet ?? FUTURE APPOINTMENTS: - Follow-up visit in 4 days if not improving, in 30 days to discuss trintellix dose change ? The information in this document, created by the senior medical transcriptionist for me, accurately reflects the services I personally performed and the decisions made by me. I have reviewed and approved this document for accuracy prior to leaving the patient care area. June 22, 2019 9:11 AM ?? Quynh Dalton MD [facility] ? Instructions Return in about 1 month (around 07/23/2019) for depression/anxiety medication recheck. documented in this encounter Plan of Treatment Not on file documented as of this encounter Visit Diagnoses Diagnosis Fibromyalgia Mylagia and myositis, unspecified ROSA (generalized anxiety disorder) Generalized anxiety disorder documented in this encounter Additional Health Concerns Assessment Noted Time PHQ-9 Depression Total Score: 1 06/25/20 19 8:31 AM CDT documented as of this encounter Care Teams Educational Assistant Teacher Relationship Specialty Start Date End Date Jess Garcias PA-C [address] [place] [address] PCP - General Physician Conduit Cleaner 12/19/13 Lori Osorio NP [address] [address] Nurse Practitioner Nurse Practitioner Psych/Mental Health 04/11/17 [place] [address] [facility] [place] [address] Assigned PCP 08/05/19 01/12/20 Jess Garcias PA-C [address] [place] [address] Assigned PCP 01/13/20 11/30/20 [place] [address] [place] [address] [address] Assigned Musculoskeletal Provider 07/04/20 10/10/21 Ana Cristina Dudley MD INACTIVE IN [place] 09/11/2021 Assigned PCP 12/01/20 01/17/21 Jess Garcias PA-C [address] [place] [address] Assigned PCP 01/18/21 Ronel Escoto, [facility] [address] [place] [address] Pharmacist Pharmacist 08/13/22 Ronel Escoto [facility] [place] [address] Assigned MTM Pharmacist 08/21/22 Sue Novoa, JanD [address] [place] [address] [facility] Pharmacist Pharmacist 10/22/22 03/11/23 Sue Novoa, JanD [address] [place] [address] Assigned [facility] Pharmacist 10/30/22 Ronel Escoto [facility] [address] [place] [address] Assigned [facility] Pharmacist 01/08/23 3 Thiago Wilks PsyD Assigned Behavioral Health Provider 12/11/22 01/07/23 [place] [address] [place] [address] Assigned Behavioral Health Provider 01/08/23 01/14/23 Thiago Wilks PsyD Assigned Behavioral Health Provider 01/15/23 06/17/23 Sue Novoa, PharmD [address] [place] [address] Assigned [facility] Pharmacist 01/15/23 Sue Novoa, PharmHarry [address] [place] [address] Assigned [facility] Pharmacist 02/05/23 Christiane Candelaria [facility] [address] [place] [address] Pharmacist Pharmacist 03/11/23 03/27/23 [place] [address] [place] [address] Assigned Behavioral Health Provider 06/18/23 01/02/24 Elvi Sandoval PA-C [address] [place] [address] Assigned Neuroscience Provider 08/06/23 10/05/23 Ronel Escoto, [facility] [address] [place] [address] Assigned MTM Pharmacist 09/17/23 Britany Sanders LICSW [address] [place] [address]/ [address] [place] [address] Assigned Behavioral Health Provider 01/03/24 Milton Dawkins APRN CERTIFIED FAMILY MEDIATOR [address] [place] [address] Nurse Practitioner Otolaryngology 05/08/24 documented as of this encounter
--- OUTSIDE RECORDS SUMMARY | 2024-07-14 01:44 | XMS_ITS | Encounter Summary ---
Author Organization [place] Address [address] [place] [address] Care Team Providers Care Imaging System Administrator Name Role Phone Jess Garcias PA-C Primary Care Provider Lori Osorio NP Unavailable [phone] Jess Garcias PA-C Unavailable Quynh Dalton MD Unavailable Jess Garcias PA-C Unavailable Edgar Zurita MD Unavailable Ana Critsina Dudley MD Unavailable Unavailabl e Jess Garcias PA-C Unavailable Ronel Escoto RPH Unavailable Ronel Escoto RPH Unavailable Sue Novoa PharmD Unavailable Sue Novoa PharmD Unavailable Ronel Escoto RPH Unavailable Thiago Wilks PsyD Unavailable Unavaila Joana Landis DO Unavailable Thiago Wilks PsyD Unavailable Unavaila Sue Roldan PharmD Unavailable Sue Novoa PharmD Unavailable Christiane King RPH Unavailable Joana Cadena DO Unavailable Elvi Sandoval PA-C Unavailable [phone] Justice Escotoelle Ronny [facility] Unavailable [phone] Britany Sanders [facility] Unavailable [phone] Milton Dawkins APRN WEB ENGINEER Unavailable [phone] Reason for Visit * Reason Onset Date Comments Referral 07/16/2019 Encounter Details Date Type Department Care Team (Late st Contact Info) Description 07/16/2019 MyC Medical Advice [address], [address] [place] [address] [place] [address] [place] [address] Referral Social History Tobacco Use Types Packs/Day Years [...] PM CDT 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 AGE CANNER documented in this encounter Plan of Treatment Not on file documented as of this encounter Visit Diagnoses Not on filedocumented in this encounter Additional Health Concerns Assessment Noted Time PHQ-9 Depression Total Score: 1 06/25/20 19 8:31 AM CDT documented as of this encounter Care Teams Imaging System Administrator Relationship Specialty Start Date End Date Jess Garcias PA-C [address] [place], [place] [id number] PCP - General Physician Home Health Attendant 12/19/13 Lori Osorio HAIRSPRING STAKER [place] [address] [place] [address] Nurse Practitioner Nurse Practitioner Psych/Mental Health 04/11/17 Jess Garcias PA-C [address] [place], [place] [address] Assigned PCP 06/03/19 08/04/19 [place] [address] [place] [address] Assigned PCP 08/05/19 01/12/20 Jess Garcias PA-C [address] [place], [place] [address] Assigned PCP 01/13/20 11/30/20 [place] [address] [place] [address] Assigned Musculoskeletal Provider 07/04/20 10/10/21 Ana Cristina Dudley MD INACTIVE IN [place] SINCE 09/11/2021 Assigned PCP 12/01/20 01/17/21 Jess Garcias PA-C [address] [place] [address] Assigned PCP 01/18/21 Ronel Escoto, [facility] [address] [place] [address] Pharmacist Pharmacist 08/13/22 Ronel Escoto, [facility] [place] [address] Assigned MTM Pharmacist 08/21/22 Sue Novoa, PharmD [address] [place] [address] MTM Pharmacist Pharmacist 10/22/22 03/11/23 Sue Novoa, PharmD [address] [place] [address] Assigned MTM Pharmacist 10/30/22 [facility] [address] [place] [address] Assigned MTM Pharmacist 01/08/23 3 Thiago Wilks PsyD Assigned Behavioral Health Provider 12/11/22 01/07/23 Joana Cadena DO [address] [place], [place] [address] [address] Assigned Behavioral Health Provider 01/08/23 01/14/23 Thiago Wilks PsyD Assigned Behavioral Health Provider 01/15/23 06/17/23 Sue Novoa, PharmD [address] [place] [address] Assigned MTM Pharmacist 01/15/23 Sue Novoa, PharmD [address] [place] [address] Assigned MTM Pharmacist 02/05/23 4 Christiane King, [facility] MTM [address] [place] [address] Pharmacist Pharmacist 03/11/23 03/27/23 Joana Cadena DO [address] [place] [address] Assigned Behavioral Health Provider 06/18/23 01/02/24 Elvi Sandoval PA-C [address] [place] [address] Assigned Neuroscience Provider 08/06/23 10/05/23 Ronel Escoto, [facility] [address] [place] [address] Assigned MTM Pharmacist 09/17/23 Britany Sanders, TAX MANAGER [address] [place] [address]/ [address] [place] [address] Assigned Behavioral Health Provider 01/03/24 Milton Dawkins APRN WEB ENGINEER [address] [place] [address] [place] [address] Nurse Practitioner Otolaryngology 05/08/24 documented as of this encounter
--- OUTSIDE RECORDS SUMMARY | 2024-07-14 01:44 | XMS_ITS | Encounter Summary ---
Author Organization [place] Address [address] [place] [address] Care Team Providers Care Patrol Driver Name Role Phone Jess Garcias PA-C Primary Care Provider JoLori chavez NP Unavailable [phone] Jess Garcias PA-C Unavailable Edgar Zurita MD Unavailable Ana Cristina Dudley MD Unavailable Unavailabl e Jess Garcias PA-C Unavailable Ronel Escoto RP Unavailable [phone] Ronel Escoto RPH Unavailable [phone] Sue Novoa PharmD Unavailable [phone] Sue Novoa PharmD Unavailable [phone] Ronel Escoto RPH Unavailable [phone] Thiago Wilks PsyD Unavailable Unavaila Tyrone Landisa DO Unavailable Thiago Wilks PsyD Unavailable Unavaila Sue Roldan PharmD Unavailable [phone] Sue Novoa PharmD Unavailable [phone] Christiane King RPH Unavailable [phone] Tammi Joana DO Unavailable Elvi Sandoval PA-C Unavailable [phone] Ronel Escoto [facility] Unavailable [phone] Britany Sanders [facility] Unavailable [phone] Milton Dawkins APRN [facility] Unavailable [phone] Reason for Visit * Reason Onset Date Comments MyChart Communication 10/31/2020 Encounter Details Date Type Department Care Team (Latest Contact Info) Description 10/31/2020 [facility] [place] [address] [facility] [address] [place] [address] Ana Cristina Dudley MD INACTIVE IN [place] 09/11/2021 MyChart Communication Social History Tobacco Use Types Packs/Day Years [...] PM CDT Legal Sex Female 10:10 AM ADDICTION TREATMENT COUNSELOR Gender Identity Female 01/03/2022 12:13 PM CDT Sexual Orientation Straight 12/03/2022 2: 48 PM CDT COVID-19 Exposure Response Date Recorded In the last month, have you been in contact with someone who was confirmed or suspected to have Coronavirus / COVID-19? No / Unsure 10/29/2020 1:59 PM ADDICTION TREATMENT COUNSELOR documented as of this encounter Miscellaneous Notes * Telephone Encounter - Ivone Acuña RN - 10/31/2020 4:08 PM ADDICTION TREATMENT COUNSELOR Sent message back. CTION TREATMENT COUNSELOR * Telephone Encounter - Ana Cristina Dudley - 10/31/2020 3:05 PM CST I am not sure why you are feeling like that. I would recommend taking Prilosec on empty stomach regularly for 1 month to rule out acid reflux causing your symptoms and should have taking it as needed. Also I can refer you to ENT if your sore throat is not getting better. Chloride is only 2 points higher than the reference range and not concerning. Ana Cristina Dudley MD CTION TREATMENT COUNSELOR * Telephone Encounter - Ivone Acuña, RN - 10/31/2020 11:58 AM ADDICTION TREATMENT COUNSELOR See her [employer]orrow[employer] message. Please advise. CTION TREATMENT COUNSELOR documented in this encounter Plan of Treatment Not on file documented as of this encounter Visit Diagnoses Not on filedocumented in this encounter Additional Health Concerns Assessment Noted Time PHQ-9 Depression Total Score: 1 06/25/20 8:31 AM CDT documented as of this encounter Care Teams Patrol Driver Relationship Specialty Start Date End Date Jess Garcias PA-C [address] [place] [address] PCP - General Physician Collar Stay Fuser Tender 12/19/13 Lori Osorio NP [address] 428637 Nurse Practitioner Nurse Practitioner Psych/Mental Health 04/11/17 Jess Garcias PA-C [address] [place] [address] Assigned PCP 01/13/20 11/30/20 [place] [address] [place] [address] [address] Assigned Musculoskeletal Provider 07/04/20 10/10/21 Ana Cristina Dudley MD INACTIVE IN [place] 09/11/2021 Assigned PCP 12/01/20 01/17/21 Jess Garcias PA-C [address] [place] [address] Assigned PCP 01/18/21 Ronel Escoto [facility] [address] [place] [address] Pharmacist Pharmacist 08/13/22 Ronel Escoto [facility] [address] [place] [address] Assigned MTM Pharmacist 08/21/22 Sue Novoa, PharmD [address] [place] [address] MTM Pharmacist Pharmacist 10/22/22 03/11/23 Sue Novoa, PharmD [address] [place] [address] Assigned MTM Pharmacist 10/30/22 Ronel Escoto [facility] [address] [place] [address] Assigned MTM Pharmacist 01/08/23 3 Thiago Wilks PsyD Assigned Behavioral Health Provider 12/11/22 01/07/23 Joana Cadena DO [address] [place] [address] [place] [address] Assigned Behavioral Health Provider 01/08/23 01/14/23 Thiago Wilks PsyD Assigned Behavioral Health Provider 01/15/23 06/17/23 Sue Novoa, PharmD [address] [place] [address] Assigned MTM Pharmacist 01/15/23 Sue Novoa, JanD [address] [place] [address] Assigned MTM Pharmacist 02/05/23 Christiane Candelaria, [facility] MTM [address] [place] [address] Pharmacist Pharmacist 03/11/23 03/27/23 Joana Cadena DO [address] [place] [address] Assigned Behavioral Health Provider 06/18/23 01/02/24 Elvi Sandoval PA-C [address] [address] Assigned Neuroscience Provider 08/06/23 10/05/23 Ronel Escoto, [facility] [address] [place] [address] Assigned MTM Pharmacist 09/17/23 Britany Sanders, [facility] [address]/ [address] [place] [address] Assigned Behavioral Health Provider 01/03/24 Milton Dawkins APRN [place] LEAD TEACHER [address] [place] [address] Nurse Practitioner Otolaryngology 05/08/24 documented as of this encounter
--- OUTSIDE RECORDS SUMMARY | 2024-07-14 01:44 | XMS_ITS | Encounter Summary ---
Author Organization [place] Address [address] [place] [address] Care Team Providers Care Workflow Developer Name Role Phone Jess Garcias PA-C Primary Care Provider JoLori chavez NP Unavailable [phone] Edgar Zurita MD Unavailable Jess Garcias PA-C Unavailable [phone] Ronel Escoto RPH Unavailable [phone] Ronel Escoto RPH Unavailable Sue Novoa PharmD Unavailable Sue Novoa PharmD Unavailable [phone] Ronel Escoto RPH Unavailable [phone] Thiago Wilks PsyD Unavailable Unavaila Joana Landis DO Unavailable Thiago Wilks PsyD Unavailable Unavaila Sue Roldan PharmD Unavailable Sue Novoa PharmD Unavailable [phone] Christiane King RPH Unavailable [phone] Joana Cadena DO Unavailable Elvi Sandoval PA-C Unavailable [phone] Ronel Escoto RPH Unavailable Britany SandersSW Unavailable [phone] Milton Dawkins APRN RADIO INSTALLER AUTOMOBILE Unavailable Encounter Details Date Type Department Care Team (Late st Contact Info) Description 04/27/2021 [facility] Medical Advice [facility] [address] [place] [address] Jess Garcias PA-C [address] [place], [place] [id number] Social History Tobacco Use Types Packs/Day Years [...] PM CDT Legal Sex Female 10:10 AM SYRUPER Gender Identity Female 01/03/2022 12:13 PM CDT Sexual Orientation Straight 12/03/2022 2: 48 PM CDT documented as of this encounter Miscellaneous Notes * Telephone Encounter - Bi Reyes - 04/27/2021 11:32 AM CDT Medication is pending and has been routed to cr refill pool. Bi Reyes on 04/27/2021 at 11:33 AM documented in this encounter Plan of Treatment Not on file documented as of this encounter Visit Diagnoses Not on filedocumented in this encounter Additional Health Concerns Assessment Noted Time PHQ-9 Depression Total Score: 6 07/13/20 24 9:55 AM CDT documented as of this encounter Care Teams Workflow Developer Relationship Specialty Start Date End Date Jess Garcias PA-C [address] [place] [address] PCP - General Physician Crane Rigger 12/19/13 Lori Osorio LEGISLATIVE DIRECTOR [place] [address] [place] [address] Nurse Practitioner Nurse Practitioner Psych/Mental Health 04/11/17 [place] [address] [place] [address] Assigned Musculoskeletal Provider 07/04/20 10/10/21 Jess Garcias PAChristianoC [address] [place] [address] Assigned PCP 01/18/21 Ronel Escoto, [facility] [address] [place] [address] Pharmacist Pharmacist 08/13/22 Ronel Escoto [facility] [address] [place] [address] Assigned MTM Pharmacist 08/21/22 Sue Novoa, PharmD [address] [place] [address] MTM Pharmacist Pharmacist 10/22/22 03/11/23 Sue Novoa, PharmD [address] [place] [address] Assigned MTM Pharmacist 10/30/22 Ronel Escoto [facility] [address] [place] [address] Assigned MTM Pharmacist 01/08/23 Thiago Ahn PsyD Assigned Behavioral Health Provider 12/11/22 01/07/23 [place] [address] [place] [address] Assigned Behavioral Health Provider 01/08/23 01/14/23 Thiago Wilks PsyD Assigned Behavioral Health Provider 01/15/23 06/17/23 Sue Novoa, PharmD [address] [place] [address] Assigned MTM Pharmacist 01/15/23 Sue Novoa, JanD [address] [place] [address] Assigned MTM Pharmacist 02/05/23 Christiane Candelaria [facility] MTM [address] [place] [address] Pharmacist Pharmacist 03/11/23 03/27/23 [place] [address] [place] [address] Assigned Behavioral Health Provider 06/18/23 01/02/24 Elvi Sandoval PA-C [address] [place] [address] Assigned Neuroscience Provider 08/06/23 10/05/23 Ronel Escoto [facility] [address] [place] [address] Assigned MTM Pharmacist 09/17/23 Britany Sanders LICSW [facility] [address]/ [address] [place] [address] Assigned Behavioral Health Provider 01/03/24 Milton Dawkins APRN RADIO INSTALLER AUTOMOBILE [address] [facility] [place] [address] Nurse Practitioner Otolaryngology 05/08/24 documented as of this encounter
--- OUTSIDE RECORDS SUMMARY | 2024-07-14 01:45 | XMS_ITS | Encounter Summary ---
Author Organization [place] Address [address] [place] [address] Care Team Providers Care Drywaller Name Role Phone Jess Garcias PA-C Primary Care Provider [phone] JoLori chavez NP Unavailable [phone] Jess Garcias-C Unavailable [phone] Jess Garcias-C Unavailable [phone] Kenisha Yun APRN GETTER WELDER Unavailable + Jess Garcias-C Unavailable [phone] Quynh Dalton MD Unavailable [phone] Jess Garcias PA-C Unavailable [phone] Edgar Zurita MD Unavailable Ana Cristina Dudley MD Unavailable Unavailabl e Jess Garcias PA-C Unavailable Ronel Escoto [facility] Unavailable [phone] Ronel Escoto RPH Unavailable [phone] Sue Novoa PharmD Unavailable [phone] Sue Novoa PharmD Unavailable [phone] Ronel Escoto RPH Unavailable [phone] Thiago Wilks PsyD Unavailable Unavaila Joana Landis DO Unavailable Thiago Wilks PsyD Unavailable Unavaila ble Sue Novoa PharmD Unavailable [phone] Sue Novoa PharmD Unavailable [phone] Montez KingKenzie [facility] Unavailable [phone] Joana Cadena DO Unavailable Jaime Elvi PA-C Unavailable [phone] Ronel Escoto [facility] Unavailable [phone] Britany Sanders POLICE DISPATCHER Unavailable [phone] Milton Dawkins SACK KEEPER GETTER WELDER Unavailable [phone] Reason for Visit * Reason Onset Date Comments Referral 10/17/2017 [facility] Encounter Details Date Type Department Care Team (Late st Contact Info) Description 10/17/2017 MyC Medical Advice [address] [address] Bong Solano MD Referral ([facility]) Social History Tobacco Use Types Packs/Day Years Used Date Smoking Tobacco: Never Smokeless Tobacco: Never Alcohol Use Standard Drinks/Week Comments Yes 0 (1 standard drink = 0.6 oz pur e alcohol) occas Comments No Sex and Gender Information Value Date Recorded Sex Assigned at Female 12/03/2022 2:48 PM CDT Legal Sex Female 10:10 AM PIPE BENDER Gender Identity Female 01/03/2022 12:13 PM CDT Sexual Orientation Straight 12/03/2022 2: 48 PM CDT documented as of this encounter Miscellaneous Notes * Telephone Encounter - Kanika Horvath RN - 10/18/2017 9:03 AM PIPE BENDER Routing ordering MD. Looks like patient requested [facility] Referral for RA specialist. It is unknown if patient can be seen sooner. Please see referrals note below. Ok for [facility] Referral? Kanika Paige RN, BSN, [facility]N [facility] RN BENDER * Telephone Encounter - Lia Ojeda - 10/18/2017 8:56 AM CST Jess would need to do a provider to provider call to see if pt would be able to be seen before November. [phone] Marian-Referrals It is ok for [facility] referral. Rheumatology, Diagnosis arthritis with positive DELFINA and morning stiffness BENDER BENDER * Telephone Encounter - Kanika Horvath RN - 10/17/2017 4:23 PM PIPE BENDER Routing to Referrals. Are you able to see if patient could get into [facility] sooner than November? Kanika Paige RN, BSN, [facility] RN BENDER documented in this encounter Plan of Treatment Not on file documented as of this encounter Visit Diagnoses Not on filedocumented in this encounter Additional Health Concerns Assessment Noted Time PHQ-9 Depression Total Score: 4 08/02/20 17 7:19 AM PIPE BENDER documented as of this encounter Care Teams Drywaller Relationship Specialty Start Date End Date Jess Garcias PA-C [address] [place] [address] PCP - General Physician Glove Finisher 12/19/13 Jess Garcias PA-C [address] [place] [address] PCP - Assigned PCP 11/28/16 11/14/18 Lori Osorio NP [address] [address] Nurse Practitioner Nurse Practitioner Psych/Mental Health 04/11/17 Jess Garcias PA-C [address] [place] [address] Assigned PCP 11/28/16 12/30/18 Kenisha Yun APRN CNP [address] [place] [address] Assigned PCP 12/31/18 06/02/19 Jess Garcias PA-C [address] [place], [place] [address] Assigned PCP 06/03/19 08/04/19 [place] [address] [place] [address] Assigned PCP 08/05/19 01/12/20 Jess Garcias PA-C [address] [place] [address] Assigned PCP 01/13/20 11/30/20 [place] [address] [place] [address] Assigned Musculoskeletal Provider 07/04/20 10/10/21 Ana Cristina Dudley MD INACTIVE IN [place] SINCE 09/11/2021 Assigned PCP 12/01/20 01/17/21 Jess Garcias PA-C [address] [place], [place] [address] Assigned PCP 01/18/21 Ronel Escoto, [facility] [address] [place] [address] Pharmacist Pharmacist 08/13/22 Ronel Escoto, [facility] 30[address] [place] [address] Assigned MTM Pharmacist 08/21/22 Sue Novoa, PharmD [address] [place] [address] MTM Pharmacist Pharmacist 10/22/22 03/11/23 Sue Novoa, PharmD [address] [place] [address] Assigned MTM Pharmacist 10/30/22 Ronel sEcoto [facility] [address] [place] [address] Assigned MTM Pharmacist 01/08/23 3 Thiago Wilks PsyD Assigned Behavioral Health Provider 12/11/22 01/07/23 Joana Caedna DO [address] [place], [place] [address] [address] Assigned Behavioral Health Provider 01/08/23 01/14/23 Thiago Wilks PsyD Assigned Behavioral Health Provider 01/15/23 06/17/23 Sue Novoa, PharmD [address] [place] [address] Assigned MTM Pharmacist 01/15/23 Sue Novoa, PharmD [address] [place] [address] Assigned MTM Pharmacist 02/05/23 4 Christiane King [facility] MTM [address] [place] [address] Pharmacist Pharmacist 03/11/23 03/27/23 Joana Cadena DO [address] [place], [place] [address] [place] [address] Assigned Behavioral Health Provider 06/18/23 01/02/24 Elvi Sandoval PA-C [address] [place] [address] 442480 Assigned Neuroscience Provider 08/06/23 10/05/23 Ronel Escoto [facility] [address] [place] [address] Assigned MTM Pharmacist 09/17/23 Britany Sanders LICSW [address] [place] [address]/ [address] [address] Assigned Behavioral Health Provider 01/03/24 Milton Dawkins APRN GETTER WELDER [address] [place], [place] [address] [address] Nurse Practitioner Otolaryngology 05/08/24 documented as of this encounter
--- OUTSIDE RECORDS SUMMARY | 2024-07-14 01:45 | XMS_ITS | Encounter Summary ---
Author Organization [facility] Address [address] [place] [address] Care Team Providers Care Forensic Audit Expert Name Role Phone Jess Garcias PA-C Primary Care Provider [phone] JoLori chavez NP Unavailable [phone] Jess Garcias-C Unavailable [phone] Jess Garcias-C Unavailable [phone] Kenisha Yun APRN CARDIOVASCULAR LAB DIRECTOR Unavailable + Jess Garcias-C Unavailable [phone] Quynh [place] MD Unavailable [phone] Jess Garcias PA-C Unavailable [phone] Edgar Zurita MD Unavailable Ana Cristina Dudley MD Unavailable Unavailabl e Jess Garcias PA-C Unavailable Ronel Escoto [facility] Unavailable +[phone] Ronel Escoto RPH Unavailable [phone] Sue Novoa PharmD Unavailable +[phone] Sue Novoa PharmD Unavailable [phone] Ronel Escoto RPH Unavailable [phone] Thiago Wilks PsyD Unavailable Unavaila Joana Landis DO Unavailable Thiago Wilks PsyD Unavailable Unavaila ble Sue Novoa PharmD Unavailable +[phone] Sue Novoa PharmD Unavailable +[phone] Christiane King [facility] Unavailable +[phone] TammiJoana Unavailable Elvi Sandoval PAChristianoC Unavailable [phone] JevonJusticeRonel Ronny [facility] Unavailable [phone] Britany Sanders ELECTRICAL ENGINEERING TECHNOLOGIST Unavailable [phone] Milton Dawkins SILK SCREEN OPERATOR CARDIOVASCULAR LAB DIRECTOR Unavailable [phone] Reason for Visit * Reason Onset Date Comments MyChart Communication 01/18/2017 Unigo Encounter Details Date Type Department Care Team (Late st Contact Info) Description 01/18/2017 [facility] [id number] [place] [id number] Jess Garcias PA-C [id number] [place] [address] [id number] MyChart Communication (Unigo) Social History Tobacco Use Types Packs/Day Years Used Date Smoking Tobacco: Never Smokeless Tobacco: Never Alcohol Use Standard Drinks/Week Comments No 0 (1 standard drink = 0.6 oz pur e alcohol) occas Comments No Sex and Gender Information Value Date Recorded Sex Assigned at Female 12/03/2022 2:48 PM CDT Legal Sex Female 10:10 AM HAND FORMER HELPER Gender Identity Female 01/03/2022 12:13 PM CDT Sexual Orientation Straight 12/03/2022 2: 48 PM CDT documented as of this encounter Plan of Treatment Not on file documented as of this encounter Visit Diagnoses Not on filedocumented in this encounter Additional Health Concerns Assessment Noted Time PHQ-9 Depression Total Score: 5 01/02/20 17 7:05 AM CDT documented as of this encounter Care Teams Forensic Audit Expert Relationship Specialty Start Date End Date Jess Garcias PA-C [address] [place], [place] [id number] PCP - General Physician Lathe Spotter 12/19/13 Jess Garcias PA-C [address] [place], [place] [id number] PCP - Assigned PCP 11/28/16 11/14/18 Lori Oosrio COUNTY MANAGER [address] [address] Nurse Practitioner Nurse Practitioner Psych/Mental Health 04/11/17 Jess Garcias PA-C [address] [place] [address] Assigned PCP 11/28/16 12/30/18 Kenisha Yun APRN [facility] [address] [place] [address] Assigned PCP 12/31/18 06/02/19 Jess Garcias PA-C [address] [place] [address] Assigned PCP 06/03/19 08/04/19 [place] [address] [place] [address] Assigned PCP 08/05/19 01/12/20 Jess Garcias PA-C [address] [place] [address] Assigned PCP 01/13/20 11/30/20 [place] [address] [place] [address] Assigned Musculoskeletal Provider 07/04/20 10/10/21 Ana Cristina Dudley MD INACTIVE IN [place] SINCE 09/11/2021 Assigned PCP 12/01/20 01/17/21 Jess Garcias, PAChristianoC [address] [place] [address] Assigned PCP 01/18/21 Ronel Escoto, [facility] [address] [place] [address] Pharmacist Pharmacist 08/13/22 Ronel Escoto, [facility] [address] [place] [address] Assigned MTM Pharmacist 08/21/22 Sue Novoa, PharmD 0 [place] [address] [place] Pharmacist Pharmacist 10/22/22 03/11/23 Sue Novoa, PharmD 0 [place] [address] Assigned MTM Pharmacist 10/30/22 Ronel Escoto, [facility] [place] [address] Assigned MTM Pharmacist 01/08/23 3 Thiago Wilks PsyD Assigned Behavioral Health Provider 12/11/22 01/07/23 [place] [address] [place] [address] Assigned Behavioral Health Provider 01/08/23 01/14/23 Thiago Wilks PsyD Assigned Behavioral Health Provider 01/15/23 06/17/23 Sue Novoa, PharmD 870 [place] [address] Assigned MTM Pharmacist 01/15/23 Sue Novoa, PharmD [address]70 [place] [address] Assigned MTM Pharmacist 02/05/23 Christiane King [facility] [address] [place], [place] 2[address]46 Pharmacist Pharmacist 03/11/23 03/27/23 [place] [address] [place] [address] Assigned Behavioral Health Provider 06/18/23 01/02/24 Elvi Sandoval PA-C [address] [place] [address] 019800 Assigned Neuroscience Provider 08/06/23 10/05/23 Ronel Escoto [facility] [address] [employer] [place], [place] 623456 Assigned MTM Pharmacist 09/17/23 Britany Sanders, VEL [address] [place] [address]/ [address] [place] [address] Assigned Behavioral Health Provider 01/03/24 Milton Dawkins APRN [facility] JOAN CASTILLO [address] Nurse Practitioner Otolaryngology 05/08/24 documented as of this encounter
--- OUTSIDE RECORDS SUMMARY | 2024-07-14 01:45 | XMS_ITS | Encounter Summary ---
Author Organization [facility] Address [address] [place] [address] Care Team Providers Care Recreational Assistant Name Role Phone Jess Garcias PA-C Primary Care Provider Lori Osorio NP Unavailable [phone] Jess Garcias PA-C Unavailable Quynh Dalton MD Unavailable Jess Garcias PA-C Unavailable Edgar Zurita MD Unavailable Ana Cristina Dudley MD Unavailable Unavailabl e Jess Garcias PA-C Unavailable Ronel Escoto RPH Unavailable [phone] Ronel Escoto RPH Unavailable [phone] Sue Novoa PharmD Unavailable Sue Novoa PharmD Unavailable [phone] Ronel Escoto RPH Unavailable Thiago Wilks PsyD Unavailable Unavaila Joana Landis DO Unavailable Thiago Wilks PsyD Unavailable Unavaila Sue Roldan PharmD Unavailable [phone] Sue Novoa PharmD Unavailable [phone] Christiane King RPH Unavailable Joana Cadena DO Unavailable Jaime Elvira CASPER Unavailable [phone] Ronel Escoto [facility] Unavailable [phone] Britany Sanders [facility] Unavailable [phone] Milton Dawkins APRN HARDWOOD FALLER Unavailable [phone] Reason for Visit * Reason Onset Date Comments MyChart Communication 06/25/2019 Encounter Details Date Type Department Care Team (Late st Contact Info) Description 06/25/2019 MyC Medical Advice [address], [address] [place] [address] [place] [address] [place] [address] MyChart Communication Social History Tobacco Use Types [...] PM CDT Legal Sex Female 10:10 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 Work up for autoimmune disease? Pt also calling in regarding same message, was not fasting for labs, ate banana muffin and black coffee before labs, glucose only 58 Pt wondering about getting other labs done, thyroid? documented in this encounter Plan of Treatment Not on file documented as of this encounter Visit Diagnoses Not on filedocumented in this encounter Additional Health Concerns Assessment Noted Time PHQ-9 Depression Total Score: 1 06/25/20 19 8:31 AM CDT documented as of this encounter Care Teams Recreational Assistant Relationship Specialty Start Date End Date Jess Garcias PA-C [address] [place] [address] PCP - General Physician Food And Beverage Analyst 12/19/13 Lori Osorio NP [address] [address] Nurse Practitioner Nurse Practitioner Psych/Mental Health 04/11/17 Jess Garcias PA-C [address] [place] [address] Assigned PCP 06/03/19 08/04/19 [place] [address] [place] [address] Assigned PCP 08/05/19 01/12/20 Jess Garcias PA-C [address] [place] [address] Assigned PCP 01/13/20 11/30/20 [place] [address] [facility] [facility] [place] [address] Assigned Musculoskeletal Provider 07/04/20 10/10/21 Ana Cristina Dudley MD INACTIVE IN [place] SINCE 09/11/2021 Assigned PCP 12/01/20 01/17/21 Jess aGrcias PA-C [address] [place] [address] Assigned PCP 01/18/21 Ronel Escoto, [facility] [address] [place] [address] Pharmacist Pharmacist 08/13/22 Ronel Escoto [facility] [address] [place] [address] Assigned MTM Pharmacist 08/21/22 Sue Novoa, PharmD [address] [place] [address] MTM Pharmacist Pharmacist 10/22/22 03/11/23 Sue Novoa, PharmD [address] [place] [address] Assigned MTM Pharmacist 10/30/22 Ronel Escoto [facility] [address] [place] [address] Assigned MTM Pharmacist 01/08/23 3 Thiago Wilks PsyD Assigned Behavioral Health Provider 12/11/22 01/07/23 Joana Cadena DO [facility] [place] [address] Assigned Behavioral Health Provider 01/08/23 01/14/23 Thiago Wilks PsyD Assigned Behavioral Health Provider 01/15/23 06/17/23 Sue Novoa, PharmD 870 [place] [address] Assigned MTM Pharmacist 01/15/23 Sue Novoa, Miguelito [address]70 [place] [address] Assigned MTM Pharmacist 02/05/23 Christiane Candelaria [facility] MTM [address] [place] [address] Pharmacist Pharmacist 03/11/23 03/27/23 Joana Cadena DO [address] [place] [address] Assigned Behavioral Health Provider 06/18/23 01/02/24 Elvi Sandoval PA-C [address] [place] [address] Assigned Neuroscience Provider 08/06/23 10/05/23 Ronel Escoto, [facility] [address] [place] [address] Assigned MTM Pharmacist 09/17/23 Britany Sanders, AS400 CONSULTANT [address] [place] [address]/ [address] [place] [address] Assigned Behavioral Health Provider 01/03/24 Milton Dawkins APRN HARDWOOD FALLER [address] [place] [address] Nurse Practitioner Otolaryngology 05/08/24 documented as of this encounter
--- OUTSIDE RECORDS SUMMARY | 2024-07-14 01:45 | XMS_ITS | Encounter Summary ---
Author Organization [facility] Address [address] [place] [address] Care Team Providers Care Security Investigator Name Role Phone Jess Garcias PA-C Primary Care Provider [phone] JoLori chavez NP Unavailable [phone] Jess Garcias-C Unavailable [phone] Jess Garcias-C Unavailable [phone] Kenisha Yun APRN FIELD WORKER Unavailable + Jess Garcias-C Unavailable [phone] Quynh [place] MD Unavailable [phone] Jess Garcias PA-C Unavailable [phone] Edgar Zurita MD Unavailable Ana Cristina Dudley MD Unavailable Unavailabl e Jess Garcias PA-C Unavailable Ronel Escoto [facility] Unavailable +[phone] Ronel Escoto RPH Unavailable [phone] Sue Novoa PharmD Unavailable [phone] Sue Novoa PharmD Unavailable [phone] Ronel Escoto RPH Unavailable [phone] Thiago Wilks PsyD Unavailable Unavaila Joana Landis DO Unavailable Thiago Wilks PsyD Unavailable Unavaila ble Sue Novoa PharmD Unavailable [phone] Sue Novoa PharmD Unavailable [phone] Christiane King [facility] Unavailable +[phone] TammiJoana Unavailable Elvi Sandoval PA-C Unavailable [phone] JevonJusticeRonel T [facility] Unavailable [phone] Britany Sanders SPINDRAW OPERATOR Unavailable [phone] Milton Dawkins APRN FIELD WORKER Unavailable [phone] Reason for Visit * Reason Onset Date Comments Refill Request 10/05/2018 Encounter Details Date Type Department Care Team (Late st Contact Info) Description 10/05/2018 MyC Refill [facility] Health & Addiction [facility] [address] [place] [address] Geronimo Guerrero, FIELD WORKER [address] [place], [place] [id number] Refill Request Social History Tobacco Use Types Packs/Day Years Used Date Smoking Tobacco: Never Smokeless Tobacco: Never Alcohol Use Standard Drinks/Week Comments Yes 0 (1 standard drink = 0.6 oz pur e alcohol) once a month PHQ-2 Answer Date Recorded PHQ-2 Score 6 09/20/2018 Comments No Sex and Gender Information Value Date Recorded Sex Assigned at Female 12/03/2022 2:48 PM CDT Legal Sex Female 10:10 AM 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 LEGAL ASSISTANT Gender Identity Female 01/03/2022 12:13 PM CDT Sexual Orientation Straight 12/03/2022 2: 48 PM CDT documented as of this encounter Plan of Treatment Not on file documented as of this encounter Visit Diagnoses Diagnosis ROSA (generalized anxiety disorder) Generalized anxiety disorder documented in this encounter Additional Health Concerns Assessment Noted Time PHQ-9 Depression Total Score: 11 08/24/2 018 1:11 PM CORPORATE LEGAL ASSISTANT documented as of this encounter Care Teams Security Investigator Relationship Specialty Start Date End Date Jess Garcias, PENNIE [address] [place] [address] PCP - General Physician Pelt Grader 12/19/13 Jess Garcias PA-C [address] [place] [address] PCP - Assigned PCP 11/28/16 11/14/18 Lori Osorio, ELIGIBILITY ANALYST [address] [address] Nurse Practitioner Nurse Practitioner Psych/Mental Health 04/11/17 Jess Garcias PA-C [address] [place] [address] Assigned PCP 11/28/16 12/30/18 Kenisha Yun APRN [facility] [address] [place] [address] Assigned PCP 12/31/18 06/02/19 Jess Garcias PA-C [address] [place], [place] [address] Assigned PCP 06/03/19 08/04/19 [place] [address] [place] [address] Assigned PCP 08/05/19 01/12/20 Jess Garcias PA-C [address] [place] [address] Assigned PCP 01/13/20 11/30/20 [place] [address] [place] [address] Assigned Musculoskeletal Provider 07/04/20 10/10/21 Ana Cristina Dudley MD INACTIVE IN [place] SINCE 09/11/2021 Assigned PCP 12/01/20 01/17/21 Jess Garcias, PENNIE [address] [place] [address] Assigned PCP 01/18/21 Ronel Escoto [facility] [address] [place] [address] Pharmacist Pharmacist 08/13/22 Ronel Escoto [facility] [address] [place] [address] Assigned MTM Pharmacist 08/21/22 Sue Novoa, PharmD [address] [place] [address] MTM Pharmacist Pharmacist 10/22/22 03/11/23 Sue Novoa, PharmD [address] [place] [address] Assigned MTM Pharmacist 10/30/22 Ronel Escoto [facility] [address] [place] [address] Assigned MTM Pharmacist 01/08/23 3 Thiago Wilks PsyD Assigned Behavioral Health Provider 12/11/22 01/07/23 [place] [address] [place] [address] Assigned Behavioral Health Provider 01/08/23 01/14/23 Thiago Wilks PsyD Assigned Behavioral Health Provider 01/15/23 06/17/23 Sue Novoa, Miguelito [address] [place] [address] Assigned MTM Pharmacist 01/15/23 Sue Novoa PharmD [address] [place] [address] Assigned MTM Pharmacist 02/05/23 Christiane Candelaria [facility] 3033 [place] [address] Pharmacist Pharmacist 03/11/23 03/27/23 [place] [address] [place] [address] Assigned Behavioral Health Provider 06/18/23 01/02/24 Elvi Sandoval PA-C [address] [place] [address] Assigned Neuroscience Provider 08/06/23 10/05/23 Ronel Escoto [facility] [address] [place] [address] Assigned MTM Pharmacist 09/17/23 Britany Sanders, VEL [address] [place] [address]/ [address] [place] [address] Assigned Behavioral Health Provider 01/03/24 Milton Dawkins APRN FIELD WORKER [address] [facility] JOAN CASTILLO [address] Nurse Practitioner Otolaryngology 05/08/24 documented as of this encounter
--- OUTSIDE RECORDS SUMMARY | 2024-07-14 01:45 | XMS_ITS | Encounter Summary ---
Author Organization [facility] Address [address] [place] [address] Care Team Providers Care Weed Science Research Technician Name Role Phone Jess Garcias PA-C Primary Care Provider [phone] JoLori chavez NP Unavailable [phone] Jess Garcias-C Unavailable [phone] Jess Garcias-C Unavailable [phone] Kenisha Yun APRN TEAM FOREMAN Unavailable + Jess Garcias-C Unavailable [phone] Quynh Dalton MD Unavailable [phone] Jess Garcias PA-C Unavailable [phone] Edgar Zurita MD Unavailable Ana Cristina Dudley MD Unavailable Unavailabl e Jess Garcias PA-C Unavailable Ronel Escoto [facility] Unavailable +[phone] Ronel Escoto RPH Unavailable [phone] Sue Novoa PharmD Unavailable [phone] Sue Novoa PharmD Unavailable [phone] Ronel Escoto RPH Unavailable [phone] Thiago Wilks PsyD Unavailable Unavaila Joana Landis DO Unavailable Thiago Wilks PsyD Unavailable Unavaila ble Sue Novoa PharmD Unavailable [phone] Sue Novoa PharmD Unavailable [phone] Christiane King [facility] Unavailable +[phone] TammiJoana Unavailable Elvi Sandoval PAJane Unavailable [phone] JevonRonel [facility] Unavailable [phone] Britany Sanders PACS ADMINISTRATOR Unavailable [phone] Milton Dawkins PRIVACY DIRECTOR TEAM FOREMAN Unavailable [phone] Reason for Visit * Reason Onset Date Comments MyChart Communication 04/17/2018 follow up 04/12/18 OnCare visit Encounter Details Date Type Department Care Team (Late st Contact Info) Description 04/17/2018 [facility] [address] [place] [phone] Jess Garcias PA-C [address] [place] [address] [id number] MyChart Communication (follow up 04/12/18 On... 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 APPRENTICE Gender Identity Female 01/03/2022 12:13 PM CDT Sexual Orientation Straight 12/03/2022 2: 48 PM CDT documented as of this encounter Plan of Treatment Not on file documented as of this encounter Visit Diagnoses Not on filedocumented in this encounter Additional Health Concerns Assessment Noted Time PHQ-9 Depression Total Score: 4 08/02/20 17 7:19 AM EMBOSSER APPRENTICE documented as of this encounter Care Teams Weed Science Research Technician Relationship Specialty Start Date End Date Jess Garcias PA-C [address] [place] [address] PCP - General Physician Illuminator 12/19/13 Jess Garcias PA-C [address] [place] [address] PCP - Assigned PCP 11/28/16 11/14/18 Lori Osorio, POULTRY TENDER [address] [address] Nurse Practitioner Nurse Practitioner Psych/Mental Health 04/11/17 Jess Garcias PA-C [address] [place] [address] Assigned PCP 11/28/16 12/30/18 Kenisha Yun APRN [facility] [address] [place] [address] Assigned PCP 12/31/18 06/02/19 Jess Garcias PA-C [address] [place] [address] Assigned PCP 06/03/19 08/04/19 [place] [address] [place] [address] Assigned PCP 08/05/19 01/12/20 Jess Garcias PA-C [address] [place] [address] Assigned PCP 01/13/20 11/30/20 [place] [address] [place] [address] Assigned Musculoskeletal Provider 07/04/20 10/10/21 Ana Cristina Dudley MD INACTIVE IN [place] SINCE 09/11/2021 Assigned PCP 12/01/20 01/17/21 Jess Garcias, PAChristianoC [address] [place] [address] Assigned PCP 01/18/21 Ronel Escoto, [facility] [address] [place] [address] Pharmacist Pharmacist 08/13/22 Ronel Escoto, [facility] [address] [place] [address] Assigned MTM Pharmacist 08/21/22 Sue Novoa, PharmD 0 [place] [address] MTM Pharmacist Pharmacist 10/22/22 03/11/23 Sue Novoa, PharmD 0 [place] [address] Assigned MTM Pharmacist 10/30/22 Ronel Escoto, [facility] [address] [place] [address] Assigned MTM Pharmacist 01/08/23 5 3 Thiago Wilks PsyD Assigned Behavioral Health Provider 12/11/22 01/07/23 [place] [address] [place] [address] Assigned Behavioral Health Provider 01/08/23 01/14/23 Thiago Wilks PsyD Assigned Behavioral Health Provider 01/15/23 06/17/23 Sue Novoa, JanD [address]70 [place] [address] Assigned MTM Pharmacist 01/15/23 Sue Novoa PharmD [address] [place] [address] Assigned MTM Pharmacist 02/05/23 Christiane King [facility] [place] [address] [place] [address] Pharmacist Pharmacist 03/11/23 03/27/23 [place] [address] [place] [address] Assigned Behavioral Health Provider 06/18/23 01/02/24 Elvi Sandoval PA-C [address] [place] [address] Assigned Neuroscience Provider 08/06/23 10/05/23 Ronel Escoto [facility] [place] [address] Assigned MTM Pharmacist 09/17/23 Britany Sanders, VEL [address] [place] [address]/ [address] [address] Assigned Behavioral Health Provider 01/03/24 Milton Dawkins APRN TEAM FOREMAN 64[address] [facility] [place]AN [place]STILLO [address] Nurse Practitioner Otolaryngology 05/08/24 documented as of this encounter
--- OUTSIDE RECORDS SUMMARY | 2024-07-14 01:45 | XMS_ITS | Encounter Summary ---
Author Organization [place] Address [address] [place] [address] Care Team Providers Care Hand Lacer Name Role Phone Jess Garcias PA-C Primary Care Provider [phone] JoLori chavez NP Unavailable [phone] Jess Garcias-C Unavailable [phone] Jess Garcias-C Unavailable [phone] Kenisha Yun APRN RAIL DETECTOR CAR OPERATOR Unavailable + Jess Garcias-C Unavailable [phone] Quynh Dalton MD Unavailable [phone] Jess Garcias PA-C Unavailable [phone] Edgar Zurita MD Unavailable Ana Cristina Dudley MD Unavailable Unavailabl e Jess Garcias PA-C Unavailable Ronel Escoto [facility] Unavailable +[phone] Ronel Escoto RPH Unavailable [phone] Sue Novoa PharmD Unavailable [phone] Sue Novoa PharmD Unavailable [phone] Ronel Escoto RPH Unavailable [phone] Thiago Wilks PsyD Unavailable Unavaila Joana Landis DO Unavailable Thiago Wilks PsyD Unavailable Unavaila ble Sue Novoa PharmD Unavailable +[phone] Sue Novoa PharmD Unavailable [phone] Fernando Christiane [facility] Unavailable [phone] TammiJoana DO Unavailable Elvi Sandoval PAChristianoC Unavailable [phone] JevonRonel [facility] Unavailable [phone] Britany Sanders MANAGER FINE Unavailable [phone] Milton Dawkins OPHTHALMOLOGY SURGICAL TECHNICIAN RAIL DETECTOR CAR OPERATOR Unavailable [phone] Encounter Details Date Type Department Care Team (Late st Contact Info) Description 11/05/2014 [facility] Medical Advice [address], [address] [place] [address] Solomon Christensen PA-C [address] [place], [place] [id number] Social History Tobacco Use Types Packs/Day Years Used Date Smoking Tobacco: Never Smokeless Tobacco: Never Alcohol Use Standard Drinks/Week Comments Yes 0 (1 standard drink = 0.6 oz pur e alcohol) occas Comments No Sex and Gender Information Value Date Recorded Sex Assigned at Female 12/03/2022 2:48 PM CDT Legal Sex Female 10:10 AM ECOLOGY PROFESSOR Gender Identity Female 01/03/2022 12:13 PM CDT Sexual Orientation Straight 12/03/2022 2: 48 PM CDT documented as of this encounter Plan of Treatment Not on file documented as of this encounter Visit Diagnoses Not on filedocumented in this encounter Care Teams Hand Lacer Relationship Specialty Start Date End Date Jess Garcias PA-C [address] [place] [address] PCP - General Physician Marketing Data Specialist 12/19/13 Jess Garcias PA-C [address] [place] [address] PCP - Assigned PCP 11/28/16 11/14/18 Lori Osorio NP [place] [address] [place] [address] Nurse Practitioner Nurse Practitioner Psych/Mental Health 04/11/17 Jess Garcias PA-C [address] [place] [address] Assigned PCP 11/28/16 12/30/18 Kenisha Yun APRN CNP [address] [place] [address] Assigned PCP 12/31/18 06/02/19 Jess Garcias PA-C [address] [place] [address] Assigned PCP 06/03/19 08/04/19 [place] [address] [place] [address] Assigned PCP 08/05/19 01/12/20 Jess Garcias PA-C [address] [place] [address] Assigned PCP 01/13/20 11/30/20 [place] [address] [place] [address] Assigned Musculoskeletal Provider 07/04/20 10/10/21 Ana Cristina Dudley MD INACTIVE IN [place] SINCE 09/11/2021 Assigned PCP 12/01/20 01/17/21 Jess Garcias PA-C [address] [place] [address] Assigned PCP 01/18/21 Ronel Escoto, [facility] [address] [place] [address] Pharmacist Pharmacist 08/13/22 Ronel Escoto, [facility] [address] [place] [address] Assigned MTM Pharmacist 08/21/22 Sue Novoa, PharmD [address] [place] [address] MTM Pharmacist Pharmacist 10/22/22 03/11/23 Sue Novoa, PharmD [address] [place] [address] Assigned MTM Pharmacist 10/30/22 Ronel Escoto, [facility] [address] [place] [address] Assigned MTM Pharmacist 01/08/23 3 Thiago Wilks PsyD Assigned Behavioral Health Provider 12/11/22 01/07/23 Joana Cadena DO [facility] [place] [address] Assigned Behavioral Health Provider 01/08/23 01/14/23 Thiago Wilks PsyD Assigned Behavioral Health Provider 01/15/23 06/17/23 Sue Novoa, JanD [address] [place] [address] Assigned MTM Pharmacist 01/15/23 Sue Novoa PharmD [address] [place] [address] Assigned MTM Pharmacist 02/05/23 Christiane King [facility] MSM [address] [place] [address] Pharmacist Pharmacist 03/11/23 03/27/23 Joana Cadena DO [address] [place] [address] Assigned Behavioral Health Provider 06/18/23 01/02/24 Elvi Sandoval PA-C [address] [place] [address] Assigned Neuroscience Provider 08/06/23 10/05/23 Ronel Escoto [facility] [address] [place] [address] Assigned MTM Pharmacist 09/17/23 Britany Sanders LICSW [address] [place] [address]/ [address] [address] Assigned Behavioral Health Provider 01/03/24 Milton Dawkins APRN RAIL DETECTOR CAR OPERATOR [address] [place] [address] Nurse Practitioner Otolaryngology 05/08/24 documented as of this encounter
--- OUTSIDE RECORDS SUMMARY | 2024-07-14 01:45 | XMS_ITS | Encounter Summary ---
Author Organization [place] Address [address] [place] [address] Care Team Providers Care Supervisor Tellers Name Role Phone Jess Garcias PA-C Primary Care Provider [phone] JoLori chavez NP Unavailable [phone] Jess Garcias-C Unavailable [phone] Jess Garcias-C Unavailable [phone] Kenisha Yun APRN FLUSH TESTER Unavailable + Jess Garcias-C Unavailable [phone] Quynh Dalton MD Unavailable [phone] Jess Garcias PA-C Unavailable [phone] Edgar Zurita MD Unavailable Ana Cristina Dudley MD Unavailable Unavailabl e Jess Garcias PA-C Unavailable Ronel Escoto [facility] Unavailable [phone] Ronel Escoto RPH Unavailable [phone] Sue Novoa PharmD Unavailable [phone] Sue Novoa PharmD Unavailable [phone] Ronel Escoto RPH Unavailable [phone] Thigao Wilks PsyD Unavailable Unavaila Joana Landis DO Unavailable Thiago Wilks PsyD Unavailable Unavaila ble Bright Sue PharmD Unavailable [phone] Sue Novoa PharmD Unavailable [phone] King Christiane [facility] Unavailable [phone] Joana Cadena DO Unavailable Jaime Elvi PA-C Unavailable [phone] Ronel Escoto [facility] Unavailable [phone] Britany Sanders [facility] Unavailable [phone] Milton Dawkins DIESEL LUBE TECH FLUSH TESTER Unavailable [phone] Reason for Visit * Reason Onset Date Comments MyChart Communication 06/05/2018 Encounter Details Date Type Department Care Team (Late st Contact Info) Description 06/05/2018 [facility] Medical [address], [address] [place] [address] Kenisha Yun, [place] FLUSH TESTER [address] [place], [place] [id number] MyChart Communication Social History Tobacco Use Types Packs/Day Years Used Date Smoking Tobacco: Never Smokeless Tobacco: Never Alcohol Use Standard Drinks/Week Comments Yes 0 (1 standard drink = 0.6 oz pur e alcohol) occas Comments No Sex and Gender Information Value Date Recorded Sex Assigned at Female 12/03/2022 2:48 PM CDT Legal Sex Female 10:10 AM ROPER OPERATOR Gender Identity Female 01/03/2022 12:13 PM CDT Sexual Orientation Straight 12/03/2022 2: 48 PM CDT documented as of this encounter Miscellaneous Notes * Telephone Encounter - Lexie Alva RN - 06/06/2018 8:04 AM CDT Responded to the Pt. Will route to Kenisha the Pt's response. Lexie Alva RN -- [facility] * Telephone Encounter - Suzanne Morrissey RN - 06/05/2018 3:01 PM CDT mychart sent Suzanne Morrissey RN, BSN * Telephone Encounter - Kenisha Yun APRN CNP - 06/05/2018 2:20 PM CDT Is it the vaginal symptoms that are bothersome or the bloating/gas discomfort. Please have her comein for a wet prep. Kenisha Yun CNP * Telephone Encounter - Suzanne Morrissey RN - 06/05/2018 2:15 PM CDT Please advise Suzanne Morrissey RN, BSN documented in this encounter Plan of Treatment Not on file documented as of this encounter Results * Wet prep (06/06/2018 4:53 PM CDT) Specimen Description Vagina [facility] Wet Prep No Trichomonas seen 06/06/2018 5:06 PM CDT [facility] Wet Prep No clue cells seen 06/06/2018 5:06 PM CDT [facility] Wet Prep No yeast seen 06/06/2018 5:06 PM CDT [facility] Specimen from vagina (specimen) 06/06/2018 4:53 PM CDT 06/06/2018 4:54 PM CDT Kenisha Yun APRN, CNP LAB - MICRO GENERA L ORDERABLES Final Result [facility] [address] [place] [address] documented in this encounter Visit Diagnoses Diagnosis Vaginal symptom- Primary documented in this encounter Additional Health Concerns Assessment Noted Time PHQ-9 Depression Total Score: 4 08/02/20 17 7:19 AM ROPER OPERATOR documented as of this encounter Care Teams Supervisor Tellers Relationship Specialty Start Date End Date Jess Garcias PA-C [address] [place] [address] PCP - General Physician Workers Compensation Attorney 12/19/13 Jess Garcias PA-C [address] [place] [address] PCP - Assigned PCP 11/28/16 11/14/18 Lori Osorio NP [address] [address] Nurse Practitioner Nurse Practitioner Psych/Mental Health 04/11/17 Jess Garcias PA-C [address] [place] [address] Assigned PCP 11/28/16 12/30/18 Kenisha Yun APRN CNP [address] [place] [address] Assigned PCP 12/31/18 06/02/19 Jess Garcias PA-C [address] [place] [address] Assigned PCP 06/03/19 08/04/19 [place] [address] [place] [address] Assigned PCP 08/05/19 01/12/20 Jess Garcias PA-C [address] [place] [address] Assigned PCP 01/13/20 11/30/20 [place] [address] [place] [address] Assigned Musculoskeletal Provider 07/04/20 10/10/21 Ana Cristina Dudley MD INACTIVE IN [place] SINCE 09/11/2021 Assigned PCP 12/01/20 01/17/21 Jess Garcias PA-C [address] [place], [place] [id number] Assigned PCP 01/18/21 Ronel Escoto, [facility] [place] [address] Pharmacist Pharmacist 08/13/22 Ronel Escoto, [facility] [place] [address] Assigned MTM Pharmacist 08/21/22 Sue Novoa, PharmD [address] [place] [address] MTM Pharmacist Pharmacist 10/22/22 03/11/23 Sue Novoa, PharmD [address] [place] [address] Assigned MTM Pharmacist 10/30/22 Ronel Escoto, [facility] [place] [address] Assigned MTM Pharmacist 01/08/23 3 Thiago Wilks PsyD Assigned Behavioral Health Provider 12/11/22 01/07/23 [place] [address] [place] [address] Assigned Behavioral Health Provider 01/08/23 01/14/23 Thiago Wilks PsyD Assigned Behavioral Health Provider 01/15/23 06/17/23 Sue Novoa, PharmD [address] [place] [address] Assigned MTM Pharmacist 01/15/23 Sue Novoa, PharmD [address] [place] [address] Assigned MTM Pharmacist 02/05/23 4 Christiane King [facility] [address] [address] Pharmacist Pharmacist 03/11/23 03/27/23 [place] [address] [place] [address] Assigned Behavioral Health Provider 06/18/23 01/02/24 Elvi Sandoval PA-C [address] [place] [address] 873730 Assigned Neuroscience Provider 08/06/23 10/05/23 Ronel Escoto [facility] [address] [place] [address] 731926 Assigned MTM Pharmacist 09/17/23 Britany Sanders LICSW [address] [place] [address]/ [address] [place] [address] Assigned Behavioral Health Provider 01/03/24 Milton Dawkins APRN [facility] [address] [place] [address] JOAN CASTILLO [address] Nurse Practitioner Otolaryngology 05/08/24 documented as of this encounter
--- OUTSIDE RECORDS SUMMARY | 2024-07-14 01:45 | XMS_ITS | Encounter Summary ---
Author Organization [place] Address [address] [place] [address] Care Team Providers Care Posting Specialist Name Role Phone Jess Garcias PA-C Primary Care Provider [phone] JoFreedom chavez NP Unavailable [phone] Jess Garcias-C Unavailable [phone] Jess Garcias-C Unavailable [phone] Kenisha Yun APRN REWEAVER Unavailable + Jess Garcias-C Unavailable [phone] Quynh Dalton MD Unavailable [phone] Jess Garcias PA-C Unavailable [phone] Edgar Zurita MD Unavailable Ana Cristina Dudley MD Unavailable Unavailabl e Jess Garcias PA-C Unavailable Ronel Escoto [facility] Unavailable [phone] Ronel Escoto RPH Unavailable [phone] Sue Novoa PharmD Unavailable +[phone] Sue Novoa PharmD Unavailable [phone] Ronel Escoto RPH Unavailable [phone] Thiago Wilks PsyD Unavailable Unavaila Joana Landis DO Unavailable Thiago Wilks PsyD Unavailable Unavaila ble Sue Novoa PharmD Unavailable [phone] Sue Novoa PharmD Unavailable [phone] Christiane King [facility] Unavailable [phone] Joana Cadena DO Unavailable JaimeElvi PA-C Unavailable [phone] Ronel Escoto [facility] Unavailable [phone] Britany Sanders METER READERS SUPERVISOR Unavailable [phone] Milton Dawkins APRN REWEAVER Unavailable [phone] Reason for Visit * Reason Comments Medication Refill Encounter Details Date Type Department Care Team (Late st Contact Info) Description 08/08/2017 [facility] Mental Health & Addiction [address] [place] [address] Freedom Rodrí[place] [address] [place] [address] Medication Refill Social History Tobacco Use Types Packs/Day Years Used Date Smoking Tobacco: Never Smokeless Tobacco: Never Alcohol Use Standard Drinks/Week Comments Yes 0 (1 standard drink = 0.6 oz pur e alcohol) occas Comments No Sex and Gender Information Value Date Recorded Sex Assigned at Female 12/03/2022 2:48 PM CDT Legal Sex Female 10:10 AM THERAPY ASSISTANT Gender Identity Female 01/03/2022 12:13 PM CDT Sexual Orientation Straight 12/03/2022 2: 48 PM CDT documented as of this encounter Miscellaneous Notes * Telephone Encounter - Freedom Rodríguez NP - 08/09/2017 8:48 AM CST I just saw this patient a few days ago and increased the dose. This is incorrect. Deny. APY ASSISTANT * Telephone Encounter - Luly Sheets RN - 08/09/2017 8:33 AM CST RX not on RN refill protocol [facility] [place] Date: 08/09/17 Query Report Page#: 1 Patient Rx History Report SIOBHAN LEONARD Search Criteria: Last Name 'siobhan' and First Name santa' and = [birth year]' and Request Period = 08/09/16' to 08/09/17' - 1 out of 1 Recipients Selected. Fill Date Product, Str, Form Qty Days Pt ID Prescriber Written RX# N/R* Pharm MED+ ------ ---- --------- ----- --------- ------ 08/01/2017 GABAPENTIN 300 MG CAPSULE 90.00 30 [id number] 08/01/2017 [id number] N [id number] 00.0 07/10/2017 GABAPENTIN 300 MG CAPSULE 60.00 30 [id number] 05/30/2017 [id number] R [id number] 00.0 05/30/2017 GABAPENTIN 300 MG CAPSULE 60.00 30 [id number] 05/30/2017 [id number] N [id number] 00.0 04/29/2017 GABAPENTIN 300 MG CAPSULE 60.00 30 [id number] 04/11/2017 [id number] N [id number] 00.0 09/29/2016 GABAPENTIN 300 MG CAPSULE 90.00 90 [id number] 09/21/2016 [id number] N [id number] 00.0 *N/R N=New R=Refill +MED Daily Prescribers for prescriptions listed [id number] KAILA PAVON; [address],, [place] [address] [id number] FREEDOM RODRÍGUEZ (DIESEL INSTRUCTOR); [address] [facility], [address], [facility] [address] Pharmacies that dispensed prescriptions listed [id number] [employer]; PT SKILLED: [facility] # [id number], [address],, [place] [address], [id number] [facility] # 15233, [address],, [facility] [address], Patients that match search criteria [id number] KERRI BADILLO 84; [address] [place] [address] MED Summary This section displays cumulative MED values by unique recipient. The MED Max value is the maximum occurrence of cumulative MED sustained for any 3 consecutive days. This value is calculated based on prescriptions dispensed during the date range requested. 0 SIOBHAN ROSA; 1985; [address] [place] [address] APY ASSISTANT documented in this encounter Plan of Treatment Not on file documented as of this encounter Visit Diagnoses Diagnosis Fibromyalgia Mylagia and myositis, unspecified ROSA (generalized anxiety disorder) Generalized anxiety disorder documented in this encounter Additional Health Concerns Assessment Noted Time PHQ-9 Depression Total Score: 4 08/02/20 17 7:19 AM THERAPY ASSISTANT documented as of this encounter Care Teams Posting Specialist Relationship Specialty Start Date End Date Jess Garcias PA-C [address] [place] [address] PCP - General Physician Oyster Floater 12/19/13 Jess Garcias PA-C [address] [place] [address] PCP - Assigned PCP 11/28/16 11/14/18 Freedom Rodríguez NP [address] [address] Nurse Practitioner Nurse Practitioner Psych/Mental Health 04/11/17 Jess Garcias PA-C [address] [place] [address] Assigned PCP 11/28/16 12/30/18 Kenisha Yun APRN REWEAVER [address] [place] [facility] [place] [address] Assigned PCP 12/31/18 06/02/19 Jess Garcias PA-C [address] [place] [address] Assigned PCP 06/03/19 08/04/19 [place] [address] [facility] [place] [address] Assigned PCP 08/05/19 01/12/20 Jess Garcias PA-C [address] [facility], [place] 03[address] Assigned PCP 01/13/20 11/30/20 [place] [address] [place] [address] Assigned Musculoskeletal Provider 07/04/20 10/10/21 Ana Cristina Dudley MD INACTIVE IN [place] SINCE 09/11/2021 Assigned PCP 12/01/20 01/17/21 Jess Garcias PA-C [address] [place] [address] Assigned PCP 01/18/21 Ronel Escoto, [facility] [address] [place] [address] Pharmacist Pharmacist 08/13/22 Ronel Escoto, [facility] [address] [place] [address] Assigned MTM Pharmacist 08/21/22 Sue Novoa, PharmD [address] [place] [address] MTM Pharmacist Pharmacist 10/22/22 03/11/23 Sue Novoa, PharmD [address] [place] [address] Assigned MTM Pharmacist 10/30/22 Ronel Escoto, [facility] [address] [place] [address] Assigned MTM Pharmacist 01/08/23 3 Thiago Wilks PsyD Assigned Behavioral Health Provider 12/11/22 01/07/23 Joana Cadena DO [address] [place], [place] [address] [address] Assigned Behavioral Health Provider 01/08/23 01/14/23 Thiago Wilks PsyD Assigned Behavioral Health Provider 01/15/23 06/17/23 Sue Novoa, PharmD [address] [place] [address] Assigned MTM Pharmacist 01/15/23 Sue Novoa, PharmD [address] [place] [address] Assigned MTM Pharmacist 02/05/23 4 Christiane King [facility] MTM [address] [place] [address] Pharmacist Pharmacist 03/11/23 03/27/23 Joana Cadena DO [address] [place], [place] [address] [address] Assigned Behavioral Health Provider 06/18/23 01/02/24 Elvi Sandoval PA-C [address] [address] Assigned Neuroscience Provider 08/06/23 10/05/23 Ronel Escoto, [facility] [address] [place] [address] Assigned MTM Pharmacist 09/17/23 Britany Sanders LICSW [facility] [address]/ [address] [place] [address] Assigned Behavioral Health Provider 01/03/24 Milton Dawkins APRN REWEAVER [address] [place] [address] Nurse Practitioner Otolaryngology 05/08/24 documented as of this encounter
--- OUTSIDE RECORDS SUMMARY | 2024-07-14 01:45 | XMS_ITS | Encounter Summary ---
Author Organization [facility] Address [address] [place] [address] Care Team Providers Care Generation Engineering Technologist Name Role Phone Jess Garcias PA-C Primary Care Provider [phone] JoLori chavez NP Unavailable [phone] Jess Garcias-C Unavailable [phone] Jess Garcias-C Unavailable [phone] Kenisha Yun APRN CONCRETE ANALYST Unavailable + Jess Garcias-C Unavailable [phone] Quynh Dalton MD Unavailable [phone] Jess Garcias PA-C Unavailable [phone] Edgar Zurita MD Unavailable Ana Cristina Dudley MD Unavailable Unavailabl e Jess Garcias PA-C Unavailable Ronel Escoto [facility] Unavailable +[phone] Ronel Escoto RPH Unavailable +[phone] Sue Novoa PharmD Unavailable [phone] Sue Novoa PharmD Unavailable [phone] Ronel Escoto RPH Unavailable +[phone] Thiago Wilks PsyD Unavailable Unavaila Joana Landis DO Unavailable Thiago Wilks PsyD Unavailable Unavaila ble Sue Novoa PharmD Unavailable +[phone] Sue Novoa PharmD Unavailable [phone] Christiane King [facility] Unavailable +[phone] TammiJoana Unavailable Elvi Sandoval PA-C Unavailable +[phone] JevonRonel [facility] Unavailable +[phone] Britany Sanders FILM COMPOSER Unavailable [phone] Milton Dawkins MILLROOM SUPERVISOR CONCRETE ANALYST Unavailable +[phone] Encounter Details Date Type Department Care Team (Late st Contact Info) Description 12/08/2017 MyC Medical Advice Initial Department Raul Cochran Social History Tobacco Use Types Packs/Day Years Used Date Smoking Tobacco: Never Smokeless Tobacco: Never Alcohol Use Standard Drinks/Week Comments Yes 0 (1 standard drink = 0.6 oz pur e alcohol) occas Comments No Sex and Gender Information Value Date Recorded Sex Assigned at Female 12/03/2022 2:48 PM CDT Legal Sex Female 10:10 AM PARTS CASTING MACHINE OPERATOR Gender Identity Female 01/03/2022 12:13 PM CDT Sexual Orientation Straight 12/03/2022 2: 48 PM CDT documented as of this encounter Plan of Treatment Not on file documented as of this encounter Visit Diagnoses Not on filedocumented in this encounter Additional Health Concerns Assessment Noted Time PHQ-9 Depression Total Score: 4 08/02/20 17 7:19 AM PARTS CASTING MACHINE OPERATOR documented as of this encounter Care Teams Generation Engineering Technologist Relationship Specialty Start Date End Date Jess Garcias PA-C [address] [place] [address] PCP - General Physician Fish House Worker 12/19/13 Jess Garcias PA-C [address] [place] [address] PCP - Assigned PCP 11/28/16 11/14/18 Lori Osorio NP [facility] [address] [place] [address] Nurse Practitioner Nurse Practitioner Psych/Mental Health 04/11/17 Jess Garcias PA-C [address] [place] [address] Assigned PCP 11/28/16 12/30/18 Kenisha Yun APRN [facility] [address] [place] [address] Assigned PCP 12/31/18 06/02/19 Jess Garcias PA-C [address] [place] [address] Assigned PCP 06/03/19 08/04/19 [place] [address] [place] [address] Assigned PCP 08/05/19 01/12/20 Jess Garcias PA-C [address] [place] [address] Assigned PCP 01/13/20 11/30/20 [place] [address] [address] Assigned Musculoskeletal Provider 07/04/20 10/10/21 Ana Cristina Dudley MD INACTIVE IN [place] SINCE 09/11/2021 Assigned PCP 12/01/20 01/17/21 Jess Garcias PA-C [address] [place] [address] Assigned PCP 01/18/21 Ronel Escoto [facility] [address] [place] [address] Pharmacist Pharmacist 08/13/22 Ronel Escoto [facility] [address] [place] [address] Assigned MTM Pharmacist 08/21/22 Sue Novoa, Miguelito [address] [place] [address] MTM Pharmacist Pharmacist 10/22/22 03/11/23 Sue Novoa, PharmD [address] [place] [address] Assigned MTM Pharmacist 10/30/22 Ronel Escoto [facility] [address] [place] [address] Assigned MTM Pharmacist 01/08/23 3 Thiago Wilks PsyD Assigned Behavioral Health Provider 12/11/22 01/07/23 Joana Cadena DO [facility] [place] [address] Assigned Behavioral Health Provider 01/08/23 01/14/23 Thiago Wilks PsyD Assigned Behavioral Health Provider 01/15/23 06/17/23 Sue Novoa, Miguleito [address] [place] [address] Assigned MTM Pharmacist 01/15/23 Sue Novoa PharmD [address] [place] [address] Assigned MTM Pharmacist 02/05/23 Christiane Candelaria, [facility] MTM [address] [place] [address] Pharmacist Pharmacist 03/11/23 03/27/23 Joana Cadena DO [address] [place] [address] Assigned Behavioral Health Provider 06/18/23 01/02/24 Elvi Sandoval PA-C [address] [place] [address] Assigned Neuroscience Provider 08/06/23 10/05/23 Ronel Escoto, [facility] [address] [place] [address] Assigned MTM Pharmacist 09/17/23 Britany Sanders, VEL [address] [place] [address]/ [address] [place] [address] Assigned Behavioral Health Provider 01/03/24 Milton Dawkins APRN CONCRETE ANALYST [address] [place] [address] Nurse Practitioner Otolaryngology 05/08/24 documented as of this encounter
--- OUTSIDE RECORDS SUMMARY | 2024-07-14 01:45 | XMS_ITS | Encounter Summary ---
Author Organization [facility] Address [address] [place] [address] Care Team Providers Care Mold Sprayer Name Role Phone Jess Garcias PA-C Primary Care Provider [phone] JoLori chavez NP Unavailable [phone] Jess Garcias-C Unavailable [phone] Jess Garcias-C Unavailable [phone] Kenisha Yun APRN PRIEST Unavailable + Jess Garcias-C Unavailable [phone] Quynh Dalton MD Unavailable [phone] Jess Garcias PA-C Unavailable [phone] Edgar Zurita MD Unavailable Ana Cristina Dudley MD Unavailable Unavailabl e Jess Garcias PA-C Unavailable Ronel Escoto [facility] Unavailable [phone] Ronel Escoto RPH Unavailable [phone] Sue Novoa PharmD Unavailable [phone] Sue Novoa PharmD Unavailable [phone] Ronel Escoto RPH Unavailable [phone] Thiago Wilks PsyD Unavailable Unavaila Joana Landis DO Unavailable Thiago Wilks PsyD Unavailable Unavaila ble Sue Novoa PharmD Unavailable [phone] Sue Novoa PharmD Unavailable [phone] FernandoMontezChristiane [facility] Unavailable +[phone] TammiJoana Unavailable Elvi Sandoval PA-C Unavailable [phone] JevonRonel [facility] Unavailable [phone] Britany Sanders MAINTENANCE GROUNDMAN Unavailable [phone] Milton Dawkins SCHOOL JANITOR PRIEST Unavailable [phone] Reason for Visit * Reason Onset Date Comments Medication Question 03/03/2017 Encounter Details Date Type Department Care Team (Late st Contact Info) Description 03/03/2017 MyC Medical Advice [facility] [id number] [place] [address] [phone] Jess Garcias PA-C [address] [place] [address] [phone] Medication Question Social History Tobacco Use Types Packs/Day Years Used Date Smoking Tobacco: Never Smokeless Tobacco: Never Alcohol Use Standard Drinks/Week Comments No 0 (1 standard drink = 0.6 oz pur e alcohol) occas Comments No Sex and Gender Information Value Date Recorded Sex Assigned at Female 12/03/2022 2:48 PM CDT Legal Sex Female 10:10 AM POULTRY FARM MANAGER Gender Identity Female 01/03/2022 12:13 PM CDT Sexual Orientation Straight 12/03/2022 2: 48 PM CDT documented as of this encounter Miscellaneous Notes * Telephone Encounter - Earlene Fairchild RN - 03/04/2017 2:05 PM CDT Images from the original note were not included. See below. JESSI Graff to Jess Garcias PA-C ?? 03/04/17 12:24 PM I'm sorry, one more question. I'm really tired by 4pm. By 5:30 I could go to bed. I'm fine after I take the medication until that time. With this subside? documented in this encounter Plan of Treatment Not on file documented as of this encounter Visit Diagnoses Not on filedocumented in this encounter Additional Health Concerns Assessment Noted Time PHQ-9 Depression Total Score: 5 01/02/20 17 7:05 AM CDT documented as of this encounter Care Teams Mold Sprayer Relationship Specialty Start Date End Date Jess Garcias PA-C [address] [place] [address] PCP - General Physician Electronic Gluer 12/19/13 Jess Garcias PA-C [address] [place] [address] PCP - Assigned PCP 11/28/16 11/14/18 Lori Osorio NP [address] [address] Nurse Practitioner Nurse Practitioner Psych/Mental Health 04/11/17 Jess Garcias PA-C [address] [place] [address] Assigned PCP 11/28/16 12/30/18 Kenisha Yun APRN CNP [address] [place] [address] Assigned PCP 12/31/18 06/02/19 Jess Garcias PA-C [address] [place] [address] Assigned PCP 06/03/19 08/04/19 [place] [address] [place] [place] [address] Assigned PCP 08/05/19 01/12/20 Jess Garcias PA-C [address] [place] [address] Assigned PCP 01/13/20 11/30/20 [place] [address] [place], [place] [address] Assigned Musculoskeletal Provider 07/04/20 10/10/21 Ana Cristina Dudley MD INACTIVE IN CT SINCE 09/11/2021 Assigned PCP 12/01/20 01/17/21 Jess Garcias PA-C [address] [place] [address] Assigned PCP 01/18/21 Ronel Escoto [facility] [address] [place] [address] Pharmacist Pharmacist 08/13/22 Ronel Escoto [facility] [address] [place] [address] Assigned MTM Pharmacist 08/21/22 Sue Novoa, JanD [address] [place] [address] MTM Pharmacist Pharmacist 10/22/22 03/11/23 Sue Novoa, PharmD [address] [place] [address] Assigned MTM Pharmacist 10/30/22 Ronel Escoto [facility] [address] [place] [address] Assigned MTM Pharmacist 01/08/23 3 Thiago Wilks PsyD Assigned Behavioral Health Provider 12/11/22 01/07/23 [place] [address] [address] [place] [address] Assigned Behavioral Health Provider 01/08/23 01/14/23 Thiago Wilks PsyD Assigned Behavioral Health Provider 01/15/23 06/17/23 Sue Novoa, JanD [address] [place] [address] Assigned MTM Pharmacist 01/15/23 Sue Novoa, JanD [address] [place] [address] Assigned MTM Pharmacist 02/05/23 4 Christiane King [facility] MTM [address] [place] [address] Pharmacist Pharmacist 03/11/23 03/27/23 [place] [address] [place] [address] Assigned Behavioral Health Provider 06/18/23 01/02/24 Elvi Sandoval PA-C [address] [address] Assigned Neuroscience Provider 08/06/23 10/05/23 Ronel Escoto, [facility] [address] [place] [address] Assigned MTM Pharmacist 09/17/23 Britany Sanders LICSW [address] [place] [address]/ [address] [place] [address] Assigned Behavioral Health Provider 01/03/24 Milton Dawkins APRN PRIEST [address] [place] [address] Nurse Practitioner Otolaryngology 05/08/24 documented as of this encounter
--- OUTSIDE RECORDS SUMMARY | 2024-07-14 01:45 | XMS_ITS | Clinical Summary ---
Author Organization [facility] Address [place], [place] [address] Care Team Providers Care Video Camera Operator Name Role Phone Pcp, No Primary Care Provider Unavailabl e Allergies Active Allergy Reactions Criticality Noted Date Comments Clindamycin Other - Describe In Comment Field 04/12/2013 Burning sensation Penicillins *Unknown - Childhood Rxn 04/12/2013 Sulfa (Sulfonamide Antibiotics) *Unknown - Childhood Rxn 04/12/2013 Medications Medication Sig Dispensed Refills Start Date End Date Status vitamin-folic acid 1 mg ( VITAMIN) tablet/capsule Take 1 tablet by mouth once daily. 0 04/12/2013 Active citalopram (CELEXA) 10 mg tablet Take 1 tablet by mouth once daily. 0 04/12/2013 Active lamiVUDine-zidovudi ne, 150-300 mg, (COMBIVIR) 150-300 mg per tablet Take 1 tablet by mouth every 12 hours. 56 tablet 0 04/12/2013 Active lopinavir-ritonavir , 200-50 mg, (KALETRA) 200-50 mg per tablet Take 2 tablets by mouth 2 times daily. 56 tablet 0 04/12/2013 Active cholecalciferol, Vitamin D3, 2,000 unit tablet Take 2 Tablets by mouth once daily. Active dextroamphetamine-a mphetamine (ADDERALL) 5 mg tablet Take 5 mg by mouth. 04/27/2021 Active dextroamphetamine-a mphetamine (ADDERALL) 5 mg tablet Take 5 mg by mouth 2 times daily. 04/27/2021 Active fluconazole (DIFLUCAN) 150 mg tablet TAKE ONE TABLET BY MOUTH NOW, REPEAT IN 3-5 DAYS IF SYMPTOMS PERSIST FOR 3 DOSES AND THEN REPEAT MONTHLY X2 03/20/2021 Active meloxicam 15 mg tablet Take 15 mg by mouth. 04/07/2020 Active vortioxetine (Trintellix) 20 mg tablet Take 1 Tablet by mouth once daily. 10/23/2021 Active omeprazole (PRILOSEC) 40 mg Delayed-Release capsuleIndications: Laryngopharyngeal reflux (LPR) TAKE 1 CAPSULE BY MOUTH ONCE DAILY BEFORE A MEAL IN THE MORNING BEFORE BREAKFAST 30 Capsule 07/29/2022 Active Immunizations Name Administration Dates Next Due Hepatitis B (Adult) 04/12/2013 Social History Tobacco Use Types Packs/Day Years Used Date Smoking Tobacco: Never Alcohol Use Standard Drinks/Week Comments No 0 (1 standard drink = 0.6 oz pur e alcohol) Estimated Date of Delivery Comme nts Yes 05/05/2013 Sex and Gender Information Value Date Recorded Sex Assigned at Not on file Gender Identity Not on file Sexual Orientation Not on file Obstetrics History Para Term AB IAB SAB Ectopic Multiple Livin g Live Births 1 Date Outcome GA Total Labor Labor/2nd/3rd Weight Sex Type Anes PTL Betty A1 A5 Name Clin Current Last Filed Vital Signs Vital Sign Reading Time Taken Comments Blood Pressure 116/60 04/12/2013 3:54 PM CDT Pulse 92 04/12/2013 3:54 PM CDT Temperature - - Respiratory Rate - - Oxygen Saturation - - Inhaled Oxygen Concentration - - Weight 87.2 kg (192 lb 3.2 oz) 04/12/2013 3:54 P M CDT Height - - Body Mass Index - - Plan of Treatment Health Maintenance Due Date Last Done Comments Tdap 11/29/1995 Depression screening for age 12+ 1996 BMI (ht and wt on same day) for age 18+ 2002 Tetanus booster 2004 Pap test for age 21-65 2005 COVID-19 vaccine series (2023- season) 2024 05/11/2021, 04/20/2021 Influenza for age 9-49 05/13/2024 RSV vaccine for adults or (1 - 1-dose 75+ series) 11/29/2059 HIV for age 15-65 Completed 04/12/2013 Hepatitis C screening for ag e 18-79 Completed 04/12/2013 Pneumococcal series for age 6-64 Aged Out No longer eligible b ased on patient's age to complete this topic Procedures Procedure Name Priority Date/Time Associated Diagnosis Comments ANTI HIV 1/2 STAT 04/12/2013 5:13 PM CDT Needle stick injury with contaminated needle ANTI HCV STAT 04/12/2013 5:13 PM CDT Needle stick injury with contaminated needle from Last 3 Months or Most Recently Relevant to Health Maintenance Results * ANTI HCV (04/12/2013 5:13 PM CDT) ANTI HCV Non-reacti ve [facility] Blood specimen (specimen) BLOOD SPECIMEN / Unknown 04/12/2013 5:13 PM CDT 04/12/2013 5:04 PM CDT Priti Kam MD SEND OUTS [facility] INTERNAL ZIP [address] [place] [address] * ANTI HIV 1/2 (04/12/2013 5:13 PM CDT) ANTI HIV 1/2 Non-reacti [facility] Blood specimen (specimen) BLOOD SPECIMEN / Unknown 04/12/2013 5:13 PM CDT 04/12/2013 5:04 PM CDT Priti Kam MD SEND OUTS [facility] INTERNAL ZIP [address] [place] [address] from Last 3 Months or Most Recently Relevant to Health Maintenance Care Teams Video Camera Operator Relationship Specialty Start Date End Date Pcp, No . PCP - General 04/12/13
--- OUTSIDE RECORDS SUMMARY | 2024-07-14 01:45 | XMS_ITS | Encounter Summary ---
Author Organization [facility] Address [address] [place] [address] Care Team Providers Care Geoscientist Name Role Phone Jess Garcias PA-C Primary Care Provider [phone] JoLori chavez NP Unavailable [phone] Jess Garcias-C Unavailable [phone] Jess Garcias-C Unavailable [phone] Kenisha Yun APRN BREEDER SERVICE TECHNICIAN Unavailable + Jess Garcias-C Unavailable [phone] Quynh Dalton MD Unavailable [phone] Jess Garcias PA-C Unavailable [phone] Edgar Zurita MD Unavailable Ana Cristina Dudley MD Unavailable Unavailabl e Jess Garcias PA-C Unavailable Ronel Escoto [facility] Unavailable [phone] Ronel Escoto RPH Unavailable [phone] Sue Novoa PharmD Unavailable [phone] Sue Novoa PharmD Unavailable [phone] Ronel Escoto RPH Unavailable [phone] Thiago Wilks PsyD Unavailable Unavaila Joana Landis DO Unavailable Thiago Wilks PsyD Unavailable Unavaila ble Sue Novoa PharmD Unavailable [phone] Sue oNvoa PharmD Unavailable [phone] Christiane King [facility] Unavailable [phone] TammiJoaan Unavailable Elvi Sandoval PAChristianoC Unavailable [phone] JevonJusticeRonel T [facility] Unavailable [phone] Britany Sanders NUCLEAR STATION OPERATOR Unavailable [phone] Milton Dawkins HOSE MAKER BREEDER SERVICE TECHNICIAN Unavailable [phone] Reason for Visit * Reason Onset Date Comments MyChart Communication 01/02/2017 Pristiq Encounter Details Date Type Department Care Team (Late st Contact Info) Description 01/02/2017 MyC Medical [facility] [address] [place] [phone] Jess Garcias PA-C [address] [place] [address] [phone] MyChart Communication (Pristiq) Social History Tobacco Use Types Packs/Day Years Used Date Smoking Tobacco: Never Smokeless Tobacco: Never Alcohol Use Standard Drinks/Week Comments No 0 (1 standard drink = 0.6 oz pur e alcohol) occas Comments No Sex and Gender Information Value Date Recorded Sex Assigned at Female 12/03/2022 2:48 PM CDT Legal Sex Female 10:10 AM SACK CLEANING HAND Gender Identity Female 01/03/2022 12:13 PM CDT Sexual Orientation Straight 12/03/2022 2: 48 PM CDT documented as of this encounter Plan of Treatment Not on file documented as of this encounter Visit Diagnoses Not on filedocumented in this encounter Additional Health Concerns Assessment Noted Time PHQ-9 Depression Total Score: 5 01/02/20 17 7:05 AM CDT documented as of this encounter Care Teams Geoscientist Relationship Specialty Start Date End Date Jess Garcias PA-C [address] [place], [place] [id number] PCP - General Physician Water Pump Installer 12/19/13 Jess Garcias PA-C [address] [place], [place] [id number] PCP - Assigned PCP 11/28/16 11/14/18 Lori Osorio, OYSTER OPENER [address] [address] Nurse Practitioner Nurse Practitioner Psych/Mental Health 04/11/17 Jess Garcias PA-C [address] [place] [address] Assigned PCP 11/28/16 12/30/18 Kenisha Yun APRN BREEDER SERVICE TECHNICIAN [address] [place] [address] Assigned PCP 12/31/18 06/02/19 Jess Garcias PA-C [address] [place] [address] Assigned PCP 06/03/19 08/04/19 [place] [address] [place] [address] Assigned PCP 08/05/19 01/12/20 Jess Garcias PA-C [address] [place] [address] Assigned PCP 01/13/20 11/30/20 [place] [address] [place] [address] Assigned Musculoskeletal Provider 07/04/20 10/10/21 Ana Cristina Dudley MD INACTIVE IN [place] SINCE 09/11/2021 Assigned PCP 12/01/20 01/17/21 Jess Garcias, PENNIE [address] [place], [place] [address] Assigned PCP 01/18/21 Ronel Escoto, [facility] [address] [place] [address] Pharmacist Pharmacist 08/13/22 Ronel Escoto, [facility] [address] [place] [address] Assigned MTM Pharmacist 08/21/22 Sue Novoa, PharmD 0 [place] [address] MTM Pharmacist Pharmacist 10/22/22 03/11/23 Sue Novoa, PharmD 0 [place] [address] Assigned MTM Pharmacist 10/30/22 Ronel Escoto, [facility] [address] [place] [address] Assigned MTM Pharmacist 01/08/23 3 Thiago Wilks PsyD Assigned Behavioral Health Provider 12/11/22 01/07/23 [place] [address] [place] [address] Assigned Behavioral Health Provider 01/08/23 01/14/23 Thiago Wilks PsyD Assigned Behavioral Health Provider 01/15/23 06/17/23 Sue Novoa, PharmD [address] [place] [address] Assigned MTM Pharmacist 01/15/23 Sue Novoa PharmD [address] [place] [address] Assigned MTM Pharmacist 02/05/23 Christiane Candelaria [facility] [address] [place] [address] Pharmacist Pharmacist 03/11/23 03/27/23 [place] [address] [place] [address] Assigned Behavioral Health Provider 06/18/23 01/02/24 Elvi Sandoval PA-C [address] [place] [address] Assigned Neuroscience Provider 08/06/23 10/05/23 Ronel Escoto [facility] [address] [place] [address] Assigned MTM Pharmacist 09/17/23 Britany Sanders, VEL [address] [place] [address]/ [address] [place] [phone] Assigned Behavioral Health Provider 01/03/24 Milton Dawkins APRN [facility] JOAN REGALADO [address] Nurse Practitioner Otolaryngology 05/08/24 documented as of this encounter
--- OUTSIDE RECORDS SUMMARY | 2024-07-14 01:45 | XMS_ITS | Encounter Summary ---
Author Organization [facility] Address [address] [place] [id number] Care Team Providers Care Cullet Crusher Name Role Phone Jess Garcias PA-C Primary Care Provider [phone] JoLori chavez NP Unavailable [phone] Jess Garcias-C Unavailable [phone] Jess Garcias-C Unavailable [phone] Kenisha Yun APRN FOOD STYLIST Unavailable + Jess Garcias-C Unavailable [phone] Quynh Dalton MD Unavailable [phone] Jess Garcias PA-C Unavailable [phone] Edgar Zurita MD Unavailable Ana Cristina Dudley MD Unavailable Unavailabl e Jess Garcias PA-C Unavailable Ronel Escoto [facility] Unavailable [phone] Ronel Escoto RPH Unavailable [phone] Sue Novoa PharmD Unavailable [phone] Sue Novoa PharmD Unavailable [phone] Ronel Escoto RPH Unavailable [phone] Thiago Wilks PsyD Unavailable Unavaila Joana Landis DO Unavailable Thiago Wilks PsyD Unavailable Unavaila ble Sue Novoa PharmD Unavailable [phone] Sue Novoa PharmD Unavailable [phone] Christiane King [facility] Unavailable [phone] TammiJoana Unavailable Elvi Sandoval PA-C Unavailable [phone] JevonRonel [facility] Unavailable [phone] Britany Sanders TRADE SHOW MANAGER Unavailable [phone] Milton Dawkins PHYSICAL BIOCHEMIST FOOD STYLIST Unavailable [phone] Reason for Visit * Reason Onset Date Comments MyChart Communication 03/22/2017 Encounter Details Date Type Department Care Team (Late st Contact Info) Description 03/22/2017 MyC Medical [facility] [id number] [place] [address] [phone] Jess Garcias PA-C [id number] [place] [address] [phone] MyChart Communication Social History Tobacco Use Types Packs/Day Years Used Date Smoking Tobacco: Never Smokeless Tobacco: Never Alcohol Use Standard Drinks/Week Comments Yes 0 (1 standard drink = 0.6 oz pur e alcohol) occas Comments No Sex and Gender Information Value Date Recorded Sex Assigned at Female 12/03/2022 2:48 PM CDT Legal Sex Female 10:10 AM FILM MAKER Gender Identity Female 01/03/2022 12:13 PM CDT Sexual Orientation Straight 12/03/2022 2: 48 PM CDT documented as of this encounter Miscellaneous Notes * Telephone Encounter - Kirstin Marley RN - 03/22/2017 3:11 PM CDT Please review Hall message below Kirstin Marley RN BS documented in this encounter Plan of Treatment Not on file documented as of this encounter Visit Diagnoses Diagnosis Anxiety Anxiety state, unspecified documented in this encounter Additional Health Concerns Assessment Noted Time PHQ-9 Depression Total Score: 2 03/11/20 17 7:16 AM CDT documented as of this encounter Care Teams Cullet Crusher Relationship Specialty Start Date End Date Jess Garcias PA-C [address] [place] [address] PCP - General Physician Finisher Tailor Apprentice 12/19/13 Jess Garcias PA-C [address] [place] [address] PCP - Assigned PCP 11/28/16 11/14/18 Lroi Osorio NP [address] [address] Nurse Practitioner Nurse Practitioner Psych/Mental Health 04/11/17 Jess Garcias PA-C [address] [place] [address] Assigned PCP 11/28/16 12/30/18 Kenisha Ynu APRN CNP [address] [place] [address] Assigned PCP 12/31/18 06/02/19 Jess Garcias PA-C [address] [place] [address] Assigned PCP 06/03/19 08/04/19 [place] [address] [place] [address] Assigned PCP 08/05/19 01/12/20 Jess Garcias PA-C [address] [place] [address] Assigned PCP 01/13/20 11/30/20 [place] [address] [place] [address] Assigned Musculoskeletal Provider 07/04/20 10/10/21 Ana Cristina Dudley MD INACTIVE IN MD SINCE 09/11/2021 Assigned PCP 12/01/20 01/17/21 Jess Garcias, PAChristianoC [address] [place] [address] Assigned PCP 01/18/21 Ronel Escoto, [facility] [email or web address] [address] Pharmacist Pharmacist 08/13/22 Ronel Escoto, [facility] [place] [address] Assigned MTM Pharmacist 08/21/22 Sue Novoa, PharmD [address] [place] [address] MTM Pharmacist Pharmacist 10/22/22 03/11/23 Sue Novoa, PharmD [address] [place] [address] Assigned MTM Pharmacist 10/30/22 Ronel Escoto, [facility] [place] [address] Assigned MTM Pharmacist 01/08/23 3 Thiago Wilks PsyD Assigned Behavioral Health Provider 12/11/22 01/07/23 [place] [address] [place] [address] Assigned Behavioral Health Provider 01/08/23 01/14/23 Thiago Wilks PsyD Assigned Behavioral Health Provider 01/15/23 06/17/23 Sue Novoa, PharmD [address] [place] [address] Assigned MTM Pharmacist 01/15/23 Sue Novoa, PharmD [address] [place] [address] Assigned MTM Pharmacist 02/05/23 4 Christiane King [facility] [address] [address] Pharmacist Pharmacist 03/11/23 03/27/23 [place] [address] [place] [address] Assigned Behavioral Health Provider 06/18/23 01/02/24 Elvi Sandoval PA-C [address] [place] [address] Assigned Neuroscience Provider 08/06/23 10/05/23 Ronel Escoto [facility] [address] [place] [address] Assigned MTM Pharmacist 09/17/23 Britany Sanders LICSW [address] [place] [address]/ [address] [place] [address] Assigned Behavioral Health Provider 01/03/24 Milton Dawkins APRN FOOD STYLIST [facility] [place] [address] Nurse Practitioner Otolaryngology 05/08/24 documented as of this encounter
--- NOTE | 2024-07-14 01:47 | CRLHL7_ITS ---
For Patients: As a result of the Century Cures Act, medical imaging exams and procedure reports are released immediately into your electronic medical record. You may view this report before your referring provider. If you have questions, please contact your health care provider. INDICATION: Headache. Trauma. TECHNIQUE: Non-contrast CT of the head is submitted. No comparisons. FINDINGS: The ventricles, sulci and gyri are of normal size, shape and contour. Midline structures are centrally located. No convincing evidence of intra- or extra-axial fluid collections. IMPRESSION: 1. No radiographic evidence of acute intracranial abnormalities. Please note that all CT scans at this facility use dose modulation, iterative reconstruction, and/or weight-based dosing when appropriate to reduce radiation dose to as low as reasonably achievable. Dictated by Porfirio De Anda MD @ 07/14/2024 2:29:31 AM (Electronically Signed)
--- NOTE | 2024-07-14 01:48 | CRLHL7_ITS ---
For Patients: As a result of the Century Cures Act, medical imaging exams and procedure reports are released immediately into your electronic medical record. You may view this report before your referring provider. If you have questions, please contact your health care provider. INDICATION: Neck pain. Trauma. TECHNIQUE: Non-contrast axial CT of the cervical spine with coronal and sagittal reconstructions. No comparisons. FINDINGS: The overall stature and alignment of the cervical spine is within normal limits. Prevertebral soft tissues, cervical airway, dens and lateral masses are within normal limits. No evidence of bony fragments narrowing the central canal or visualized neural foramina. IMPRESSION: No radiographic evidence of acute osseous injury. Please note that all CT scans at this facility use dose modulation, iterative reconstruction, and/or weight-based dosing when appropriate to reduce radiation dose to as low as reasonably achievable. Dictated by Porfirio De Anda MD @ 07/14/2024 2:30:17 AM (Electronically Signed)
[2024-07-14 01:55] LABS: Basophils Absolute Auto 0.05 K/uL (0.00-0.30); Basophils Percent Auto 0.7 % (0.0-3.0); Eosinophils Absolute Auto 0.12 K/uL (0.00-0.50); Eosinophils Percent Auto 1.8 % (0.0-7.0); Hematocrit 39.7 % (33.0-51.0); Hemoglobin* 13.4 gm/dL (12.0-16.0); Immature Granulocytes Abs Auto 0.01 K/uL (0.00-0.30); Immature Granulocytes Pct Auto 0.1 %; Lymphocytes Absolute Auto 1.48 K/uL (0.90-2.90); Lymphocytes Percent Auto 21.6 % (20-44); Mean Corpuscular HGB Conc 34 gm/dL (32-36); Mean Corpuscular Hemoglobin 30 pg (26-34); Mean Corpuscular Volume 89 fL (80-100); Monocytes Percent Auto 4.7 % (0.0-11.0); Neutrophils Absolute Auto 4.86 K/uL (1.7-7.0); Neutrophils Percent Auto 71.1 % (42.0-72.0); Platelet Count* 268 K/uL (140-440); RDW Coefficient of Variation % 11.5 % (11.5-15.5); Red Blood Count 4.48 m/uL (4.00-5.20); White Blood Count* 6.84 K/uL (4.50-11.00)
[2024-07-14 01:57] LABS: Slide Review Reflex No
[2024-07-14 02:01] VITALS: BP 100/67; PULSE 77; RESP 20; O2SAT 97
--- NOTE | 2024-07-14 02:05 | ED.GENADULT ---
HPI - General Adult General Date Seen: 07/14/24 Chief complaint: Fall/Minor Trauma Stated complaint: fall, ETOH Time Seen by Provider: 07/14/24 01:41 Source: patient, EMS and RN notes reviewed Mode of arrival: EMS Limitations: no limitations History of Present Illness HPI narrative: Patient is a 38-year-old woman who denies significant health history. She was out at a bar celebrating with some friends as she bought a new house. She says she had 4 vodka cocktails throughout the evening. Prior to arrival, she had a fall, she does not know what happened, she is not sure she tripped, lost her balance, etcetera. She fell and hit the back of her head, there was a brief loss of consciousness reported, she then woke up sat up and vomited. She has no further nausea and has not vomited again. She complains only of pain in the back of her head. She denies other injuries including neck pain. She is not anticoagulated. She denies any other substances, she did smoke a cigarette tonight although she does not generally smoke. She denies any drug use at all. No medications given in the ambulance. Related Data Previous Rx's ?Medication ?Instructions ?Recorded propranolol 10 mg tablet 10 mg PO BID PRN #60 tabs 10/29/22 Allergies Allergy/AdvReac Type Severity Reaction Status Date / Time Penicillins Allergy Verified 10/29/22 09:19 Sulfa (Sulfonamide Allergy Verified 10/29/22 09:19 Antibiotics) Review of Systems Status of ROS: Reports: 10 or more systems reviewed and unremarkable except as noted in History and below [facility] Medical History (Updated 07/14/24 @ 02:38 by Cherelle Antoine MD) Anxiety ?F41.9 - Anxiety disorder, unspecified (ICD-10) Social History Smoking Status: Never smoker Do you use any of these nicotine containing products: None Second hand tobacco smoke exposure: No How often do you have a drink containing alcohol: monthly or less How often do you have six or more drinks on one occasion: Less than monthly AUDIT-C Alcohol total score: 2 Non-prescribed substance use: denies use service: No Exam Narrative: Exam Narrative: Primary survey: Airway: Patent. Breathing: Nonlabored. Lungs clear. Circulation: Pulses intact. No external bleeding. Disability: GCS 15. Secondary survey: Vital signs reviewed In general, an alert, nontoxic woman. Head: Normocephalic, she has a palpable hematoma over the occipital scalp. No abrasion or laceration. Eyes: Pupils are equal reactive. Extraocular movements full. ENT: No facial trauma. Dentition intact. Neck: No midline cervical tenderness. No anterior neck trauma. Chest: No visible signs of chest trauma. No tenderness to palpation. Heart regular rate and rhythm. Lungs clear bilaterally. Abdomen: No visible signs of trauma. Soft, nondistended, nontender to palpation. Back: No visible signs of trauma. Nontender to palpation. Pelvis: Stable, nontender. Extremities: Atraumatic and nontender to palpation. Neurologic: Alert, conversant, moves all extremities to command. Mildly intoxicated, but speech fluent, no slurring. Skin: Warm and dry, no abrasions or lacerations. Const: Vital Signs, click to edit/add: Vital Signs - 24 hr 07/14/24 01:40 07/14/24 01:40 07/14/24 02:01 Temperature 98.0 F Pulse Rate 77 Pulse Rate [Right Pulse Oximeter] 77 Respiratory Rate 20 20 Blood Pressure 100/67 Blood Pressure [Ri ght Upper Arm] 98/61 Pulse Oximetry 98 96 97 Oxygen Delivery Me thod Room Air 07/14/24 02:13 07/14/24 02:21 Temperature Pulse Rate 82 67 Pulse Rate [Right Pulse Oximeter] Respiratory Rate 20 20 Blood Pressure 103/67 105/74 Blood Pressure [Ri ght Upper Arm] Pulse Oximetry 97 96 Oxygen Delivery Me thod Documenting provider has reviewed patient's vital signs: yes Course Course ED Course: Following initial evaluation, I have ordered a CT of the head and cervical spine. CBC, metabolic panel and blood alcohol also ordered. CT scan of the head by my review was negative. I reviewed the radiology reads of the CT head and CT cervical spine which were both read as negative. Labs are reassuring, hemoglobin is 13.4, normal white count, normal electrolytes, blood sugar 198. Her blood alcohol was elevated at 0.2. She continues to deny problems at this time aside from the lump on her head. She does have a couple of friends were going to stay with her tonight, as such I think it is reasonable to let her go home. Discussed reasons to return such as severe headache, vomiting, or other worsening. For concussive symptoms that persist beyond a few weeks, follow-up with primary care. Vital Signs Vital signs: Initial Vital Signs Temperature 98.0 F 07/14/24 01:40 Temperature Source Temporal Artery Scan 07/14/24 01:40 Pulse Rate 77 07/14/24 01:40 Pulse Rhythm Regular 07/14/24 01:40 Pulse Strength 3+ Normal 07/14/24 01:40 Respiratory Rate 20 07/14/24 01:40 Blood Pressure 98/61 07/14/24 01:40 Blood Pressure Mean 73 07/14/24 01:40 Blood Pressure Position Supine 07/14/24 01:40 Pulse Oximetry 98 07/14/24 01:40 Oxygen Delivery Method Room Air 07/14/24 01:40 Vital Signs Temperature 98.0 F 07/14/24 01:40 Pulse Rate 77 07/14/24 01:40 Respiratory Rate 20 07/14/24 01:40 Blood Pressure 98/61 07/14/24 01:40 Pulse Oximetry 98 07/14/24 01:40 Oxygen Delivery Method Room Air 07/14/24 01:40 Temperature 98.0 F 07/14/24 01:40 Pulse Rate 67 07/14/24 02:21 Respiratory Rate 20 07/14/24 02:21 Blood Pressure 105/74 07/14/24 02:21 Pulse Oximetry 96 07/14/24 02:21 Oxygen Delivery Method Room Air 07/14/24 01:40 Medical Decision Making Lab Data Labs: Lab Results 07/14/24 Range/Units 01:48 WBC 6.84 (4.50-11.00) K/uL RBC 4.48 (4.00-5.20) m/uL Hgb 13.4 (12.0-16.0) gm/dL Hct 39.7 (33.0-51.0) % MCV 89 (80-100) fL MCH 30 (26-34) pg MCHC 34 (32-36) gm/dL RDW Coeff of Xochitl 11.5 (11.5-15.5) % Plt Count 268 (140-440) K/uL Neut % (Auto) 71.1 (42.0-72.0) % Lymph % (Auto) 21.6 (20-44) % [place] % (Auto) 4.7 (0.0-11.0) % Eos % (Auto) 1.8 (0.0-7.0) % Baso % (Auto) 0.7 (0.0-3.0) % Neut # (Auto) 4.86 (1.7-7.0) K/uL Lymph # (Auto) 1.48 (0.90-2.90) K/uL [place] # (Auto) 0.30 (0.00-0.90) K/UL Eos # (Auto) 0.12 (0.00-0.50) K/uL Baso # (Auto) 0.05 (0.00-0.30) K/uL Abs Immat Gran (auto) 0.01 (0.00-0.30) K/uL Imm/Tot Granulo (auto) 0.1 % Sodium 142 (135-149) mmol/L Potassium 3.7 (3.6-5.1) mmol/L Chloride 108 (96-114) mmol/L Carbon Dioxide 24 (20-32) mmol/L Anion Gap 10 (7-15) mEq/L BUN 5 (5-24) mg/dL Creatinine 0.6 (0.5-1.5) mg/dL Estimated GFR 117 ml/min Glucose 98 (60-115) mg/dL Calcium 8.7 (8.4-10.6) mg/dL Ethyl Alcohol 0.20 H (0.01-0.03) % Imaging Data CT- Other: Attestation: I have reviewed the pertinent imaging results. Radiologist's impression: Patient: HORACIO DUNBAR Facility: [facility] Site . Site : 1985 Study: CT-Spine Cervical CODE TRAUMA-07/14/2024 2:05:43 AM Ordering Physician: Elina Villarreal Final Report: INDICATION: Neck pain. Trauma. TECHNIQUE: Non-contrast axial CT of the cervical spine with coronal and sagittal reconstructions. No comparisons. FINDINGS: The overall stature and alignment of the cervical spine is within normal limits. Prevertebral soft tissues, cervical airway, dens and lateral masses are within normal limits. No evidence of bony fragments narrowing the central canal or visualized neural foramina. IMPRESSION: No radiographic evidence of acute osseous injury. Please note that all CT scans at this facility use dose modulation, iterative reconstruction, and/or weight-based dosing when appropriate to reduce radiation dose to as low as reasonably achievable. Dictated by Porfirio De Anda MD @ 07/14/2024 2:30:[address] scan - head: Attestation: I have reviewed the pertinent imaging results. Radiologist's impression: Patient: HORACIO DUNBAR Facility: [facility] Site . Site : 1985 Study: CT-Head W/O CODE TRAUMA-07/14/2024 2:05:19 AM Ordering Physician: Elina Villarreal Final Report: INDICATION: Headache. Trauma. TECHNIQUE: Non-contrast CT of the head is submitted. No comparisons. FINDINGS: The ventricles, sulci and gyri are of normal size, shape and contour. Midline structures are centrally located. No convincing evidence of intra- or extra-axial fluid collections. IMPRESSION: 1. No radiographic evidence of acute intracranial abnormalities. Please note that all CT scans at this facility use dose modulation, iterative reconstruction, and/or weight-based dosing when appropriate to reduce radiation dose to as low as reasonably achievable. Dictated by Porfirio De Anda MD @ 07/14/2024 2:29:31 AM (Electronic Signature) Discharge Plan Discharge Clinical Impression: Concussion with loss of consciousness, Alcohol intoxication Patient Disposition: Home w/ Parent or Adult Condition: Stable Instructions: Concussion (ED) Additional Instructions: Ibuprofen and/or Tylenol, ice as needed for the bump on her head. This will improve over the next few days to couple weeks. Return for severe headache, persistent vomiting, or other new symptoms. Otherwise, see primary doctor if concussive symptoms persist beyond a few weeks. Prescriptions: No Action propranolol 10 mg tablet 10 mg PO BID PRNQty: 60 2RF Follow Up/Referrals: Provider,Not a Local [Non-Staff] - Stand Alone Forms: [facility] Info Instructions
[2024-07-14 02:08] LABS: Chloride* 108 mmol/L (96-114); Potassium* 3.7 mmol/L (3.6-5.1); Sodium* 142 mmol/L (135-149)
[2024-07-14 02:11] LABS: Anion Gap 10 mEq/L (7-15); Blood Urea Nitrogen* 5 mg/dL (5-24); Calcium* 8.7 mg/dL (8.4-10.6); Carbon Dioxide* 24 mmol/L (20-32); Creatinine* 0.6 mg/dL (0.5-1.5); Estimated Glomerular Filt Rate 117 ml/min; Glucose* 98 mg/dL (60-115)
[2024-07-14 02:13] VITALS: BP 103/67; PULSE 82; RESP 20; O2SAT 97
[2024-07-14 02:21] VITALS: BP 105/74; PULSE 67; RESP 20; O2SAT 96
[2024-07-14 02:42] VITALS: BP 108/71; PULSE 71; RESP 20; TEMP 36.7; O2SAT 96
[2024-07-14 02:44] VITALS: BP 108/71; PULSE 71; RESP 20; TEMP 36.7
== END 2024-07-14 02:44 | disposition home or self-care (01) ==
PROVIDERS: Emergency Provider Emergency Medicine; PCP Physician Assistant
DX: S06.0X0A Concussion without loss of consciousness, initial encounter (principal); F10.129 Alcohol abuse with intoxication, unspecified; W18.30XA Fall on same level, unspecified, initial encounter
CPT/HCPCS: 36415; 70450; 72125; 80048; 82077; 85025; 94761; 99283; 99284; 99291; G0390